=== PATIENT | male | born 1935 | race African-American/Black ===

== ENCOUNTER 2017-07-18 22:29 | Observation (INO) | payer MEDICARE, MEDICAID ==
[~2017-07-18 22:29] MED LIST: SODIUM CHLORIDE 0.9% FLUSH 10 ML FLUSH IV FLUSH PRN
[2017-07-18] MEDS: SODIUM CHLORIDE 0.9% FLUSH 10 ML FLUSH IV FLUSH SCH (23:16)
[2017-07-19] VITALS: BP 150/104; PULSE 54; RESP 18; TEMP 97.5; O2SAT 99
[2017-07-19 04:00] VITALS: BP 142/91; PULSE 54; RESP 18; TEMP 98.1; O2SAT 98
[2017-07-19 08:00] VITALS: BP 156/111; PULSE 59; RESP 19; TEMP 96.4; O2SAT 99
[2017-07-19] MEDS: SODIUM CHLORIDE 0.9% FLUSH 10 ML FLUSH IV FLUSH SCH ×2 (08:19→21:00)
--- NOTE | 2017-07-19 09:36 | HHI.HP ---
[facility] Service [facility] Primary Care Physician Unknown Admission Diagnosis Diagnoses: (1) Confusion Diagnosis: Principal Chief Complaint: Patient was taken to the emergency department by the senior pensions administrator because patient was found in the middle of the street of which he does not live Travel History International Travel<30 Days: No Contact w/Intl Traveler <30 Da: No Traveled to Known Affected Are: No History of Present Illness Written by Darin Contreras, acting as scribe for Dr. Mccarthy on 07/19/17 at 09 :32. 81-year-old male with possible underlying dementia per records to was taken to the emergency department in [place] by the [facility]'s department because he was found in the middle of the street where he does not live. Neighbors called the senior pensions administrator's office because he was trying to start a car in the middle of the street for over 2 hours. Patient is a poor historian, unable to obtain any pertinent information from him at this time. Mostly he is appropriate, he is orientated to person, date of , year, he is not orientated to him being in the hospital. He indicates that there is nothing wrong with him and he is ready to go. ER records indicate that there was a cell phone. The ER called some of the numbers and apparently contacted the patient's son but was estranged from the patient. He indicated that his sister notified him that the patient is mentally challenged. The son lives in [place] and indicated that he received a phone call from a psychiatric hospital a month ago and stated that the patient was in the hospital at that time. Workup was done in emergency department which did not indicate any etiology that would explain the patient's confusion, mental status. It was recommended by ER physician that the patient be evaluated by psychiatry. Review of Systems ROS Limitations: Poor Historian Except as stated in HPI: all other systems reviewed are Neg Past Family Social History Past Medical History Reviewed and patient denies any chronic medical illnesses, however patient not a good historian, possible dementia per records Past Surgical History Reviewed and patient denies any previous surgery, however patient is not a good historian Reported Medications Patient denies taking any home medications Allergies: Coded Allergies: No Known Allergies (Unverified , 07/18/17) Family History Reviewed and patient states that both his mother and father are in [place] , he does not indicate that they have any chronic medical illnesses Social History Patient denied any tobacco, alcohol or illicit drugs Physical Exam Vital Signs Vital Signs Date Time Temp Pulse Resp B/P (MAP) Pulse Ox O2 Delivery O2 Flow Rate FiO2 07/19/17 08:00 96.4 59 19 156/111 (126) 99 07/19/17 04:00 98.1 54 18 142/91 (108) 98 07/19/17 00:00 97.5 54 18 150/104 (119) 99 Physical Exam GENERAL: Well-developed, well-nourished, in no acute distress. alert and orientated to person, date of , year. He does not know that he is in the hospital. HEENT: Head is normocephalic without any lesions or masses noted. Facial features are symmetric. Eyes: Pupils equal round reactive to light. Extraocular muscles are intact. Conjunctivae were clear. Oropharyngeal: Pharynx without any erythema edema. Tongue is midline without deviation. Buccal mucosa is moist without any masses or lesions NECK: Supple without any masses. Trachea midline no deviation. No JVD, no bruits are appreciated CARDIAC: Regular rhythm, regular rate. S1/S2 are heard. No murmurs gallops or rubs. LUNGS: Clear to auscultation bilaterally. No wheeze, rhonchi or rales. No use of accessory muscles on inspiration or expiration. ABDOMEN: Soft, nontender. Nondistended. Bowel sounds heard in all 4 quadrants. No organomegaly or masses. Negative rebound, negative guarding EXTREMITIES: No edema, pulses are equal bilaterally. No cyanosis or clubbing NEUROLOGY: Mood and affect appear appropriate. Cranial nerves II through XII grossly intact. Muscle strength 5/5 in upper and lower extremities bilaterally. Deep tendon reflexes are 2+ in upper and lower extremities bilaterally. Caprini VTE Risk Assessment Caprini VTE Risk Assessment: Mod/High Risk (score >= 2) Caprini Risk Assessment Model Point Value = 1 Point Value = 2 Point Value = 3 Point Value = 5 Age 41-60 Minor surgery BMI > 25 kg/m2 Swollen legs Varicose veins or History of unexplained or recurrent spontaneous Oral contraceptives or hormone replacement Sepsis (< 1 month) Serious lung disease, including pneumonia (< 1 month) Abnormal pulmonary function Acute myocardial infarction Congestive heart failure (< 1 month) History of inflammatory bowel disease Medical patient at bed rest Age 61-74 Arthroscopic surgery Major open surgery (> 45 min) Laparoscopic surgery (> 45 min) Malignancy Confined to bed (> 72 hours) Immobilizing plaster cast Central venous access Age >= 75 History of VTE Family history of VTE Factor V Leiden Prothrombin [id number] Lupus anticoagulant Anticardiolipin antibodies Elevated serum homocysteine Heparin-induced thrombocytopenia Other congenital or acquired thrombophilia Stroke (< 1 month) Elective arthroplasty Hip, pelvis, or leg fracture Acute spinal cord injury (< 1 month) Prophylaxis Regimen Total Risk Factor Score Risk Level Prophylaxis Regimen 0-1 Low Early ambulation 2 Moderate Order ONE of the following: *Sequential Compression Device (SCD) *Heparin 5000 units SQ BID 3-4 Higher Order ONE of the following medications: *Heparin 5000 units SQ TID *Enoxaparin/Lovenox 40 mg SQ daily (WT < 150 kg, CrCl > 30 mL/min) *Enoxaparin/Lovenox 30 mg SQ daily (WT < 150 kg, CrCl > 10-29 mL/min) *Enoxaparin/Lovenox 30 mg SQ BID (WT < 150 kg, CrCl > 30 mL/min) AND/OR *Sequential Compression Device (SCD) 5 or more Highest Order ONE of the following medications: *Heparin 5000 units SQ TID (Preferred with Epidurals) *Enoxaparin/Lovenox 40 mg SQ daily (WT < 150 kg, CrCl > 30 mL/min) *Enoxaparin/Lovenox 30 mg SQ daily (WT < 150 kg, CrCl > 10-29 mL/min) *Enoxaparin/Lovenox 30 mg SQ BID (WT < 150 kg, CrCl > 30 mL/min) AND *Sequential Compression Device (SCD) Assessment and Plan Assessment and Plan Confusion, possible altered mental status/encephalopathy of unknown etiology, possible underlying dementia per records CT of the brain did not indicate any acute abnormality or possible etiology ER workup does not indicate any infectious source as an etiology Thus far no sign of any metabolic encephalopathy as etiology. Obtain ammonia level, sedimentation rate, B12, RPR Obtain EEG Psychiatry consulted, awaiting recommendations Consult case management to help with obtaining further information, discharge planning DVT prevention Sequential compression devices This note was transcribed by scribe [Darin Contreras]. I, Dr. Azael Mccarthy personally performed the history, physical exam, and medical decision making; and confirmed the accuracy of the information in the transcribed note. Authenticated by Dr. Azael Mccarthy on 07/19/17 at 11:25. Darin Contreras Jul 19, 2017 09:36 Azael Mccarthy MD Jul 19, 2017 11:25
[2017-07-19 10:01] LABS: AUTOMATED NEUTROPHIL # 3.1 TH/MM3 (1.8-7.7); BASOPHIL # 0.2 TH/MM3 (0-0.2); BASOPHIL % 3.5 % (0.0-2.0); EOSINOPHIL # 0.1 TH/MM3 (0-0.4); EOSINOPHIL % 1.3 % (0.0-4.0); HEMATOCRIT 47.5 % (39.0-51.0); HEMOGLOBIN 15.6 GM/DL (13.0-17.0); LYMPH % 26.4 % (9.0-44.0); LYMPHOCYTE # 1.3 TH/MM3 (1.0-4.8); MEAN CELL VOLUME 88.9 FL (80.0-100.0); MEAN CORPUSCULAR HEMOGLOBIN 29.2 PG (27.0-34.0); MEAN CORPUSCULAR HGB CONC 32.8 % (32.0-36.0); MEAN PLATELET VOLUME 8.6 FL (7.0-11.0); MONO % 7.4 % (0.0-8.0); MONOCYTE # 0.4 TH/MM3 (0-0.9); NEUT % 61.4 % (16.0-70.0); PLATELET COUNT 285 TH/MM3 (150-450); RED BLOOD COUNT 5.34 MIL/MM3 (4.50-5.90); WHITE BLOOD COUNT 5.1 TH/MM3 (4.0-11.0)
[2017-07-19 10:14] LABS: CHLORIDE 104 MEQ/L (98-107); SODIUM (NA) 140 MEQ/L (136-145)
[2017-07-19 10:17] LABS: CALCIUM 8.2 MG/DL (8.5-10.1)
[2017-07-19 10:18] LABS: ALBUMIN 3.2 GM/DL (3.4-5.0); BICARBONATE 28.5 MEQ/L (21.0-32.0); BLOOD UREA NITROGEN 8 MG/DL (7-18); GLUCOSE,RANDOM 89 MG/DL (74-106)
[2017-07-19 10:21] LABS: ALT (GPT) 11 U/L (12-78); AST (GOT) 12 U/L (15-37); CREATININE 0.86 MG/DL (0.60-1.30); GLOMERULAR FILTRATION RATE 104 ML/MIN (>89)
[2017-07-19 10:22] LABS: TOTAL BILIRUBIN ADULT 1.2 MG/DL (0.2-1.0); TOTAL PROTEIN 7.1 GM/DL (6.4-8.2)
[2017-07-19 10:23] LABS: ALKALINE PHOSPHATASE 74 U/L (45-117)
[2017-07-19 12:00] VITALS: BP 167/106; PULSE 53; RESP 20; TEMP 97.1; O2SAT 99
--- NOTE | 2017-07-19 12:21 | PD.PSY.CON ---
Provisional Diagnosis Admission Date Jul 18, 2017 at 22:30 Soledad I. Dementia without behavioral disturbance is History of Present Illness Service Psychiatry Consult Requested By Reason for Consult Dementia Primary Care Physician Unknown HPI The patient is a 81-year-old man, he reports to be domicile in [place], with possible underlying dementia per records to was taken to the emergency department in [place] by the [facility]'s department because he was found in the middle of the street where he does not live. Neighbors called the production support consultant's office because he was trying to start a car in the middle of the street for over 2 hours. On psychiatric evaluation today patient is calm, alert , but poorly cooperative, he is disoriented in time and place. Patient is a very poor historian, unable to provide any meaningful information to complete the psychiatric assessment. However, he says that he feels fine, he described his mood as happy, he says that he is from [place] and he is right now in a hospital in [place], but at the same time he says that he lives alone in [place]. Patient denies suicidal and homicidal ideation, he denies visual and auditory hallucinations. Denies the use of alcohol and illicit drugs. Review of Systems Except as stated in HPI: all other systems reviewed are Neg Past Family Social History Coded Allergies: No Known Allergies (Unverified , 07/18/17) Current Medications Medications (Trade) Dose Ordered Sig/Jovani Route Start Time Stop Time Status Last Admin (NS Flush) 2 ml UNSCH PRN IV FLUSH 07/18/17 19:30 (NS Flush) 2 ml BID IV FLUSH 07/18/17 21:00 07/19/17 08:19 (Haldol Inj) 2 mg Q6H PRN IM 07/19/17 00:15 Physical Exam Vital Signs Vital Signs Date Time Temp Pulse Resp B/P (MAP) Pulse Ox O2 Delivery O2 Flow Rate FiO2 07/19/17 08:00 96.4 59 19 156/111 (126) 99 I/O 07/19/17 07/19/17 07/20/17 08:00 16:00 00:00 Intake Total 120 ml Balance 120 ml Lab Results Test 07/19/17 09:55 White Blood Count 5.1 TH/MM3 Red Blood Count 5.34 MIL/MM3 Hemoglobin 15.6 GM/DL Hematocrit 47.5 % Mean Corpuscular Volume 88.9 FL Mean Corpuscular Hemoglobin 29.2 PG Mean Corpuscular Hemoglobin Concent 32.8 % Red Cell Distribution Width 15.0 % Platelet Count 285 TH/MM3 Mean Platelet Volume 8.6 FL Neutrophils (%) (Auto) 61.4 % Lymphocytes (%) (Auto) 26.4 % Monocytes (%) (Auto) 7.4 % Eosinophils (%) (Auto) 1.3 % Basophils (%) (Auto) 3.5 % Neutrophils # (Auto) 3.1 TH/MM3 Lymphocytes # (Auto) 1.3 TH/MM3 Monocytes # (Auto) 0.4 TH/MM3 Eosinophils # (Auto) 0.1 TH/MM3 Basophils # (Auto) 0.2 TH/MM3 CBC Comment DIFF FINAL Differential Comment Erythrocyte Sedimentation Rate 4 mm/hr Blood Urea Nitrogen 8 MG/DL Creatinine 0.86 MG/DL Random Glucose 89 MG/DL Total Protein 7.1 GM/DL Albumin 3.2 GM/DL Calcium Level 8.2 MG/DL Alkaline Phosphatase 74 U/L Aspartate Amino Transf (AST/SGOT) 12 U/L Alanine Aminotransferase (ALT/SGPT) 11 U/L Total Bilirubin 1.2 MG/DL Sodium Level 140 MEQ/L Potassium Level 3.4 MEQ/L Chloride Level 104 MEQ/L Carbon Dioxide Level 28.5 MEQ/L Anion Gap 8 MEQ/L Estimat Glomerular Filtration Rate 104 ML/MIN Ammonia 11 MCMOL/L Mental Status Examination Appearance: Appropriate Consciousness: Alert Orientation: Person Motor Activity: Normal gait Speech: Unremarkable Language: Adequate Fund of Knowledge: Adequate Attention and Concentration: Adequate Memory: Impaired Mood: Appropriate Affect: Appropriate Thought Process & Associations: Intact Thought Content: Appropriate Hallucination Type: None Delusion Type: None Suicidal Ideation: No Suicidal Plan: No Suicidal Intention: No Homicidal Ideation: No Homicidal Plan: No Homicidal Intention: No Insight: Poor Judgment: Poor Assessment & Plan Problem List: (1) Dementia associated with alcoholism without behavioral disturbance ICD Codes: F10.97 - Alcohol use, unspecified with alcohol-induced persisting dementia Assessment & Plan: On psychiatric evaluation today the patient presents with severe memory deficits, minimally engageable in a conversation, which seems to be part of an underlying dementia. However, the patient does not present any neuropsychiatric symptoms at this moment, such as depression, anxiety, joey, psychosis, agitation or aggressive behavior that require an immediate psychiatric intervention. Patient denies suicidal and homicidal ideation, patient denies visual and auditory hallucinations. Patient has an increased potential for delirium and as a consequence behavioral dysregulation, in this case agree with Haldol 2 mg IM every 8 hours when necessary. He also might benefit of Aricept 5 mg and Namenda 5 mg to slower progression of dementia. He does not meet criteria for psychiatric admission at this moment. Assessment & Plan Estimated LOS: days Wilson Ontiveros MD Jul 19, 2017 12:21
[2017-07-19 14:05] LABS: FOLATE 5.7 NG/ML (3.1-17.5)
[2017-07-19] MEDS ORDERED: cloNIDine HCL 0.1 MG TAB PO PRN (15:15)
[2017-07-19 16:00] VITALS: BP 151/99; PULSE 56; RESP 18; TEMP 97.2; O2SAT 97
[2017-07-19 20:00] VITALS: BP 123/93; PULSE 66; RESP 20; TEMP 97.6; O2SAT 98
--- NOTE | 2017-07-19 21:21 | MG ---
cc: JEN MAGAÑA M.D. Lab No: Date: 07/19/17 Age: 81 Sex: M Race: REQUESTING PHYSICIAN CHASITY Contreras HISTORY An EEG was obtained on this 81-year-old patient being evaluated for dementia. DESCRIPTION The patient is awake and asleep and the EEG shows 10-12 per second low and some mid amplitude alpha rhythms in the central and posterior head regions. There are low amplitude beta rhythms centrally and frontally. The patient drowses and intermixed theta activity is noted. Photic stimulation shows some bilateral driving response. INTERPRETATION Normal awake and drowsy EEG. Jen Magaña MD OFC/EO /6:47 PM /9:14 PM
[2017-07-20] VITALS (7 sets, daily range): BP systolic 121–136; BP diastolic 74–100; PULSE 56–81; RESP 16–20; TEMP 96.8–98.1; O2SAT 97–100
[2017-07-20 06:17] LABS: AUTOMATED NEUTROPHIL # 3.9 TH/MM3 (1.8-7.7); BASOPHIL % 0.5 % (0.0-2.0); EOSINOPHIL # 0.1 TH/MM3 (0-0.4); EOSINOPHIL % 1.6 % (0.0-4.0); HEMATOCRIT 46.5 % (39.0-51.0); HEMOGLOBIN 15.1 GM/DL (13.0-17.0); LYMPH % 26.4 % (9.0-44.0); LYMPHOCYTE # 1.6 TH/MM3 (1.0-4.8); MEAN CELL VOLUME 88.7 FL (80.0-100.0); MEAN CORPUSCULAR HEMOGLOBIN 28.8 PG (27.0-34.0); MEAN CORPUSCULAR HGB CONC 32.4 % (32.0-36.0); MONO % 7.7 % (0.0-8.0); MONOCYTE # 0.5 TH/MM3 (0-0.9); NEUT % 63.8 % (16.0-70.0); PLATELET COUNT 281 TH/MM3 (150-450); RED BLOOD COUNT 5.24 MIL/MM3 (4.50-5.90); RED CELL DISTRIBUTION WIDTH 14.5 % (11.6-17.2); WHITE BLOOD COUNT 6.1 TH/MM3 (4.0-11.0)
[2017-07-20 06:46] LABS: CHLORIDE 106 MEQ/L (98-107); SODIUM (NA) 142 MEQ/L (136-145)
[2017-07-20 06:50] LABS: CALCIUM 7.9 MG/DL (8.5-10.1)
[2017-07-20 06:51] LABS: ALBUMIN 2.9 GM/DL (3.4-5.0); BICARBONATE 27.4 MEQ/L (21.0-32.0); BLOOD UREA NITROGEN 13 MG/DL (7-18); GLUCOSE,RANDOM 101 MG/DL (74-106)
[2017-07-20 06:54] LABS: ALT (GPT) 12 U/L (12-78); AST (GOT) 7 U/L (15-37); CREATININE 0.94 MG/DL (0.60-1.30); GLOMERULAR FILTRATION RATE 94 ML/MIN (>89)
[2017-07-20 06:56] LABS: TOTAL BILIRUBIN ADULT 0.6 MG/DL (0.2-1.0); TOTAL PROTEIN 6.6 GM/DL (6.4-8.2)
[2017-07-20 06:57] LABS: ALKALINE PHOSPHATASE 71 U/L (45-117)
[2017-07-20] MEDS: SODIUM CHLORIDE 0.9% FLUSH 10 ML FLUSH IV FLUSH SCH ×2 (09:05→21:08)
--- NOTE | 2017-07-20 14:10 | HHI.PR ---
Subjective Remarks Confusion is stable. Psychiatry has evaluated the patient and determine patient has severe dementia. No underlying psychiatric conditions could be identified. EEG shows no evidence of seizure disorder. Objective Vital Signs Date Time Temp Pulse Resp B/P (MAP) Pulse Ox O2 Delivery O2 Flow Rate FiO2 07/20/17 12:00 97.9 59 20 123/95 (104) 100 07/20/17 08:00 96.8 64 20 129/87 (101) 99 07/20/17 07:52 96.8 64 20 129/87 (101) 99 07/20/17 00:00 97.3 70 20 121/86 (98) 97 07/19/17 20:00 97.6 66 20 123/93 (103) 98 07/19/17 16:00 97.2 56 18 151/99 (116) 97 I/O 07/19/17 07/19/17 07/19/17 07/20/17 07/20/17 07/20/17 06:59 14:59 22:59 06:59 14:59 22:59 Intake Total 120 ml 600 ml 240 ml Balance 120 ml 600 ml 240 ml Intake Oral 120 ml 600 ml 240 ml # Voids 1 5 3 # Bowel Movements 0 0 Result Diagram: 07/20/1744607/20/17446 Objective Remarks GENERAL: NAD, A&Ox2 HEAD: Normocephalic. NECK: Supple, trachea midline. No lymphadenopathy. EYES: No scleral icterus. No injection or drainage. CARDIOVASCULAR: Regular rate and rhythm without murmurs, gallops, or rubs. RESPIRATORY: Breath sounds equal bilaterally. No accessory muscle use. GASTROINTESTINAL: Abdomen soft, non-tender, nondistended. MUSCULOSKELETAL: No cyanosis, or edema. SKIN: Warm and dry. NEURO: No focal neurological deficitis. A/P Problem List: (1) Dementia associated with alcoholism without behavioral disturbance ICD Code: F10.97 - Alcohol use, unspecified with alcohol-induced persisting dementia (2) Confusion ICD Code: R41.0 - Disorientation, unspecified Assessment and Plan Assessment and plan 81-year-old male with dementia admitted for acute delirium Acute delirium Resolved Dementia Patient has a deficit of care as an outpatient He would benefit more from inpatient care He does not appear stable enough to care for himself Working on placement DVT prophylaxis Patient ambulatory Azael Mccarthy MD Jul 20, 2017 14:10
[2017-07-21 04:00] VITALS: BP 124/85; PULSE 57; RESP 20; TEMP 96.3; O2SAT 96
[2017-07-21 08:00] VITALS: BP 144/99; PULSE 51; TEMP 97.7
[2017-07-21] MEDS: SODIUM CHLORIDE 0.9% FLUSH 10 ML FLUSH IV FLUSH SCH ×2 (09:00→20:25)
[2017-07-21] MEDS: LACTULOSE SYRUP 20 GM/30 ML CUP PO SCH (11:30)
[2017-07-21 12:00] VITALS: BP 129/65; PULSE 49; RESP 18; TEMP 96.9; O2SAT 100
--- NOTE | 2017-07-21 12:27 | HHI.PR ---
Subjective Remarks Patient in bed looks comfortable he's in a bad mood, he is only oriented to his name, ammonia level is 47 today we'll start lactulose Otherwise no acute event Objective Vitals Vital Signs Date Time Temp Pulse Resp B/P (MAP) Pulse Ox O2 Delivery O2 Flow Rate FiO2 07/21/17 08:00 97.7 51 144/99 (114) 07/21/17 04:00 96.3 57 20 124/85 (98) 96 07/20/17 23:56 97.6 81 20 129/74 (92) 100 07/20/17 20:00 97.8 56 20 136/83 (100) 100 07/20/17 16:00 98.1 70 16 130/100 (110) 97 I/O 07/20/17 07/20/17 07/20/17 07/21/17 07/21/17 07/21/17 07:00 15:00 23:00 07:00 15:00 23:00 Intake Total 240 ml 350 ml Balance 240 ml 350 ml Intake Oral 240 ml 350 ml # Voids 3 2 # Bowel Movements 0 Result Diagram: 07/20/177 07/20/17 044 Objective Remarks GENERAL: NAD, A&Ox2 HEAD: Normocephalic. NECK: Supple, trachea midline. No lymphadenopathy. EYES: No scleral icterus. No injection or drainage. CARDIOVASCULAR: Regular rate and rhythm without murmurs, gallops, or rubs. RESPIRATORY: Breath sounds equal bilaterally. No accessory muscle use. GASTROINTESTINAL: Abdomen soft, non-tender, nondistended. MUSCULOSKELETAL: No cyanosis, or edema. SKIN: Warm and dry. NEURO: No focal neurological deficitis. A/P Problem List: (1) Confusion ICD Code: R41.0 - Disorientation, unspecified Assessment and Plan 81-year-old male with dementia admitted for acute delirium Acute delirium > resolved\ metabolic encephalopathy hyperammonemia> start lactulose Dementia Patient lives alone he become dysfunctional in this dementia\ Will need intermediate placement DVT prophylaxis Patient ambulatory Carlos Gregory MD Jul 21, 2017 12:27
[2017-07-21 20:00] VITALS: BP 165/84; PULSE 50; RESP 18; TEMP 96.7; O2SAT 98
[2017-07-22 08:21] VITALS: BP 157/86; PULSE 55; RESP 16; TEMP 96.7; O2SAT 98
[2017-07-22] MEDS: SODIUM CHLORIDE 0.9% FLUSH 10 ML FLUSH IV FLUSH SCH ×2 (08:37→21:00)
[2017-07-22] MEDS: LACTULOSE SYRUP 20 GM/30 ML CUP PO SCH (08:37)
[2017-07-22 13:14] VITALS: BP 142/90; PULSE 62; RESP 15; TEMP 98.2; O2SAT 98
--- NOTE | 2017-07-22 16:27 | HHI.PR ---
Subjective Remarks pt ignored me completely , in bad mood , he is about to start eating his dinner Objective Vitals Vital Signs Date Time Temp Pulse Resp B/P (MAP) Pulse Ox O2 Delivery O2 Flow Rate FiO2 07/22/17 13:14 98.2 62 15 142/90 (107) 98 07/22/17 08:21 96.7 55 16 157/86 (109) 98 07/21/17 20:00 96.7 50 18 165/84 (111) 98 I/O 07/21/17 07/21/17 07/21/17 07/22/17 07/22/17 07/22/17 07:00 15:00 23:00 07:00 15:00 23:00 Intake Total 240 ml 0 ml 220 ml Balance 240 ml 0 ml 220 ml Intake Oral 240 ml 0 ml 220 ml # Voids 3 1 Result Diagram: 07/20/17 0447 07/20/17 0447 Objective Remarks ignored me , did not allow me to examine A/P Problem List: (1) Confusion ICD Code: R41.0 - Disorientation, unspecified Assessment and Plan 81-year-old male with dementia admitted for acute delirium Acute delirium > resolved\ metabolic encephalopathy hyperammonemia> start lactulose Dementia Patient lives alone he become dysfunctional in this dementia\ Will need fdc placement DVT prophylaxis Patient ambulatory Discharge Planning need placement , [facility] working on finding resposibility green party for him d/e Carlos Barnett CM, MD Jul 22, 2017 16:27
[2017-07-22 16:45] VITALS: BP 130/83; PULSE 57; RESP 15; TEMP 97; O2SAT 98
[2017-07-22 20:00] VITALS: BP 127/84; PULSE 52; RESP 16; TEMP 97.8; O2SAT 93
[2017-07-23] MEDS: LACTULOSE SYRUP 20 GM/30 ML CUP PO SCH (08:06)
[2017-07-23] MEDS: SODIUM CHLORIDE 0.9% FLUSH 10 ML FLUSH IV FLUSH SCH ×2 (08:07→19:40)
[2017-07-23 09:01] VITALS: BP 121/72; PULSE 57; RESP 18; TEMP 97.5; O2SAT 96
[2017-07-23 12:37] VITALS: BP 139/82; PULSE 51; RESP 16; TEMP 96.4; O2SAT 99
[2017-07-23 16:40] VITALS: BP 134/74; PULSE 57; RESP 18; TEMP 97.6; O2SAT 96
--- NOTE | 2017-07-23 17:23 | HHI.PR ---
Subjective Remarks No acute issue awaiting placement Objective Vitals Vital Signs Date Time Temp Pulse Resp B/P (MAP) Pulse Ox O2 Delivery O2 Flow Rate FiO2 07/23/17 16:40 97.6 57 18 134/74 (94) 96 07/23/17 12:37 96.4 51 16 139/82 (101) 99 07/23/17 09:01 97.5 57 18 121/72 (88) 96 07/23/17 04:00 07/22/17 20:00 97.8 52 16 127/84 (98) 93 I/O 07/22/17 07/22/17 07/22/17 07/23/17 07/23/17 07/23/17 07:00 15:00 23:00 07:00 15:00 23:00 Intake Total 220 ml 1040 ml 100 ml 1000 ml Balance 220 ml 1040 ml 100 ml 1000 ml Intake Oral 220 ml 1040 ml 100 ml 1000 ml # Voids 1 3 3 # Bowel Movements 1 Result Diagram: 07/20/17 0447 07/20/17 0447 Objective Remarks ignored me , did not allow me to examine A/P Problem List: (1) Confusion ICD Code: R41.0 - Disorientation, unspecified Assessment and Plan 07/23: No acute issue awaiting placement 81-year-old male with dementia admitted for acute delirium Acute delirium > resolved\ metabolic encephalopathy hyperammonemia> start lactulose Dementia Patient lives alone he become dysfunctional in this dementia\ Will need director cardiovascular placement DVT prophylaxis Patient ambulatory Discharge Planning need placement , SULMA working on finding resposibility republican for him d/e Carlos Barnett CM, MD Jul 23, 2017 17:22
[2017-07-23 20:00] VITALS: BP 113/72; PULSE 60; RESP 16; TEMP 97.8; O2SAT 97
[2017-07-24] VITALS: BP 139/80; PULSE 51; RESP 16; TEMP 97.8; O2SAT 99
[2017-07-24 08:00] VITALS: BP 144/91; PULSE 52; RESP 18; TEMP 97.4; O2SAT 98
[2017-07-24] MEDS: SODIUM CHLORIDE 0.9% FLUSH 10 ML FLUSH IV FLUSH SCH ×2 (09:00→21:14)
[2017-07-24] MEDS: LACTULOSE SYRUP 20 GM/30 ML CUP PO SCH ×2 (09:00→09:25)
[2017-07-24 12:00] VITALS: BP 125/81; PULSE 54; RESP 16; TEMP 96.2; O2SAT 97
--- NOTE | 2017-07-24 13:49 | HHI.PR ---
Subjective Remarks AWAITING placement Objective Vitals Vital Signs Date Time Temp Pulse Resp B/P (MAP) Pulse Ox O2 Delivery O2 Flow Rate FiO2 07/24/17 12:00 96.2 54 16 125/81 (96) 97 07/24/17 08:00 97.4 52 18 144/91 (108) 98 07/24/17 00:00 97.8 51 16 139/80 (99) 99 07/23/17 20:00 97.8 60 16 113/72 (86) 97 07/23/17 16:40 97.6 57 18 134/74 (94) 96 I/O 07/23/17 07/23/17 07/23/17 07/24/17 07/24/17 07/24/17 07:00 15:00 23:00 07:00 15:00 23:00 Intake Total 100 ml 1000 ml 200 ml Balance 100 ml 1000 ml 200 ml Intake Oral 100 ml 1000 ml 200 ml # Voids 3 1 # Bowel Movements 1 Result Diagram: 07/20/17 0447 07/20/17 0447 Objective Remarks sitting on the edge of the bed A/P Problem List: (1) Confusion ICD Code: R41.0 - Disorientation, unspecified Assessment and Plan 81-year-old male with dementia admitted for acute delirium Acute delirium > resolved\ metabolic encephalopathy hyperammonemia> start lactulose Dementia Patient lives alone he become dysfunctional in this dementia\ Will need termite exterminator placement DVT prophylaxis Patient ambulatory Discharge Planning need placement , SULMA working on finding resposibility constitution party for him d/e Carlos Barnett CM, MD Jul 24, 2017 13:49
[2017-07-24 20:00] VITALS: BP 125/72; PULSE 59; RESP 18; TEMP 98.4; O2SAT 98
[2017-07-25 08:00] VITALS: BP 143/80; PULSE 54; RESP 18; TEMP 96.7; O2SAT 98
--- NOTE | 2017-07-25 11:55 | HHI.PR ---
Subjective Remarks Patient is a 81-year-old gentleman who was found wandering in the street and brought to the hospital by 911 services have been unable to find his family and been unable to place this patient without family. He is calm and without complaints Objective Vitals Vital Signs Date Time Temp Pulse Resp B/P (MAP) Pulse Ox O2 Delivery O2 Flow Rate FiO2 07/25/17 08:00 96.7 54 18 143/80 (101) 98 07/24/17 20:00 98.4 59 18 125/72 (89) 98 07/24/17 12:00 96.2 54 16 125/81 (96) 97 I/O 07/24/17 07/24/17 07/24/17 07/25/17 07/25/17 07/25/17 06:59 14:59 22:59 06:59 14:59 22:59 Intake Total 200 ml 600 ml 240 ml Balance 200 ml 600 ml 240 ml Intake Oral 200 ml 600 ml 240 ml # Voids 1 3 # Bowel Movements 1 Objective Remarks GENERAL: This is a well-nourished, well-developed patient, in no apparent distress. CARDIOVASCULAR: Regular rate and rhythm without murmurs, gallops, or rubs. RESPIRATORY: Clear to auscultation. Breath sounds equal bilaterally. No wheezes , rales, or rhonchi. GASTROINTESTINAL: Abdomen soft, non-tender, nondistended. Normal active bowel sounds MUSCULOSKELETAL: Extremities without clubbing, cyanosis, or edema. NEURO: Calm, poorly interactive A/P Problem List: (1) Dementia associated with alcoholism without behavioral disturbance ICD Code: F10.97 - Alcohol use, unspecified with alcohol-induced persisting dementia Plan: We'll continue to search for family for assistance in discharge planning. For now we'll continue to follow patient's blood pressure. We'll recheck his ammonia level as patient has been refusing his lactulose but last ammonia was very normal. Continue safety and fall precautions Skyla Conroy MD Jul 25, 2017 11:55
[2017-07-25 12:00] VITALS: BP 126/72; PULSE 62; RESP 18; TEMP 97.6; O2SAT 96
[2017-07-25 12:43] LABS: BICARBONATE 28.8 MEQ/L (21.0-32.0); CALCIUM 8.4 MG/DL (8.5-10.1)
[2017-07-25 12:46] LABS: CREATININE 0.91 MG/DL (0.60-1.30)
[2017-07-25 16:00] VITALS: BP 138/82; PULSE 60; RESP 18; TEMP 97.6; O2SAT 98
[2017-07-26 08:00] VITALS: BP 132/78; PULSE 52; RESP 18; TEMP 97; O2SAT 98
[2017-07-26 12:00] VITALS: BP 124/83; PULSE 54; RESP 18; TEMP 97.6; O2SAT 98
--- NOTE | 2017-07-26 13:25 | HHI.PR ---
Subjective Remarks Follow up for placement. Patient eating lunch when I enter the room. Objective Vitals Vital Signs Date Time Temp Pulse Resp B/P (MAP) Pulse Ox O2 Delivery O2 Flow Rate FiO2 07/26/17 12:00 97.6 54 18 124/83 (97) 98 07/26/17 08:00 97.0 52 18 132/78 (96) 98 07/25/17 16:00 97.6 60 18 138/82 (100) 98 I/O 07/25/17 07/25/17 07/25/17 07/26/17 07/26/17 07/26/17 07:00 15:00 23:00 07:00 15:00 23:00 Intake Total 240 ml 600 ml Balance 240 ml 600 ml Intake Oral 240 ml 600 ml # Voids 3 3 2 # Bowel Movements 1 Result Diagram: 07/25/17 1205 Objective Remarks GENERAL: Patient in no apparent distress eating lunch. CARDIOVASCULAR: Regular rate and rhythm. RESPIRATORY: No accessory muscle use. RR normal. NEUROLOGICAL: Awake and alert. When I ask the patient if I can listen to his heart and lungs he asks "what?" and when I ask again in a louder tone he again asks "what?". Possible confusion rather than AMBLER. PSYCHIATRIC: Calm behavior. Urinary Catheter: No Vascular Central Line Catheter: No A/P Problem List: (1) Dementia associated with alcoholism without behavioral disturbance ICD Code: F10.97 - Alcohol use, unspecified with alcohol-induced persisting dementia Assessment and Plan Dementia associated with alcoholism without behavioral disturbance -Head CT and EEG performed due to confusion and were normal -Continue safety and fall precautions -Haldol 2 mg IM q8h prn for agitation -CM following Hyperammonemia: 47-->30 (07/25) s/p lactulose which patient began to refuse. -Monitor clinically. If mental status worsens, will repeat level. Follow patient's blood pressure which is currently well controlled. Discharge Planning 07/26/17: Per SUL[facility], a possible son was found in [place]. CM attempted to call this individual but no answer, and no voicemail picked up. Any Alonso Jul 26, 2017 13:25
[2017-07-26 20:00] VITALS: BP 103/78; PULSE 67; RESP 22; TEMP 98.1; O2SAT 98
[2017-07-27 07:50] VITALS: BP 135/87; PULSE 54; RESP 20; TEMP 97.6
--- NOTE | 2017-07-27 11:40 | HHI.PR ---
Subjective Remarks Follow-up for placement issue. When I asked the patient if he is feeling okay he responds "I'm breathing". He mutters "They brought me here". Objective Vitals Vital Signs Date Time Temp Pulse Resp B/P (MAP) Pulse Ox O2 Delivery O2 Flow Rate FiO2 07/27/17 07:50 97.6 54 20 135/87 (103) 07/26/17 20:00 98.1 67 22 103/78 (86) 98 07/26/17 12:00 97.6 54 18 124/83 (97) 98 I/O 07/26/17 07/26/17 07/26/17 07/27/17 07/27/17 07/27/17 07:00 15:00 23:00 07:00 15:00 23:00 Intake Total 0 ml 60 ml Output Total 0 ml Balance 0 ml 60 ml Intake Oral 0 ml 60 ml Output Urine Total 0 ml # Voids 2 2 0 3 # Bowel Movements 0 1 Result Diagram: 07/25/17 1205 Objective Remarks GENERAL: Patient in no apparent distress lying supine in bed, dressed with sneakers on. CARDIOVASCULAR: Regular rate and rhythm. RESPIRATORY: No accessory muscle use. CTAB, although patient does not take deep breaths. GASTROINTESTINAL: Abdomen soft, non-tender, non-distended. NEUROLOGICAL: Awake and alert, but disoriented. He does not know where he is nor the month, year, or president. Normal speech. PSYCHIATRIC: Disgruntled mood and affect. Urinary Catheter: No Vascular Central Line Catheter: No A/P Problem List: (1) Dementia associated with alcoholism without behavioral disturbance ICD Code: F10.97 - Alcohol use, unspecified with alcohol-induced persisting dementia Assessment and Plan Dementia associated with alcoholism without behavioral disturbance -Head CT and EEG performed due to confusion and were normal -Continue safety and fall precautions -Haldol 2 mg IM q8h prn for agitation -CM following Hyperammonemia: 47-->30 (07/25) s/p lactulose which patient began to refuse. -Monitor clinically. If mental status worsens, will repeat level. Follow patient's blood pressure which is currently well controlled. Discharge Planning 07/26/17: Per CM, [place] CM attempted to call this individual but no answer, and no voicemail picked up. Any Alonso Jul 27, 2017 11:40
[2017-07-27 12:00] VITALS: BP 134/106; PULSE 63; RESP 16; TEMP 98.2; O2SAT 100
[2017-07-27 16:00] VITALS: BP 121/87; PULSE 55; RESP 14; TEMP 95.5; O2SAT 93
[2017-07-27 20:00] VITALS: BP 134/86; PULSE 58; RESP 20; TEMP 97.4; O2SAT 96
[2017-07-28 08:00] VITALS: BP 149/88; PULSE 57; RESP 18; TEMP 97; O2SAT 99
--- NOTE | 2017-07-28 08:40 | HHI.PR ---
Subjective Remarks Follow-up for placement. When I asked the patient where he is, he responded "I told them to get me a cab". Objective Vitals Vital Signs Date Time Temp Pulse Resp B/P (MAP) Pulse Ox O2 Delivery O2 Flow Rate FiO2 07/28/17 08:00 97.0 57 18 149/88 (108) 99 07/27/17 20:00 97.4 58 20 134/86 (102) 96 07/27/17 16:00 95.5 55 14 121/87 (98) 93 07/27/17 12:00 98.2 63 16 134/106 (115) 100 I/O 07/27/17 07/27/17 07/27/17 07/28/17 07/28/17 07/28/17 07:00 15:00 23:00 07:00 15:00 23:00 Intake Total 60 ml 340 ml 282 ml 60 ml Balance 60 ml 340 ml 282 ml 60 ml Intake Oral 60 ml 340 ml 282 ml 60 ml # Voids 3 1 2 # Bowel Movements 1 0 0 Result Diagram: 07/25/17 1205 Objective Remarks GENERAL: Patient in no apparent distress sitting on side of bed. CARDIOVASCULAR: Regular rate and rhythm. RESPIRATORY: No accessory muscle use. CTAB, but does not take deep breaths. NEUROLOGICAL: Awake and alert. Normal speech. Does not answer me when I ask him the month. PSYCHIATRIC: Mildly frustrated mood. Poorly interactive. Urinary Catheter: No Vascular Central Line Catheter: No A/P Problem List: (1) Dementia associated with alcoholism without behavioral disturbance ICD Code: F10.97 - Alcohol use, unspecified with alcohol-induced persisting dementia Assessment and Plan Dementia associated with alcoholism without behavioral disturbance -Head CT and EEG performed due to confusion and were normal -Continue safety and fall precautions -Haldol 2 mg IM q8h prn for agitation -CM following Hyperammonemia: 47-->30 (07/25) s/p lactulose which patient began to refuse. -Monitor clinically. If mental status worsens, will repeat level. Follow patient's blood pressure. 07/28: BP elevated at 149/88. Will continue to monitor. Clonidine prn SBP and/ or DBP >/= 160/90. Discharge Planning 07/26/17: Per CM, a possible son was found in [place], [place]. CM attempted to call this individual but no answer, and no voicemail picked up. 07/27/17: Due to inability to find anyone to assist with decision making, requested [facility] to evaluate for guardianship. Application completed and faxed to Rosemary Prater at [facility]. 07/28/17: CM again attempted to call son but it went to voicemail. Any Alonso Jul 28, 2017 08:40
[2017-07-28 12:00] VITALS: BP 140/86; PULSE 55; RESP 18; TEMP 97.5; O2SAT 98
[2017-07-28 16:00] VITALS: BP 142/80; PULSE 54; RESP 20; TEMP 97.2; O2SAT 97
[2017-07-28 20:31] VITALS: BP 133/88; PULSE 54; RESP 16; TEMP 98; O2SAT 97
[2017-07-29 00:34] VITALS: BP 145/84; PULSE 50; RESP 18; TEMP 97.6; O2SAT 96
[2017-07-29 08:00] VITALS: BP 143/90; PULSE 55; RESP 16; TEMP 96.2; O2SAT 95
[2017-07-29 12:00] VITALS: BP 119/77; PULSE 52; RESP 14; TEMP 96.5; O2SAT 99
--- NOTE | 2017-07-29 12:13 | HHI.PR ---
Subjective Remarks Follow-up for placement. Objective Vitals Vital Signs Date Time Temp Pulse Resp B/P (MAP) Pulse Ox O2 Delivery O2 Flow Rate FiO2 07/29/17 08:00 96.2 55 16 143/90 (107) 95 07/29/17 04:39 07/29/17 00:34 97.6 50 18 145/84 (104) 96 07/28/17 20:31 98.0 54 16 133/88 (103) 97 07/28/17 16:00 97.2 54 20 142/80 (100) 97 I/O 07/28/17 07/28/17 07/28/17 07/29/17 07/29/17 07/29/17 07:00 15:00 23:00 07:00 15:00 23:00 Intake Total 60 ml 850 ml 118 ml Balance 60 ml 850 ml 118 ml Intake Oral 60 ml 850 ml 118 ml # Voids 2 3 3 1 # Bowel Movements 0 0 Result Diagram: 07/25/17 1205 Objective Remarks GENERAL: Patient in no apparent distress sitting on side of bed. CARDIOVASCULAR: Regular rate and rhythm. RESPIRATORY: No accessory muscle use. CTAB, but auscultation limited as patient does not take deep breaths. NEUROLOGICAL: Awake and alert. Normal speech. PSYCHIATRIC: Frustrated mood. Poorly interactive. Urinary Catheter: No Vascular Central Line Catheter: No A/P Problem List: (1) Dementia associated with alcoholism without behavioral disturbance ICD Code: F10.97 - Alcohol use, unspecified with alcohol-induced persisting dementia Assessment and Plan Dementia associated with alcoholism without behavioral disturbance -Head CT and EEG performed due to confusion and were normal -Continue safety and fall precautions -Haldol 2 mg IM q8h prn for agitation -CM following Hyperammonemia: 47-->30 (07/25) s/p lactulose which patient began to refuse. -Monitor clinically. If mental status worsens, will repeat level. HTN: Intermittent 07/29: BP mildly elevated this morning. Will continue to monitor. Clonidine prn SBP and/or DBP >/= 160/90. Discharge Planning 07/26/17: Per CM, [place] attempted to call this individual but no answer, and no voicemail picked up. 07/27/17: Due to inability to find anyone to assist with decision making, requested [facility] to evaluate for guardianship. Application completed and faxed to Rosemary Prater at [facility]. 07/28/17: CM again attempted to call son but it went to voicemail. Any Alonso Jul 29, 2017 12:13
[2017-07-29 16:00] VITALS: BP 136/89; PULSE 52; RESP 14; TEMP 96.8; O2SAT 97
[2017-07-29 20:49] VITALS: BP 143/85; PULSE 60; RESP 20; TEMP 98.8; O2SAT 97
[2017-07-30 01:20] VITALS: BP 129/77; PULSE 65; RESP 18; TEMP 97.9; O2SAT 99
[2017-07-30 04:03] VITALS: BP 140/72; PULSE 71; RESP 16; TEMP 97.4; O2SAT 97
[2017-07-30 08:00] VITALS: BP 144/91; PULSE 58; RESP 18; TEMP 97.1; O2SAT 97
--- NOTE | 2017-07-30 08:45 | HHI.PR ---
Subjective Remarks Follow up for placement issue. When I ask the patient if he is ok, he states "I' m breathing". He grumbles stating that he was supposed to get a cab to get a haircut and shave. Objective Vitals Vital Signs Date Time Temp Pulse Resp B/P (MAP) Pulse Ox O2 Delivery O2 Flow Rate FiO2 07/30/17 04:03 97.4 71 16 140/72 (94) 97 07/30/17 01:20 97.9 65 18 129/77 (94) 99 07/29/17 20:49 98.8 60 20 143/85 (104) 97 07/29/17 16:00 96.8 52 14 136/89 (105) 97 07/29/17 12:00 96.5 52 14 119/77 (91) 99 I/O 07/29/17 07/29/17 07/29/17 07/30/17 07/30/17 07/30/17 07:00 15:00 23:00 07:00 15:00 23:00 Intake Total 340 ml 240 ml Balance 340 ml 240 ml Intake Oral 340 ml 240 ml # Voids 3 3 1 2 # Bowel Movements 0 0 Objective Remarks GENERAL: Patient in no apparent distress sitting on side of bed eating a hamburger for breakfast. CARDIOVASCULAR: Regular rate and rhythm. RESPIRATORY: No accessory muscle use. CTAB, but auscultation limited as patient does not take deep breaths. NEUROLOGICAL: Awake and alert. Normal speech. PSYCHIATRIC: Frustrated mood and affect. Urinary Catheter: No Vascular Central Line Catheter: No A/P Problem List: (1) Dementia associated with alcoholism without behavioral disturbance ICD Code: F10.97 - Alcohol use, unspecified with alcohol-induced persisting dementia Assessment and Plan Dementia associated with alcoholism without behavioral disturbance -Head CT and EEG performed due to confusion and were normal -Continue safety and fall precautions -Haldol 2 mg IM q8h prn for agitation -CM following Hyperammonemia: 47-->30 (07/25) s/p lactulose which patient began to refuse. -Monitor clinically. If mental status worsens, will repeat level. HTN: Intermittent -Clonidine prn SBP and/or DBP >/= 160/90. Discharge Planning 07/26/17: Per CM, a possible son was found in [place], [place] III. CM attempted to call this individual but no answer, and no voicemail picked up. 07/27/17: Due to inability to find anyone to assist with decision making, requested [facility] to evaluate for guardianship. Application completed and faxed to Rosemary Prater at [facility]. 07/28/17: CM again attempted to call son but it went to voicemail. Any Alonso Jul 30, 2017 08:45
[2017-07-30 12:00] VITALS: BP 138/88; PULSE 60; RESP 18; TEMP 97.4; O2SAT 97
[2017-07-30 16:00] VITALS: BP 133/88; PULSE 62; RESP 18; TEMP 97.7; O2SAT 96
[2017-07-30 21:00] VITALS: BP 140/78; PULSE 80; RESP 18; TEMP 98; O2SAT 99
[2017-07-31 00:41] VITALS: BP 135/78; PULSE 60; RESP 16; TEMP 98.2; O2SAT 98
[2017-07-31 04:15] VITALS: BP 131/71; PULSE 61; RESP 18; TEMP 97.6; O2SAT 97
[2017-07-31 08:19] VITALS: BP 114/72; PULSE 51; RESP 16; TEMP 96.5; O2SAT 97
--- NOTE | 2017-07-31 09:37 | HHI.PR ---
Subjective Remarks Follow up for placement. Patient sleeping. Objective Vitals Vital Signs Date Time Temp Pulse Resp B/P (MAP) Pulse Ox O2 Delivery O2 Flow Rate FiO2 07/31/17 08:19 96.5 51 16 114/72 (86) 97 07/31/17 04:15 97.6 61 18 131/71 (91) 97 07/31/17 00:41 98.2 60 16 135/78 (97) 98 07/30/17 21:00 98.0 80 18 140/78 (98) 99 07/30/17 16:00 97.7 62 18 133/88 (103) 96 07/30/17 12:00 97.4 60 18 138/88 (105) 97 I/O 07/30/17 07/30/17 07/30/17 07/31/17 07/31/17 07/31/17 07:00 15:00 23:00 07:00 15:00 23:00 Intake Total 960 ml Balance 960 ml Intake Oral 960 ml # Voids 2 3 # Bowel Movements 0 1 Objective Remarks GENERAL: Patient in no apparent distress sleeping when I enter the room, fully dressed with sneakers on. CARDIOVASCULAR: Regular rate and rhythm. RESPIRATORY: No accessory muscle use. CTAB. NEUROLOGICAL: Sleeping but arouses. Normal speech. Urinary Catheter: No Vascular Central Line Catheter: No A/P Problem List: (1) Dementia associated with alcoholism without behavioral disturbance ICD Code: F10.97 - Alcohol use, unspecified with alcohol-induced persisting dementia Assessment and Plan Dementia associated with alcoholism without behavioral disturbance -Head CT and EEG performed due to confusion and were normal -Continue safety and fall precautions -Haldol 2 mg IM q8h prn for agitation -CM following Hyperammonemia: 47-->30 (07/25) s/p lactulose which patient began to refuse. -Monitor clinically. If mental status worsens, will repeat level. HTN: Intermittent, stable -Clonidine prn SBP and/or DBP >/= 160/90. Discharge Planning 07/26/17: Per CM, [place] CM attempted to call this individual but no answer, and no voicemail picked up. 07/27/17: Due to inability to find anyone to assist with decision making, CM requested [facility] to evaluate for guardianship. Application completed and faxed to Rosemary Prater at [facility]. 07/28/17: CM again attempted to call son but it went to voicemail. Ayn Alonso Jul 31, 2017 09:37
[2017-07-31 12:30] VITALS: BP 133/80; PULSE 55; RESP 15; TEMP 96.5; O2SAT 97
[2017-07-31 16:59] VITALS: BP 124/83; PULSE 60; RESP 15; TEMP 97.4; O2SAT 97
[2017-07-31 20:00] VITALS: BP 127/86; PULSE 69; RESP 22; TEMP 97.3; O2SAT 96
[2017-08-01] VITALS: BP 126/74; PULSE 56; RESP 18; TEMP 96.6; O2SAT 99
[2017-08-01 04:00] VITALS: BP 118/64; PULSE 62; RESP 18; TEMP 96.8; O2SAT 98
[2017-08-01 08:00] VITALS: BP 147/92; PULSE 52; RESP 18; TEMP 96.5; O2SAT 97
--- NOTE | 2017-08-01 11:19 | HHI.PR ---
Subjective Remarks Patient seen and examined today for follow-up on dementia, confusion. Patient denies any new complaints. States that on breathing. Awaiting case management discharge planning Objective Vitals Vital Signs Date Time Temp Pulse Resp B/P (MAP) Pulse Ox O2 Delivery O2 Flow Rate FiO2 08/01/17 08:00 96.5 52 18 147/92 (110) 97 08/01/17 04:00 96.8 62 18 118/64 (82) 98 08/01/17 00:00 96.6 56 18 126/74 (91) 99 07/31/17 20:00 97.3 69 22 127/86 (100) 96 07/31/17 16:59 97.4 60 15 124/83 (97) 97 07/31/17 12:30 96.5 55 15 133/80 (97) 97 I/O 07/31/17 07/31/17 07/31/17 08/01/17 08/01/17 08/01/17 07:00 15:00 23:00 07:00 15:00 23:00 Intake Total 1200 ml Balance 1200 ml Intake Oral 1200 ml # Voids 3 7 1 # Bowel Movements 1 Objective Remarks GENERAL: Well-developed, well-nourished, in no acute distress. alert and orientated to person, date of , year. He does not know that he is in the hospital. HEENT: Head is normocephalic without any lesions or masses noted. Facial features are symmetric. Eyes: Pupils equal round reactive to light. Extraocular muscles are intact. NECK: Supple without any masses. Trachea midline no deviation. No JVD, CARDIAC: Regular rhythm, regular rate. S1/S2 are heard. No murmurs gallops or rubs. LUNGS: Clear to auscultation bilaterally. No wheeze, rhonchi or rales. No use of accessory muscles on inspiration or expiration. ABDOMEN: Soft, nontender. Nondistended. Bowel sounds heard in all 4 quadrants. No organomegaly or masses. Negative rebound, negative guarding EXTREMITIES: No edema, pulses are equal bilaterally. No cyanosis or clubbing NEUROLOGY: Mood and affect appear appropriate for dementia patient. Cranial nerves II through XII grossly intact. Moving all extremities, speech is clear Urinary Catheter: No Vascular Central Line Catheter: No A/P Assessment and Plan Confusion, possible altered mental status/encephalopathy of unknown etiology, possible underlying dementia per records Full neurological workup did not indicate any acute abnormality CT of the brain did not indicate any acute abnormality or possible etiology Continue safety and fall precautions Physical therapy evaluated patient indicate patient can go home without any PT recommendations Case management working on discharge planning. Apparently unable to locate any family for decision making Elevated ammonia level which appears to be normalizing this time Psychiatry evaluated patient and indicated that patient is not presenting with any neuropsychiatric symptoms. Recommended Haldol 2 mg IM every 8 hours as needed Psychiatry recommended possible benefit of Aricept or Namenda to slow the progression of his dementia Elevated blood pressure Clonidine as needed Monitor blood pressure and start medication if needed DVT prevention Sequential compression devices Discharge Planning Awaiting case management discharge planning Darin Contreras Aug 01, 2017 11:19
[2017-08-01] MEDS ORDERED: ONDANSETRON ODT 4 MG TAB PO PRN (11:30)
[2017-08-01] MEDS ORDERED: MAGNESIUM HYDROXIDE SUSP 30 ML CUP PO PRN (11:30)
[2017-08-01] MEDS ORDERED: DOCUSATE SODIUM 100 MG CAP PO PRN (11:30)
[2017-08-01] MEDS ORDERED: CALCIUM CARBONATE 500 MG CHEWABLE TAB CHEW PRN (11:30)
[2017-08-01] MEDS ORDERED: ACETAMINOPHEN 325 MG TAB PO PRN (11:30)
[2017-08-01 12:00] VITALS: BP 138/88; PULSE 60; RESP 18; TEMP 97.1; O2SAT 97
[2017-08-01 16:00] VITALS: BP 132/81; PULSE 64; RESP 18; TEMP 97; O2SAT 97
[2017-08-01 20:00] VITALS: BP 114/71; PULSE 59; RESP 20; TEMP 96.2; O2SAT 96
[2017-08-02 08:00] VITALS: BP 140/78; PULSE 52; RESP 18; TEMP 97.8; O2SAT 99
--- NOTE | 2017-08-02 09:53 | HHI.PR ---
Subjective Remarks Patient seen and examined today for follow-up on dementia, social issue. Patient was mildly cantankerous this morning because he does not like to be woke up. He denies any new complaints. Objective Vitals Vital Signs Date Time Temp Pulse Resp B/P (MAP) Pulse Ox O2 Delivery O2 Flow Rate FiO2 08/02/17 08:00 97.8 52 18 140/78 (98) 99 08/01/17 20:00 96.2 59 20 114/71 (85) 96 08/01/17 16:00 97.0 64 18 132/81 (98) 97 08/01/17 12:00 97.1 60 18 138/88 (105) 97 I/O 08/01/17 08/01/17 08/01/17 08/02/17 08/02/17 08/02/17 07:00 15:00 23:00 07:00 15:00 23:00 Intake Total 120 ml 60 ml Balance 120 ml 60 ml Intake Oral 120 ml 60 ml # Voids 1 1 1 # Bowel Movements 0 0 Objective Remarks GENERAL: Well-developed, well-nourished, in no acute distress. alert and orientated to person, date of , year. He does not know that he is in the hospital. HEENT: Head is normocephalic without any lesions or masses noted. Facial features are symmetric. Eyes: Pupils equal round reactive to light. Extraocular muscles are intact. NECK: Supple without any masses. Trachea midline no deviation. No JVD, CARDIAC: Regular rhythm, regular rate. S1/S2 are heard. No murmurs gallops or rubs. LUNGS: Clear to auscultation bilaterally. No wheeze, rhonchi or rales. No use of accessory muscles on inspiration or expiration. ABDOMEN: Soft, nontender. Nondistended. Bowel sounds heard in all 4 quadrants. No organomegaly or masses. Negative rebound, negative guarding EXTREMITIES: No edema, pulses are equal bilaterally. No cyanosis or clubbing NEUROLOGY: Mood and affect appear appropriate for dementia patient. Cranial nerves II through XII grossly intact. Moving all extremities, speech is clear Urinary Catheter: No Vascular Central Line Catheter: No A/P Assessment and Plan Confusion, possible altered mental status/encephalopathy of unknown etiology, possible underlying dementia per records Full neurological workup did not indicate any acute abnormality CT of the brain did not indicate any acute abnormality or possible etiology Continue safety and fall precautions Physical therapy evaluated patient indicate patient can go home without any PT recommendations Case management working on discharge planning. Apparently unable to locate any family for decision making Elevated ammonia level which appears to be normalizing this time Psychiatry evaluated patient and indicated that patient is not presenting with any neuropsychiatric symptoms. Recommended Haldol 2 mg IM every 8 hours as needed Psychiatry recommended possible benefit of Aricept or Namenda to slow the progression of his dementia Elevated blood pressure Clonidine as needed Monitor blood pressure and start medication if needed DVT prevention Sequential compression devices Discharge Planning Awaiting case management discharge planning Darin Contreras Aug 02, 2017 09:53
[2017-08-02 12:00] VITALS: BP 142/88; PULSE 54; RESP 18; TEMP 97.4; O2SAT 99
[2017-08-02 16:00] VITALS: BP 138/77; PULSE 51; RESP 20; TEMP 97.8; O2SAT 99
[2017-08-02 20:00] VITALS: BP 131/83; PULSE 53; RESP 20; TEMP 97; O2SAT 97
[2017-08-03 08:00] VITALS: BP 135/80; PULSE 57; RESP 19; TEMP 96.7; O2SAT 97
--- NOTE | 2017-08-03 08:22 | HHI.PR ---
Subjective Remarks Patient seen and examined today for follow-up on dementia, confusion. Patient denies any complaints today. He does not like to be woke up. No change in clinical status Objective Vitals Vital Signs Date Time Temp Pulse Resp B/P (MAP) Pulse Ox O2 Delivery O2 Flow Rate FiO2 08/02/17 20:00 97.0 53 20 131/83 (99) 97 08/02/17 16:00 97.8 51 20 138/77 (97) 99 08/02/17 12:00 97.4 54 18 142/88 (106) 99 I/O 08/02/17 08/02/17 08/02/17 08/03/17 08/03/17 08/03/17 07:00 15:00 23:00 07:00 15:00 23:00 Intake Total 60 ml 650 ml 120 ml 60 ml Balance 60 ml 650 ml 120 ml 60 ml Intake Oral 60 ml 650 ml 120 ml 60 ml # Voids 1 2 1 2 # Bowel Movements 0 0 0 Objective Remarks GENERAL: Well-developed, well-nourished, in no acute distress. alert and orientated to person, date of , year. He does not know that he is in the hospital. HEENT: Head is normocephalic without any lesions or masses noted. Facial features are symmetric. Eyes: Pupils equal round reactive to light. Extraocular muscles are intact. NECK: Supple without any masses. Trachea midline no deviation. No JVD, CARDIAC: Regular rhythm, regular rate. S1/S2 are heard. No murmurs gallops or rubs. LUNGS: Clear to auscultation bilaterally. No wheeze, rhonchi or rales. No use of accessory muscles on inspiration or expiration. ABDOMEN: Soft, nontender. Nondistended. Bowel sounds heard in all 4 quadrants. No organomegaly or masses. Negative rebound, negative guarding EXTREMITIES: No edema, pulses are equal bilaterally. No cyanosis or clubbing NEUROLOGY: Mood and affect appear appropriate for dementia patient. Cranial nerves II through XII grossly intact. Moving all extremities, speech is clear Urinary Catheter: No Vascular Central Line Catheter: No A/P Assessment and Plan Confusion, possible altered mental status/encephalopathy of unknown etiology, possible underlying dementia per records Full neurological workup did not indicate any acute abnormality CT of the brain did not indicate any acute abnormality or possible etiology Continue safety and fall precautions Physical therapy evaluated patient indicate patient can go home without any PT recommendations Case management working on discharge planning. Apparently unable to locate any family for decision making Elevated ammonia level which appears to be normalizing this time, continue monitor periodically Psychiatry evaluated patient and indicated that patient is not presenting with any neuropsychiatric symptoms. Recommended Haldol 2 mg IM every 8 hours as needed Psychiatry recommended possible benefit of Aricept or Namenda to slow the progression of his dementia Elevated blood pressure Clonidine as needed Monitor blood pressure and start medication if needed DVT prevention Sequential compression devices Records were reviewed and. No change in current treatment plan. Awaiting case management for discharge planning Discharge Planning Awaiting case management discharge planning Darin Contreras Aug 03, 2017 08:22
[2017-08-03 20:00] VITALS: BP 107/71; PULSE 58; RESP 18; TEMP 96.3; O2SAT 98
[2017-08-04 07:50] VITALS: BP 143/86; PULSE 58; RESP 20; TEMP 97.7; O2SAT 95
--- NOTE | 2017-08-04 10:55 | HHI.PR ---
Subjective Remarks Patient seen and examined today for follow-up on dementia. Patient denies any new complaints. No change in clinical status. Awaiting case management for discharge planning Objective Vitals Vital Signs Date Time Temp Pulse Resp B/P (MAP) Pulse Ox O2 Delivery O2 Flow Rate FiO2 08/04/17 07:50 97.7 58 20 143/86 (105) 95 08/03/17 20:00 96.3 58 18 107/71 (83) 98 I/O 08/03/17 08/03/17 08/03/17 08/04/17 08/04/17 08/04/17 07:00 15:00 23:00 07:00 15:00 23:00 Intake Total 60 ml 900 ml 60 ml Balance 60 ml 900 ml 60 ml Intake Oral 60 ml 900 ml 60 ml # Voids 2 3 2 # Bowel Movements 0 0 Objective Remarks GENERAL: Well-developed, well-nourished, in no acute distress. alert and orientated to person, date of , year. He does not know that he is in the hospital. HEENT: Head is normocephalic without any lesions or masses noted. Facial features are symmetric. Eyes: Pupils equal round reactive to light. Extraocular muscles are intact. NECK: Supple without any masses. Trachea midline no deviation. No JVD, CARDIAC: Regular rhythm, regular rate. S1/S2 are heard. No murmurs gallops or rubs. LUNGS: Clear to auscultation bilaterally. No wheeze, rhonchi or rales. No use of accessory muscles on inspiration or expiration. ABDOMEN: Soft, nontender. Nondistended. Bowel sounds heard in all 4 quadrants. No organomegaly or masses. Negative rebound, negative guarding EXTREMITIES: No edema, pulses are equal bilaterally. No cyanosis or clubbing NEUROLOGY: Mood and affect appear appropriate for dementia patient. Cranial nerves II through XII grossly intact. Moving all extremities, speech is clear Urinary Catheter: No Vascular Central Line Catheter: No A/P Assessment and Plan Confusion, possible altered mental status/encephalopathy of unknown etiology, possible underlying dementia per records Full neurological workup did not indicate any acute abnormality CT of the brain did not indicate any acute abnormality or possible etiology Continue safety and fall precautions Physical therapy evaluated patient indicate patient can go home without any PT recommendations Case management working on discharge planning. Apparently unable to locate any family for decision making Elevated ammonia level which appears to be normalizing this time, continue monitor periodically Psychiatry evaluated patient and indicated that patient is not presenting with any neuropsychiatric symptoms. Recommended Haldol 2 mg IM every 8 hours as needed Psychiatry recommended possible benefit of Aricept or Namenda to slow the progression of his dementia Elevated blood pressure Clonidine as needed Monitor blood pressure and start medication if needed DVT prevention Sequential compression devices Records were reviewed. Awaiting case management for discharge planning, No change in current treatment plan. Discharge Planning Awaiting case management discharge planning Darin Contreras Aug 04, 2017 10:55
[2017-08-04 20:00] VITALS: BP 131/80; PULSE 56; RESP 20; TEMP 96.8; O2SAT 96
[2017-08-05 08:00] VITALS: BP 139/80; PULSE 54; RESP 18; TEMP 97.2; O2SAT 97
--- NOTE | 2017-08-05 08:35 | HHI.PR ---
Subjective Remarks Patient seen and examined today for follow-up on dementia. Patient states that he is still breathing. He denies any new complaints. Objective Vitals Vital Signs Date Time Temp Pulse Resp B/P (MAP) Pulse Ox O2 Delivery O2 Flow Rate FiO2 08/04/17 20:00 96.8 56 20 131/80 (97) 96 I/O 08/04/17 08/04/17 08/04/17 08/05/17 08/05/17 08/05/17 07:00 15:00 23:00 07:00 15:00 23:00 Intake Total 60 ml 684 ml 0 ml Balance 60 ml 684 ml 0 ml Intake Oral 60 ml 684 ml 0 ml # Voids 2 2 1 # Bowel Movements 0 0 Objective Remarks GENERAL: Well-developed, well-nourished, in no acute distress. alert and orientated to person, date of , year. He does not know that he is in the hospital. HEENT: Head is normocephalic without any lesions or masses noted. Facial features are symmetric. Eyes: Pupils equal round reactive to light. Extraocular muscles are intact. NECK: Supple without any masses. Trachea midline no deviation. No JVD, CARDIAC: Regular rhythm, regular rate. S1/S2 are heard. No murmurs gallops or rubs. LUNGS: Clear to auscultation bilaterally. No wheeze, rhonchi or rales. No use of accessory muscles on inspiration or expiration. ABDOMEN: Soft, nontender. Nondistended. Bowel sounds heard in all 4 quadrants. No organomegaly or masses. Negative rebound, negative guarding EXTREMITIES: No edema, pulses are equal bilaterally. No cyanosis or clubbing NEUROLOGY: Mood and affect appear appropriate for dementia patient. Cranial nerves II through XII grossly intact. Moving all extremities, speech is clear Urinary Catheter: No Vascular Central Line Catheter: No A/P Assessment and Plan Confusion, possible altered mental status/encephalopathy of unknown etiology, possible underlying dementia per records Full neurological workup did not indicate any acute abnormality CT of the brain did not indicate any acute abnormality or possible etiology Continue safety and fall precautions Physical therapy evaluated patient indicate patient can go home without any PT recommendations Case management working on discharge planning. Apparently unable to locate any family for decision making Elevated ammonia level which appears to be normalizing this time, continue monitor periodically Psychiatry evaluated patient and indicated that patient is not presenting with any neuropsychiatric symptoms. Recommended Haldol 2 mg IM every 8 hours as needed Psychiatry recommended possible benefit of Aricept or Namenda to slow the progression of his dementia Elevated blood pressure Clonidine as needed Monitor blood pressure and start medication if needed DVT prevention Sequential compression devices Records were reviewed. No change in current treatment plan. Awaiting case management for discharge planning, Discharge Planning Case management for discharge planning. Darin Contreras Aug 05, 2017 08:35
[2017-08-05 19:58] VITALS: BP 143/80; PULSE 54; RESP 18; TEMP 97; O2SAT 98
[2017-08-06 08:00] VITALS: BP 144/75; PULSE 55; RESP 18; TEMP 97.1; O2SAT 95
--- NOTE | 2017-08-06 09:09 | HHI.PR ---
Subjective Remarks Patient seen and examined today for follow-up on confusion, dementia. Patient denies any new complaints today. No change in clinical status. Awaiting case management for discharge planning Objective Vitals Vital Signs Date Time Temp Pulse Resp B/P (MAP) Pulse Ox O2 Delivery O2 Flow Rate FiO2 08/06/17 08:00 97.1 55 18 144/75 (98) 95 08/06/17 02:59 08/05/17 19:58 97.0 54 18 143/80 (101) 98 I/O 08/05/17 08/05/17 08/05/17 08/06/17 08/06/17 08/06/17 07:00 15:00 23:00 07:00 15:00 23:00 Intake Total 0 ml 950 ml Balance 0 ml 950 ml Intake Oral 0 ml 950 ml # Voids 1 3 2 # Bowel Movements 0 Objective Remarks GENERAL: Well-developed, well-nourished, in no acute distress. alert and orientated to person, date of , year. He does not know that he is in the hospital. HEENT: Head is normocephalic without any lesions or masses noted. Facial features are symmetric. Eyes: Pupils equal round reactive to light. Extraocular muscles are intact. NECK: Supple without any masses. Trachea midline no deviation. No JVD, CARDIAC: Regular rhythm, regular rate. S1/S2 are heard. No murmurs gallops or rubs. LUNGS: Clear to auscultation bilaterally. No wheeze, rhonchi or rales. No use of accessory muscles on inspiration or expiration. ABDOMEN: Soft, nontender. Nondistended. Bowel sounds heard in all 4 quadrants. No organomegaly or masses. Negative rebound, negative guarding EXTREMITIES: No edema, pulses are equal bilaterally. No cyanosis or clubbing NEUROLOGY: Mood and affect appear appropriate for dementia patient. Cranial nerves II through XII grossly intact. Moving all extremities, speech is clear Urinary Catheter: No Vascular Central Line Catheter: No A/P Assessment and Plan Confusion, possible altered mental status/encephalopathy of unknown etiology, possible underlying dementia per records Full neurological workup did not indicate any acute abnormality CT of the brain did not indicate any acute abnormality or possible etiology Continue safety and fall precautions Physical therapy evaluated patient indicate patient can go home without any PT recommendations Case management working on discharge planning. Apparently unable to locate any family for decision making Elevated ammonia level which appears to be normalizing this time, continue monitor periodically Psychiatry evaluated patient and indicated that patient is not presenting with any neuropsychiatric symptoms. Recommended Haldol 2 mg IM every 8 hours as needed Psychiatry recommended possible benefit of Aricept or Namenda to slow the progression of his dementia Elevated blood pressure Clonidine as needed Start Norvasc 5 mg daily DVT prevention Sequential compression devices Discharge Planning Case management for discharge planning. Darin Contreras Aug 06, 2017 09:09
[2017-08-06] MEDS: amLODIPine BESYLATE 5 MG TAB PO SCH (09:32)
[2017-08-06 21:41] VITALS: BP 155/82; PULSE 50; RESP 16; TEMP 97.4; O2SAT 97
[2017-08-07 08:00] VITALS: BP 142/81; PULSE 59; RESP 12; O2SAT 97
[2017-08-07] MEDS: amLODIPine BESYLATE 5 MG TAB PO SCH (08:55)
--- NOTE | 2017-08-07 09:34 | HHI.PR ---
Subjective Remarks Patient seen and examined today for follow-up on dementia, confusion, elevated blood pressure. Patient lying in bed. Denies any new complaints. No change in clinical status. Awaiting case management discharge planning. Objective Vitals Vital Signs Date Time Temp Pulse Resp B/P (MAP) Pulse Ox O2 Delivery O2 Flow Rate FiO2 08/06/17 21:41 97.4 50 16 155/82 (106) 97 I/O 08/06/17 08/06/17 08/06/17 08/07/17 08/07/17 08/07/17 07:00 15:00 23:00 07:00 15:00 23:00 Intake Total 850 ml 350 ml Balance 850 ml 350 ml Intake Oral 850 ml 350 ml # Voids 2 3 2 2 # Bowel Movements 0 1 1 Objective Remarks GENERAL: Well-developed, well-nourished, in no acute distress. alert and orientated to person, date of , year. He does not know that he is in the hospital. HEENT: Head is normocephalic without any lesions or masses noted. Facial features are symmetric. Eyes: Pupils equal round reactive to light. Extraocular muscles are intact. NECK: Supple without any masses. Trachea midline no deviation. No JVD, CARDIAC: Regular rhythm, regular rate. S1/S2 are heard. No murmurs gallops or rubs. LUNGS: Clear to auscultation bilaterally. No wheeze, rhonchi or rales. No use of accessory muscles on inspiration or expiration. ABDOMEN: Soft, nontender. Nondistended. Bowel sounds heard in all 4 quadrants. No organomegaly or masses. Negative rebound, negative guarding EXTREMITIES: No edema, pulses are equal bilaterally. No cyanosis or clubbing NEUROLOGY: Mood and affect appear appropriate for dementia patient. Cranial nerves II through XII grossly intact. Moving all extremities, speech is clear Urinary Catheter: No Vascular Central Line Catheter: No A/P Assessment and Plan Confusion, possible altered mental status/encephalopathy of unknown etiology, possible underlying dementia per records Full neurological workup did not indicate any acute abnormality CT of the brain did not indicate any acute abnormality or possible etiology Continue safety and fall precautions Physical therapy evaluated patient indicate patient can go home without any PT recommendations Case management working on discharge planning. Apparently unable to locate any family for decision making Elevated ammonia level which appears to be normalizing this time, continue monitor periodically Psychiatry evaluated patient and indicated that patient is not presenting with any neuropsychiatric symptoms. Recommended Haldol 2 mg IM every 8 hours as needed Psychiatry recommended possible benefit of Aricept or Namenda to slow the progression of his dementia Elevated blood pressure Clonidine as needed Patient refusing Norvasc 5 mg daily DVT prevention Sequential compression devices Discharge Planning Case management for discharge planning. Darin Contreras Aug 07, 2017 09:34
[2017-08-07 20:00] VITALS: BP 151/87; PULSE 52; RESP 20; TEMP 96; O2SAT 96
[2017-08-08 08:00] VITALS: BP 130/78; PULSE 59; RESP 18; TEMP 97.1; O2SAT 100
[2017-08-08] MEDS: amLODIPine BESYLATE 5 MG TAB PO SCH (09:23)
--- NOTE | 2017-08-08 09:51 | HHI.PR ---
Subjective Remarks Follow up dementia, confusion, hypertension. Patient seen and examined today, sitting up on side of bed. Awake and alert, confused regarding place. Denies any new acute complaints overnight. Expresses irritation in being in the hospital, does not understand why he is here. Attempted to educate, patient withdrawn and nonengaged in conversation. Denies any recent fever, chills, headache, cough, shortness of breath, ab pain, n/v/d or dysuria. Eating well. Objective Vitals Vital Signs Date Time Temp Pulse Resp B/P (MAP) Pulse Ox O2 Delivery O2 Flow Rate FiO2 08/08/17 08:00 97.1 59 18 130/78 (95) 100 08/07/17 20:00 96.0 52 20 151/87 (108) 96 I/O 08/07/17 08/07/17 08/07/17 08/08/17 08/08/17 08/08/17 07:00 15:00 23:00 07:00 15:00 23:00 Intake Total 444 ml 222 ml Balance 444 ml 222 ml Intake Oral 444 ml 222 ml # Voids 2 2 # Bowel Movements 1 0 Objective Remarks GENERAL: Well-nourished, well-developed male patient sitting up on side of bed in [facility]. Alert and awake, confused regarding place. SKIN: Warm and dry. No rash. HEENT: Normocephalic. Atraumatic. Pupils equal and round. No scleral icterus. No injection or drainage. No nasal bleeding or discharge. Mucous membranes pink and moist. PERRL. EOMs intact. NECK: Supple. Trachea midline. CARDIOVASCULAR: Regular rate and rhythm. S1, S2 noted. No murmur appreciated. RESPIRATORY: No accessory muscle use. Clear to auscultation. Breath sounds equal bilaterally. GASTROINTESTINAL: Abdomen soft, non-tender, nondistended. Normoactive bowel sounds x4. No guarding. MUSCULOSKELETAL: No obvious deformities. Extremities without clubbing, cyanosis , or edema. NEUROLOGICAL: Awake and alert. No obvious cranial nerve deficits. Motor grossly within normal limits. 5/5 muscle strength in bilateral upper and lower extremities. Normal speech. A/P Problem List: (1) Dementia associated with alcoholism without behavioral disturbance ICD Code: F10.97 - Alcohol use, unspecified with alcohol-induced persisting dementia Assessment and Plan Confusion, possible altered mental status/encephalopathy of unknown etiology, possible underlying dementia per records Full neurological workup did not indicate any acute abnormality CT of the brain did not indicate any acute abnormality or possible etiology Continue safety and fall precautions. Physical therapy evaluated patient indicate patient can go home without any PT recommendations Case management working on discharge planning. Apparently unable to locate any family for decision making Elevated ammonia level which appears to be normalizing this time, continue monitor periodically. Psychiatry evaluated patient and indicated that patient is not presenting with any neuropsychiatric symptoms. Recommended Haldol 2 mg IM every 8 hours as needed Psychiatry recommended possible benefit of Aricept or Namenda to slow the progression of his dementia. Hypertension Clonidine as needed. Patient refusing Norvasc 5 mg daily. Systolic BP's 130's-150's. Continue to monitor BP trends. DVT prophylaxis: SCDs. Discharge Planning Case management assisting. Emilee Ward Aug 08, 2017 09:51
[2017-08-08 20:00] VITALS: BP 127/76; PULSE 59; RESP 20; TEMP 96; O2SAT 95
[2017-08-09 08:00] VITALS: BP 136/87; PULSE 56; RESP 18; TEMP 96.5; O2SAT 97
[2017-08-09] MEDS: amLODIPine BESYLATE 5 MG TAB PO SCH (08:17)
--- NOTE | 2017-08-09 13:45 | HHI.PR ---
Subjective Remarks Follow up dementia, confusion, hypertension. Patient seen and examined today, sitting up on side of bed eating lunch. In NAD. Seems irritable, not engaging in conversation. Follows commands. Denies any new acute events overnight. Objective Vitals Vital Signs Date Time Temp Pulse Resp B/P (MAP) Pulse Ox O2 Delivery O2 Flow Rate FiO2 08/09/17 08:00 96.5 56 18 136/87 (103) 97 08/08/17 20:00 96.0 59 20 127/76 (93) 95 I/O 08/08/17 08/08/17 08/08/17 08/09/17 08/09/17 08/09/17 07:00 15:00 23:00 07:00 15:00 23:00 Intake Total 60 ml 120 ml 60 ml Balance 60 ml 120 ml 60 ml Intake Oral 60 ml 120 ml 60 ml # Voids 2 1 1 # Bowel Movements 0 0 0 Objective Remarks GENERAL: Well-nourished, well-developed male patient sitting up on side of bed in NAD. Alert and awake, confused regarding place. SKIN: Warm and dry. No rash. HEENT: Normocephalic. Atraumatic. Pupils equal and round. No scleral icterus. No injection or drainage. No nasal bleeding or discharge. Mucous membranes pink and moist. PERRL. EOMs intact. NECK: Supple. Trachea midline. CARDIOVASCULAR: Regular rate and rhythm. S1, S2 noted. No murmur appreciated. RESPIRATORY: No accessory muscle use. Clear to auscultation. Breath sounds equal bilaterally. GASTROINTESTINAL: Abdomen soft, non-tender, nondistended. Normoactive bowel sounds x4. No guarding. MUSCULOSKELETAL: No obvious deformities. Extremities without clubbing, cyanosis , or edema. NEUROLOGICAL: Awake and alert. No obvious cranial nerve deficits. Motor grossly within normal limits. 5/5 muscle strength in bilateral upper and lower extremities. Normal speech. A/P Problem List: (1) Dementia associated with alcoholism without behavioral disturbance ICD Code: F10.97 - Alcohol use, unspecified with alcohol-induced persisting dementia Assessment and Plan Confusion, possible altered mental status/encephalopathy of unknown etiology, possible underlying dementia per records Full neurological workup did not indicate any acute abnormality CT of the brain did not indicate any acute abnormality or possible etiology Continue safety and fall precautions. Physical therapy evaluated patient indicate patient can go home without any PT recommendations. Status post elevated ammonia level, continue monitor periodically. Psychiatry previously evaluated patient and indicated that patient is not presenting with any neuropsychiatric symptoms. Recommended Haldol 2 mg IM every 8 hours as needed Psychiatry recommended possible benefit of Aricept or Namenda to slow the progression of his dementia. Reconsulted for input regarding competency/ capacity. Hypertension Clonidine as needed. Patient refusing Norvasc 5 mg daily. Systolic BP's 130's-150's. Continue to monitor BP trends. DVT prophylaxis: SCDs. Discharge Planning Case management assisting. Able to locate family today. Emilee Ward Aug 09, 2017 13:45
[2017-08-09 20:00] VITALS: BP 119/68; PULSE 58; RESP 20; TEMP 96; O2SAT 95
[2017-08-10 08:00] VITALS: BP 142/85; PULSE 55; RESP 16; TEMP 95.1; O2SAT 98
--- NOTE | 2017-08-10 08:00 | HHI.PYPN ---
Subjective Remarks Patient was seen today for psychiatric reevaluation, case was widely discussed with nurse in charge also with primary medical team. On psychiatric evaluation patient is calm, superficially cooperative, he is disoriented in time and place. Patient does not seem to be aware of the reason of his hospitalization. His that he was brought here "to this place in a Jeep". She says that he has been living "inside a jeep in [place] with his best friend", but he is unable to provide details about the identity of this friend. Since the patient doesn' t know what is she at this moment he is unable to verbalize a rational choice regarding his discharge plan, and definitely unable to verbalize eating a fair understanding and appreciation of his medical and mental condition consequences of his actions. The patient has been compliant with his medications, it is not significant side effects reported. No episodes of agitation, paranoia, behavioral dysregulation or violence reported. Review of Systems Except as stated in HPI: all other systems reviewed are Neg Mental Status Examination Appearance: Appropriate Consciousness: Alert Orientation: Person Motor Activity: Normal gait Speech: Unremarkable Language: Adequate Fund of Knowledge: Adequate Attention and Concentration: Adequate Memory: Impaired Mood: Appropriate Affect: Appropriate Thought Process & Associations: Intact Thought Content: Appropriate Hallucination Type: None Delusion Type: None Suicidal Ideation: No Suicidal Plan: No Suicidal Intention: No Homicidal Ideation: No Homicidal Plan: No Homicidal Intention: No Insight: Poor Judgment: Poor Results Vitals/IOs Vital Signs Date Time Temp Pulse Resp B/P (MAP) Pulse Ox O2 Delivery O2 Flow Rate FiO2 08/09/17 20:00 96.0 58 20 119/68 (85) 95 Intake and Output 08/10/17 08/10/17 08/11/17 08:00 16:00 00:00 Intake Total 60 ml Balance 60 ml Assessment & Plan Problem List: (1) Dementia associated with alcoholism without behavioral disturbance ICD Codes: F10.97 - Alcohol use, unspecified with alcohol-induced persisting dementia Assessment & Plan: Due to his advanced level of cognitive impairment the patient lacks the four major cores of decision making capacity: expression of a rational choice, ability to manege rationally basic information, and inability to verbalize understanding and appreciation of current medical conditions. At the moment of this evaluation the patient lacks decision-making capacity to participate in discharge planning. Assessment & Plan Estimated LOS: days Justification for Cont. Inpt. No psychiatric admission recommended. Wilson Ontiveros MD Aug 10, 2017 08:00
--- NOTE | 2017-08-10 08:42 | HHI.PR ---
Subjective Remarks Follow up dementia, confusion, hypertension. Patient seen and examined today, lying in bed sleeping. Awakens to voice, minimal verbalization. Denies any new acute events overnight. States he feels fine. Not engaged in conversation. Afebrile. Positive BM. Ambulating well. Spoke to RN at beside, no new changes in clinical condition. Has been intermittently refusing medications and care. Objective Vitals Vital Signs Date Time Temp Pulse Resp B/P (MAP) Pulse Ox O2 Delivery O2 Flow Rate FiO2 08/09/17 20:00 96.0 58 20 119/68 (85) 95 I/O 08/09/17 08/09/17 08/09/17 08/10/17 08/10/17 08/10/17 07:00 15:00 23:00 07:00 15:00 23:00 Intake Total 60 ml 60 ml Balance 60 ml 60 ml Intake Oral 60 ml 60 ml # Voids 1 3 # Bowel Movements 0 1 Objective Remarks GENERAL: Well-nourished, well-developed male patient lying in bed. Alert and awake, confused regarding place. Withdrawn. Flat affect. SKIN: Warm and dry. No rash. HEENT: Normocephalic. Atraumatic. Pupils equal and round. No scleral icterus. No injection or drainage. No nasal bleeding or discharge. Mucous membranes pink and moist. PERRL. EOMs intact. NECK: Supple. Trachea midline. CARDIOVASCULAR: Regular rate and rhythm. S1, S2 noted. No murmur appreciated. RESPIRATORY: No accessory muscle use. Clear to auscultation. Breath sounds equal bilaterally. GASTROINTESTINAL: Abdomen soft, non-tender, nondistended. Normoactive bowel sounds x4. No guarding. MUSCULOSKELETAL: No obvious deformities. Extremities without clubbing, cyanosis , or edema. NEUROLOGICAL: Awake and alert. No obvious cranial nerve deficits. Motor grossly within normal limits. 5/5 muscle strength in bilateral upper and lower extremities. Normal speech. A/P Problem List: (1) Dementia associated with alcoholism without behavioral disturbance ICD Code: F10.97 - Alcohol use, unspecified with alcohol-induced persisting dementia Assessment and Plan Confusion, possible altered mental status/encephalopathy of unknown etiology, possible underlying dementia per records Full neurological workup did not indicate any acute abnormality CT of the brain did not indicate any acute abnormality or possible etiology Continue safety and fall precautions. Physical therapy evaluated patient indicate patient can go home without any PT recommendations. Status post elevated ammonia level, continue to monitor periodically. Psychiatry previously evaluated patient and indicated that patient is not presenting with any neuropsychiatric symptoms. Recommended Haldol 2 mg IM every 8 hours as needed Psychiatry recommended possible benefit of Aricept or Namenda to slow the progression of his dementia. - Psych saw patient yesterday with the conclusion of patient lacking decision making capacity and inability to participate in discharge planning. Hypertension Clonidine as needed. Patient refusing Norvasc 5 mg daily. Systolic BP's 130's-150's. Continue to monitor BP trends. Controlled at this time. DVT prophylaxis: SCDs. Discharge Planning Case management assisting. Able to locate family today. Emilee Ward Aug 10, 2017 08:42
[2017-08-10] MEDS: amLODIPine BESYLATE 5 MG TAB PO SCH (08:49)
[2017-08-10 20:00] VITALS: BP 139/83; PULSE 57; RESP 20; TEMP 96; O2SAT 98
[2017-08-11 08:00] VITALS: BP 142/88; PULSE 53; RESP 18; TEMP 95.3; O2SAT 98
[2017-08-11] MEDS: amLODIPine BESYLATE 5 MG TAB PO SCH (08:27)
--- NOTE | 2017-08-11 12:04 | HHI.PR ---
Subjective Remarks Follow up dementia, confusion, hypertension. Patient seen and examined today, sitting on side of bed. Denies any new acute events overnight. Requesting a cheeseburger for lunch. Denies any current complaints. Objective Vitals Vital Signs Date Time Temp Pulse Resp B/P (MAP) Pulse Ox O2 Delivery O2 Flow Rate FiO2 08/11/17 08:00 95.3 53 18 142/88 (106) 98 08/10/17 20:00 96.0 57 20 139/83 (101) 98 I/O 08/10/17 08/10/17 08/10/17 08/11/17 08/11/17 08/11/17 07:00 15:00 23:00 07:00 15:00 23:00 Intake Total 60 ml 540 ml 60 ml Balance 60 ml 540 ml 60 ml Intake Oral 60 ml 540 ml 60 ml # Voids 3 3 2 # Bowel Movements 1 0 0 Objective Remarks GENERAL: Well-nourished, well-developed male patient lying in bed. Alert and awake, confused regarding place. Withdrawn. Flat affect. SKIN: Warm and dry. No rash. HEENT: Normocephalic. Atraumatic. Pupils equal and round. No scleral icterus. No injection or drainage. No nasal bleeding or discharge. Mucous membranes pink and moist. PERRL. EOMs intact. NECK: Supple. Trachea midline. CARDIOVASCULAR: Regular rate and rhythm. S1, S2 noted. No murmur appreciated. RESPIRATORY: No accessory muscle use. Clear to auscultation. Breath sounds equal bilaterally. GASTROINTESTINAL: Abdomen soft, non-tender, nondistended. Normoactive bowel sounds x4. No guarding. MUSCULOSKELETAL: No obvious deformities. Extremities without clubbing, cyanosis , or edema. NEUROLOGICAL: Awake and alert. No obvious cranial nerve deficits. Motor grossly within normal limits. 5/5 muscle strength in bilateral upper and lower extremities. Normal speech. A/P Problem List: (1) Dementia associated with alcoholism without behavioral disturbance ICD Code: F10.97 - Alcohol use, unspecified with alcohol-induced persisting dementia Assessment and Plan Confusion, possible altered mental status/encephalopathy of unknown etiology, possible underlying dementia per records Full neurological workup did not indicate any acute abnormality CT of the brain did not indicate any acute abnormality or possible etiology Continue safety and fall precautions. Physical therapy evaluated patient indicate patient can go home without any PT recommendations. Status post elevated ammonia level, continue to monitor periodically. Psychiatry previously evaluated patient and indicated that patient is not presenting with any neuropsychiatric symptoms. Recommended Haldol 2 mg IM every 8 hours as needed Psychiatry recommended possible benefit of Aricept or Namenda to slow the progression of his dementia. Psych reassessed patient with the conclusion of patient lacking decision making capacity and inability to participate in discharge planning. Hypertension Clonidine as needed. Patient refusing Norvasc 5 mg daily. Systolic BP's 130's-150's. Continue to monitor BP trends. Controlled at this time. DVT prophylaxis: SCDs. Discharge Planning Case management assisting. Emilee Ward Aug 11, 2017 12:04
[2017-08-11 20:00] VITALS: BP 130/76; PULSE 61; RESP 20; TEMP 96.8; O2SAT 97
[2017-08-12 07:50] VITALS: BP 135/88; PULSE 51; RESP 20; TEMP 97.5; O2SAT 96
[2017-08-12] MEDS: amLODIPine BESYLATE 5 MG TAB PO SCH (07:55)
--- NOTE | 2017-08-12 11:17 | HHI.PR ---
Subjective Remarks Follow up dementia, confusion, hypertension. Patient seen and examined today lying in bed sleeping, denies any new acute complaints. Still not very engaged in conversation. Follows commands appropriately. No change in clinical condition. Afebrile. Objective Vitals Vital Signs Date Time Temp Pulse Resp B/P (MAP) Pulse Ox O2 Delivery O2 Flow Rate FiO2 08/12/17 07:50 97.5 51 20 135/88 (104) 96 08/11/17 20:00 96.8 61 20 130/76 (94) 97 I/O 08/11/17 08/11/17 08/11/17 08/12/17 08/12/17 08/12/17 07:00 15:00 23:00 07:00 15:00 23:00 Intake Total 60 ml 360 ml 120 ml Balance 60 ml 360 ml 120 ml Intake Oral 60 ml 360 ml 120 ml # Voids 2 1 2 # Bowel Movements 0 Objective Remarks GENERAL: Well-nourished, well-developed male patient lying in bed. Alert and awake, confused regarding place. Withdrawn. Flat affect. SKIN: Warm and dry. No rash. HEENT: Normocephalic. Atraumatic. Pupils equal and round. No scleral icterus. No injection or drainage. No nasal bleeding or discharge. Mucous membranes pink and moist. PERRL. EOMs intact. NECK: Supple. Trachea midline. CARDIOVASCULAR: Regular rate and rhythm. S1, S2 noted. No murmur appreciated. RESPIRATORY: No accessory muscle use. Clear to auscultation. Breath sounds equal bilaterally. GASTROINTESTINAL: Abdomen soft, non-tender, nondistended. Normoactive bowel sounds x4. No guarding. MUSCULOSKELETAL: No obvious deformities. Extremities without clubbing, cyanosis , or edema. NEUROLOGICAL: Awake and alert. No obvious cranial nerve deficits. Motor grossly within normal limits. 5/5 muscle strength in bilateral upper and lower extremities. Normal speech. A/P Problem List: (1) Dementia associated with alcoholism without behavioral disturbance ICD Code: F10.97 - Alcohol use, unspecified with alcohol-induced persisting dementia Assessment and Plan Confusion, possible altered mental status/encephalopathy of unknown etiology, possible underlying dementia per records Full neurological workup did not indicate any acute abnormality CT of the brain did not indicate any acute abnormality or possible etiology Continue safety and fall precautions. Physical therapy evaluated patient indicate patient can go home without any PT recommendations. Status post elevated ammonia level, continue to monitor periodically. Psychiatry previously evaluated patient and indicated that patient is not presenting with any neuropsychiatric symptoms. Recommended Haldol 2 mg IM every 8 hours as needed Psychiatry recommended possible benefit of Aricept or Namenda to slow the progression of his dementia. Psych reassessed patient with the conclusion of patient lacking decision making capacity and inability to participate in discharge planning. Hypertension Clonidine as needed. Patient refusing Norvasc 5 mg daily. Systolic BP's 130's-150's. Continue to monitor BP trends. Controlled at this time. DVT prophylaxis: SCDs. Discharge Planning Case management assisting. Emilee Ward Aug 12, 2017 11:17
[2017-08-12 20:00] VITALS: BP 145/86; PULSE 56; RESP 20; TEMP 96.8; O2SAT 96
[2017-08-13 07:50] VITALS: BP 132/85; PULSE 55; RESP 20; TEMP 97.8; O2SAT 97
[2017-08-13] MEDS: amLODIPine BESYLATE 5 MG TAB PO SCH (08:27)
--- NOTE | 2017-08-13 11:10 | HHI.PR ---
Subjective Remarks Follow up dementia, confusion, hypertension. Patient seen and examined. States he doesn't want to be here anymore, he is tired of this place. Denies any new acute complaints. Eating well. Ambulating. Awaiting dc plans. No change in patient condition. Objective Vitals Vital Signs Date Time Temp Pulse Resp B/P (MAP) Pulse Ox O2 Delivery O2 Flow Rate FiO2 08/13/17 07:50 97.8 55 20 132/85 (101) 97 08/12/17 20:00 96.8 56 20 145/86 (105) 96 I/O 08/12/17 08/12/17 08/12/17 08/13/17 08/13/17 08/13/17 07:00 15:00 23:00 07:00 15:00 23:00 Intake Total 120 ml 221 ml 120 ml Balance 120 ml 221 ml 120 ml Intake Oral 120 ml 221 ml 120 ml # Voids 2 3 2 # Bowel Movements 0 Objective Remarks GENERAL: Well-nourished, well-developed male patient lying in bed. Alert and awake, confused regarding place. Withdrawn. Flat affect. SKIN: Warm and dry. No rash. HEENT: Normocephalic. Atraumatic. Pupils equal and round. No scleral icterus. No injection or drainage. No nasal bleeding or discharge. Mucous membranes pink and moist. PERRL. EOMs intact. NECK: Supple. Trachea midline. CARDIOVASCULAR: Regular rate and rhythm. S1, S2 noted. No murmur appreciated. RESPIRATORY: No accessory muscle use. Clear to auscultation. Breath sounds equal bilaterally. GASTROINTESTINAL: Abdomen soft, non-tender, nondistended. Normoactive bowel sounds x4. No guarding. MUSCULOSKELETAL: No obvious deformities. Extremities without clubbing, cyanosis , or edema. NEUROLOGICAL: Awake and alert. No obvious cranial nerve deficits. Motor grossly within normal limits. 5/5 muscle strength in bilateral upper and lower extremities. Normal speech. A/P Problem List: (1) Dementia associated with alcoholism without behavioral disturbance ICD Code: F10.97 - Alcohol use, unspecified with alcohol-induced persisting dementia Assessment and Plan Confusion, possible altered mental status/encephalopathy of unknown etiology, possible underlying dementia per records Full neurological workup did not indicate any acute abnormality CT of the brain did not indicate any acute abnormality or possible etiology Continue safety and fall precautions. Physical therapy evaluated patient indicate patient can go home without any PT recommendations. Status post elevated ammonia level, continue to monitor periodically. Psychiatry previously evaluated patient and indicated that patient is not presenting with any neuropsychiatric symptoms. Recommended Haldol 2 mg IM every 8 hours as needed Psychiatry recommended possible benefit of Aricept or Namenda to slow the progression of his dementia. Psych reassessed patient with the conclusion of patient lacking decision making capacity and inability to participate in discharge planning. Hypertension Clonidine as needed. Patient refusing Norvasc 5 mg daily. Systolic BP's 130's-150's. Continue to monitor BP trends. Controlled at this time. DVT prophylaxis: SCDs. Discharge Planning Case management assisting. Emilee Ward Aug 13, 2017 11:09
[2017-08-13 20:00] VITALS: BP 148/89; PULSE 58; RESP 18; TEMP 97.8; O2SAT 98
[2017-08-14 08:00] VITALS: BP 127/89; PULSE 55; RESP 14; TEMP 96.3; O2SAT 99
[2017-08-14] MEDS: amLODIPine BESYLATE 5 MG TAB PO SCH (08:43)
--- NOTE | 2017-08-14 11:44 | HHI.PR ---
Subjective Remarks Follow up dementia, confusion, hypertension. Patient seen and examined today. Spoke to battery charger who states a knife and packaging machine supplies distributor was found in patient belongings. Security brought to bedside and patient willingly gave up weapons. Patient compliant and cooperative. Overall no change in patient condition. States he wants to leave and go back to [place]. Denies any new acute complaints , denies any chest pain or shortness of breath. Afebrile. Ambulating well. Objective Vitals Vital Signs Date Time Temp Pulse Resp B/P (MAP) Pulse Ox O2 Delivery O2 Flow Rate FiO2 08/14/17 08:00 96.3 55 14 127/89 (102) 99 08/13/17 20:00 97.8 58 18 148/89 (108) 98 I/O 08/13/17 08/13/17 08/13/17 08/14/17 08/14/17 08/14/17 07:00 15:00 23:00 07:00 15:00 23:00 Intake Total 120 ml 442 ml 240 ml Balance 120 ml 442 ml 240 ml Intake Oral 120 ml 442 ml 240 ml # Voids 2 2 3 # Bowel Movements 0 0 Objective Remarks GENERAL: Well-nourished, well-developed male patient sitting on side of bed. Alert and awake, confused regarding place. Withdrawn. Flat affect. SKIN: Warm and dry. No rash. HEENT: Normocephalic. Atraumatic. Pupils equal and round. No scleral icterus. No injection or drainage. No nasal bleeding or discharge. Mucous membranes pink and moist. PERRL. EOMs intact. NECK: Supple. Trachea midline. CARDIOVASCULAR: Regular rate and rhythm. S1, S2 noted. No murmur appreciated. RESPIRATORY: No accessory muscle use. Clear to auscultation. Breath sounds equal bilaterally. GASTROINTESTINAL: Abdomen soft, non-tender, nondistended. Normoactive bowel sounds x4. No guarding. MUSCULOSKELETAL: No obvious deformities. Extremities without clubbing, cyanosis , or edema. NEUROLOGICAL: Awake and alert. No obvious cranial nerve deficits. Motor grossly within normal limits. 5/5 muscle strength in bilateral upper and lower extremities. Normal speech. A/P Problem List: (1) Dementia associated with alcoholism without behavioral disturbance ICD Code: F10.97 - Alcohol use, unspecified with alcohol-induced persisting dementia Assessment and Plan Confusion, possible altered mental status/encephalopathy of unknown etiology, possible underlying dementia per records Full neurological workup did not indicate any acute abnormality CT of the brain did not indicate any acute abnormality or possible etiology Continue safety and fall precautions. Physical therapy evaluated patient indicate patient can go home without any PT recommendations. Status post elevated ammonia level, continue to monitor periodically. Psychiatry previously evaluated patient and indicated that patient is not presenting with any neuropsychiatric symptoms. Recommended Haldol 2 mg IM every 8 hours as needed Psychiatry recommended possible benefit of Aricept or Namenda to slow the progression of his dementia. Psych reassessed patient with the conclusion of patient lacking decision making capacity and inability to participate in discharge planning. - Patient has refused lab draws. Refusing medications. No BM x 4 days, encouraged PRN Colace. Will continue to monitor. Hypertension Clonidine as needed. Patient refusing Norvasc 5 mg daily. Systolic BP's 130's-150's. Continue to monitor BP trends. Controlled at this time. DVT prophylaxis: SCDs. Discharge Planning Case management assisting. Emilee Ward Aug 14, 2017 11:44
[2017-08-14] MEDS: HALOPERIDOL LACTATE 5 MG/ML AMP IM PRN (12:40)
[2017-08-15 07:50] VITALS: BP 137/86; PULSE 58; RESP 20; TEMP 97.5; O2SAT 96
[2017-08-15] MEDS: amLODIPine BESYLATE 5 MG TAB PO SCH (09:00)
--- NOTE | 2017-08-15 11:34 | HHI.PR ---
Subjective Remarks Patient seen and examined today for follow-up on confusion, dementia. Patient denies any new complaints. Patient states that he is tired of being here at the hospital. During multiple doesn't vary rounds as indicated that psychiatry is reevaluated patient for possible transfer to psychiatric care. Objective Vitals Vital Signs Date Time Temp Pulse Resp B/P (MAP) Pulse Ox O2 Delivery O2 Flow Rate FiO2 08/15/17 07:50 97.5 58 20 137/86 (103) 96 I/O 08/14/17 08/14/17 08/14/17 08/15/17 08/15/17 08/15/17 07:00 15:00 23:00 07:00 15:00 23:00 Intake Total 240 ml 236 ml 60 ml 240 ml Balance 240 ml 236 ml 60 ml 240 ml Intake Oral 240 ml 236 ml 60 ml 240 ml # Voids 3 3 1 # Bowel Movements 0 0 Objective Remarks GENERAL: Well-developed, well-nourished, in no acute distress. alert and orientated to person, date of , year. He does not know that he is in the hospital. HEENT: Head is normocephalic without any lesions or masses noted. Facial features are symmetric. Eyes: Pupils equal round reactive to light. Extraocular muscles are intact. NECK: Supple without any masses. Trachea midline no deviation. No JVD, CARDIAC: Regular rhythm, regular rate. S1/S2 are heard. No murmurs gallops or rubs. LUNGS: Clear to auscultation bilaterally. No wheeze, rhonchi or rales. No use of accessory muscles on inspiration or expiration. ABDOMEN: Soft, nontender. Nondistended. Bowel sounds heard in all 4 quadrants. No organomegaly or masses. Negative rebound, negative guarding EXTREMITIES: No edema, pulses are equal bilaterally. No cyanosis or clubbing NEUROLOGY: Mood and affect appear appropriate for dementia patient. Cranial nerves II through XII grossly intact. Moving all extremities, speech is clear Urinary Catheter: No Vascular Central Line Catheter: No A/P Assessment and Plan Confusion, possible altered mental status/encephalopathy of unknown etiology, possible underlying dementia per records Full neurological workup did not indicate any acute abnormality CT of the brain did not indicate any acute abnormality or possible etiology Continue safety and fall precautions Physical therapy evaluated patient indicate patient can go home without any PT recommendations Case management working on discharge planning. Apparently unable to locate any family for decision making Elevated ammonia level which appears to be normalizing this time, continue monitor periodically Psychiatry evaluated patient and indicated that patient is not presenting with any neuropsychiatric symptoms. Recommended Haldol 2 mg IM every 8 hours as needed Psychiatry recommended possible benefit of Aricept or Namenda to slow the progression of his dementia Elevated blood pressure Clonidine as needed Patient refusing Norvasc 5 mg daily DVT prevention Sequential compression devices Discharge Planning It was indicated in multiple disciplinary rounds that psychiatry is to reevaluate the patient for transfer to psychiatry. Darin Contreras Aug 15, 2017 11:34
--- NOTE | 2017-08-15 11:38 | HHI.PYPN ---
Subjective Remarks Patient was seen today for psychiatric reevaluation, case was discussed with nurse in charge, chart reviewed. As per nursing charge the patient has been presenting episodic agitation, aggressive behavior in the context of wanting to leave the hospital. Yesterday the patient was goal-directed in the idea of leaving the hospital and when he tried to be redirected he became violent and had to be medicated with Haldol 2 mg IM. However, today in psychiatric reevaluation she is calm, superficially cooperative, irritable ckind of oppositional. Patient says that he wants to go back to [place] where he was living with a friend. Patient is unable to point where exactly he is going to live and details about "this friend". Patient is unable to repeat the recent of his hospitalization, he is oriented in person, but disoriented in time and place. He denies suicidal or homicidal ideation, he denies visual and auditory hallucinations. Patient seems to be a little bit regretful about just her episode stated that he doesn't want to hurt anybody. Review of Systems Except as stated in HPI: all other systems reviewed are Neg Mental Status Examination Appearance: Appropriate Consciousness: Alert Orientation: Person Motor Activity: Normal gait Speech: Unremarkable Language: Adequate Fund of Knowledge: Adequate Attention and Concentration: Adequate Memory: Impaired Mood: Appropriate Affect: Appropriate Thought Process & Associations: Intact Thought Content: Appropriate Hallucination Type: None Delusion Type: None Suicidal Ideation: No Suicidal Plan: No Suicidal Intention: No Homicidal Ideation: No Homicidal Plan: No Homicidal Intention: No Insight: Poor Judgment: Poor Results Vitals/IOs Vital Signs Date Time Temp Pulse Resp B/P (MAP) Pulse Ox O2 Delivery O2 Flow Rate FiO2 08/15/17 07:50 97.5 58 20 137/86 (103 96 Intake and Output 08/15/17 08/15/17 08/16/17 08:00 16:00 00:00 Intake Total 240 ml Balance 240 ml Assessment & Plan Problem List: (1) Dementia associated with alcoholism without behavioral disturbance ICD Codes: F10.97 - Alcohol use, unspecified with alcohol-induced persisting dementia Assessment & Plan: We will start Seroquel 12.5 mg twice a day for behavioral dysregulation and poor impulse control. Agree with Haldol 2 mg every 6 hours when necessary aggressive behavior and agitation. With severe agitation can go as high as 5 mg of Haldol stat. I have discussed the case with the psychiatric team including Dr. Calvo, and we do not think that is beneficial for the patient in psychiatric admission at this moment. However, if the patient continues to represent a behavior problem in the medical floor in [place] with agree with a Rodríguez act placement and exploring psychiatric admission. Assessment & Plan Estimated LOS: days Justification for Cont. Inpt. Patient does not meet criteria for involuntary psychiatric admission at this moment. Wilson Ontiveros MD Aug 15, 2017 11:38
[2017-08-15] MEDS: QUEtiapine FUMARATE 25 MG TAB PO SCH (12:00)
[2017-08-15] MEDS: HALOPERIDOL LACTATE 5 MG/ML AMP IM PRN (12:10)
[2017-08-15 20:00] VITALS: BP 139/81; PULSE 71; RESP 18; TEMP 97.3; O2SAT 96
[2017-08-16 07:50] VITALS: BP 132/82; PULSE 60; RESP 20; TEMP 97.5; O2SAT 96
[2017-08-16] MEDS: amLODIPine BESYLATE 5 MG TAB PO SCH ×2 (09:00→09:59)
--- NOTE | 2017-08-16 09:38 | HHI.PR ---
Subjective Remarks Patient seen and examined today for follow-up on dementia, unsafe discharge. Patient sitting in bed, very angry that he is still in the hospital. Nursing staff does not indicate any acute events overnight. Objective Vitals Vital Signs Date Time Temp Pulse Resp B/P (MAP) Pulse Ox O2 Delivery O2 Flow Rate FiO2 08/16/17 07:50 97.5 60 20 132/82 (99) 96 08/15/17 20:00 97.3 71 18 139/81 (100) 96 I/O 08/15/17 08/15/17 08/15/17 08/16/17 08/16/17 08/16/17 07:00 15:00 23:00 07:00 15:00 23:00 Intake Total 240 ml 400 ml Balance 240 ml 400 ml Intake Oral 240 ml 400 ml # Voids 1 2 1 # Bowel Movements 1 0 Objective Remarks GENERAL: Well-developed, well-nourished, in no acute distress. alert and orientated to person, date of , year. He does not know that he is in the hospital. HEENT: Head is normocephalic without any lesions or masses noted. Facial features are symmetric. Eyes: Pupils equal round reactive to light. Extraocular muscles are intact. NECK: Supple without any masses. Trachea midline no deviation. No JVD, CARDIAC: Regular rhythm, regular rate. S1/S2 are heard. No murmurs gallops or rubs. LUNGS: Clear to auscultation bilaterally. No wheeze, rhonchi or rales. No use of accessory muscles on inspiration or expiration. ABDOMEN: Soft, nontender. Nondistended. Bowel sounds heard in all 4 quadrants. No organomegaly or masses. Negative rebound, negative guarding EXTREMITIES: No edema, pulses are equal bilaterally. No cyanosis or clubbing NEUROLOGY: Mood and affect appear appropriate for dementia patient. Cranial nerves II through XII grossly intact. Moving all extremities, speech is clear Urinary Catheter: No Vascular Central Line Catheter: No A/P Assessment and Plan Confusion, possible altered mental status/encephalopathy of unknown etiology, possible underlying dementia per records Full neurological workup did not indicate any acute abnormality CT of the brain did not indicate any acute abnormality or possible etiology Continue safety and fall precautions Physical therapy evaluated patient indicate patient can go home without any PT recommendations Case management working on discharge planning. Apparently unable to locate any family for decision making Elevated ammonia level which appears to be normalizing this time, continue monitor periodically Psychiatry evaluated patient and indicated that patient is not presenting with any neuropsychiatric symptoms. Recommended Haldol 2 mg IM every 8 hours as needed Psychiatry recommended possible benefit of Aricept or Namenda to slow the progression of his dementia Discussed with psychiatry who indicated the patient is not a psychiatric patient unless he becomes aggressive. Also recommending ethics committee for safe discharge Psychiatry started Seroquel 12.5 mg twice daily, however patient refusing medication Elevated blood pressure Clonidine as needed Patient refusing Norvasc 5 mg daily DVT prevention Sequential compression devices Discharge Planning Case management for discharge planning, psychiatry recommended ethics committee for evaluation and discharge planning Darin Conrteras Aug 16, 2017 09:38
[2017-08-16] MEDS: QUEtiapine FUMARATE 25 MG TAB PO SCH ×2 (09:59→12:00)
[2017-08-16 20:00] VITALS: BP 142/91; PULSE 70; RESP 20; TEMP 97.8; O2SAT 97
[2017-08-17 08:00] VITALS: BP 139/85; PULSE 97; RESP 20; TEMP 97; O2SAT 98
--- NOTE | 2017-08-17 09:25 | HHI.PR ---
Subjective Remarks Patient seen and examined today for follow-up on dementia, unsafe discharge. Patient lying in bed comfortable. No indication of any new complaints. Nursing staff denies any acute events overnight Objective Vitals Vital Signs Date Time Temp Pulse Resp B/P (MAP) Pulse Ox O2 Delivery O2 Flow Rate FiO2 08/17/17 08:00 97.0 97 20 139/85 (103) 98 08/16/17 20:00 97.8 70 20 142/91 (108) 97 I/O 08/16/17 08/16/17 08/16/17 08/17/17 08/17/17 08/17/17 07:00 15:00 23:00 07:00 15:00 23:00 Intake Total 400 ml 240 ml Balance 400 ml 240 ml Intake Oral 400 ml 240 ml # Voids 1 3 # Bowel Movements 0 1 Objective Remarks GENERAL: Well-developed, well-nourished, in no acute distress. alert and orientated to person, date of , year. He does not know that he is in the hospital. HEENT: Head is normocephalic without any lesions or masses noted. Facial features are symmetric. Eyes: Pupils equal round reactive to light. Extraocular muscles are intact. NECK: Supple without any masses. Trachea midline no deviation. No JVD, CARDIAC: Regular rhythm, regular rate. S1/S2 are heard. No murmurs gallops or rubs. LUNGS: Clear to auscultation bilaterally. No wheeze, rhonchi or rales. No use of accessory muscles on inspiration or expiration. ABDOMEN: Soft, nontender. Nondistended. Bowel sounds heard in all 4 quadrants. No organomegaly or masses. Negative rebound, negative guarding EXTREMITIES: No edema, pulses are equal bilaterally. No cyanosis or clubbing NEUROLOGY: Mood and affect appear appropriate for dementia patient. Cranial nerves II through XII grossly intact. Moving all extremities, speech is clear Urinary Catheter: No Vascular Central Line Catheter: No A/P Assessment and Plan Confusion, possible altered mental status/encephalopathy of unknown etiology, possible underlying dementia per records Full neurological workup did not indicate any acute abnormality CT of the brain did not indicate any acute abnormality or possible etiology Continue safety and fall precautions Physical therapy evaluated patient indicate patient can go home without any PT recommendations Case management working on discharge planning. Apparently unable to locate any family for decision making Elevated ammonia level which appears to be normalizing this time, continue monitor periodically Psychiatry evaluated patient and indicated that patient is not presenting with any neuropsychiatric symptoms. Recommended Haldol 2 mg IM every 8 hours as needed Psychiatry recommended possible benefit of Aricept or Namenda to slow the progression of his dementia Discussed with psychiatry who indicated the patient is not a psychiatric patient unless he becomes aggressive. Also recommending ethics committee for safe discharge Psychiatry started Seroquel 12.5 mg twice daily, however patient refusing medication Elevated blood pressure Clonidine as needed Patient refusing Norvasc 5 mg daily DVT prevention Sequential compression devices Discharge Planning Case management for discharge planning, psychiatry recommended ethics committee for evaluation and discharge planning Darin Contreras Aug 17, 2017 09:25
[2017-08-17] MEDS ORDERED: SERO25TA PO (13:30)
[2017-08-17] MEDS ORDERED: AMLO5 PO (13:30)
--- NOTE | 2017-08-17 13:35 | HHI.DCPOC ---
Discharge Care Plan Diagnosis: (1) Dementia associated with alcoholism without behavioral disturbance (2) Confusion Goals to Promote Your Health * To prevent worsening of your condition and complications * To maintain your health at the optimal level Directions to Meet Your Goals Take your medications as prescribed Follow your dietary instruction Follow activity as directed Keep your appointments as scheduled Take your immunizations and boosters as scheduled If your symptoms worsen call your PCP, if no PCP go to Urgent Care Center or Emergency Room Smoking is Dangerous to Your Health. Avoid second hand smoke Call the 24-hour hour crisis hotline for domestic abuse at Darin Contreras Aug 17, 2017 13:35
--- NOTE | 2017-08-17 13:43 | HHI.DS ---
Discharge Summary Admission Date Jul 18, 2017 at 22:30 Discharge Date: Aug 17, 2017 Admitting Diagnosis Confusion, dementia (1) Dementia associated with alcoholism without behavioral disturbance ICD Code: F10.97 - Alcohol use, unspecified with alcohol-induced persisting dementia Diagnosis: Principal (2) Confusion ICD Code: R41.0 - Disorientation, unspecified Diagnosis: Principal Procedures None Brief History - From Admission Written by Darin Contreras, acting as scribe for Dr. Mccarthy on 07/19/17 at 09 :32. 81-year-old male with possible underlying dementia per records to was taken to the emergency department in [place] by the [facility]'s department because he was found in the middle of the street where he does not live. Neighbors called the body piercer's office because he was trying to start a car in the middle of the street for over 2 hours. Patient is a poor historian, unable to obtain any pertinent information from him at this time. Mostly he is appropriate, he is orientated to person, date of , year, he is not orientated to him being in the hospital. He indicates that there is nothing wrong with him and he is ready to go. ER records indicate that there was a cell phone. The ER called some of the numbers and apparently contacted the patient's son but was estranged from the patient. He indicated that his sister notified him that the patient is mentally challenged. The son lives in [place] and indicated that he received a phone call from a psychiatric hospital a month ago and stated that the patient was in the hospital at that time. Workup was done in emergency department which did not indicate any etiology that would explain the patient's confusion, mental status. It was recommended by ER physician that the patient be evaluated by psychiatry. PE at Discharge GENERAL: Well-nourished, well-developed male patient sitting on side of bed. Alert and awake, confused regarding place. Withdrawn. Flat affect. SKIN: Warm and dry. No rash. HEENT: Normocephalic. Atraumatic. Pupils equal and round. No scleral icterus. No injection or drainage. No nasal bleeding or discharge. Mucous membranes pink and moist. PERRL. EOMs intact. NECK: Supple. Trachea midline. CARDIOVASCULAR: Regular rate and rhythm. S1, S2 noted. No murmur appreciated. RESPIRATORY: No accessory muscle use. Clear to auscultation. Breath sounds equal bilaterally. GASTROINTESTINAL: Abdomen soft, non-tender, nondistended. Normoactive bowel sounds x4. No guarding. MUSCULOSKELETAL: No obvious deformities. Extremities without clubbing, cyanosis , or edema. NEUROLOGICAL: Awake and alert. No obvious cranial nerve deficits. Motor grossly within normal limits. 5/5 muscle strength in bilateral upper and lower extremities. Normal speech. Hospital Course Is a 81-year-old Afro-[place]ian male with underlying dementia, confusion, who was sent here from [place] because the [employer] department found him in the middle of the street in which she does not live trying get into a car that he does not hold for over 2 hours. The patient was unable to give any information. Patient has significant dementia and unable to make his own decisions regarding discharge and care per psychiatry. Patient had workup done in emergency department and in the hospital and found to have no acute etiology of his confusion other than underlying dementia. Apparently, there was a phone in his possession in which ER physician called the phone numbers and obtain information about the patient. Patient was admitted to [facility] for evaluation confusion. Patient had no metabolic reason for any other confusion. He has remained stable during his stay in the hospital. However he is unsafe for discharge due to his cognition. Apparently no one has been able to reach any family members in reference to the patient's care and discharge planning. The patient became significantly agitated with escalation of defiant disorder, patient refusing to take medications, patient refusing medical treatment, patient becoming physically aggressive toward staffing. As indicated by psychiatry that patient may need to have ethics evaluation for discharge planning. Is also indicated by psychiatry that if patient becomes more aggressive in which may cause harm to staffing a Rodríguez act will need to be placed and patient will need to be transferred to psychiatry for treatment. At the present time the patient's mentation/agitation has escalated. He is refusing to take antipsychotic medication as well as blood pressure medication. Patient was found to have a wet washer machine and knife in his possession which she willingly gave up to security staff. Because the patient's escalation and behavior it was felt that is appropriate for a Rodríguez acted this time. Psychiatry was notified and hence we'll transfer the patient to psychiatric facility. Pt Condition on Discharge: Fair Discharge Disposition: Disc to Psych Care Fac Discharge Time: > 30 minutes Discharge Instructions DIET: Follow Instructions for: As Tolerated, No Restrictions Activities you can perform: Regular-No Restrictions Follow up Referrals: PCP Follow-up - 1 Week New Medications: Amlodipine (Norvasc) 5 Mg Tab 5 MG PO DAILY for Blood Pressure Management, #30 TAB Quetiapine (Seroquel) 25 Mg Tab 12.5 MG PO BID@ for aggitation, #60 TAB aDrin Contreras Aug 17, 2017 13:43
== END 2017-08-17 14:53 ==
LOC: PHEDDLT 22:29 → PH3A 22:30
PROVIDERS: ADMIT Hospitalist; ATTEND Hospitalist
DX: R41.0 Disorientation, unspecified (principal); R46.2 Strange and inexplicable behavior; E83.51 Hypocalcemia; E87.6 Hypokalemia; Z59.0 Homelessness; Z62.890 Parent-child estrangement NEC
CPT/HCPCS: 70450; 71010; 80048; 80053; 80307; 81001; 82140; 82607; 82746; 84443; 84484; 85025; 85652; 86592; 93005; 95819; 97162; 97165; 99285; G0378; G8987; G8988; G8989; J1630

== ENCOUNTER 2017-08-17 14:29 | Inpatient (IN) | payer MEDICARE ==
[~2017-08-17] VITALS: Ht 167.6 cm; Wt 61.5 kg
[~2017-08-17 14:29] MED LIST changes: +AMLO5 PO; +SERO25TA PO; -SODIUM CHLORIDE 0.9% FLUSH 10 ML FLUSH IV FLUSH PRN
[2017-08-17] MEDS ORDERED: cloNIDine HCL 0.1 MG TAB PO ONE (16:00)
[2017-08-17] MEDS ORDERED: MAGNESIUM HYDROXIDE SUSP 30 ML CUP PO PRN (16:30)
[2017-08-17] MEDS ORDERED: ACETAMINOPHEN 325 MG TAB PO PRN (16:30)
[2017-08-17] MEDS ORDERED: ALUMINUM/MAGNESIUM/SIMETH 30 ML CUP PO PRN (16:30)
[2017-08-17] MEDS ORDERED: LORazepam 0.5 MG TAB age > 65 yrs PO PRN (16:30)
[2017-08-17 17:12] VITALS: BP 216/101; PULSE 60; RESP 16; TEMP 98
[2017-08-17 17:24] VITALS: BP 140/94; PULSE 61
[2017-08-17 18:15] VITALS: BP 216/101; PULSE 60; RESP 18; TEMP 98; O2SAT 97
[2017-08-18 05:41] VITALS: BP 127/70; PULSE 86; RESP 16; TEMP 97.7; O2SAT 99
[2017-08-18] MEDS ORDERED: PILL SPLITTER OTHER PRN (08:15)
[2017-08-18] MEDS: QUEtiapine FUMARATE 25 MG TAB PO SCH ×2 (09:00→12:00)
[2017-08-18] MEDS: amLODIPine BESYLATE 5 MG TAB PO SCH (09:00)
[2017-08-18 10:05] LABS: ANION GAP 11 MEQ/L (5-15); BICARBONATE 26.5 MEQ/L (21.0-32.0); BLOOD UREA NITROGEN 16 MG/DL (7-18); CHLORIDE 104 MEQ/L (98-107); GLOMERULAR FILTRATION RATE 79 ML/MIN (>89); POTASSIUM 3.9 MEQ/L (3.5-5.1); SODIUM (NA) 141 MEQ/L (136-145)
[2017-08-18 10:08] LABS: LDL CHOLESTEROL 189 MG/DL (0-99)
--- NOTE | 2017-08-18 10:16 | HHI.HP ---
Provisional Diagnosis Admission Date Aug 17, 2017 at 15:30 [place] I. 1. Dementia with behavioral disturbance [place] II. Deferred Certification of Person's Competence To Provide Express and Informed Consent I have personally examined Luis Antonio Whitaker , a person being served at [facility] on, Aug 18, 2017 10:16. Express and informed consent means consent voluntarily given in writing, by a competent person, after sufficient explanation and disclosure of the subject matter involved to enable the person to make a knowing and willful decision without any element of force, fraud, deceit, duress, or other form of constraint or coercion. This person is 18 years of age or older, is not now known to be incompetent to consent to treatment with a guardian advocate, and does not have a health care surrogate or proxy currently making medical treatment decisions. I have found this person to be one of the following: [] Competent to provide express and informed consent, as defined above, for voluntary admission to this facility and is competent to provide express and informed consent for treatment. He/she has the consistent capacity to make well reasoned, willful, and knowing decisions concerning his or her medical or mental health treatment. The person fully and consistently understands the purpose of the admission for examination/placement and is fully capable of personally exercising all rights assured [place] [x] Incompetent to provide express and informed consent to voluntary admission, and this is incompetent to provide express and informed consent to treatment. The person must be transferred to involuntary status and a petition for a guardian advocate filed with the Circuit Court. [] Refusing to provide express and informed consent to voluntary admission but is competent to provide express and informed consent for treatment. The person must be discharged or transferred to involuntary status. Form shall be completed within 24 hours of a person's arrival at the receiving facility and filed in the clinical record of each person: 1. Admitted on a voluntary basis 2. Permitted to provide express and informed consent to his/her own treatment 3. Allowed to transfer from involuntary to voluntary status 4. Prior to permitting a person to consent to his or her own treatment after having been previously found incompetent to consent to treatment. History of Present Illness Capacity: Lacks Capacity Psych Chief Complaint: dementia with behavioral disturbance HPI Mr. Whitaker is a 81-year-old male with suspected dementia who presents in transfer from [facility] under a Rodríguez act. Reviewing the records from that facility, it appears that the patient was hospitalized there for an extended stay, largely uneventful until the patient began to refuse medications and was found with a produce runner and knife, which he willingly gave to security. Dr. Ontiveros followed the patient in consultation there. Reviewing the electronic medical record, I see no prior psychiatric contact within our system. Patient seen and examined with nurse in counselor. Chart reviewed. Case discussed with nursing staff. Patient was somewhat agitated on arrival because he did not want to be hospitalized per nursing staff but has since calmed. On my examination today, the patient is calm. He exhibits extreme paucity of thought and slowing of thought processes. I initially suspected some sort of receptive problem (such as hard of hearing) or expressive difficulty, but it soon became clear that he is able to understand (and repeat back) what I have said perfectly well, and his speech is coherent and well-formed but quite sparse. He answers many questions with "I snow." Affect is flat. He is somewhat psychomotor slowed and seems fairly apathetic. He denies SI/HI. Beyond this, I am not able to obtain much more from him except as detailed below. Psychiatric interview is limited because of mental status. He verbalizes no physical complaints. Past psychiatric history: Unable to obtain from patient because of mental status. Review of Systems ROS Limitations: Poor Historian Except as stated in HPI: all other systems reviewed are Neg Past Psych History Psychological trauma history Unable to obtain from patient because of mental status. Violence risk - others (6 mos) Indeterminate. Suspect lower risk overall. Patient's hospital stay at [facility] was largely uneventful and without behavioral disturbance. He did voluntarily give up his potential weapons to security when asked. Violence risk - self (6 mos) Concern for self-neglect Substance Abuse History Drugs/Alcohol past 12 months Patient does allude to a history of heavy drinking. He denies any other substance use. Past Family Social History Coded Allergies: No Known Allergies (Unverified , 07/18/17) Past Medical History Includes a history of hypertension. See electronic medical record. Active Scripts Quetiapine (Seroquel) 25 Mg Tab, 12.5 MG PO BID@09,12 for aggitation, #60 TAB Prov:Darin Contreras 08/17/17 Amlodipine (Norvasc) 5 Mg Tab, 5 MG PO DAILY for Blood Pressure Management, #30 TAB Prov:Darin Contreras 08/17/17 Current Medications Medications (Trade) Dose Ordered Sig/Jovani Route Start Time Stop Time Status Last Admin (Ativan) 0.5 mg Q12H PRN PO 08/17/17 16:30 (Ativan Inj) 0.5 mg Q12H PRN IM 08/17/17 16:30 (Tylenol) 650 mg Q4H PRN PO 08/17/17 16:30 (Milk Of Magnesia Liq) 30 ml DAILY PRN PO 08/17/17 16:30 (Mag-Al Plus Susp Liq) 30 ml Q6H PRN PO 08/17/17 16:30 (Norvasc) 5 mg DAILY PO 08/18/17 09:00 (SEROquel) 12.5 mg BID@09,12 PO 08/18/17 09:00 (Pill Splitter) 1 ea UNSCH PRN OTHER 08/18/17 08:15 Family Psych History Unable to obtain from patient because of mental status. Social History Patient reports that he is 2. He has one who resides in [facility] and another resides in [place]. He has a son and daughter who live in [place]. He is high school educated. 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 Possibly some history of service, patient is not clear on this point. Patient's Strengths (min. 2) In a monitored setting. Verbally fluent. Physical Exam Physical exam was completed by primary team on the medical floor. On my examination today, the patient appears to be in no acute physical distress. Besides psychomotor slowing, no motor abnormalities noted. Labs and vitals reviewed: Vital Signs Vital Signs Date Time Temp Pulse Resp B/P (MAP) Pulse Ox O2 Delivery O2 Flow Rate FiO2 08/18/17 05:41 97.7 86 16 127/70 (89) 99 Lab Results Item Value Date Time White Blood Count 6.1 TH/MM3 07/20/17 0447 Hemoglobin 15.1 GM/DL 07/20/17 0447 Platelet Count 281 TH/MM3 07/20/17 0447 Sodium Level 138 MEQ/L 07/25/17 1205 Potassium Level 4.5 MEQ/L 07/25/17 1205 Chloride Level 102 MEQ/L 07/25/17 1205 Carbon Dioxide Level 28.8 MEQ/L 07/25/17 1205 Blood Urea Nitrogen 12 MG/DL 07/25/17 1205 Creatinine 0.91 MG/DL 07/25/17 1205 Estimat Glomerular Filtration Rate 97 ML/MIN 07/25/17 1205 Random Glucose 85 MG/DL 07/25/17 1205 Aspartate Amino Transf (AST/SGOT) 7 U/L L 07/20/17 0447 Alanine Aminotransferase (ALT/SGPT) 12 U/L 07/20/17 0447 Alkaline Phosphatase 71 U/L 07/20/17 0447 Ammonia 30 MCMOL/L 07/25/17 1205 Thyroid Stimulating Hormone 3rd Gen 1.860 uIU/ML 07/25/17 1205 Vitamin B12 Level 717 PG/ML 07/19/17 0955 Folate 5.7 NG/ML 07/19/17 0955 Rapid Plasma Reagin NON-REACTIVE 07/19/17 0955 No more recent laboratories available for my review. Head CT obtained in the ED prior to initial hospitalization was negative for acute process. Mental Status Examination Appearance: Disheveled Consciousness: Alert Orientation: Person Motor Activity: Other (no abnormal motor movements noted) Speech: Slow Language: Adequate Fund of Knowledge: Inadequate Attention and Concentration: Inadequate Memory: Impaired Mood: Other (Calm) Affect: Flat Thought Process & Associations: Other (Slowed) Thought Content: Other (Paucity of thought) Hallucination Type: None Delusion Type: None Suicidal Ideation: No (unreliable to contract for safety) Homicidal Ideation: No Insight: Poor Judgment: Poor Assessment & Plan Problem List: (1) Dementia with behavioral disturbance ICD Codes: F03.91 - Unspecified dementia with behavioral disturbance Assessment & Plan 81-year-old male with psychiatric history as noted above who presents in transfer from [facility] under a Rodríguez act. On my examination today, patient is presently calm but quite confused with prominent paucity of thought. I suspect a dementia, possibly subcortical in nature given prominent bradyphrenia and apathy. He was also apparently somewhat agitated at admission. I will retain the patient on the unit for observation and to allow for safe placement. Admit inpatient. Involuntary status. I have completed first opinion. Consult for second opinion. Request healthcare surrogate and guardian advocate. Continue Seroquel 12.5 mg twice daily. Low-dose Ativan as needed for anxiety. Continue amlodipine. Consult to the hospitalist. Follow-up laboratories ordered by Dr. Ontiveros, and I have additionally ordered LFTs, CBC and ammonia level as this was apparently previously elevated. PT/OT/falls precautions. Vitals every shift. Counselor to see and obtain collateral. Disposition planning. Estimated length of stay: 1-2 weeks. Discharge Planning Suspect patient will require placement. Request HC Surrog/Guard Advoc?: Yes Problem Qualifiers (1) Dementia with behavioral disturbance: Qualified Codes: F03.91 - Unspecified dementia with behavioral disturbance Jhony Terrell MD Aug 18, 2017 10:16
--- NOTE | 2017-08-18 13:19 | PD.TTN ---
Patient Problems 1. Discharge planning 2. Medication compliance 3. Knowledge deficit 4. Lack of coping skills Progress Toward Goals Provider Present: Dr. Kris Terrell Provider Input: Pt is new to the unit and medication regiment will be evaluated/adjusted as necessary. Nurse(s) Present: Gloria Murdock RN Nurse(s) Input: Pt is new to the unit and has appeared calm, cooperative, withdrawn and confused. Psychiatric Counselors Present: POLLO Ferrari Psych Therapist Input: Pt is new on the unit and will be evaluated using biopsychosical assessment today. Group Spec/RT/OT/CROWLEY Present: KEO Meneses Group Spec/RT/OT/CROWLEY Input: Pt is a new admission and will be evaluated today. Discharge Plan Discharge planning will be formulated as pt begins to stabilize with treatment on unit. Documentation Scribe: POLLO Ferrari Jonathan LMHC Aug 18, 2017 13:19
[2017-08-18 13:32] LABS: HEMOGLOBIN A1a 1.1 %; HEMOGLOBIN Ao 85.3 %; HEMOGLOBIN F 0.9 %; HEMOGLOBIN LA1C 2.1 %; HEMOGLOBIN P3 3.6 %
--- NOTE | 2017-08-18 14:14 | PD.CONS ---
HPI Service [facility] Consult Requested By Reason for Consult Medical management Primary Care Physician Unknown Diagnoses: History of Present Illness This is a 81-year-old male history of dementia and hypertension who was admitted to inpatient psychiatry due to advance dementia and agitation. [facility] consulted for medical management. Patient interviewed while paint technician was present and he was nonverbal and did not answer any questions. Per paint technician he will not answer any questions and just lays in bed. Patient did allow me to examine him. Patient did have some elevated blood pressure reading initially and he was given his amlodipine and clonidine as needed in which now his blood pressure is normal. Unable to obtain review of systems since patient will not talk. Past Family Social History Allergies: Coded Allergies: No Known Allergies (Unverified , 07/18/17) Past Medical History Dementia Past Surgical History Unable to obtain since patient is nonverbal and does not want to answer any questions. Reported Medications Seroquel (Quetiapine Fumarate) 25 Mg Tab 12.5 Mg PO BID@,12 Norvasc (Amlodipine Besylate) 5 Mg Tab 5 Mg PO DAILY Active Ordered Medications Current Medications Clonidine (Catapres) 0.1 mg ONCE ONCE PO ; Start 08/17/17 at 16:00; Stop at 16:01; Status DC Lorazepam (Ativan) 0.5 mg Q12H PRN PO MODERATE TO SEVERE ANXIETY; Start at 16:30 Lorazepam (Ativan Inj) 0.5 mg Q12H PRN IM MODERATE TO SEVERE ANXIETY; Start at 16:30 Acetaminophen (Tylenol) 650 mg Q4H PRN PO Pain 1-5 or Temp >101F; Start at 16:30 Magnesium Hydroxide (Milk Of Magnesia Liq) 30 ml DAILY PRN PO CONSTIPATION; Start 08/17/17 at 16:30 Al Hydrox/Mg Hydrox/Simethicone (Mag-Al Plus Susp Liq) 30 ml Q6H PRN PO DYSPEPSIA; Start 08/17/17 at 16:30 Amlodipine Besylate (Norvasc) 5 mg DAILY PO ; Start 08/18/17 at 09:00 Quetiapine Fumarate (SEROquel) 12.5 mg BID@,12 PO ; Start 08/18/17 at 09:00 Miscellaneous (Pill Splitter) 1 ea UNSCH PRN OTHER SEE LABEL COMMENTS; Start 08/18/17 at 08:15 Family History Unable to obtain due to dementia. Social History Unable to obtain but per medical record patient denied any tobacco, alcohol illicit drug use. Physical Exam Vital Signs Vital Signs Date Time Temp Pulse Resp B/P (MAP) Pulse Ox O2 Delivery O2 Flow Rate FiO2 08/18/17 05:41 97.7 86 16 127/70 (89) 99 08/17/17 18:15 98.0 60 18 216/101 (139) 97 08/17/17 17:24 61 140/94 (109) 08/17/17 17:12 98.0 60 16 216/101 (139) Physical Exam GENERAL: This is a well-nourished, well-developed patient, in no apparent distress. SKIN: No rashes, ecchymoses or lesions. Cool and dry. HEAD: Atraumatic. Normocephalic. No temporal or scalp tenderness. EYES: Pupils equal round and reactive. Extraocular motions intact. No scleral icterus. No injection or drainage. ENT: Nose without bleeding, purulent drainage or septal hematoma. Throat without erythema, tonsillar hypertrophy or exudate. Uvula midline. Airway patent. NECK: Trachea midline. No JVD or lymphadenopathy. Supple, nontender, no meningeal signs. CARDIOVASCULAR: Regular rate and rhythm without murmurs, gallops, or rubs. RESPIRATORY: Clear to auscultation. Breath sounds equal bilaterally. No wheezes , rales, or rhonchi. GASTROINTESTINAL: Abdomen soft, non-tender, nondistended. No hepato-splenomegaly , or palpable masses. No guarding. MUSCULOSKELETAL: Extremities without clubbing, cyanosis, or edema. No joint tenderness, effusion, or edema noted. No calf tenderness. Negative Homans sign bilaterally. NEUROLOGICAL: Awake. Motor is grossly intact. Laboratory Laboratory Tests Test 08/18/17 08:48 Blood Urea Nitrogen 16 Creatinine 1.09 Random Glucose 118 Calcium Level 8.8 Sodium Level 141 Potassium Level 3.9 Chloride Level 104 Carbon Dioxide Level 26.5 Anion Gap 11 Estimat Glomerular Filtration Rate 79 Triglycerides Level 78 Cholesterol Level 245 LDL Cholesterol 189 HDL Cholesterol 40.0 Cholesterol/HDL Ratio 6.12 Result Diagram: 08/18/17 0848 Assessment and Plan Assessment and Plan This is a 81-year-old male who presented with dementia with behavioral disturbances Dementia with behavioral disturbances -Being managed by inpatient psychiatry unit. Hypertension -Controlled with amlodipine. Continue with clonidine as needed. DVT prophylaxis -Encourage ambulation. Betsy Spencer MD Aug 18, 2017 14:14
[2017-08-18 18:46] VITALS: BP 120/80; PULSE 63; RESP 17; TEMP 98.2; O2SAT 95
[2017-08-18 20:48] LABS: AUTOMATED NEUTROPHIL # 3.7 TH/MM3 (1.8-7.7); BASOPHIL % 0.5 % (0.0-2.0); EOSINOPHIL # 0.1 TH/MM3 (0-0.4); EOSINOPHIL % 1.3 % (0.0-4.0); HEMATOCRIT 46.2 % (39.0-51.0); HEMO FLAGS DIFF FINAL; LYMPH % 31.6 % (9.0-44.0); MEAN CELL VOLUME 87.4 FL (80.0-100.0); MEAN CORPUSCULAR HEMOGLOBIN 29.9 PG (27.0-34.0); MEAN CORPUSCULAR HGB CONC 34.2 % (32.0-36.0); MONO % 7.9 % (0.0-8.0); NEUT % 58.7 % (16.0-70.0); PLATELET COUNT 246 TH/MM3 (150-450); RED BLOOD COUNT 5.29 MIL/MM3 (4.50-5.90); RED CELL DISTRIBUTION WIDTH 14.8 % (11.6-17.2); WHITE BLOOD COUNT 6.3 TH/MM3 (4.0-11.0)
[2017-08-18 21:03] LABS: INDIRECT BILIRUBIN 0.8 MG/DL (0.0-0.8)
[2017-08-19 06:04] VITALS: BP 125/90; PULSE 80; RESP 19; TEMP 97.4; O2SAT 95
[2017-08-19] MEDS: amLODIPine BESYLATE 5 MG TAB PO SCH (09:00)
[2017-08-19] MEDS: QUEtiapine FUMARATE 25 MG TAB PO SCH ×2 (09:00→12:00)
--- NOTE | 2017-08-19 13:36 | HHI.PYPN ---
Subjective Chief Complaint: dementia with behavioral disturbance Remarks Patient was seen and case discussed with nursing. Admission note was reviewed and I agree with this contents. Patient is hard of hearing limiting the interview. Either way, he is alert and oriented 1. He is internally preoccupied, poor eye contact, hyperverbal, perseverative and oppositional. He refuses to take his medications. Has not had any outbursts on the unit Mental Status Examination Appearance: Disheveled Consciousness: Alert Orientation: Person Motor Activity: Other (no abnormal motor movements noted) Speech: Slow Language: Adequate Fund of Knowledge: Inadequate Attention and Concentration: Inadequate Memory: Impaired Mood: Oppositional Affect: Irritable Thought Process & Associations: Other (Slowed) Thought Content: Other (Paucity of thought) Hallucination Type: None Delusion Type: None Suicidal Ideation: No (unreliable to contract for safety) Suicidal Plan: No Suicidal Intention: No Homicidal Ideation: No Homicidal Plan: No Homicidal Intention: No Insight: Poor Judgment: Poor Results Labs Test 08/18/17 20:26 White Blood Count 6.3 TH/MM3 Red Blood Count 5.29 MIL/MM3 Hemoglobin 15.8 GM/DL Hematocrit 46.2 % Mean Corpuscular Volume 87.4 FL Mean Corpuscular Hemoglobin 29.9 PG Mean Corpuscular Hemoglobin Concent 34.2 % Red Cell Distribution Width 14.8 % Platelet Count 246 TH/MM3 Mean Platelet Volume 8.6 FL Neutrophils (%) (Auto) 58.7 % Lymphocytes (%) (Auto) 31.6 % Monocytes (%) (Auto) 7.9 % Eosinophils (%) (Auto) 1.3 % Basophils (%) (Auto) 0.5 % Neutrophils # (Auto) 3.7 TH/MM3 Lymphocytes # (Auto) 2.0 TH/MM3 Monocytes # (Auto) 0.5 TH/MM3 Eosinophils # (Auto) 0.1 TH/MM3 Basophils # (Auto) 0.0 TH/MM3 CBC Comment DIFF FINAL Differential Comment Total Bilirubin 1.0 MG/DL Direct Bilirubin 0.2 MG/DL Indirect Bilirubin 0.8 MG/DL Aspartate Amino Transf (AST/SGOT) 24 U/L Alanine Aminotransferase (ALT/SGPT) 18 U/L Alkaline Phosphatase 69 U/L Ammonia 14 MCMOL/L Total Protein 7.1 GM/DL Albumin 3.3 GM/DL Vitals/IOs Vital Signs Date Time Temp Pulse Resp B/P (MAP) Pulse Ox O2 Delivery O2 Flow Rate FiO2 08/19/17 06:04 97.4 80 19 125/90 (102 95 Assessment & Plan Problem List: (1) Dementia with behavioral disturbance ICD Codes: F03.91 - Unspecified dementia with behavioral disturbance Assessment & Plan I agree with the first opinion to continue petition. Criteria include dementia and poor insight Justification for Cont. Inpt. Patient would decompensate in a less restrictive setting Request HC Surrog/Guard Advoc?: Yes Problem Qualifiers (1) Dementia with behavioral disturbance: Qualified Codes: F03.91 - Unspecified dementia with behavioral disturbance Gustabo Najera DO Aug 19, 2017 13:36
[2017-08-19 18:17] VITALS: BP 132/78; PULSE 68; RESP 18; TEMP 97.9; O2SAT 95
[2017-08-20 05:47] VITALS: BP 121/64; PULSE 57; RESP 18; TEMP 97.6; O2SAT 98
[2017-08-20] MEDS: amLODIPine BESYLATE 5 MG TAB PO SCH (09:00)
[2017-08-20] MEDS: QUEtiapine FUMARATE 25 MG TAB PO SCH ×2 (09:00→11:14)
--- NOTE | 2017-08-20 14:50 | HHI.PYPN ---
Subjective Chief Complaint: dementia with behavioral disturbance Remarks Patient was seen and case discussed with nursing. Patient remains difficult to interview. He is pressured with poor eye contact and short attention span. Is alert and oriented times two. Remains perseverative on discharge. Continues to refuse medications. Mental Status Examination Appearance: Disheveled Consciousness: Alert Orientation: Person, Place Motor Activity: Other (no abnormal motor movements noted) Speech: Pressured Language: Adequate Fund of Knowledge: Inadequate Attention and Concentration: Inadequate Memory: Impaired Mood: Oppositional Affect: Irritable Thought Process & Associations: Other (Slowed) Thought Content: Other (Paucity of thought) Hallucination Type: None Delusion Type: None Suicidal Ideation: No (unreliable to contract for safety) Suicidal Plan: No Suicidal Intention: No Homicidal Ideation: No Homicidal Plan: No Homicidal Intention: No Insight: Poor Judgment: Poor Results Vitals/IOs Vital Signs Date Time Temp Pulse Resp B/P (MAP) Pulse Ox O2 Delivery O2 Flow Rate FiO2 08/20/17 05:47 97.6 57 18 121/64 (83) 98 Assessment & Plan Problem List: (1) Dementia with behavioral disturbance ICD Codes: F03.91 - Unspecified dementia with behavioral disturbance Assessment & Plan Continue current treatment plan Justification for Cont. Inpt. Patient would decompensate in a less restrictive setting Request HC Surrog/Guard Advoc?: Yes Problem Qualifiers (1) Dementia with behavioral disturbance: Qualified Codes: F03.91 - Unspecified dementia with behavioral disturbance Gustabo Najera DO Aug 20, 2017 14:50
[2017-08-20 16:48] VITALS: BP 168/97; PULSE 59; RESP 18; O2SAT 98
[2017-08-21 06:02] VITALS: BP 146/73; PULSE 80; RESP 17; O2SAT 100
[2017-08-21] MEDS: amLODIPine BESYLATE 5 MG TAB PO SCH ×2 (08:22→12:22)
[2017-08-21] MEDS: QUEtiapine FUMARATE 25 MG TAB PO SCH ×2 (08:23→12:00)
--- NOTE | 2017-08-21 09:49 | HHI.PYPN ---
Subjective Chief Complaint: dementia with behavioral disturbance Remarks Patient seen and examined. Chart reviewed. Case discussed with RN. He is refusing medications and accusing staff of stealing his money per RN. He did apparently present with a large quantity of money, and this has been secured in the safe I am told. On my exam, patient is irritable and intrusive. He is discharge focused and pulls at the handle on the exit door. He is quite confused. No physical complaints. Called by RN following my departure from the unit. She relates that patient is growing more irritable and agitated and is calling 911 accusing someone of stealing from him. I have ordered him medicated with Haldol and Benadryl ETO. Review of Systems ROS Limitations: Poor Historian Except as stated in HPI: all other systems reviewed are Neg Mental Status Examination Appearance: Disheveled Consciousness: Alert, Vigilant Orientation: Person Motor Activity: Other (no motoric abnormalities noted) Speech: Unremarkable Language: Adequate Fund of Knowledge: Inadequate Attention and Concentration: Inadequate Memory: Impaired Mood: Oppositional, Irritable Affect: Irritable Thought Process & Associations: Other (Slowed) Thought Content: Preoccupations, Delusional Hallucination Type: None Delusion Type: Paranoid Suicidal Ideation: No Homicidal Ideation: No Insight: Poor Judgment: Poor Results Labs Labs reviewed. No new labs. EKG from admission in July reviewed; this was sinus sal[place] with QTc 407ms. Vitals/IOs Vital Signs Date Time Temp Pulse Resp B/P (MAP) Pulse Ox O2 Delivery O2 Flow Rate FiO2 08/21/17 06:02 80 17 146/73 (97) 100 08/20/17 05:47 97.6 Assessment & Plan Problem List: (1) Dementia with behavioral disturbance ICD Codes: F03.91 - Unspecified dementia with behavioral disturbance Assessment & Plan Patient with ongoing behavioral disturbance in setting of dementia and medication refusal. Discontinue Seroquel and replace with Zyprexa 2.5mg PO/IM qHS once approved by [facility]. Continue to monitor on the inpatient unit. Continue other medications and care as ordered. Justification for Cont. Inpt. Med changes. Impairment in self-care and social function. High risk for decompensation in less restrictive environment. Discharge Planning Pending psychiatric stabilization Request HC Surrog/Guard Advoc?: Yes Problem Qualifiers (1) Dementia with behavioral disturbance: Qualified Codes: F03.91 - Unspecified dementia with behavioral disturbance Jhony Terrell MD Aug 21, 2017 09:49
[2017-08-21] MEDS ORDERED: diphenhydrAMINE HCL 25 MG CAP PO STA (14:44)
[2017-08-21] MEDS ORDERED: HALOPERIDOL LACTATE 5 MG/ML AMP IM STA (14:44)
[2017-08-21] MEDS ORDERED: OLANZapine IM 10 MG VIAL IM PRN (16:30)
--- NOTE | 2017-08-21 19:14 | HHI.PR ---
Subjective Remarks Patient reportedly agitated today. Subsequently improved. Patient denies any chest pain or shortness of breath. Denies any nausea or vomiting. Denies any constipation. Objective Vital Signs Date Time Temp Pulse Resp B/P (MAP) Pulse Ox O2 Delivery O2 Flow Rate FiO2 08/21/17 06:02 80 17 146/73 (97) 100 Result Diagram: 08/18/17202508/18/1748 Objective Remarks GENERAL: patient lying in bed. Appears comfortable. SKIN: Warm and dry. HEAD: Normocephalic. EYES: No scleral icterus. No injection or drainage. NECK: Supple, trachea midline. No JVD or lymphadenopathy. CARDIOVASCULAR: Regular rate and rhythm without murmurs, gallops, or rubs. RESPIRATORY: Breath sounds equal bilaterally. No accessory muscle use. GASTROINTESTINAL: Abdomen soft, non-tender, nondistended. MUSCULOSKELETAL: No cyanosis, or edema. BACK: Nontender without obvious deformity. No CVA tenderness. A/P Assessment and Plan This is a 81-year-old male who presented with dementia with behavioral disturbances Dementia with behavioral disturbances -Being managed by inpatient psychiatry unit. Hypertension -Controlled with amlodipine. Blood pressure acceptable in the 140s today. Continue with clonidine as needed. //Hyperlipidemia. LDL 189. Patient would benefit from a statin. Can start on simvastatin 10 mg daily. Recheck LFTs in one month. Follow-up with primary care provider. If patient has risk of relapsing into alcohol abuse, would recommend against addition of simvastatin however. DVT prophylaxis -Encourage ambulation. Kurt Parker MD Aug 21, 2017 19:14
[2017-08-21] MEDS: OLANZapine 2.5 MG TAB PO SCH (21:00)
[2017-08-22 05:56] VITALS: BP 150/88; PULSE 66; RESP 17; TEMP 97.1; O2SAT 98
[2017-08-22] MEDS: amLODIPine BESYLATE 5 MG TAB PO SCH (09:04)
--- NOTE | 2017-08-22 10:04 | HHI.PYPN ---
Subjective Chief Complaint: dementia with behavioral disturbance Remarks Patient seen and examined. Chart reviewed. Case discussed in treatment team. Case discussed with nursing staff. Patient did receive Zyprexa last night, although it does not appear we have anyone to give consent for this med. He was no behavioral problem overnight. For me this morning, the patient is calm but not sedated. He remains confused and is oriented to person only. He denies any suicidal or homicidal ideation. Denies any audiovisual hallucinations. No complaints of pain or other physical complaints. Denies side effects from medications. Review of Systems ROS Limitations: Poor Historian Except as stated in HPI: all other systems reviewed are Neg Mental Status Examination Appearance: Appropriate Consciousness: Alert Orientation: Person Motor Activity: Other (no hand tremor, no cogwheeling, no other motor abnormalities noted) Speech: Unremarkable Language: Adequate Fund of Knowledge: Inadequate Attention and Concentration: Inadequate Memory: Impaired (remains impaired on clinical exam) Mood: Other (calm) Affect: Blunt Thought Process & Associations: Other (remains a little slowed) Thought Content: Other (paucity of thought) Hallucination Type: None Delusion Type: None (no delusional material elicited today) Suicidal Ideation: No Homicidal Ideation: No Insight: Poor Judgment: Poor Results Labs Labs reviewed. No new labs. Vitals/IOs Vital Signs Date Time Temp Pulse Resp B/P (MAP) Pulse Ox O2 Delivery O2 Flow Rate FiO2 08/22/17 05:56 97.1 66 17 150/88 (108) 98 Intake and Output 08/22/17 08/22/17 08/23/17 08:00 16:00 00:00 Intake Total 0 ml Balance 0 ml Assessment & Plan Problem List: (1) Dementia with behavioral disturbance ICD Codes: F03.91 - Unspecified dementia with behavioral disturbance Assessment & Plan I have placed Zyprexa on hold for lack of consent. Continue to monitor on the inpatient unit. I note the hospitalist has ordered an updated set of basic laboratories. Continue other medications and care as ordered. Justification for Cont. Inpt. Risk for decompensation in less restrictive environment. Discharge Planning Likely requires placement. Case discussed with counselor. Request HC Surrog/Guard Advoc?: Yes Problem Qualifiers (1) Dementia with behavioral disturbance: Qualified Codes: F03.91 - Unspecified dementia with behavioral disturbance Jhony Terrlel MD Aug 22, 2017 10:04
[2017-08-22 18:00] VITALS: BP 155/89; PULSE 56; RESP 18; TEMP 97.2; O2SAT 98
[2017-08-23 06:00] VITALS: BP 125/74; PULSE 57; RESP 16; O2SAT 96
--- NOTE | 2017-08-23 08:41 | HHI.PR ---
Subjective Remarks THIS NOTE ORIGINALLY FOR 08-22 BUT NOT SAVE NO NEW COMPLAINTS SEEN WITH RN IN ATTENDANCE Objective Vitals Vital Signs Date Time Temp Pulse Resp B/P (MAP) Pulse Ox O2 Delivery O2 Flow Rate FiO2 08/23/17 06:00 57 16 125/74 (91) 96 08/22/17 18:00 97.2 56 18 155/89 (111) 98 I/O 08/22/17 08/22/17 08/22/17 08/23/17 08/23/17 08/23/17 07:00 15:00 23:00 07:00 15:00 23:00 Intake Total 0 ml 240 ml 1440 ml 240 ml Balance 0 ml 240 ml 1440 ml 240 ml Intake Oral 0 ml 240 ml 1440 ml 240 ml # Voids 1 6 1 Objective Remarks GENERAL: AWAKE ALERT VERY CONFUSED SKIN: Warm and dry. HEAD: Atraumatic. Normocephalic. EYES: Pupils equal and round. No scleral icterus. No injection or drainage. EOMI ENT: No nasal bleeding or discharge. Mucous membranes pink and moist. TONGUE MIDLINE NECK: Trachea midline. No JVD. SUPPLE CARDIOVASCULAR: Regular rate and rhythm. S1, S2 NO S3 OR S4 RESPIRATORY: No accessory muscle use. Clear to auscultation. Breath sounds equal bilaterally. GASTROINTESTINAL: Abdomen soft, non-tender, nondistended. Hepatic and splenic margins not palpable. MUSCULOSKELETAL: Extremities without clubbing, cyanosis, or edema. No obvious deformities. NEUROLOGICAL: Awake and alert. No obvious cranial nerve deficits. Motor grossly within normal limits. Five out of 5 muscle strength in the arms and legs. Normal speech. PSYCHIATRIC: INAppropriate mood and affect; insight and judgment ABnormal. Medications and IVs Current Medications Clonidine (Catapres) 0.1 mg ONCE ONCE PO ; Start 08/17/17 at 16:00; Stop at 16:01; Status DC Lorazepam (Ativan) 0.5 mg Q12H PRN PO MODERATE TO SEVERE ANXIETY; Start at 16:30 Lorazepam (Ativan Inj) 0.5 mg Q12H PRN IM MODERATE TO SEVERE ANXIETY; Start at 16:30 Acetaminophen (Tylenol) 650 mg Q4H PRN PO Pain 1-5 or Temp >101F; Start at 16:30 Magnesium Hydroxide (Milk Of Magnesia Liq) 30 ml DAILY PRN PO CONSTIPATION; Start 08/17/17 at 16:30 Al Hydrox/Mg Hydrox/Simethicone (Mag-Al Plus Susp Liq) 30 ml Q6H PRN PO DYSPEPSIA; Start 08/17/17 at 16:30 Amlodipine Besylate (Norvasc) 5 mg DAILY PO ; Start 08/18/17 at 09:00 Quetiapine Fumarate (SEROquel) 12.5 mg BID@09,12 PO ; Start 08/18/17 at 09:00; Stop 08/21/17 at 16:30; Status DC Miscellaneous (Pill Splitter) 1 ea UNSCH PRN OTHER SEE LABEL COMMENTS; Start 08/18/17 at 08:15 Haloperidol Lactate (Haldol Inj) 2 mg STAT STAT IM Last administered on 14:44; Start 08/21/17 at 14:44; Stop 08/21/17 at 14:47; Status DC Diphenhydramine HCl (Benadryl) 25 mg STAT STAT PO ; Start 08/21/17 at 14:44; Stop 08/21/17 at 14:47; Status DC Olanzapine (ZyPREXA) 2.5 mg HS PO Last administered on 08/21/17 21:00; Start 08/21/17 at 21:00; Status Future Hold Olanzapine (ZyPREXA INJ) 2.5 mg HS PRN IM refuses PO Zyprexa; Start 08/21/17 at 16:30; Status Future Hold A/P Assessment and Plan This is a 81-year-old male who presented with dementia with behavioral disturbances Dementia with behavioral disturbances -Being managed by inpatient psychiatry unit. Hypertension -Controlled with amlodipine. Blood pressure acceptable in the 140s today. Continue with clonidine as needed. //Hyperlipidemia. LDL 189. Patient would benefit from a statin. Can start on simvastatin 10 mg daily. Recheck LFTs in one month. Follow-up with primary care provider. If patient has risk of relapsing into alcohol abuse, would recommend against addition of simvastatin however. DVT prophylaxis -Encourage ambulation. THIS NOTE IS FOR 08-22 THAT NOTE DID NOT SAVE FROM THAT DATE Discharge Planning THIS NOTE IS FROM 08-22 NOTE DID NOT SAVE Theron Vogel DO Aug 23, 2017 08:41
--- NOTE | 2017-08-23 08:59 | HHI.PYPN ---
Subjective Chief Complaint: dementia with behavioral disturbance Remarks Patient seen and examined. Chart reviewed. Case discussed with nursing staff. On my examination this morning, the patient is laying in bed. He is hypoverbal with paucity of thought. He remains that his confused baseline. No SI or HI. No physical complaints. Received a call from the nursing staff later in the morning. Patient reportedly exit seeking, difficult to redirect. Scheduled psychotropics are on hold due to lack of consent. I have ordered the patient medicated with Haldol and Benadryl ETO. Review of Systems ROS Limitations: Poor Historian Except as stated in HPI: all other systems reviewed are Neg Mental Status Examination Appearance: Appropriate Consciousness: Alert Orientation: Person (only) Motor Activity: Other (no motor abnormalities noted) Speech: Other (hypoverbal) Language: Adequate Fund of Knowledge: Inadequate Attention and Concentration: Inadequate Memory: Impaired Mood: Other (calm at time of my evaluation) Affect: Blunt (tending towards flat) Thought Process & Associations: Other (paucity of thought) Thought Content: Other Hallucination Type: None Delusion Type: None Suicidal Ideation: No (no SI voiced) Homicidal Ideation: No (no HI voiced) Insight: Poor Judgment: Poor Results Labs Labs reviewed. No new labs. Labs ordered by hospitalist are noted to be "in process." Vitals/IOs Vital Signs Date Time Temp Pulse Resp B/P (MAP) Pulse Ox O2 Delivery O2 Flow Rate FiO2 08/23/17 06:00 57 16 125/74 (91) 96 08/22/17 18:00 97.2 Intake and Output 08/23/17 08/23/17 08/24/17 08:00 16:00 00:00 Intake Total 240 ml Balance 240 ml Assessment & Plan Problem List: (1) Dementia with behavioral disturbance ICD Codes: F03.91 - Unspecified dementia with behavioral disturbance Assessment & Plan Patient scheduled to appear in [place] tomorrow where hopefully he will be appointed a guardian advocate who can provide consent for scheduled psychotropics for management of behavioral disturbance in the setting of his dementia. In the meantime, we will continue to monitor on the inpatient psychiatric unit. Continue other medications and care as ordered. Justification for Cont. Inpt. Risk for decompensation in less restrictive environment Discharge Planning Likely requires placement. Case discussed with counselor. Request HC Surrog/Guard Advoc?: Yes Problem Qualifiers (1) Dementia with behavioral disturbance: Qualified Codes: F03.91 - Unspecified dementia with behavioral disturbance Jhony Terrell MD Aug 23, 2017 08:59
[2017-08-23] MEDS: amLODIPine BESYLATE 5 MG TAB PO SCH (09:00)
[2017-08-23] MEDS ORDERED: diphenhydrAMINE HCL 50 MG/ML VIAL IM STA (09:06)
[2017-08-23] MEDS ORDERED: HALOPERIDOL LACTATE 5 MG/ML AMP IM STA (09:07)
--- NOTE | 2017-08-23 11:16 | PD.TTN ---
Patient Problems 1. Discharge planning 2. Medication compliance 3. Knowledge deficit 4. Lack of coping skills Progress Toward Goals Provider Present: Dr. Kris Terrell Provider Input: 08/22/2017@9am; patient medication is being monitor and neccessary adjustments as needed. Patient continues to require stablization Pt is new to the unit and medication regiment will be evaluated/adjusted as necessary. Nurse(s) Present: RASHI Lombardo Nurse(s) Input: 08/22/2017; Patient requires coaching and redirection with medication, and behavior he is eating meals Pt is new to the unit and has appeared calm, cooperative, withdrawn and confused. Psychiatric Counselors Present: POLLO Ferrari, POLLO Hawk Psych Therapist Input: 08/22/2017 @ 09:00am; counselor will reachout to patient's family, discuss placement and discharge concerns/issues Pt is new on the unit and will be evaluated using biopsychosical assessment today. Group Spec/RT/OT/CROWLEY Present: KEO Mancuso, KEO Meneses Group Spec/RT/OT/CROWLEY Input: 08/22/2017@9:00am; patient is not participating with activities Pt is a new admission and will be evaluated today. Discharge Plan Discharge planning will be formulated as pt begins to stabilize with treatment on unit. Documentation Scribe: POLLO Hawk Sandra LMHC Aug 23, 2017 11:16
--- NOTE | 2017-08-23 14:09 | HHI.PR ---
Subjective Remarks NO CURRENT COMPLAINTS DW RN PATIENT REMAINS CONFUSED DW PATIENT AND RN Objective Vitals Vital Signs Date Time Temp Pulse Resp B/P (MAP) Pulse Ox O2 Delivery O2 Flow Rate FiO2 08/23/17 06:00 57 16 125/74 (91) 96 08/22/17 18:00 97.2 56 18 155/89 (111) 98 I/O 08/22/17 08/22/17 08/22/17 08/23/17 08/23/17 08/23/17 07:00 15:00 23:00 07:00 15:00 23:00 Intake Total 0 ml 240 ml 1440 ml 240 ml Balance 0 ml 240 ml 1440 ml 240 ml Intake Oral 0 ml 240 ml 1440 ml 240 ml # Voids 1 6 1 Objective Remarks GENERAL: AWAKE ALERT VERY CONFUSED SKIN: Warm and dry. HEAD: Atraumatic. Normocephalic. EYES: Pupils equal and round. No scleral icterus. No injection or drainage. EOMI ENT: No nasal bleeding or discharge. Mucous membranes pink and moist. TONGUE MIDLINE NECK: Trachea midline. No JVD. SUPPLE CARDIOVASCULAR: Regular rate and rhythm. S1, S2 NO S3 OR S4 RESPIRATORY: No accessory muscle use. Clear to auscultation. Breath sounds equal bilaterally. GASTROINTESTINAL: Abdomen soft, non-tender, nondistended. Hepatic and splenic margins not palpable. MUSCULOSKELETAL: Extremities without clubbing, cyanosis, or edema. No obvious deformities. NEUROLOGICAL: Awake and alert. No obvious cranial nerve deficits. Motor grossly within normal limits. Five out of 5 muscle strength in the arms and legs. Normal speech. PSYCHIATRIC: INAppropriate mood and affect; insight and judgment ABnormal. Procedures NONE Medications and IVs Current Medications Clonidine (Catapres) 0.1 mg ONCE ONCE PO ; Start 08/17/17 at 16:00; Stop at 16:01; Status DC Lorazepam (Ativan) 0.5 mg Q12H PRN PO MODERATE TO SEVERE ANXIETY; Start at 16:30 Lorazepam (Ativan Inj) 0.5 mg Q12H PRN IM MODERATE TO SEVERE ANXIETY; Start at 16:30 Acetaminophen (Tylenol) 650 mg Q4H PRN PO Pain 1-5 or Temp >101F; Start at 16:30 Magnesium Hydroxide (Milk Of Magnesia Liq) 30 ml DAILY PRN PO CONSTIPATION; Start 08/17/17 at 16:30 Al Hydrox/Mg Hydrox/Simethicone (Mag-Al Plus Susp Liq) 30 ml Q6H PRN PO DYSPEPSIA; Start 08/17/17 at 16:30 Amlodipine Besylate (Norvasc) 5 mg DAILY PO ; Start 08/18/17 at 09:00 Quetiapine Fumarate (SEROquel) 12.5 mg BID@09,12 PO ; Start 08/18/17 at 09:00; Stop 08/21/17 at 16:30; Status DC Miscellaneous (Pill Splitter) 1 ea UNSCH PRN OTHER SEE LABEL COMMENTS; Start 08/18/17 at 08:15 Haloperidol Lactate (Haldol Inj) 2 mg STAT STAT IM Last administered on t 14:44; Start 08/21/17 at 14:44; Stop 08/21/17 at 14:47; Status DC Diphenhydramine HCl (Benadryl) 25 mg STAT STAT PO ; Start 08/21/17 at 14:44; Stop 08/21/17 at 14:47; Status DC Olanzapine (ZyPREXA) 2.5 mg HS PO Last administered on 08/21/17t 21:00; Start 08/21/17 at 21:00; Status Future Hold Olanzapine (ZyPREXA INJ) 2.5 mg HS PRN IM refuses PO Zyprexa; Start 08/21/17 at 16:30; Status Future Hold Haloperidol Lactate (Haldol Inj) 3 mg STAT STAT IM ; Start 08/23/17 at 09:07; Stop 08/23/17 at 09:08; Status DC Diphenhydramine HCl (Benadryl Inj) 25 mg STAT STAT IM ; Start 08/23/17 at 09: 06; Stop 08/23/17 at 09:07; Status DC A/P Assessment and Plan This is a 81-year-old male who presented with dementia with behavioral disturbances Dementia with behavioral disturbances -Being managed by inpatient psychiatry unit. Hypertension -Controlled with amlodipine. Blood pressure acceptable in the 140s today. Continue with clonidine as needed. //Hyperlipidemia. LDL 189. Patient would benefit from a statin. Can start on simvastatin 10 mg daily. Recheck LFTs in one month. Follow-up with primary care provider. If patient has risk of relapsing into alcohol abuse, would recommend against addition of simvastatin however. DVT prophylaxis -Encourage ambulation. Discharge Planning AWAIT PSYCH CLEARANCE Theron Vogel DO Aug 23, 2017 14:09
[2017-08-23 18:05] VITALS: BP 159/87; PULSE 63; RESP 16; TEMP 97.8; O2SAT 97
[2017-08-24 05:41] VITALS: BP 157/98; PULSE 67; RESP 18; TEMP 97.2; O2SAT 95
[2017-08-24] MEDS: amLODIPine BESYLATE 5 MG TAB PO SCH (09:00)
[2017-08-24] MEDS ORDERED: HALOPERIDOL LACTATE 5 MG/ML AMP ONE (09:49)
[2017-08-24] MEDS ORDERED: diphenhydrAMINE HCL 50 MG/ML VIAL ONE (09:49)
--- NOTE | 2017-08-24 10:06 | HHI.PYPN ---
Subjective Chief Complaint: dementia with behavioral disturbance Remarks Patient seen and case discussed with nursing staff. For me today, patient remains confused, somewhat paranoid. Affect is a little dysphoric and irritable. Patient's case was presented to the [place], and the patient was retained on the unit by the information systems operator and assigned a guardian advocate from [facility]. Review of Systems ROS Limitations: Poor Historian Other No physical complaints. Mental Status Examination Appearance: Appropriate Consciousness: Alert Orientation: Person Motor Activity: Other (no motoric abnormalities appreciated) Speech: Other (remains somewhat hypoverbal) Language: Adequate Attention and Concentration: Inadequate Memory: Impaired (suspect remains impaired) Mood: Irritable Affect: Other (mildly dysphoric and irritable) Thought Process & Associations: Other (paucity of thought) Thought Content: Other Hallucination Type: None Delusion Type: None Suicidal Ideation: No (no SI voiced) Homicidal Ideation: No (no HI voiced) Insight: Poor Judgment: Poor Results Labs Labs reviewed. No new labs. Vitals/IOs Vital Signs Date Time Temp Pulse Resp B/P (MAP) Pulse Ox O2 Delivery O2 Flow Rate FiO2 08/24/17 05:41 97.2 67 18 157/98 (117) 95 Intake and Output 08/24/17 08/24/17 08/25/17 08:00 16:00 00:00 Intake Total 480 ml Balance 480 ml Assessment & Plan Problem List: (1) Dementia with behavioral disturbance ICD Codes: F03.91 - Unspecified dementia with behavioral disturbance Assessment & Plan Now that we have a guardian advocate obtain consent for patient's Zyprexa and initiate this medication this evening. Continue to monitor on the inpatient unit. Continue other medications and care as ordered. Justification for Cont. Inpt. Risk for decompensation in less restrictive setting. Med changes. Discharge Planning Placement Request HC Surrog/Guard Advoc?: Yes Problem Qualifiers (1) Dementia with behavioral disturbance: Qualified Codes: F03.91 - Unspecified dementia with behavioral disturbance Jhony Terrell MD Aug 24, 2017 10:05
--- NOTE | 2017-08-24 10:22 | HHI.PR ---
Subjective Remarks NO CURRENT COMPLAINTS DW RN PATIENT REMAINS CONFUSED DW PATIENT AND RN 11-16 NO NEW COMPLAINTS REMAINS QUITE CONFUSED DW RN AND PT Objective Vitals Vital Signs Date Time Temp Pulse Resp B/P (MAP) Pulse Ox O2 Delivery O2 Flow Rate FiO2 08/24/17 05:41 97.2 67 18 157/98 (117) 95 08/23/17 18:05 97.8 63 16 159/87 (111) 97 I/O 08/23/17 08/23/17 08/23/17 08/24/17 08/24/17 08/24/17 07:00 15:00 23:00 07:00 15:00 23:00 Intake Total 240 ml 2040 ml 960 ml Balance 240 ml 2040 ml 960 ml Intake Oral 240 ml 2040 ml 960 ml # Voids 1 7 Objective Remarks GENERAL: AWAKE ALERT VERY CONFUSED SKIN: Warm and dry. HEAD: Atraumatic. Normocephalic. EYES: Pupils equal and round. No scleral icterus. No injection or drainage. EOMI ENT: No nasal bleeding or discharge. Mucous membranes pink and moist. TONGUE MIDLINE NECK: Trachea midline. No JVD. SUPPLE CARDIOVASCULAR: Regular rate and rhythm. S1, S2 NO S3 OR S4 RESPIRATORY: No accessory muscle use. Clear to auscultation. Breath sounds equal bilaterally. GASTROINTESTINAL: Abdomen soft, non-tender, nondistended. Hepatic and splenic margins not palpable. MUSCULOSKELETAL: Extremities without clubbing, cyanosis, or edema. No obvious deformities. NEUROLOGICAL: Awake and alert. No obvious cranial nerve deficits. Motor grossly within normal limits. Five out of 5 muscle strength in the arms and legs. Normal speech. PSYCHIATRIC: INAppropriate mood and affect; insight and judgment ABnormal. Procedures NONE Medications and IVs Current Medications Clonidine (Catapres) 0.1 mg ONCE ONCE PO ; Start 08/17/17 at 16:00; Stop at 16:01; Status DC Lorazepam (Ativan) 0.5 mg Q12H PRN PO MODERATE TO SEVERE ANXIETY; Start at 16:30 Lorazepam (Ativan Inj) 0.5 mg Q12H PRN IM MODERATE TO SEVERE ANXIETY; Start at 16:30 Acetaminophen (Tylenol) 650 mg Q4H PRN PO Pain 1-5 or Temp >101F; Start at 16:30 Magnesium Hydroxide (Milk Of Magnesia Liq) 30 ml DAILY PRN PO CONSTIPATION; Start 08/17/17 at 16:30 Al Hydrox/Mg Hydrox/Simethicone (Mag-Al Plus Susp Liq) 30 ml Q6H PRN PO DYSPEPSIA; Start 08/17/17 at 16:30 Amlodipine Besylate (Norvasc) 5 mg DAILY PO Last administered on 08/24/17 09: 00; Start 08/18/17 at 09:00 Quetiapine Fumarate (SEROquel) 12.5 mg BID@09,12 PO ; Start 08/18/17 at 09:00; Stop 08/21/17 at 16:30; Status DC Miscellaneous (Pill Splitter) 1 ea UNSCH PRN OTHER SEE LABEL COMMENTS; Start 08/18/17 at 08:15 Haloperidol Lactate (Haldol Inj) 2 mg STAT STAT IM Last administered on 14:44; Start 08/21/17 at 14:44; Stop 08/21/17 at 14:47; Status DC Diphenhydramine HCl (Benadryl) 25 mg STAT STAT PO ; Start 08/21/17 at 14:44; Stop 08/21/17 at 14:47; Status DC Olanzapine (ZyPREXA) 2.5 mg HS PO Last administered on 08/21/17 21:00; Start 08/21/17 at 21:00; Status Future Hold Olanzapine (ZyPREXA INJ) 2.5 mg HS PRN IM refuses PO Zyprexa; Start 08/21/17 at 16:30; Status Future Hold Haloperidol Lactate (Haldol Inj) 3 mg STAT STAT IM ; Start 08/23/17 at 09:07; Stop 08/23/17 at 09:08; Status DC Diphenhydramine HCl (Benadryl Inj) 25 mg STAT STAT IM ; Start 08/23/17 at 09: 06; Stop 08/23/17 at 09:07; Status DC Haloperidol Lactate (Haldol Inj) 5 mg STK-MED ONCE .ROUTE ; Start 08/24/17 at 09:49; Stop 08/24/17 at 09:50; Status DC Diphenhydramine HCl (Benadryl Inj) 50 mg STK-MED ONCE .ROUTE ; Start 08/24/17 at 09:49; Stop 08/24/17 at 09:50; Status DC A/P Assessment and Plan This is a 81-year-old male who presented with dementia with behavioral disturbances Dementia with behavioral disturbances -Being managed by inpatient psychiatry unit. Hypertension -Controlled with amlodipine. Blood pressure acceptable in the 140s today. Continue with clonidine as needed. //Hyperlipidemia. LDL 189. Patient would benefit from a statin. Can start on simvastatin 10 mg daily. Recheck LFTs in one month. Follow-up with primary care provider. If patient has risk of relapsing into alcohol abuse, would recommend against addition of simvastatin however. DVT prophylaxis -Encourage ambulation. Discharge Planning AWAIT PSYCH CLEARANCE Theron Vogel DO Aug 24, 2017 10:22
[2017-08-24] MEDS ORDERED: diphenhydrAMINE HCL 50 MG/ML VIAL IM STA (15:40)
[2017-08-24] MEDS ORDERED: HALOPERIDOL LACTATE 5 MG/ML AMP IM STA (15:40)
[2017-08-24 17:36] VITALS: BP 146/75; PULSE 74; RESP 18; TEMP 97.2; O2SAT 99
[2017-08-24] MEDS: OLANZapine 2.5 MG TAB PO SCH (20:47)
[2017-08-25 05:32] VITALS: BP 171/88; PULSE 99; RESP 18; TEMP 96.6; O2SAT 99
--- NOTE | 2017-08-25 10:39 | HHI.PYPN ---
Subjective Chief Complaint: dementia with behavioral disturbance Remarks Patient seen and examined with nurse. Chart reviewed. Case discussed with nursing staff and in treatment team. Patient remains somewhat exit seeking even on the 2700 unit. On my exam, patient is dozing in his room. He is easily awakened. He remains confused and is oriented to person only. Denies side effects from medications. Denies physical complaints. Review of Systems ROS Limitations: Poor Historian Except as stated in HPI: all other systems reviewed are Neg Mental Status Examination Appearance: Appropriate Consciousness: Alert Orientation: Person (person only) Motor Activity: Other (no motoric abnormalities appreciated) Speech: Other (hypoverbal) Language: Adequate Attention and Concentration: Inadequate Memory: Impaired (impaired on clinical exam) Mood: Irritable Affect: Blunt Thought Process & Associations: Other (paucity of thought) Thought Content: Other (ongoing paucity of thought) Hallucination Type: None Delusion Type: None Suicidal Ideation: No (no SI voiced) Homicidal Ideation: No (no HI voiced) Insight: Poor Judgment: Poor Results Labs Labs reviewed. No new labs. Vitals/IOs Vital Signs Date Time Temp Pulse Resp B/P (MAP) Pulse Ox O2 Delivery O2 Flow Rate FiO2 08/25/17 05:32 96.6 99 18 171/88 (115) 99 Assessment & Plan Problem List: (1) Dementia with behavioral disturbance ICD Codes: F03.91 - Unspecified dementia with behavioral disturbance Assessment & Plan Continue Zyprexa 2.5mg PO/IM since he only got his first dose after hiatus due to lack of consent last night but could consider titrating this to target behaviors over the weekend if needed. Clonidine PRN HTN. Continue to monitor on high acuity unit. Escape precautions. Continue other medications and care as ordered. Justification for Cont. Inpt. Risk for decompensation in less restrictive environment Discharge Planning Placement following psychiatric stabilization. Case discussed with counselor. Request HC Surrog/Guard Advoc?: Yes Problem Qualifiers (1) Dementia with behavioral disturbance: Qualified Codes: F03.91 - Unspecified dementia with behavioral disturbance Jhony Terrell MD Aug 25, 2017 10:39
--- NOTE | 2017-08-25 10:39 | PD.TTN ---
Patient Problems 1. Discharge planning 2. Medication compliance 3. Knowledge deficit 4. Lack of coping skills Progress Toward Goals Provider Present: Dr. Kris Terrell Provider Input: 08/22/2017@9am; patient medication is being monitor and neccessary adjustments as needed. Patient continues to require stablization Pt is new to the unit and medication regiment will be evaluated/adjusted as necessary. 08/25- Pt medication regiment has been adjusted with addition of Zyprexa and Guardian Advocate has been requested. Nurse(s) Present: RASHI Lombardo Nurse(s) Input: 08/22/2017; Patient requires coaching and redirection with medication, and behavior he is eating meals Pt is new to the unit and has appeared calm, cooperative, withdrawn and confused. Psychiatric Counselors Present: POLLO Ferrari, POLLO Hawk Psych Therapist Input: 08/22/2017 @ 09:00am; counselor will reachout to patient's family, discuss placement and discharge concerns/issues Pt is new on the unit and will be evaluated using biopsychosical assessment today. 08/25- Pt has been transferred back from [facility]Surge floor due to aggressive and exit seeking behaviors. He continues to appear confused, disorganized, easily agitated, demanding, exit seeking and guarded. Pt presents with poor insight into condition and need for care. Pt feels as if he does not need medication and will not recognize his illness. No noted agitation or aggression since returning to 2700. He interacts minimally on unit and remains withdrawn to self. Pt appears unable to utilize coping and emotional regulation skills as evidenced by his behavior. Group Spec/RT/OT/CR[place]LEY Present: RUPAL Ramirez, KEO Mancuso, KEO Meneses Group Spec/RT/OT/CROWLEY Input: 08/22/2017@9:00am; patient is not participating with activities Pt is a new admission and will be evaluated today. 08/25- Pt is not visible in the [place]. He remains in his room and declines to participate in the group activities. Discharge Plan Other Pt will be referred to an [facility]/Nursing facility as he has no where to live at this time and appears unable to care for himself or live on his own. He will be linked to necessary medical and psychiatric follow up services through [facility]/ Nursing facility providers. Documentation Scribe: Brendon Mas, [facility] Ripley,Brendon [facility] Aug 25, 2017 10:39
[2017-08-25] MEDS: amLODIPine BESYLATE 5 MG TAB PO SCH (11:07)
[2017-08-25] MEDS ORDERED: cloNIDine HCL 0.1 MG TAB PO PRN (12:30)
--- NOTE | 2017-08-25 15:23 | HHI.PR ---
Subjective Remarks NO CURRENT COMPLAINTS DW RN PATIENT REMAINS CONFUSED DW PATIENT AND RN 11-16 NO NEW COMPLAINTS REMAINS QUITE CONFUSED DW RN AND PT 11-17 CALMER TODAY TOOK SOME MEDICATIONS TODAY BLOOD PRESSURE ONLY CONTROLLED WHEN TAKES MEDS Objective Vitals Vital Signs Date Time Temp Pulse Resp B/P (MAP) Pulse Ox O2 Delivery O2 Flow Rate FiO2 08/25/17 05:32 96.6 99 18 171/88 (115) 99 08/24/17 17:36 97.2 74 18 146/75 (98) 99 I/O 08/24/17 08/24/17 08/24/17 08/25/17 08/25/17 08/25/17 07:00 15:00 23:00 07:00 15:00 23:00 Intake Total 960 ml 960 ml Balance 960 ml 960 ml Intake Oral 960 ml 960 ml # Voids 7 1 Objective Remarks GENERAL: AWAKE ALERT VERY CONFUSED SKIN: Warm and dry. HEAD: Atraumatic. Normocephalic. EYES: Pupils equal and round. No scleral icterus. No injection or drainage. EOMI ENT: No nasal bleeding or discharge. Mucous membranes pink and moist. TONGUE MIDLINE NECK: Trachea midline. No JVD. SUPPLE CARDIOVASCULAR: Regular rate and rhythm. S1, S2 NO S3 OR S4 RESPIRATORY: No accessory muscle use. Clear to auscultation. Breath sounds equal bilaterally. GASTROINTESTINAL: Abdomen soft, non-tender, nondistended. Hepatic and splenic margins not palpable. MUSCULOSKELETAL: Extremities without clubbing, cyanosis, or edema. No obvious deformities. NEUROLOGICAL: Awake and alert. No obvious cranial nerve deficits. Motor grossly within normal limits. Five out of 5 muscle strength in the arms and legs. Normal speech. PSYCHIATRIC: INAppropriate mood and affect; insight and judgment ABnormal. Procedures NONE Medications and IVs Current Medications Clonidine (Catapres) 0.1 mg ONCE ONCE PO ; Start 08/17/17 at 16:00; Stop at 16:01; Status DC Lorazepam (Ativan) 0.5 mg Q12H PRN PO MODERATE TO SEVERE ANXIETY; Start at 16:30 Lorazepam (Ativan Inj) 0.5 mg Q12H PRN IM MODERATE TO SEVERE ANXIETY; Start at 16:30 Acetaminophen (Tylenol) 650 mg Q4H PRN PO Pain 1-5 or Temp >101F; Start at 16:30 Magnesium Hydroxide (Milk Of Magnesia Liq) 30 ml DAILY PRN PO CONSTIPATION; Start 08/17/17 at 16:30 Al Hydrox/Mg Hydrox/Simethicone (Mag-Al Plus Susp Liq) 30 ml Q6H PRN PO DYSPEPSIA; Start 08/17/17 at 16:30 Amlodipine Besylate (Norvasc) 5 mg DAILY PO Last administered on 08/25/17 11: 07; Start 08/18/17 at 09:00 Quetiapine Fumarate (SEROquel) 12.5 mg BID@09,12 PO ; Start 08/18/17 at 09:00; Stop 08/21/17 at 16:30; Status DC Miscellaneous (Pill Splitter) 1 ea UNSCH PRN OTHER SEE LABEL COMMENTS; Start 08/18/17 at 08:15 Haloperidol Lactate (Haldol Inj) 2 mg STAT STAT IM Last administered on 14:44; Start 08/21/17 at 14:44; Stop 08/21/17 at 14:47; Status DC Diphenhydramine HCl (Benadryl) 25 mg STAT STAT PO ; Start 08/21/17 at 14:44; Stop 08/21/17 at 14:47; Status DC Olanzapine (ZyPREXA) 2.5 mg HS PO Last administered on 08/24/17 20:47; Start 08/21/17 at 21:00; Status Future hold Olanzapine (ZyPREXA INJ) 2.5 mg HS PRN IM refuses PO Zyprexa; Start 08/21/17 at 16:30; Status Future hold Haloperidol Lactate (Haldol Inj) 3 mg STAT STAT IM Last administered on 15:54; Start 08/23/17 at 09:07; Stop 08/23/17 at 09:08; Status DC Diphenhydramine HCl (Benadryl Inj) 25 mg STAT STAT IM Last administered on 15:55; Start 08/23/17 at 09:06; Stop 08/23/17 at 09:07; Status DC Haloperidol Lactate (Haldol Inj) 5 mg STK-MED ONCE .ROUTE ; Start 08/24/17 at 09:49; Stop 08/24/17 at 09:50; Status DC Diphenhydramine HCl (Benadryl Inj) 50 mg STK-MED ONCE .ROUTE ; Start 08/24/17 at 09:49; Stop 08/24/17 at 09:50; Status DC Haloperidol Lactate (Haldol Inj) 2 mg STAT STAT IM ; Start 08/24/17 at 15:40; Stop 08/24/17 at 15:59; Status DC Diphenhydramine HCl (Benadryl Inj) 25 mg STAT STAT IM ; Start 08/24/17 at 15: 40; Stop 08/24/17 at 15:59; Status DC Clonidine (Catapres) 0.1 mg Q8HR PRN PO SBP>180 or DBP>100; Start 08/25/17 at 12:30 Influenza Virus Vaccine (Flu (Quadrivalent) Vaccine Inj) 0.5 ml ONCE ONCE IM ; Start 08/26/17 at 10:00; Stop 08/26/17 at 10:01 A/P Assessment and Plan This is a 81-year-old male who presented with dementia with behavioral disturbances Dementia with behavioral disturbances -Being managed by inpatient psychiatry unit. Hypertension -Controlled with amlodipine. Blood pressure acceptable in the 140s today. Continue with clonidine as needed. PRN CATAPRES SINCE HE DOES NOT ALWAYS TAKE HIS MEDICATIONS //Hyperlipidemia. LDL 189. Patient would benefit from a statin. Can start on simvastatin 10 mg daily. Recheck LFTs in one month. Follow-up with primary care provider. If patient has risk of relapsing into alcohol abuse, would recommend against addition of simvastatin however. DVT prophylaxis -Encourage ambulation. Discharge Planning AWAIT PSYCH CLEARANCE Theron Vogel DO Aug 25, 2017 15:23
[2017-08-25 18:05] VITALS: BP 131/73; PULSE 56; RESP 18; TEMP 97.3; O2SAT 93
[2017-08-25] MEDS: OLANZapine 2.5 MG TAB PO SCH (21:01)
[2017-08-26 05:54] VITALS: BP 127/69; PULSE 76; RESP 18; TEMP 97.7; O2SAT 95
[2017-08-26] MEDS: amLODIPine BESYLATE 5 MG TAB PO SCH (09:05)
[2017-08-26] MEDS ORDERED: INFLUENZA VIRUS VACCINE (QUADRIVALENT) 0.5 ML SYR IM ONE (10:00)
--- NOTE | 2017-08-26 12:49 | HHI.PYPN ---
Subjective Chief Complaint: dementia with behavioral disturbance Remarks Pt seen and discussed with staff. He has been confused and grandiose. He gave RN a note demanding $3000. He has been reluctantly taking medications. He is irritable and hostile during interview and curses at MD. He mutters repeatedly, "They better have my damn money." Mental Status Examination Appearance: Appropriate Consciousness: Alert Orientation: Person (person only) Motor Activity: Other (no motoric abnormalities appreciated) Speech: Other (hypoverbal) Language: Adequate Attention and Concentration: Inadequate Memory: Impaired (impaired on clinical exam) Mood: Irritable Affect: Blunt Thought Process & Associations: Other (paucity of thought) Thought Content: Other (ongoing paucity of thought) Hallucination Type: None Delusion Type: None Suicidal Ideation: No (no SI voiced) Suicidal Plan: No Suicidal Intention: No Homicidal Ideation: No (no HI voiced) Homicidal Plan: No Homicidal Intention: No Insight: Poor Judgment: Poor Results Vitals/IOs Vital Signs Date Time Temp Pulse Resp B/P (MAP) Pulse Ox O2 Delivery O2 Flow Rate FiO2 08/26/17 05:54 97.7 76 18 127/69 (88) 95 Assessment & Plan Problem List: (1) Dementia with behavioral disturbance ICD Codes: F03.91 - Unspecified dementia with behavioral disturbance Assessment & Plan Continue current tx plan. Estimated LOS: days Justification for Cont. Inpt. monitoring for safety Request HC Surrog/Guard Advoc?: Yes Problem Qualifiers (1) Dementia with behavioral disturbance: Qualified Codes: F03.91 - Unspecified dementia with behavioral disturbance Marbella Osorio MD Aug 26, 2017 12:49
--- NOTE | 2017-08-26 15:14 | HHI.PR ---
Subjective Remarks NO CURRENT COMPLAINTS DW RN PATIENT REMAINS CONFUSED DW PATIENT AND RN 11-16 NO NEW COMPLAINTS REMAINS QUITE CONFUSED DW RN AND PT -17 CALMER TODAY TOOK SOME MEDICATIONS TODAY BLOOD PRESSURE ONLY CONTROLLED WHEN TAKES MEDS 08-26 NO NEW COMPLAINTS A LITTLE CALMER TODAY OUT IN THE DAY ROOM Objective Vitals Vital Signs Date Time Temp Pulse Resp B/P (MAP) Pulse Ox O2 Delivery O2 Flow Rate FiO2 08/26/17 05:54 97.7 76 18 127/69 (88) 95 08/25/17 18:05 97.3 56 18 131/73 (92) 93 Objective Remarks GENERAL: AWAKE ALERT VERY CONFUSED SKIN: Warm and dry. HEAD: Atraumatic. Normocephalic. EYES: Pupils equal and round. No scleral icterus. No injection or drainage. EOMI ENT: No nasal bleeding or discharge. Mucous membranes pink and moist. TONGUE MIDLINE NECK: Trachea midline. No JVD. SUPPLE CARDIOVASCULAR: Regular rate and rhythm. S1, S2 NO S3 OR S4 RESPIRATORY: No accessory muscle use. Clear to auscultation. Breath sounds equal bilaterally. GASTROINTESTINAL: Abdomen soft, non-tender, nondistended. Hepatic and splenic margins not palpable. MUSCULOSKELETAL: Extremities without clubbing, cyanosis, or edema. No obvious deformities. NEUROLOGICAL: Awake and alert. No obvious cranial nerve deficits. Motor grossly within normal limits. Five out of 5 muscle strength in the arms and legs. Normal speech. PSYCHIATRIC: INAppropriate mood and affect; insight and judgment ABnormal. Procedures NONE Medications and IVs Current Medications Clonidine (Catapres) 0.1 mg ONCE ONCE PO ; Start 08/17/17 at 16:00; Stop at 16:01; Status DC Lorazepam (Ativan) 0.5 mg Q12H PRN PO MODERATE TO SEVERE ANXIETY Last administered on 08/25/17t 19:41; Start 08/17/17 at 16:30 Lorazepam (Ativan Inj) 0.5 mg Q12H PRN IM MODERATE TO SEVERE ANXIETY; Start at 16:30 Acetaminophen (Tylenol) 650 mg Q4H PRN PO Pain 1-5 or Temp >101F; Start at 16:30 Magnesium Hydroxide (Milk Of Magnesia Liq) 30 ml DAILY PRN PO CONSTIPATION; Start 08/17/17 at 16:30 Al Hydrox/Mg Hydrox/Simethicone (Mag-Al Plus Susp Liq) 30 ml Q6H PRN PO DYSPEPSIA; Start 08/17/17 at 16:30 Amlodipine Besylate (Norvasc) 5 mg DAILY PO Last administered on 08/26/17 09: 05; Start 08/18/17 at 09:00 Quetiapine Fumarate (SEROquel) 12.5 mg BID@09,12 PO ; Start 08/18/17 at 09:00; Stop 08/21/17 at 16:30; Status DC Miscellaneous (Pill Splitter) 1 ea UNSCH PRN OTHER SEE LABEL COMMENTS; Start 08/18/17 at 08:15 Haloperidol Lactate (Haldol Inj) 2 mg STAT STAT IM Last administered on 14:44; Start 08/21/17 at 14:44; Stop 08/21/17 at 14:47; Status DC Diphenhydramine HCl (Benadryl) 25 mg STAT STAT PO ; Start 08/21/17 at 14:44; Stop 08/21/17 at 14:47; Status DC Olanzapine (ZyPREXA) 2.5 mg HS PO Last administered on 08/25/17 21:01; Start 08/21/17 at 21:00; Status Future hold Olanzapine (ZyPREXA INJ) 2.5 mg HS PRN IM refuses PO Zyprexa; Start 08/21/17 at 16:30; Status Future hold Haloperidol Lactate (Haldol Inj) 3 mg STAT STAT IM Last administered on 15:54; Start 08/23/17 at 09:07; Stop 08/23/17 at 09:08; Status DC Diphenhydramine HCl (Benadryl Inj) 25 mg STAT STAT IM Last administered on 15:55; Start 08/23/17 at 09:06; Stop 08/23/17 at 09:07; Status DC Haloperidol Lactate (Haldol Inj) 5 mg STK-MED ONCE .ROUTE ; Start 08/24/17 at 09:49; Stop 08/24/17 at 09:50; Status DC Diphenhydramine HCl (Benadryl Inj) 50 mg STK-MED ONCE .ROUTE ; Start 08/24/17 at 09:49; Stop 08/24/17 at 09:50; Status DC Haloperidol Lactate (Haldol Inj) 2 mg STAT STAT IM ; Start 08/24/17 at 15:40; Stop 08/24/17 at 15:59; Status DC Diphenhydramine HCl (Benadryl Inj) 25 mg STAT STAT IM ; Start 08/24/17 at 15: 40; Stop 08/24/17 at 15:59; Status DC Clonidine (Catapres) 0.1 mg Q8HR PRN PO SBP>180 or DBP>100; Start 08/25/17 at 12:30 Influenza Virus Vaccine (Flu (Quadrivalent) Vaccine Inj) 0.5 ml ONCE ONCE IM ; Start 08/26/17 at 10:00; Stop 08/26/17 at 10:01; Status DC A/P Assessment and Plan This is a 81-year-old male who presented with dementia with behavioral disturbances Dementia with behavioral disturbances -Being managed by inpatient psychiatry unit. Hypertension -Controlled with amlodipine. Blood pressure acceptable in the 140s today. Continue with clonidine as needed. PRN CATAPRES SINCE HE DOES NOT ALWAYS TAKE HIS MEDICATIONS //Hyperlipidemia. LDL 189. Patient would benefit from a statin. Can start on simvastatin 10 mg daily. Recheck LFTs in one month. Follow-up with primary care provider. If patient has risk of relapsing into alcohol abuse, would recommend against addition of simvastatin however. DVT prophylaxis -Encourage ambulation. Discharge Planning AWAIT PSYCH CLEARANCE Theron Vogel DO Aug 26, 2017 15:14
[2017-08-26 18:05] VITALS: BP 137/79; PULSE 79; RESP 18; TEMP 99.1; O2SAT 95
[2017-08-26] MEDS: OLANZapine 2.5 MG TAB PO SCH (20:44)
[2017-08-26 20:53] LABS: BASOPHIL % 0.5 % (0.0-2.0); EOSINOPHIL # 0.1 TH/MM3 (0-0.4); EOSINOPHIL % 1.5 % (0.0-4.0); HEMATOCRIT 42.2 % (39.0-51.0); HEMO FLAGS DIFF FINAL; LYMPHOCYTE # 1.9 TH/MM3 (1.0-4.8); MEAN CELL VOLUME 87.5 FL (80.0-100.0); MEAN CORPUSCULAR HEMOGLOBIN 29.7 PG (27.0-34.0); MEAN CORPUSCULAR HGB CONC 33.9 % (32.0-36.0); MONO % 7.9 % (0.0-8.0); NEUT % 61.1 % (16.0-70.0); PLATELET COUNT 238 TH/MM3 (150-450); RED BLOOD COUNT 4.83 MIL/MM3 (4.50-5.90); RED CELL DISTRIBUTION WIDTH 14.9 % (11.6-17.2); WHITE BLOOD COUNT 6.6 TH/MM3 (4.0-11.0)
[2017-08-26 21:27] LABS: ANION GAP 5 MEQ/L (5-15); AST (GOT) 18 U/L (15-37); BICARBONATE 27.9 MEQ/L (21.0-32.0); BLOOD UREA NITROGEN 15 MG/DL (7-18); CHLORIDE 108 MEQ/L (98-107); GLOMERULAR FILTRATION RATE 88 ML/MIN (>89); MAGNESIUM 2.1 MG/DL (1.5-2.5); POTASSIUM 3.9 MEQ/L (3.5-5.1); SODIUM (NA) 141 MEQ/L (136-145)
[2017-08-26 21:36] LABS: ALKALINE PHOSPHATASE 63 U/L (45-117); ALT (GPT) 22 U/L (12-78); FREE T4 0.77 NG/DL (0.76-1.46); TOTAL BILIRUBIN ADULT 0.3 MG/DL (0.2-1.0)
[2017-08-27 05:48] VITALS: BP 137/62; PULSE 76; RESP 17; TEMP 97.4; O2SAT 98
[2017-08-27] MEDS: amLODIPine BESYLATE 5 MG TAB PO SCH (08:46)
--- NOTE | 2017-08-27 10:45 | HHI.PR ---
Subjective Remarks Follow-up with hypertension and Blood pressure controlled, patient is grumpy, discussed with RN, no overnight events. Objective Vitals Vital Signs Date Time Temp Pulse Resp B/P (MAP) Pulse Ox O2 Delivery O2 Flow Rate FiO2 08/27/17 05:48 97.4 76 17 137/62 (87) 98 08/26/17 18:05 99.1 79 18 137/79 (98) 95 Result Diagram: 08/26/17202908/26/172029 Objective Remarks Grumpy Not in distress Vital signs reviewed. Procedures NONE A/P Assessment and Plan This is a 81-year-old male who presented with dementia with behavioral disturbances Dementia with behavioral disturbances -Being managed by inpatient psychiatry unit. Hypertension -Controlled with amlodipine. Blood pressure stable, clonidine as needed. Hyperlipidemia. LDL 189 - Patient would benefit from a statin. Can start on simvastatin 10 mg daily. Recheck LFTs in one month. Follow-up with primary care provider. If patient has risk of relapsing into alcohol abuse, would recommend against addition of simvastatin however. DVT prophylaxis -Encourage ambulation. We will signoff, please call with questions. Virgie Branham MD Aug 27, 2017 10:45
[2017-08-27] MEDS ORDERED: PRAV10TA PO (10:46)
--- NOTE | 2017-08-27 10:49 | HHI.PYPN ---
Subjective Chief Complaint: dementia with behavioral disturbance Remarks Pt seen and discussed with staff. He slept better last night and today has been less hostile and verbally aggressive. He was compliant with medications. He is irritable and paranoid towards peers and staff. No SI/HI Mental Status Examination Appearance: Appropriate Consciousness: Alert Orientation: Person (person only) Motor Activity: Normal gait Speech: Other (hypoverbal) Language: Adequate Attention and Concentration: Inadequate Memory: Impaired (impaired on clinical exam) Mood: Irritable Affect: Blunt Thought Process & Associations: Other (paucity of thought) Thought Content: Other (ongoing paucity of thought) Hallucination Type: None Delusion Type: None Suicidal Ideation: No (no SI voiced) Suicidal Plan: No Suicidal Intention: No Homicidal Ideation: No (no HI voiced) Homicidal Plan: No Homicidal Intention: No Insight: Poor Judgment: Poor Results Labs Test 08/26/17 20:30 White Blood Count 6.6 TH/MM3 Red Blood Count 4.83 MIL/MM3 Hemoglobin 14.3 GM/DL Hematocrit 42.2 % Mean Corpuscular Volume 87.5 FL Mean Corpuscular Hemoglobin 29.7 PG Mean Corpuscular Hemoglobin Concent 33.9 % Red Cell Distribution Width 14.9 % Platelet Count 238 TH/MM3 Mean Platelet Volume 8.9 FL Neutrophils (%) (Auto) 61.1 % Lymphocytes (%) (Auto) 29.0 % Monocytes (%) (Auto) 7.9 % Eosinophils (%) (Auto) 1.5 % Basophils (%) (Auto) 0.5 % Neutrophils # (Auto) 4.0 TH/MM3 Lymphocytes # (Auto) 1.9 TH/MM3 Monocytes # (Auto) 0.5 TH/MM3 Eosinophils # (Auto) 0.1 TH/MM3 Basophils # (Auto) 0.0 TH/MM3 CBC Comment DIFF FINAL Differential Comment Blood Urea Nitrogen 15 MG/DL Creatinine 0.99 MG/DL Random Glucose 114 MG/DL Total Protein 7.0 GM/DL Albumin 3.4 GM/DL Calcium Level 8.2 MG/DL Phosphorus Level 2.6 MG/DL Magnesium Level 2.1 MG/DL Alkaline Phosphatase 63 U/L Aspartate Amino Transf (AST/SGOT) 18 U/L Alanine Aminotransferase (ALT/SGPT) 22 U/L Total Bilirubin 0.3 MG/DL Sodium Level 141 MEQ/L Potassium Level 3.9 MEQ/L Chloride Level 108 MEQ/L Carbon Dioxide Level 27.9 MEQ/L Anion Gap 5 MEQ/L Estimat Glomerular Filtration Rate 88 ML/MIN Free Thyroxine 0.77 NG/DL Thyroid Stimulating Hormone 3rd Gen 1.380 uIU/ML Vitals/IOs Vital Signs Date Time Temp Pulse Resp B/P (MAP) Pulse Ox O2 Delivery O2 Flow Rate FiO2 08/27/17 05:48 97.4 76 17 137/62 (87) 98 Assessment & Plan Problem List: (1) Dementia with behavioral disturbance ICD Codes: F03.91 - Unspecified dementia with behavioral disturbance Assessment & Plan Continue current tx plan Estimated LOS: days Justification for Cont. Inpt. risk of decompensation Request HC Surrog/Guard Advoc?: Yes Problem Qualifiers (1) Dementia with behavioral disturbance: Qualified Codes: F03.91 - Unspecified dementia with behavioral disturbance Marbella Osorio MD Aug 27, 2017 10:49
[2017-08-27 15:49] VITALS: BP 160/65; PULSE 58; RESP 18; TEMP 98.1; O2SAT 98
[2017-08-27] MEDS: PRAVASTATIN SOD 10 MG TAB PO SCH (20:51)
[2017-08-27] MEDS: OLANZapine 2.5 MG TAB PO SCH (20:51)
[2017-08-28 06:04] VITALS: BP 127/82; PULSE 73; RESP 17; TEMP 98.6; O2SAT 96
[2017-08-28] MEDS: amLODIPine BESYLATE 5 MG TAB PO SCH (09:00)
--- NOTE | 2017-08-28 09:03 | HHI.PYPN ---
Subjective Chief Complaint: dementia with behavioral disturbance Remarks Patient seen and examined with nurse. Chart reviewed. Case discussed with nursing staff who reports the patient has been somewhat hostile and demanding. On my examination today the patient is focused on discharge. He says "I'm going out today." He says that someone named Mariza is coming with the car to pick him up. He remains quite confused. He is irritable and negativistic and becomes quite testy, for example, when I try to examined him for EPS. No evidence side effects from medications. No physical complaints. Review of Systems ROS Limitations: Poor Historian Except as stated in HPI: all other systems reviewed are Neg Mental Status Examination Appearance: Appropriate Consciousness: Alert Orientation: Person Motor Activity: Other (no motor abnormalities noted. No hand tremor, no cogwheeling.) Speech: Other (some paucity of speech) Language: Adequate Attention and Concentration: Inadequate Memory: Impaired (remains impaired on clinical exam) Mood: Irritable Affect: Blunt Thought Process & Associations: Other (slowed) Thought Content: Other (ongoing paucity of thought) Hallucination Type: None Delusion Type: Paranoid (mild) Suicidal Ideation: No (no SI voiced) Homicidal Ideation: No (no HI voiced) Insight: Poor Judgment: Poor Results Labs Labs reviewed. I note improving GFR on most recent CMP. Vitals/IOs Vital Signs Date Time Temp Pulse Resp B/P (MAP) Pulse Ox O2 Delivery O2 Flow Rate FiO2 08/28/17 06:04 98.6 73 17 127/82 (97) 96 Assessment & Plan Problem List: (1) Dementia with behavioral disturbance ICD Codes: F03.91 - Unspecified dementia with behavioral disturbance Assessment & Plan Titrate Zyprexa to 3.75 mg PO/IM qHS to target agitation in the setting of patient's dementia. Continue to monitor on the high acuity unit. Escape precautions remain in place. Continue other medications and care as ordered. Justification for Cont. Inpt. Med changes. Risk for decompensation in less restrictive environment. Discharge Planning Placement once stabilized Request HC Surrog/Guard Advoc?: Yes Problem Qualifiers (1) Dementia with behavioral disturbance: Qualified Codes: F03.91 - Unspecified dementia with behavioral disturbance Jhony Terrell MD Aug 28, 2017 09:03
[2017-08-28] MEDS ORDERED: OLANZapine IM 10 MG VIAL IM PRN (09:15)
[2017-08-28] MEDS: LORazepam 2 MG/ML VIAL - age > 65 yrs IM PRN (12:30)
[2017-08-28] MEDS ORDERED: diphenhydrAMINE HCL 50 MG/ML VIAL IM STA (14:22)
[2017-08-28] MEDS ORDERED: HALOPERIDOL LACTATE 5 MG/ML AMP IM STA (14:22)
[2017-08-28 18:00] VITALS: BP 128/88; PULSE 89; RESP 16; TEMP 98; O2SAT 98
[2017-08-28] MEDS: PRAVASTATIN SOD 10 MG TAB PO SCH (20:33)
[2017-08-28] MEDS: OLANZapine 2.5 MG TAB PO SCH (20:34)
[2017-08-29 05:45] VITALS: BP 124/79; PULSE 75; RESP 16; TEMP 97.9; O2SAT 95
[2017-08-29] MEDS: amLODIPine BESYLATE 5 MG TAB PO SCH (09:00)
--- NOTE | 2017-08-29 11:02 | HHI.PYPN ---
Subjective Chief Complaint: dementia with behavioral disturbance Remarks Patient seen and examined with nurse. Chart reviewed. Case discussed with nursing staff. Patient did not ultimately require Haldol and Benadryl ETO yesterday afternoon. On my examination today, patient is calm but remains confused. He does have a slight irritable edge. He is discharged focused and says that he is "getting out of here" although nursing staff does not report that he has made escape efforts today. Remains somewhat hypoverbal and blunted. No side effects from medications. No physical complaints. Review of Systems ROS Limitations: Poor Historian Except as stated in HPI: all other systems reviewed are Neg Mental Status Examination Appearance: Appropriate Consciousness: Alert Orientation: Person Motor Activity: Other (no abnormal motor movements noted) Speech: Other (ongoing paucity of speech) Language: Adequate Fund of Knowledge: Inadequate Attention and Concentration: Inadequate Memory: Impaired Mood: Irritable Affect: Blunt Thought Process & Associations: Other (remains slow) Thought Content: Other (ongoing paucity of thought) Hallucination Type: None Delusion Type: Paranoid Suicidal Ideation: No (no SI voiced) Homicidal Ideation: No (no HI voiced) Insight: Poor Judgment: Poor Results Labs Labs reviewed Vitals/IOs Vital Signs Date Time Temp Pulse Resp B/P (MAP) Pulse Ox O2 Delivery O2 Flow Rate FiO2 08/29/17 05:45 97.9 75 16 124/79 (94) 95 Assessment & Plan Problem List: (1) Dementia with behavioral disturbance ICD Codes: F03.91 - Unspecified dementia with behavioral disturbance Assessment & Plan Continue patient's Zyprexa as ordered for management of behavioral disturbance in the setting of his dementia. Continue to monitor on the inpatient unit. Continue other medications and care as ordered. Justification for Cont. Inpt. High risk for decompensation in less restrictive environment Discharge Planning Placement. Case discussed with counselor. Request HC Surrog/Guard Advoc?: Yes Problem Qualifiers (1) Dementia with behavioral disturbance: Qualified Codes: F03.91 - Unspecified dementia with behavioral disturbance Jhony Terrell MD Aug 29, 2017 11:02
[2017-08-29] MEDS: LORazepam 2 MG/ML VIAL - age > 65 yrs IM PRN (13:05)
--- NOTE | 2017-08-29 14:13 | PD.TTN ---
Patient Problems 1. Discharge planning 2. Medication compliance 3. Knowledge deficit 4. Lack of coping skills Progress Toward Goals Provider Present: Dr. Kris Terrell Provider Input: 08/22/2017@9am; patient medication is being monitor and neccessary adjustments as needed. Patient continues to require stablization Pt is new to the unit and medication regiment will be evaluated/adjusted as necessary. 08/25- Pt medication regiment has been adjusted with addition of Zyprexa and Guardian Advocate has been requested. 08/29- Pt medication regiment is being adjusted including Zyprexa. He remains agitated and exit seeking. Nurse(s) Present: RASHI Lombardo Nurse(s) Input: 08/22/2017; Patient requires coaching and redirection with medication, and behavior he is eating meals Pt is new to the unit and has appeared calm, cooperative, withdrawn and confused. 08/29- Jurgen Gant RN Pt appears grumpy, refusing medication, agitated, exit seeking and required a PRN yesterday due to behavior. Psychiatric Counselors Present: Brendon Mas [facility], Kim Stephenson [facility] Psych Therapist Input: 08/22/2017 @ 09:00am; counselor will reachout to patient's family, discuss placement and discharge concerns/issues Pt is new on the unit and will be evaluated using biopsychosical assessment today. 08/25- Pt has been transferred back from [facility] floor due to aggressive and exit seeking behaviors. He continues to appear confused, disorganized, easily agitated, demanding, exit seeking and guarded. Pt presents with poor insight into condition and need for care. Pt feels as if he does not need medication and will not recognize his illness. No noted agitation or aggression since returning to 2700. He interacts minimally on unit and remains withdrawn to self. Pt appears unable to utilize coping and emotional regulation skills as evidenced by his behavior. 08/29- Pt continues to appear easily agitated, confused, exit seeking, demanding, uncooperative and withdrawn to self. Pt is easily angered in interaction and constantly exit seeking. Pt presents with limited insight into condition and need for care. He does not feel he needs treatment and will not recognize his illness. Pt appears unable to utilize coping and emotional regulation skills as evidenced by ongoing behavioral outbursts. He is not compliant with medication regiment and is often disoriented. Group Spec/RT/OT/[facility] Present: Luz Marina Mak, [facility], KEO Mancuso, KEO Meneses Group Spec/RT/OT/[facility] Input: 08/22/2017@9:00am; patient is not participating with activities Pt is a new admission and will be evaluated today. 08/25- Pt is not visible in the [place]. He remains in his room and declines to participate in the group activities. 08/29- Pt is exit seeking,k aggressive, confused and unable to tolerate groups. Discharge Plan Other Pt will be referred to an [facility]/Nursing facility as he has no where to live at this time and appears unable to care for himself or live on his own. He will be linked to necessary medical and psychiatric follow up services through [facility]/ Nursing facility providers. Documentation Scribe: POLLO Ferrari Jonathan [facility] Aug 29, 2017 14:13
[2017-08-29] MEDS ORDERED: OLANZapine IM 10 MG VIAL IM PRN (14:30)
[2017-08-29 17:59] VITALS: BP 144/81; PULSE 92; RESP 18; TEMP 97.4; O2SAT 98
[2017-08-29] MEDS: OLANZapine 2.5 MG TAB PO SCH (21:21)
[2017-08-29] MEDS: PRAVASTATIN SOD 10 MG TAB PO SCH (21:22)
[2017-08-30 05:55] VITALS: BP_SYST 135; BP_SYST 98; BP_DIAS 56; BP_DIAS 85; PULSE 64; RESP 16; TEMP 98.4; O2SAT 98
--- NOTE | 2017-08-30 08:20 | HHI.PYPN ---
Subjective Chief Complaint: dementia with behavioral disturbance Remarks Patient seen and examined with nurse. Chart reviewed. Case discussed with nursing staff. It does not appear that Zyprexa p.r.n. was required. Staff does note patient is malodorous, unclear when he last bathed. On my exam, patient is calm but confused. He remains convinced that he is leaving the hospital today. He is oriented to person only. He denies SI/HI but is unreliable to contract for safety. Denies AVH. Denies side effects from medications. No physical complaints. Review of Systems ROS Limitations: Poor Historian Except as stated in HPI: all other systems reviewed are Neg Mental Status Examination Appearance: Disheveled, Malodorous Consciousness: Alert Orientation: Person (only) Motor Activity: Other (no motoric abnormalities noted) Speech: Other (ongoing paucity of speech) Language: Adequate Fund of Knowledge: Inadequate Attention and Concentration: Inadequate Memory: Impaired Mood: Irritable Affect: Blunt Thought Process & Associations: Other (remains slow) Thought Content: Other (paucity of thought) Hallucination Type: None Delusion Type: Paranoid Suicidal Ideation: No (no SI voiced) Homicidal Ideation: No (no HI voiced) Insight: Poor Judgment: Poor Results Labs Labs reviewed. No new labs. Vitals/IOs Vital Signs Date Time Temp Pulse Resp B/P (MAP) Pulse Ox O2 Delivery O2 Flow Rate FiO2 08/30/17 05:55 98.4 64 16 135/85 (102) 98 Assessment & Plan Problem List: (1) Dementia with behavioral disturbance ICD Codes: F03.91 - Unspecified dementia with behavioral disturbance Assessment & Plan pattern of late afternoon/evening agitation becoming evident. I will add a midday dose of scheduled Zyprexa to counteract this. Zyprexa 1.25mg qNoon and continue with Zyprexa 3.75mg qHS. Patient also has Zyprexa p.r.n. available for severe agitation. Staff to ensure patient gets a shower to maintain hygiene. Continue to monitor on the inpatient unit. Continue other medications and care as ordered. Justification for Cont. Inpt. Medication changes. Impairment in self-care. High risk for decompensation in less restrictive environment Discharge Planning Placement. Case discussed with counselor. Request HC Surrog/Guard Advoc?: Yes Problem Qualifiers (1) Dementia with behavioral disturbance: Qualified Codes: F03.91 - Unspecified dementia with behavioral disturbance Jhony Terrell MD Aug 30, 2017 08:20
[2017-08-30] MEDS ORDERED: PILL SPLITTER OTHER PRN (08:45)
[2017-08-30] MEDS: amLODIPine BESYLATE 5 MG TAB PO SCH (10:00)
[2017-08-30] MEDS: OLANZapine 2.5 MG TAB PO SCH ×2 (12:00→21:00)
[2017-08-30 18:17] VITALS: BP 140/81; PULSE 71; RESP 18; TEMP 97.8; O2SAT 100
[2017-08-30] MEDS: PRAVASTATIN SOD 10 MG TAB PO SCH (20:58)
[2017-08-31 05:40] VITALS: BP 135/87; PULSE 72; RESP 16; TEMP 98; O2SAT 100
[2017-08-31] MEDS: amLODIPine BESYLATE 5 MG TAB PO SCH (08:31)
--- NOTE | 2017-08-31 10:54 | HHI.PYPN ---
Subjective Chief Complaint: dementia with behavioral disturbance Remarks I have seen and examined this patient today for psychiatric reevaluation. Reviewed charge, documentation, vital signs, medication regimen. I have discussed the patient with nurse in charge. Patient is found sleeping in his bed. He is easily arousable. Extremely malodorous and disheveled. At the beginning irritable and oppositional, but with redirection more cooperative. He reports feeling much better, he says that his mood is okay, he seems to be disoriented in time and place. He says that medications are helping him. He is compliant with medications, no significant side effects noted or reported. No episodes of agitation, behavioral dysregulation or aggressive behavior in the last 24 hours. Review of Systems Except as stated in HPI: all other systems reviewed are Neg Mental Status Examination Appearance: Disheveled, Malodorous Consciousness: Alert Orientation: Person (only) Motor Activity: Other (no motoric abnormalities noted) Speech: Other (ongoing paucity of speech) Language: Adequate Fund of Knowledge: Inadequate Attention and Concentration: Inadequate Memory: Impaired Mood: Irritable Affect: Blunt Thought Process & Associations: Other (remains slow) Thought Content: Other (paucity of thought) Hallucination Type: None Delusion Type: Paranoid Suicidal Ideation: No (no SI voiced) Homicidal Ideation: No (no HI voiced) Insight: Poor Judgment: Poor Results Vitals/IOs Vital Signs Date Time Temp Pulse Resp B/P (MAP) Pulse Ox O2 Delivery O2 Flow Rate FiO2 08/31/17 05:40 98.0 72 16 135/87 (103) 100 Assessment & Plan Problem List: (1) Dementia with behavioral disturbance ICD Codes: F03.91 - Unspecified dementia with behavioral disturbance Assessment & Plan: Continue current psychotropic regimen. Motivation and brief supportive psychotherapy provided. I encouraged the patient to take a shower today. Assessment & Plan Estimated LOS: days Justification for Cont. Inpt. Patient needs to continue psychiatric hospitalization for stabilization. Request HC Surrog/Guard Advoc?: Yes Problem Qualifiers (1) Dementia with behavioral disturbance: Qualified Codes: F03.91 - Unspecified dementia with behavioral disturbance Wilson Ontiveros MD Aug 31, 2017 10:54
[2017-08-31] MEDS: OLANZapine 2.5 MG TAB PO SCH ×2 (12:00→20:50)
[2017-08-31 17:14] VITALS: BP 129/74; PULSE 80; RESP 16; TEMP 97.9; O2SAT 99
[2017-08-31] MEDS: PRAVASTATIN SOD 10 MG TAB PO SCH (20:49)
[2017-09-01 06:12] VITALS: BP 143/86; PULSE 65; RESP 18; TEMP 98.2; O2SAT 100
[2017-09-01] MEDS: amLODIPine BESYLATE 5 MG TAB PO SCH (08:32)
--- NOTE | 2017-09-01 12:56 | HHI.PYPN ---
Subjective Chief Complaint: dementia with behavioral disturbance Remarks Patient seen and examined with nurse. Chart reviewed. Case discussed with nursing staff. Case discussed in treatment team. No behavioral issues noted overnight by nursing staff. On my examination today, the patient is lying calmly in his room. He remains confused. When I ask how he is doing he says somewhat wryly, "I'm breathing." He remains a little discharge focused, but he seems less insistent on this point. Denies side effects from medications. No physical complaints. Review of Systems ROS Limitations: Poor Historian Except as stated in HPI: all other systems reviewed are Neg Mental Status Examination Appearance: Disheveled Consciousness: Alert Orientation: Person Motor Activity: Other (no motoric abnormalities noted) Speech: Other (paucity of speech) Language: Adequate Fund of Knowledge: Inadequate Attention and Concentration: Inadequate Memory: Impaired Mood: Irritable (mild) Affect: Blunt Thought Process & Associations: Other (slowed) Thought Content: Other (paucity of thought) Hallucination Type: None Delusion Type: None Suicidal Ideation: No Homicidal Ideation: No Insight: Poor Judgment: Poor Results Labs Labs reviewed Vitals/IOs Vital Signs Date Time Temp Pulse Resp B/P (MAP) Pulse Ox O2 Delivery O2 Flow Rate FiO2 09/01/17 06:12 98.2 65 18 143/86 (105) 100 Assessment & Plan Problem List: (1) Dementia with behavioral disturbance ICD Codes: F03.91 - Unspecified dementia with behavioral disturbance Assessment & Plan Continue Zyprexa 1.25/3.75mg as ordered for management of behavioral disturbance in the setting of the patient's dementia. Continue to monitor on the inpatient unit. Continue other medications and care as ordered. Justification for Cont. Inpt. Risk for decompensation and less restricted environment. Impairment in self- care. Discharge Planning Placement. Case discussed with counselor. Request HC Surrog/Guard Advoc?: Yes Problem Qualifiers (1) Dementia with behavioral disturbance: Qualified Codes: F03.91 - Unspecified dementia with behavioral disturbance Jhony Terrell MD Sep 01, 2017 12:56
[2017-09-01] MEDS: OLANZapine 2.5 MG TAB PO SCH ×2 (13:01→21:33)
--- NOTE | 2017-09-01 13:07 | PD.TTN ---
Patient Problems 1. Discharge planning 2. Medication compliance 3. Knowledge deficit 4. Lack of coping skills Progress Toward Goals Provider Present: Dr. Kris Terrell Provider Input: 08/22/2017@9am; patient medication is being monitor and neccessary adjustments as needed. Patient continues to require stablization Pt is new to the unit and medication regiment will be evaluated/adjusted as necessary. 08/25- Pt medication regiment has been adjusted with addition of Zyprexa and Guardian Advocate has been requested. 08/29- Pt medication regiment is being adjusted including Zyprexa. He remains agitated and exit seeking. 09/01 patient is in need of placement Nurse(s) Present: RASHI Lombardo Nurse(s) Input: 08/22/2017; Patient requires coaching and redirection with medication, and behavior he is eating meals Pt is new to the unit and has appeared calm, cooperative, withdrawn and confused. 08/29- Jurgen Gant RN Pt appears grumpy, refusing medication, agitated, exit seeking and required a PRN yesterday due to behavior. 09/01 Pricilla he was well over night , calmer and is med compliant, still focused on his money Psychiatric Counselors Present: Brendon Mas [facility], Nelly Ray [facility], Kim Stephenson [facility] Psych Therapist Input: 08/22/2017 @ 09:00am; counselor will reachout to patient's family, discuss placement and discharge concerns/issues Pt is new on the unit and will be evaluated using biopsychosical assessment today. 08/25- Pt has been transferred back from Med/Surge floor due to aggressive and exit seeking behaviors. He continues to appear confused, disorganized, easily agitated, demanding, exit seeking and guarded. Pt presents with poor insight into condition and need for care. Pt feels as if he does not need medication and will not recognize his illness. No noted agitation or aggression since returning to [facility]. He interacts minimally on unit and remains withdrawn to self. Pt appears unable to utilize coping and emotional regulation skills as evidenced by his behavior. 08/29- Pt continues to appear easily agitated, confused, exit seeking, demanding, uncooperative and withdrawn to self. Pt is easily angered in interaction and constantly exit seeking. Pt presents with limited insight into condition and need for care. He does not feel he needs treatment and will not recognize his illness. Pt appears unable to utilize coping and emotional regulation skills as evidenced by ongoing behavioral outbursts. He is not compliant with medication regiment and is often disoriented. 09/01 patient remains focused on his money and is disoriented , will need a locked chcf placement such as [facility] Group Spec/RT/OT/[facility] Present: Luz Marina Mak, [facility], KEO Mancuso, Matthew Sanchez, [facility] Group Spec/RT/OT/[facility] Input: 08/22/2017@9:00am; patient is not participating with activities Pt is a new admission and will be evaluated today. 08/25- Pt is not visible in the [place]. He remains in his room and declines to participate in the group activities. 08/29- Pt is exit seeking,k aggressive, confused and unable to tolerate groups. 09/01 patient presents confused and aggitated, elopement risk and unable to tolerate the groups Discharge Plan Other Pt will be referred to an [facility]Nursing facility as he has no where to live at this time and appears unable to care for himself or live on his own. He will be linked to necessary medical and psychiatric follow up services through [facility]/ Nursing facility providers. Documentation Scribe: Brendon Mas, Nelly Oglesby LCSW Sep 01, 2017 13:07
[2017-09-01 16:41] VITALS: BP 152/89; PULSE 76; RESP 18; TEMP 98; O2SAT 97
[2017-09-01] MEDS: PRAVASTATIN SOD 10 MG TAB PO SCH (21:33)
[2017-09-02 06:26] VITALS: BP 130/76; PULSE 66; RESP 17; TEMP 97.5; O2SAT 94
[2017-09-02] MEDS: amLODIPine BESYLATE 5 MG TAB PO SCH (08:54)
--- NOTE | 2017-09-02 12:21 | HHI.PYPN ---
Subjective Chief Complaint: dementia with behavioral disturbance Remarks Patient was seen and case discussed with nursing. Patient is guarded and apathetic. Hyporverbal. Appears grossly confused oriented 2. Largely keeping to himself. Compliant with his medications and behaving well on the unit. Appears less perseverant Mental Status Examination Appearance: Disheveled Consciousness: Alert Orientation: Person Motor Activity: Other (no motoric abnormalities noted) Speech: Other (paucity of speech) Language: Adequate Fund of Knowledge: Inadequate Attention and Concentration: Inadequate Memory: Impaired Mood: Irritable (mild) Affect: Blunt Thought Process & Associations: Intact Thought Content: Other (paucity of thought) Hallucination Type: None Delusion Type: None Suicidal Ideation: No Homicidal Ideation: No Insight: Poor Judgment: Poor Results Vitals/IOs Vital Signs Date Time Temp Pulse Resp B/P (MAP) Pulse Ox O2 Delivery O2 Flow Rate FiO2 09/02/17 06:26 97.5 66 17 130/76 (94) 94 Intake and Output 09/02/17 09/02/17 09/03/17 08:00 16:00 00:00 Intake Total 360 ml Balance 360 ml Assessment & Plan Problem List: (1) Dementia with behavioral disturbance ICD Codes: F03.91 - Unspecified dementia with behavioral disturbance Assessment & Plan Continue current treatment plan Justification for Cont. Inpt. Patient would decompensate in a less restrictive setting Request HC Surrog/Guard Advoc?: Yes Problem Qualifiers (1) Dementia with behavioral disturbance: Qualified Codes: F03.91 - Unspecified dementia with behavioral disturbance Gustabo Najera DO Sep 02, 2017 12:21
[2017-09-02] MEDS: OLANZapine 2.5 MG TAB PO SCH ×2 (12:30→20:23)
[2017-09-02 18:00] VITALS: BP 124/74; PULSE 71; RESP 18; TEMP 98.6; O2SAT 96
[2017-09-02] MEDS: PRAVASTATIN SOD 10 MG TAB PO SCH (20:23)
[2017-09-03 06:00] VITALS: BP 102/63; PULSE 57; RESP 18; TEMP 97.7
[2017-09-03] MEDS: amLODIPine BESYLATE 5 MG TAB PO SCH (09:00)
[2017-09-03] MEDS: OLANZapine 2.5 MG TAB PO SCH ×2 (11:31→20:05)
--- NOTE | 2017-09-03 13:40 | HHI.PYPN ---
Subjective Chief Complaint: dementia with behavioral disturbance Remarks Patient was seen and case discussed with nursing. Patient remains mildly oppositional and irritable. Affect today appears blunted. Patient says he doesn't care if he lives or dies. Feeling depressed. He was asked to go outside and said that he would. Denies suicidal plan or intent. Tolerating medications well Mental Status Examination Appearance: Disheveled Consciousness: Alert Orientation: Person Motor Activity: Other (no motoric abnormalities noted) Speech: Other (paucity of speech) Language: Adequate Fund of Knowledge: Inadequate Attention and Concentration: Inadequate Memory: Impaired Mood: Sad, Irritable (mild) Affect: Blunt Thought Process & Associations: Intact Thought Content: Other (paucity of thought) Hallucination Type: None Delusion Type: None Suicidal Ideation: Yes (fleeting) Suicidal Plan: No Suicidal Intention: No Homicidal Ideation: No Homicidal Plan: No Homicidal Intention: No Insight: Poor Judgment: Poor Results Vitals/IOs Vital Signs Date Time Temp Pulse Resp B/P (MAP) Pulse Ox O2 Delivery O2 Flow Rate FiO2 09/03/17 06:00 97.7 57 18 102/63 (76) 09/02/17 18:00 96 Assessment & Plan Problem List: (1) Dementia with behavioral disturbance ICD Codes: F03.91 - Unspecified dementia with behavioral disturbance Assessment & Plan Continue current treatment plan Justification for Cont. Inpt. Patient will decompensate in a less restrictive setting Request HC Surrog/Guard Advoc?: Yes Problem Qualifiers (1) Dementia with behavioral disturbance: Qualified Codes: F03.91 - Unspecified dementia with behavioral disturbance Gustabo Najera DO Sep 03, 2017 13:40
[2017-09-03 18:23] VITALS: BP 116/73; PULSE 66; RESP 18; TEMP 98.4; O2SAT 100
[2017-09-03] MEDS: PRAVASTATIN SOD 10 MG TAB PO SCH (20:05)
[2017-09-04 05:40] VITALS: BP 113/79; PULSE 75; RESP 17; TEMP 98.7; O2SAT 94
[2017-09-04] MEDS: amLODIPine BESYLATE 5 MG TAB PO SCH (09:39)
--- NOTE | 2017-09-04 09:54 | HHI.PYPN ---
Subjective Chief Complaint: dementia with behavioral disturbance Remarks Patient seen and examined with nurse. Chart reviewed. Patient has not required additional medication for anxiety or agitation since 08/31. Case discussed with nursing staff who reports that the patient has been slightly irritable but no real behavioral problem. He is reportedly sleeping well. I see in Dr. Najera's notes that the patient was endorsing low mood yesterday, but today the patient tells me "I'm not unhappy." Denies suicidal or homicidal ideation on direct questioning. Sleep is fair. Remains confused as at recent baseline. Denies side effects from medications. No physical complaints. Review of Systems ROS Limitations: Poor Historian Except as stated in HPI: all other systems reviewed are Neg Mental Status Examination Appearance: Disheveled Consciousness: Alert Orientation: Person (person only) Motor Activity: Other (no abnormal motor movements appreciated) Speech: Other (paucity of speech, ongoing) Language: Adequate Fund of Knowledge: Inadequate Attention and Concentration: Inadequate Memory: Impaired Mood: Other (calm) Affect: Blunt Thought Process & Associations: Intact Thought Content: Other (paucity of thought) Hallucination Type: None Delusion Type: None Suicidal Ideation: No Suicidal Plan: No Suicidal Intention: No Homicidal Ideation: No Homicidal Plan: No Homicidal Intention: No Insight: Poor Judgment: Poor Results Vitals/IOs Vital Signs Date Time Temp Pulse Resp B/P (MAP) Pulse Ox O2 Delivery O2 Flow Rate FiO2 09/04/17 05:40 98.7 75 17 113/79 (90) 94 Assessment & Plan Problem List: (1) Dementia with behavioral disturbance ICD Codes: F03.91 - Unspecified dementia with behavioral disturbance Assessment & Plan Continue Zyprexa as ordered. Continue to monitor mood, although the patient denies any issues with depression today. Continue to monitor on the inpatient unit. Continue other medications and care as ordered. Justification for Cont. Inpt. Risk for decompensation in less restrictive environment Discharge Planning Case discussed with counselor. Plan is for placement. Request HC Surrog/Guard Advoc?: Yes Problem Qualifiers (1) Dementia with behavioral disturbance: Qualified Codes: F03.91 - Unspecified dementia with behavioral disturbance Jhony Terrell MD Sep 04, 2017 09:54
[2017-09-04] MEDS: OLANZapine 2.5 MG TAB PO SCH ×2 (13:43→21:20)
[2017-09-04 15:58] VITALS: BP 119/81; PULSE 70; RESP 18; TEMP 98; O2SAT 92
[2017-09-04] MEDS: PRAVASTATIN SOD 10 MG TAB PO SCH (21:21)
[2017-09-05 05:53] VITALS: BP 135/79; PULSE 65; RESP 16; TEMP 97.5; O2SAT 96
--- NOTE | 2017-09-05 08:58 | HHI.PYPN ---
Subjective Chief Complaint: dementia with behavioral disturbance Remarks Patient seen and examined with nurse. Chart reviewed. Case discussed in treatment team. Per nursing staff, patient remains mildly irritable but not aggressive or assaultive. On my examination today, the patient remains confused. He is hyperverbal and flat. Paucity of thought continues. No side effects from medications. No physical complaints. Review of Systems ROS Limitations: Poor Historian Except as stated in HPI: all other systems reviewed are Neg Mental Status Examination Appearance: Disheveled Consciousness: Alert Orientation: Person (person only) Motor Activity: Other (no abnormal motor movements) Speech: Other (paucity of speech, ongoing) Language: Adequate Fund of Knowledge: Inadequate Attention and Concentration: Inadequate Memory: Impaired Mood: Other (calm) Affect: Blunt (tending towards flat) Thought Process & Associations: Intact Thought Content: Other (paucity of thought) Hallucination Type: None Delusion Type: None Suicidal Ideation: No Suicidal Plan: No Suicidal Intention: No Homicidal Ideation: No Homicidal Plan: No Homicidal Intention: No Insight: Poor Judgment: Poor Results Labs Labs reviewed. No new labs. Vitals/IOs Vital Signs Date Time Temp Pulse Resp B/P (MAP) Pulse Ox O2 Delivery O2 Flow Rate FiO2 09/05/17 05:53 97.5 65 16 135/79 (97) 96 Assessment & Plan Problem List: (1) Dementia with behavioral disturbance ICD Codes: F03.91 - Unspecified dementia with behavioral disturbance Assessment & Plan Continue Zyprexa as ordered. Continue to monitor on the inpatient unit. Continue other medications and care as ordered. Justification for Cont. Inpt. Risk for decompensation in less restrictive environment Discharge Planning Placement. Case discussed with counselor. Request HC Surrog/Guard Advoc?: Yes Problem Qualifiers (1) Dementia with behavioral disturbance: Qualified Codes: F03.91 - Unspecified dementia with behavioral disturbance Jhony Terrell MD Sep 05, 2017 08:58
[2017-09-05] MEDS: amLODIPine BESYLATE 5 MG TAB PO SCH (09:00)
--- NOTE | 2017-09-05 11:12 | PD.TTN ---
Patient Problems 1. Discharge planning 2. Medication compliance 3. Knowledge deficit 4. Lack of coping skills Progress Toward Goals Provider Present: Dr. Kris Terrell Provider Input: 08/22/2017@9am; patient medication is being monitor and neccessary adjustments as needed. Patient continues to require stablization Pt is new to the unit and medication regiment will be evaluated/adjusted as necessary. 08/25- Pt medication regiment has been adjusted with addition of Zyprexa and Guardian Advocate has been requested. 08/29- Pt medication regiment is being adjusted including Zyprexa. He remains agitated and exit seeking. 09/01 patient is in need of placement 09/05/17 Patient is stable ready for placement Nurse(s) Present: RASHI Lombardo Nurse(s) Input: 08/22/2017; Patient requires coaching and redirection with medication, and behavior he is eating meals Pt is new to the unit and has appeared calm, cooperative, withdrawn and confused. 08/29- Jurgen Gant RN Pt appears grumpy, refusing medication, agitated, exit seeking and required a PRN yesterday due to behavior. 09/01 Pricilla he was well over night , calmer and is med compliant, still focused on his money 09/05/17 Patient's nurse Susan reports patient is seclusive, medication compliant. Irritable states "there ain't nothing wrong with me" Psychiatric Counselors Present: Brendon Mas, [facility], Nelly Ray [facility], Zenia Somers, [facility], Kim Stephenson, [facility] Psych Therapist Input: 08/22/2017 @ 09:00am; counselor will reachout to patient's family, discuss placement and discharge concerns/issues Pt is new on the unit and will be evaluated using biopsychosical assessment today. 08/25- Pt has been transferred back from Med/Surge floor due to aggressive and exit seeking behaviors. He continues to appear confused, disorganized, easily agitated, demanding, exit seeking and guarded. Pt presents with poor insight into condition and need for care. Pt feels as if he does not need medication and will not recognize his illness. No noted agitation or aggression since returning to 2700. He interacts minimally on unit and remains withdrawn to self. Pt appears unable to utilize coping and emotional regulation skills as evidenced by his behavior. 08/29- Pt continues to appear easily agitated, confused, exit seeking, demanding, uncooperative and withdrawn to self. Pt is easily angered in interaction and constantly exit seeking. Pt presents with limited insight into condition and need for care. He does not feel he needs treatment and will not recognize his illness. Pt appears unable to utilize coping and emotional regulation skills as evidenced by ongoing behavioral outbursts. He is not compliant with medication regiment and is often disoriented. 09/01 patient remains focused on his money and is disoriented , will need a locked group home placement such as [facility] 09/05/17 Patient transferred from 2700 to 2600. Patient presents childlike, needing questions repeated several times prior to answering. Patient's cognitive ability is limited. Patient is alert to person only has no insight into place, time/day or situation. Patient denies suicidal and homicidal ideation. Patient's speech is mumbled, unclear, disorganized. Placement has been found for patient. [facility] 2 and [id number] will be faxed once completed. Patient will remain until discharged to [facility]. Group Spec/RT/OT/CROWLEY Present: Luz Marina Mak, [facility], KEO Mancuso, KEO Meneses Group Spec/RT/OT/[facility]LEY Input: 08/22/2017@9:00am; patient is not participating with activities Pt is a new admission and will be evaluated today. 08/25- Pt is not visible in the [place]. He remains in his room and declines to participate in the group activities. 08/29- Pt is exit seeking,k aggressive, confused and unable to tolerate groups. 09/01 patient presents confused and aggitated, elopement risk and unable to tolerate the groups 09/05/17 Patient attends 50% of groups, behaviors appropriately Discharge Plan Other Pt will be referred to an LONG-TERM/Nursing facility as he has no where to live at this time and appears unable to care for himself or live on his own. He will be linked to necessary medical and psychiatric follow up services through [facility]/ Nursing facility providers. Documentation Scribe: Brendon Mas, Zenia AlejandroShamika Sep 05, 2017 11:12
[2017-09-05] MEDS: OLANZapine 2.5 MG TAB PO SCH ×2 (12:00→21:25)
[2017-09-05 18:00] VITALS: BP 120/80; PULSE 65; RESP 18; TEMP 98; O2SAT 97
[2017-09-05] MEDS: PRAVASTATIN SOD 10 MG TAB PO SCH (21:25)
[2017-09-06 05:31] VITALS: BP 149/91; PULSE 62; RESP 18; TEMP 97.6; O2SAT 98
[2017-09-06] MEDS: amLODIPine BESYLATE 5 MG TAB PO SCH (08:25)
--- NOTE | 2017-09-06 09:51 | HHI.PYPN ---
Subjective Chief Complaint: dementia with behavioral disturbance Remarks Patient seen and examined. Chart reviewed. Case discussed with nursing staff. Patient reportedly somewhat irritable. Case discussed with counselor. On my examination today, patient seems a little more irascible than I have seen him recently. He remains quite confused. He is discharge focused but does not know where is he at or where he might go if released. After I explain that our hope is to find him a safe, structured living environment, he arises sharply and says that he wants to show me something. He rifles through a stack of papers in his pocket before finally producing a paper reminding him that his wallet has been secured in the safe and will be returned to him on discharge. He tells me he wants me to take him to the safe to get his wallet so he can go, and when I decline he says "me and you are through" and stalks off. No side effects from medications. No physical complaints. Review of Systems ROS Limitations: Poor Historian Except as stated in HPI: all other systems reviewed are Neg Mental Status Examination Appearance: Disheveled Consciousness: Alert Orientation: Person (person only) Motor Activity: Normal gait, Other (no motor abnormalities) Speech: Other (paucity of speech, ongoing) Language: Adequate Fund of Knowledge: Inadequate Attention and Concentration: Inadequate Memory: Impaired Mood: Irritable Affect: Other (dysphoric) Thought Process & Associations: Intact Thought Content: Other (paucity of thought) Hallucination Type: None Delusion Type: None Suicidal Ideation: No Suicidal Plan: No Suicidal Intention: No Homicidal Ideation: No Homicidal Plan: No Homicidal Intention: No Insight: Poor Judgment: Poor Results Labs Labs reviewed. No new labs. Vitals/IOs Vital Signs Date Time Temp Pulse Resp B/P (MAP) Pulse Ox O2 Delivery O2 Flow Rate FiO2 09/06/17 05:31 97.6 62 18 149/91 (110) 98 Intake and Output 09/06/17 09/06/17 09/07/17 08:00 16:00 00:00 Intake Total 0 ml Balance 0 ml Assessment & Plan Problem List: (1) Dementia with behavioral disturbance ICD Codes: F03.91 - Unspecified dementia with behavioral disturbance Assessment & Plan Patient with some breakthrough irritability in setting of dementia. I will titrate Zyprexa to 1.25/1.25/3.75mg to target this irritability. Continue to monitor on inpatient unit. Continue other meds and care as ordered. Justification for Cont. Inpt. Risk for decompensation in less restrictive setting. Discharge Planning Placement. Case discussed with counselor. Request HC Surrog/Guard Advoc?: Yes Problem Qualifiers (1) Dementia with behavioral disturbance: Qualified Codes: F03.91 - Unspecified dementia with behavioral disturbance Jhony Terrell MD Sep 06, 2017 09:51
[2017-09-06] MEDS: OLANZapine 2.5 MG TAB PO SCH ×3 (12:19→20:33)
[2017-09-06 18:00] VITALS: BP 122/72; PULSE 60; RESP 16; TEMP 98.3; O2SAT 95
[2017-09-06] MEDS: PRAVASTATIN SOD 10 MG TAB PO SCH (20:27)
[2017-09-07 06:07] VITALS: BP 135/89; PULSE 66; RESP 18; TEMP 97.6; O2SAT 97
[2017-09-07] MEDS: amLODIPine BESYLATE 5 MG TAB PO SCH (09:14)
[2017-09-07] MEDS: OLANZapine 2.5 MG TAB PO SCH ×2 (09:16→16:11)
[2017-09-07] MEDS ORDERED: OLAN2.5T7 PO ×2 (12:10)
--- NOTE | 2017-09-07 12:11 | HHI.DS ---
Psychiatry Discharge Summary Inpatient Psychiatric care?: Yes Advance Directive: No Reason Not Provided: Due to Patient Condition Mental Health AdvanceDirective: No Health Care Proxy: No Admission Admission Date Aug 17, 2017 at 15:30 Admission Diagnosis: (1) Dementia with behavioral disturbance ICD Code: F03.91 - Unspecified dementia with behavioral disturbance Brief History Mr. Whitaker is a 81-year-old male with suspected dementia who presents in transfer from [facility] under a Rodríguez act. Reviewing the records from that facility, it appears that the patient was hospitalized there for an extended stay, largely uneventful until the patient began to refuse medications and was found with a spot facer and knife, which he willingly gave to security. Dr. Ontiveros followed the patient in consultation there. Reviewing the electronic medical record, I see no prior psychiatric contact within our system. Patient seen and examined with nurse in counselor. Chart reviewed. Case discussed with nursing staff. Patient was somewhat agitated on arrival because he did not want to be hospitalized per nursing staff but has since calmed. On my examination today, the patient is calm. He exhibits extreme paucity of thought and slowing of thought processes. I initially suspected some sort of receptive problem (such as hard of hearing) or expressive difficulty, but it soon became clear that he is able to understand (and repeat back) what I have said perfectly well, and his speech is coherent and well-formed but quite sparse. He answers many questions with "I dunno." Affect is flat. He is somewhat psychomotor slowed and seems fairly apathetic. He denies SI/HI. Beyond this, I am not able to obtain much more from him except as detailed below. Psychiatric interview is limited because of mental status. He verbalizes no physical complaints. Past psychiatric history: Unable to obtain from patient because of mental status. Tobacco Use In Past 30 Days: Cognitive Impairment Alcohol Use: Never Hospital Course Patient was admitted to a locked, inpatient psychiatric unit. A general medical consultation was obtained. Appropriate precautions were in place throughout patient's hospital stay. Patient was seen and examined on the unit by psychiatry and also visited by counselor. Psychotropic medications were adjusted, and patient tolerated medications well without side effects. Patient had improvement in presenting behavioral disturbance during the course of his hospital stay. There is no evidence of any suicidality or homicidality on the inpatient unit. The patient was noted to be fairly exit seeking, and so counselor has sought out a locked SNF for long-term placement. On the day of discharge: Patient seen and examined. Chart reviewed. Case discussed with nursing staff. No behavioral issues overnight. Case discussed with counselor. Patient may go to SNF today. On my examination today, the patient is calm and cooperative. He seems less dysphoric and irritable with medication adjustments. He is not sedated. He remains fixated on discharge. He does not verbalize any suicidal or homicidal ideation, intent or plan. He remains quite confused as at baseline. No mood or psychotic symptoms. No side effects from medications. No physical complaints. Suicide and violence risk assessment both suggest lower imminent risk on day of discharge, although the patient remains chronically unpredictable as a consequence of his dementing illness, and this unpredictability would not be improved by a longer inpatient psychiatric hospital stay. Level of function is adequate for planned level of outpatient care. Patient has maximized benefit from this inpatient psychiatric hospital stay and will be discharged today to facility with psychiatric follow- up as arranged by counselor. Patient is also to follow-up with primary care. Patient to return to psychiatric emergency room for any concerning psychiatric symptoms. Results Blood Pressure 135 / 89 Vital Signs Date Time Temp Pulse Resp B/P (MAP) Pulse Ox O2 Delivery O2 Flow Rate FiO2 09/07/17 06:07 97.6 66 18 135/89 (104) 97 Laboratory Results Test 08/18/17 08:48 Cholesterol Level 245 MG/DL (120-200) HDL Cholesterol 40.0 MG/DL (40.0-60.0) Hemoglobin A1c 5.7 % (4.3-6.0) LDL Cholesterol 189 MG/DL (0-99) Triglycerides Level 78 MG/DL (42-150) Summary of Procedures None done Imaging None done Pending results at discharge: No Medications # of Antipsychotic meds at D/C: 1 Approp Antipsych med options 1 - Minimum of three failed multiple trials of monotherapy. 2 - Documented plan to taper to monotherapy due to previous use of multiple meds OR cross-taper in progress at D/C. 3 - Documentation of augmentation of Clozapine. 4 - Justification other than those listed in allowable values 1-3, document here : Discharge Discharge Date: Sep 07, 2017 Discharge Diagnosis: (1) Dementia with behavioral disturbance Diagnosis: Principal (behavioral disturbance resolved) ICD Code: F03.91 - Unspecified dementia with behavioral disturbance Pt Condition on Discharge: Stable Discharge Disposition: Discharge to SNF Discharge Instructions Diet Instructions: Heart Healthy Diet Activities you can perform: Weight Bearing as Khris Scheduled Appointment: as per counselor's notes New Orders: HEPATIC FUNCTION VELAZCO - 1 Month New Medications: Pravastatin (Pravastatin) 10 Mg Tab 10 MG PO DAILY for Cholesterol Management, #30 TAB 0 Refills Olanzapine (Olanzapine) 2.5 Mg Tab 1.25 MG PO DAILY@0900,1500 for Mental Health for 15 Days, TAB 1 Refill Olanzapine (Olanzapine) 2.5 Mg Tab 3.75 MG PO HS for Mental Health for 15 Days, TAB 1 Refill Continued Medications: Amlodipine (Norvasc) 5 Mg Tab 5 MG PO DAILY for Blood Pressure Management, #30 TAB Discontinued Medications: Quetiapine (Seroquel) 25 Mg Tab 12.5 MG PO BID@09,12 for aggitation, #60 TAB Discharge Time <= 30 minutes Mental Status Examination Appearance: Disheveled Consciousness: Alert Orientation: Person Motor Activity: Other (no hand tremor, no cogwheeling, no dystonias, no dyskinesias, no other motor abnormalities noted.) Speech: Other (paucity of speech, ongoing) Language: Adequate Fund of Knowledge: Inadequate Attention and Concentration: Inadequate Memory: Impaired (remains impaired) Mood: Other (calm) Affect: Blunt Thought Process & Associations: Other (slowed) Thought Content: Other (paucity of thought) Hallucination Type: None Delusion Type: None Suicidal Ideation: No Suicidal Plan: No Suicidal Intention: No Homicidal Ideation: No Homicidal Plan: No Homicidal Intention: No Insight: Poor (chronic condition) Judgment: Poor (chronic condition) Discharge/Advance Care Plan Health Problems: (1) Dementia with behavioral disturbance Goals to promote your health * To prevent worsening of your condition and complications * To maintain your health at the optimal level Directions to meet your goals Take your medications as prescribed Follow your dietary instruction Follow activity as directed Keep your appointments as scheduled Take your immunizations and boosters as scheduled If your symptoms worsen call your PCP, if no PCP go to Urgent Care Center or Emergency Room For 24/7 questions related to your inpatient stay or results of tests pending at discharge, please contact Dr. Jhony Terrell at Smoking is Dangerous to Your Health. Avoid second hand smoking Problem Qualifiers (1) Dementia with behavioral disturbance: Qualified Codes: F03.91 - Unspecified dementia with behavioral disturbance Jhony Terrell MD Sep 07, 2017 12:11
== END 2017-09-07 17:15 | DRG 884 ==
LOC: H270 15:30 → H4EA 08-21 22:15 → H270 08-24 17:20 → H250 09-01 17:35 → H260 09-03 19:17
PROVIDERS: ADMIT Psychiatry & Neurology Psychiatry; ATTEND Psychiatry & Neurology Psychiatry
DX: F03.91 Unspecified dementia, unspecified severity, with behavioral disturbance (principal); F05 Delirium due to known physiological condition; R45.851 Suicidal ideations; I10 Essential (primary) hypertension; E78.5 Hyperlipidemia, unspecified
CPT/HCPCS: 80048; 80053; 80061; 80076; 82140; 83036; 83735; 84100; 84439; 84443; 85025; J1200; J1630; J2060

== ENCOUNTER 2017-09-07 19:13 | Inpatient (IN) | payer MEDICARE, OTHER ==
[~2017-09-07] VITALS: Ht 165.1 cm; Wt 62.2 kg
[~2017-09-07 19:13] MED LIST changes: +OLAN2.5T7 PO; +PRAV10TA PO
[2017-09-07 19:40] VITALS: BP 150/92; PULSE 72; RESP 18; O2SAT 97
[2017-09-07 20:32] LABS: AUTOMATED NEUTROPHIL # 5.1 TH/MM3 (1.8-7.7); BASOPHIL % 0.7 % (0.0-2.0); EOSINOPHIL # 0.1 TH/MM3 (0-0.4); EOSINOPHIL % 0.9 % (0.0-4.0); HEMATOCRIT 48.7 % (39.0-51.0); HEMO FLAGS DIFF FINAL; LYMPH % 20.3 % (9.0-44.0); LYMPHOCYTE # 1.5 TH/MM3 (1.0-4.8); MEAN CELL VOLUME 87.8 FL (80.0-100.0); MEAN CORPUSCULAR HGB CONC 34.2 % (32.0-36.0); NEUT % 71.1 % (16.0-70.0); PLATELET COUNT 325 TH/MM3 (150-450); RED BLOOD COUNT 5.55 MIL/MM3 (4.50-5.90); RED CELL DISTRIBUTION WIDTH 15.3 % (11.6-17.2); WHITE BLOOD COUNT 7.2 TH/MM3 (4.0-11.0)
[2017-09-07 20:59] LABS: ALKALINE PHOSPHATASE 70 U/L (45-117); TOTAL BILIRUBIN ADULT 0.7 MG/DL (0.2-1.0)
--- NOTE | 2017-09-07 21:04 | PD ---
HPI Chief Complaint: Psychiatric Symptoms Time Seen by Provider: 19:39 Travel History International Travel<30 days: No Contact w/Intl Traveler<30days: No Traveled to known affect area: No History of Present Illness HPI Patient is a 81-year-old male who presents to emergency room psychiatric evaluation. Patient was placed under a Rodríguez act by police officers today. Reports that as he was being transported to [facility], he fled the transport vehicle and tried to run away. Reports that he was combative to staff and ran into traffic. Patient reports that he is not suicidal or homicidal. Denies use of drugs/alcohol. PFSH Past Medical History Cardiovascular Problems: Yes (htn) Headaches: No Hypertension: Yes Neurologic: Yes (DEMENTIA) Psychiatric: Yes (Hx of dementia diagnosis) Reproductive: No Tetanus Vaccination: Unknown Past Surgical History Body Medical Devices: denies Social History Alcohol Use: No Tobacco Use: No Substance Use: No Allergies-Medications (Allergen,Severity, Reaction): Coded Allergies: No Known Allergies (Unverified , 07/18/17) Reported Meds & Prescriptions Reported Meds & Active Scripts Active Olanzapine 2.5 Mg Tab 3.75 Mg PO HS 15 Days Olanzapine 2.5 Mg Tab 1.25 Mg PO DAILY@0900,1500 15 Days Pravastatin 10 Mg Tab 10 Mg PO DAILY Norvasc (Amlodipine Besylate) 5 Mg Tab 5 Mg PO DAILY Review of Systems General / Constitutional: No: Fever Eyes: No: Visual changes HENT: No: Headaches Cardiovascular: No: Chest Pain or Discomfort Respiratory: No: Shortness of Breath Gastrointestinal: No: Abdominal Pain Genitourinary: No: Dysuria Musculoskeletal: No: Pain Skin: No Rash Neurologic: No: Weakness Psychiatric: Positive: Depression, Suicidal Ideations, No: Homicidal Ideation Endocrine: No: Polydipsia Hematologic/Lymphatic: No: Easy Bruising Physical Exam Narrative GENERAL: NAD SKIN: Focused skin assessment warm/dry. HEAD: Atraumatic. Normocephalic. EYES: Pupils equal and round. No scleral icterus. No injection or drainage. ENT: No nasal bleeding or discharge. Mucous membranes pink and moist. NECK: Trachea midline. No JVD. CARDIOVASCULAR: Regular rate and rhythm. No murmur appreciated. RESPIRATORY: No accessory muscle use. Clear to auscultation. Breath sounds equal bilaterally. GASTROINTESTINAL: Abdomen soft, non-tender, nondistended. Hepatic and splenic margins not palpable. MUSCULOSKELETAL: No obvious deformities. No clubbing. No cyanosis. No edema. NEUROLOGICAL: Awake and alert. No obvious cranial nerve deficits. Motor grossly within normal limits. Normal speech. PSYCHIATRIC: Flat mood and affect Data Data Last Documented VS Vital Signs Date Time Temp Pulse Resp B/P (MAP) Pulse Ox O2 Delivery O2 Flow Rate FiO2 09/07/17 19:40 72 18 150/92 (111) 97 Orders Orders Complete Blood Count With Diff (09/07/17 19:53) Comprehensive Metabolic Panel (09/07/17 19:53) Psych Screen (09/07/17 19:53) Drug Screen, Random Urine (09/07/17 19:53) Labs Laboratory Tests Test 09/07/17 20:05 White Blood Count 7.2 TH/MM3 Red Blood Count 5.55 MIL/MM3 Hemoglobin 16.6 GM/DL Hematocrit 48.7 % Mean Corpuscular Volume 87.8 FL Mean Corpuscular Hemoglobin 30.0 PG Mean Corpuscular Hemoglobin Concent 34.2 % Red Cell Distribution Width 15.3 % Platelet Count 325 TH/MM3 Mean Platelet Volume 8.6 FL Neutrophils (%) (Auto) 71.1 % Lymphocytes (%) (Auto) 20.3 % Monocytes (%) (Auto) 7.0 % Eosinophils (%) (Auto) 0.9 % Basophils (%) (Auto) 0.7 % Neutrophils # (Auto) 5.1 TH/MM3 Lymphocytes # (Auto) 1.5 TH/MM3 Monocytes # (Auto) 0.5 TH/MM3 Eosinophils # (Auto) 0.1 TH/MM3 Basophils # (Auto) 0.0 TH/MM3 CBC Comment DIFF FINAL Differential Comment Blood Urea Nitrogen 18 MG/DL Creatinine 1.25 MG/DL Random Glucose 107 MG/DL Total Protein 8.6 GM/DL Albumin 3.9 GM/DL Calcium Level 8.8 MG/DL Alkaline Phosphatase 70 U/L Aspartate Amino Transf (AST/SGOT) 19 U/L Alanine Aminotransferase (ALT/SGPT) 21 U/L Total Bilirubin 0.7 MG/DL Sodium Level 139 MEQ/L Potassium Level 4.0 MEQ/L Chloride Level 105 MEQ/L Carbon Dioxide Level 26.1 MEQ/L Anion Gap 8 MEQ/L Estimat Glomerular Filtration Rate 68 ML/MIN MDM Medical Decision Making Medical Screen Exam Complete: Yes Emergency Medical Condition: Yes Medical Record Reviewed: Yes Interpretation(s) Vital Signs Date Time Temp Pulse Resp B/P (MAP) Pulse Ox O2 Delivery O2 Flow Rate FiO2 09/07/17 19:40 72 18 150/92 (111) 97 Differential Diagnosis Suicidal ideations, dementia Narrative Course Psychiatric screening labs ordered. CBC & BMP Diagram 09/07/17 20:05 Total Protein 8.6 H, Albumin 3.9, Calcium Level 8.8, Alkaline Phosphatase 70, Aspartate Amino Transf (AST/SGOT) 19, Alanine Aminotransferase (ALT/SGPT) 21, Total Bilirubin 0.7 Zohra Valenzuela DO Sep 07, 2017 21:04
[2017-09-07 21:10] LABS: ALT (GPT) 21 U/L (12-78); ANION GAP 8 MEQ/L (5-15); AST (GOT) 19 U/L (15-37); BICARBONATE 26.1 MEQ/L (21.0-32.0); BLOOD UREA NITROGEN 18 MG/DL (7-18); CHLORIDE 105 MEQ/L (98-107); GLOMERULAR FILTRATION RATE 68 ML/MIN (>89); SODIUM (NA) 139 MEQ/L (136-145)
[2017-09-08 06:39] VITALS: BP 165/95; PULSE 89; RESP 18; O2SAT 96
[2017-09-08] MEDS ORDERED: MAGNESIUM HYDROXIDE SUSP 30 ML CUP PO PRN (10:30)
[2017-09-08] MEDS ORDERED: NICOTINE 21 MG/24 HR PATCH T-DERMAL SCH (10:30)
[2017-09-08] MEDS ORDERED: ACETAMINOPHEN 325 MG TAB PO PRN (10:30)
[2017-09-08] MEDS ORDERED: ALUMINUM/MAGNESIUM/SIMETH 30 ML CUP PO PRN (10:30)
--- NOTE | 2017-09-08 10:37 | HHI.HP ---
Provisional Diagnosis Admission Date [place] I. Dementia with behavioral disturbances Certification of Person's Competence To Provide Express and Informed Consent I have personally examined Luis Antonio Whitaker , a person being served at [facility] on, Sep 08, 2017 10:27. Express and informed consent means consent voluntarily given in writing, by a competent person, after sufficient explanation and disclosure of the subject matter involved to enable the person to make a knowing and willful decision without any element of force, fraud, deceit, duress, or other form of constraint or coercion. This person is 18 years of age or older, is not now known to be incompetent to consent to treatment with a guardian advocate, and does not have a health care surrogate or proxy currently making medical treatment decisions. I have found this person to be one of the following: [] Competent to provide express and informed consent, as defined above, for voluntary admission to this facility and is competent to provide express and informed consent for treatment. He/she has the consistent capacity to make well reasoned, willful, and knowing decisions concerning his or her medical or mental health treatment. The person fully and consistently understands the purpose of the admission for examination/placement and is fully capable of personally exercising all rights assured [place] [x] Incompetent to provide express and informed consent to voluntary admission, and this is incompetent to provide express and informed consent to treatment. The person must be transferred to involuntary status and a petition for a guardian advocate filed with the Circuit Court. [] Refusing to provide express and informed consent to voluntary admission but is competent to provide express and informed consent for treatment. The person must be discharged or transferred to involuntary status. Form shall be completed within 24 hours of a person's arrival at the receiving facility and filed in the clinical record of each person: 1. Admitted on a voluntary basis 2. Permitted to provide express and informed consent to his/her own treatment 3. Allowed to transfer from involuntary to voluntary status 4. Prior to permitting a person to consent to his or her own treatment after having been previously found incompetent to consent to treatment. History of Present Illness Capacity: Lacks Capacity HPI The patient is a 81 years old man, he has psychiatric history of dementia, alcohol use disorder, he was recently hospitalized [facility] after being found wandering in the streets of [place], he was stabilized, discharged yesterday to a residential facility, but the patient allegedly became aggressive right after entering in the facility and was Rodríguez acted and sent back to the hospital. Allegedly the patient became combative, ran away into traffic. Patient has history of aggressive behavior in the hospital, but in the last days of his past hospitalization no major events were reported and patient was usually compliant with his medications. He was discharged and olanzapine 2.5 mg 3 times a day. He was under the care of Dr. Terrell. Patient has medical history hypertension and hyperlipidemia. Today on psychiatric evaluation patient is oppositional, resistant, at the beginning refusing to talk. Patient seems to be disoriented in time and place, the only words that he articulates is to says that he was to go back to [place] to live with his family and friends. Patient is unable to provide any significant information about family or friends. He denies suicidal and homicidal ideation , he denies visual and auditory hallucinations. Review of Systems Constitutional: DENIES: Diaphoretic episodes, Fatigue, Fever, Weight gain, Weight loss, Chills, Dizziness, Change in appetite, Night Sweats Endocrine: DENIES: Heat/cold intolerance, Polydipsia, Polyuria, Polyphagia Eyes: DENIES: Blurred vision, Diplopia, Eye inflammation, Eye pain, Vision loss , Photosensitivity, Double Vision Ears, nose, mouth, throat: DENIES: Tinnitus, Hearing loss, Vertigo, Nasal discharge, Oral lesions, Throat pain, Hoarseness, Ear Pain, Running Nose, Epistaxis, Sinus Pain, Toothache, Odynophagia Respiratory: DENIES: Apneas, Cough, Snoring, Wheezing, Hemoptysis, Sputum production, Shortness of breath Cardiovascular: DENIES: Chest pain, Palpitations, Syncope, Dyspnea on Exertion , PND, Lower Extremity Edema, Orthopnea, Claudication Gastrointestinal: DENIES: Abdominal pain, Black stools, Bloody stools, Constipation, Diarrhea, Nausea, Vomiting, Difficulty Swallowing, Anorexia Genitourinary: DENIES: Sexual dysfunction, Urinary frequency, Urinary incontinence, Urgency, Hematuria, Dysuria, Nocturia, Penile Discharge, Testicular Pain, Testicular Swelling Musculoskeletal: DENIES: Joint pain, Muscle aches, Stiffness, Joint Swelling, Back pain, Neck pain Integumentary: DENIES: Abnormal pigmentation, Nail changes, Pruritus, Rash Immunologic/allergic: DENIES: Eczema, Urticaria Neurologic: DENIES: Abnormal gait, Headache, Localized weakness, Paresthesias, Seizures, Speech Problems, Tremor, Poor Balance Psychiatric: DENIES: Anxiety, Confusion, Mood changes, Depression, Hallucinations, Agitation, Suicidal Ideation, Homicidal Ideation, Delusions Past Family Social History Coded Allergies: No Known Allergies (Unverified , 07/18/17) Active Scripts Olanzapine (Olanzapine) 2.5 Mg Tab, 3.75 MG PO HS for Mental Health for 15 Days , TAB 1 Refill Prov:Jhony Terrell MD 09/07/17 Olanzapine (Olanzapine) 2.5 Mg Tab, 1.25 MG PO DAILY@0900,1500 for Mental Health for 15 Days, TAB 1 Refill Prov:Jhony Terrell MD 09/07/17 Pravastatin (Pravastatin) 10 Mg Tab, 10 MG PO DAILY for Cholesterol Management, #30 TAB 0 Refills Prov:Virgie Branham MD 08/27/17 Amlodipine (Norvasc) 5 Mg Tab, 5 MG PO DAILY for Blood Pressure Management, #30 TAB Prov:Darin Contreras 08/17/17 Discontinued Scripts Quetiapine (Seroquel) 25 Mg Tab, 12.5 MG PO BID@09,12 for aggitation, #60 TAB Prov:Darin Contreras 08/17/17 Current Medications Medications (Trade) Dose Ordered Sig/Jovani Route Start Time Stop Time Status Last Admin (Norvasc) 5 mg DAILY PO 09/08/17 10:30 UNV (ZyPREXA) 1.25 mg DAILY@0900,1500 PO 09/08/17 15:00 UNV (ZyPREXA) 3.75 mg HS PO 09/08/17 21:00 UNV (Pravachol) 10 mg DAILY PO 09/08/17 10:30 UNV (Tylenol) 650 mg Q4H PRN PO 09/08/17 10:30 UNV (Milk Of Magnesia Liq) 30 ml DAILY PRN PO 09/08/17 10:30 UNV (Mag-Al Plus Susp Liq) 30 ml Q6H PRN PO 09/08/17 10:30 UNV (Habitrol 21 Mg Patch.24 Hr) 1 patch DAILY T-DERMAL 09/08/17 10:30 UNV Physical Exam No EPS, no agitation, no tremors Vital Signs Vital Signs Date Time Temp Pulse Resp B/P (MAP) Pulse Ox O2 Delivery O2 Flow Rate FiO2 09/08/17 06:39 89 18 165/95 (118) 96 Room Air Lab Results Test 09/07/17 20:05 White Blood Count 7.2 TH/MM3 Red Blood Count 5.55 MIL/MM3 Hemoglobin 16.6 GM/DL Hematocrit 48.7 % Mean Corpuscular Volume 87.8 FL Mean Corpuscular Hemoglobin 30.0 PG Mean Corpuscular Hemoglobin Concent 34.2 % Red Cell Distribution Width 15.3 % Platelet Count 325 TH/MM3 Mean Platelet Volume 8.6 FL Neutrophils (%) (Auto) 71.1 % Lymphocytes (%) (Auto) 20.3 % Monocytes (%) (Auto) 7.0 % Eosinophils (%) (Auto) 0.9 % Basophils (%) (Auto) 0.7 % Neutrophils # (Auto) 5.1 TH/MM3 Lymphocytes # (Auto) 1.5 TH/MM3 Monocytes # (Auto) 0.5 TH/MM3 Eosinophils # (Auto) 0.1 TH/MM3 Basophils # (Auto) 0.0 TH/MM3 CBC Comment DIFF FINAL Differential Comment Blood Urea Nitrogen 18 MG/DL Creatinine 1.25 MG/DL Random Glucose 107 MG/DL Total Protein 8.6 GM/DL Albumin 3.9 GM/DL Calcium Level 8.8 MG/DL Alkaline Phosphatase 70 U/L Aspartate Amino Transf (AST/SGOT) 19 U/L Alanine Aminotransferase (ALT/SGPT) 21 U/L Total Bilirubin 0.7 MG/DL Sodium Level 139 MEQ/L Potassium Level 4.0 MEQ/L Chloride Level 105 MEQ/L Carbon Dioxide Level 26.1 MEQ/L Anion Gap 8 MEQ/L Estimat Glomerular Filtration Rate 68 ML/MIN Mental Status Examination Appearance: Appropriate Consciousness: Alert Orientation: Person, Place Motor Activity: Normal gait Speech: Unremarkable Language: Adequate Fund of Knowledge: Inadequate Attention and Concentration: Adequate Memory: Impaired Mood: Oppositional Affect: Irritable Thought Process & Associations: Intact Thought Content: Appropriate Hallucination Type: None Delusion Type: None Suicidal Ideation: No Suicidal Plan: No Suicidal Intention: No Homicidal Ideation: No Homicidal Plan: No Homicidal Intention: No Insight: Fair Judgment: Impulsive Assessment & Plan Problem List: (1) Dementia with behavioral disturbance ICD Codes: F03.91 - Unspecified dementia with behavioral disturbance Assessment & Plan: Patient is to be readmitted back in psychiatric. Restart psychotropics in which he was discharged. Case discussed with nursing charge and also with Dr. Terrell. silk worker intervention to restart at safe discharge planning. We'll consult psychiatry for second opinion. Assessment & Plan Estimated LOS: days Wilson Ontiveros MD Sep 08, 2017 10:37
[2017-09-08] MEDS ORDERED: PILL SPLITTER OTHER PRN (10:45)
[2017-09-08] MEDS: amLODIPine BESYLATE 5 MG TAB PO SCH (10:51)
[2017-09-08] MEDS: PRAVASTATIN SOD 10 MG TAB PO SCH (10:51)
[2017-09-08 13:25] VITALS: BP 144/88; PULSE 76; RESP 18; TEMP 98.6; O2SAT 100
--- NOTE | 2017-09-08 14:45 | PD.PSY.CON ---
Provisional Diagnosis Admission Date Sep 08, 2017 at 10:29 [place]. Dementia with behavioral disturbances History of Present Illness Service Psychiatry Consult Requested By Dr. Ontiveros Reason for Consult Second opinion Primary Care Physician Unknown HPI The patient is a 81 years old man, he has psychiatric history of dementia, alcohol use disorder, he was recently hospitalized [place] [facility] after being found wandering in the streets of [place], he was stabilized, discharged yesterday to a residential facility, but the patient allegedly became aggressive right after entering in the facility and was Rodríguez acted and sent back to the hospital. Allegedly the patient became combative, ran away into traffic. Patient has history of aggressive behavior in the hospital, but in the last days of his past hospitalization no major events were reported and patient was usually compliant with his medications. He was discharged and olanzapine 2.5 mg 3 times a day. He was under the care of Dr. Terrell. Patient has medical history hypertension and hyperlipidemia. Today on psychiatric evaluation patient is oppositional, resistant, at the beginning refusing to talk. Patient seems to be disoriented in time and place, the only words that he articulates is to says that he was to go back to [place] to live with his family and friends. Patient is unable to provide any significant information about family or friends. He denies suicidal and homicidal ideation , he denies visual and auditory hallucinations. 09/08/17 - second opinion Patient is 81-year-old man, with past psychiatric history of dementia, alcohol use disorder, history of psychiatric hospitalization recently discharged from [facility] and return back to the ER after patient had attempted to run away from assisted facility, was combative and ran to the streets which she was then brought back to the emergency room at [facility]. Patient has a history of aggressive behavior and upon his recent hospitalization had been compliant with medications. Patient is found in hospital room attempting to open closet stating that he was trying to get his clothes that he can leave here. Patient is alert and oriented only to person without aware that he is back in the hospital. Patient states that he was recently down the street near school and does not recall his recent hospitalizations. Patient denies taking any medications recently. Patient denying any physical symptoms at this time, reports he drinking well with no problem with urination or bowel movement. Patient reports previous and living alone prior to his hospitalizations. Patient this time denies SI, HI or perceptual disturbances. Past Family Social History Coded Allergies: No Known Allergies (Unverified , 07/18/17) Active Scripts Olanzapine (Olanzapine) 2.5 Mg Tab, 3.75 MG PO HS for Mental Health for 15 Days , TAB 1 Refill Prov:Jhony Terrell MD 09/07/17 Olanzapine (Olanzapine) 2.5 Mg Tab, 1.25 MG PO DAILY@0900,1500 for Mental Health for 15 Days, TAB 1 Refill Prov:Jhony Terrell MD 09/07/17 Pravastatin (Pravastatin) 10 Mg Tab, 10 MG PO DAILY for Cholesterol Management, #30 TAB 0 Refills Prov:Virgie Branham MD 08/27/17 Amlodipine (Norvasc) 5 Mg Tab, 5 MG PO DAILY for Blood Pressure Management, #30 TAB Prov:Darin Contreras 08/17/17 Discontinued Scripts Quetiapine (Seroquel) 25 Mg Tab, 12.5 MG PO BID@,12 for aggitation, #60 TAB Prov:Darin Contreras 08/17/17 Current Medications Medications (Trade) Dose Ordered Sig/Jovani Route Start Time Stop Time Status Last Admin (Norvasc) 5 mg DAILY PO 09/08/17 10:30 09/08/17 10:51 (ZyPREXA) 1.25 mg DAILY@0900,1500 PO 09/08/17 15:00 (ZyPREXA) 3.75 mg HS PO 09/08/17 21:00 (Pravachol) 10 mg DAILY PO 09/08/17 10:30 09/08/17 10:51 (Tylenol) 650 mg Q4H PRN PO 09/08/17 10:30 (Milk Of Magnesia Liq) 30 ml DAILY PRN PO 09/08/17 10:30 (Mag-Al Plus Susp Liq) 30 ml Q6H PRN PO 09/08/17 10:30 (Pill Splitter) 1 ea UNSCH PRN OTHER 09/08/17 10:45 Physical Exam Vital Signs Vital Signs Date Time Temp Pulse Resp B/P (MAP) Pulse Ox O2 Delivery O2 Flow Rate FiO2 09/08/17 13:45 09/08/17 13:25 98.6 76 18 100 Room Air Lab Results Test 09/07/17 20:05 White Blood Count 7.2 TH/MM3 Red Blood Count 5.55 MIL/MM3 Hemoglobin 16.6 GM/DL Hematocrit 48.7 % Mean Corpuscular Volume 87.8 FL Mean Corpuscular Hemoglobin 30.0 PG Mean Corpuscular Hemoglobin Concent 34.2 % Red Cell Distribution Width 15.3 % Platelet Count 325 TH/MM3 Mean Platelet Volume 8.6 FL Neutrophils (%) (Auto) 71.1 % Lymphocytes (%) (Auto) 20.3 % Monocytes (%) (Auto) 7.0 % Eosinophils (%) (Auto) 0.9 % Basophils (%) (Auto) 0.7 % Neutrophils # (Auto) 5.1 TH/MM3 Lymphocytes # (Auto) 1.5 TH/MM3 Monocytes # (Auto) 0.5 TH/MM3 Eosinophils # (Auto) 0.1 TH/MM3 Basophils # (Auto) 0.0 TH/MM3 CBC Comment DIFF FINAL Differential Comment Blood Urea Nitrogen 18 MG/DL Creatinine 1.25 MG/DL Random Glucose 107 MG/DL Total Protein 8.6 GM/DL Albumin 3.9 GM/DL Calcium Level 8.8 MG/DL Alkaline Phosphatase 70 U/L Aspartate Amino Transf (AST/SGOT) 19 U/L Alanine Aminotransferase (ALT/SGPT) 21 U/L Total Bilirubin 0.7 MG/DL Sodium Level 139 MEQ/L Potassium Level 4.0 MEQ/L Chloride Level 105 MEQ/L Carbon Dioxide Level 26.1 MEQ/L Anion Gap 8 MEQ/L Estimat Glomerular Filtration Rate 68 ML/MIN Mental Status Examination Appearance: Appropriate Consciousness: Alert Orientation: Person Motor Activity: Normal gait Speech: Unremarkable Language: Adequate Fund of Knowledge: Inadequate Attention and Concentration: Adequate Memory: Impaired Mood: Oppositional, Irritable Affect: Irritable Thought Process & Associations: Intact Thought Content: Appropriate Hallucination Type: None Delusion Type: None Suicidal Ideation: No Suicidal Plan: No Suicidal Intention: No Homicidal Ideation: No Homicidal Plan: No Homicidal Intention: No Insight: Poor Judgment: Poor Assessment & Plan Problem List: (1) Dementia with behavioral disturbance ICD Codes: F03.91 - Unspecified dementia with behavioral disturbance Assessment & Plan I have seen and examined this patient, reviewed the documentation, discussed personally with Dr. Ontiveros, and I agree and concur with his assessment and plan. Consult appreciated Colin Gotti MD Sep 08, 2017 14:45
[2017-09-08 14:53] VITALS: BP 161/97; PULSE 71; RESP 17; TEMP 98; O2SAT 99
[2017-09-08] MEDS ORDERED: OLANZapine 2.5 MG TAB PO SCH ×2 (15:00→21:00)
[2017-09-09 06:11] VITALS: BP 117/67; PULSE 54; RESP 18; TEMP 97.5; O2SAT 96
[2017-09-09] MEDS: PRAVASTATIN SOD 10 MG TAB PO SCH (08:59)
[2017-09-09] MEDS: amLODIPine BESYLATE 5 MG TAB PO SCH (08:59)
[2017-09-09] MEDS ORDERED: INFLUENZA VIRUS VACCINE (QUADRIVALENT) 0.5 ML SYR IM ONE (10:00)
--- NOTE | 2017-09-09 14:42 | PD.CONS ---
HPI Service [facility] Hospitalists Consult Requested By Dr Ontiveros Reason for Consult Medical management Primary Care Physician Unknown Diagnoses: History of Present Illness This is 81 years old [place] male who has a psychiatric history of dementia, alcohol use disorder who was recently hospitalized [facility] after being found wandering in the streets of [place], the patient was stabilized and then discharged to a residential facility but as per report the patient became aggressive right after entering the facility and was Rodríguez acted and sent back to the hospital. The patient denies any past medical history at this time. Denies chest pain, shortness of breath, nausea, vomiting, diarrhea. As per medical records the patient has history of hypertension and hyperlipidemia for which he takes amlodipine 5 mg by mouth daily and pravastatin 20 mg by mouth daily. Review of Systems As per history of present illness, other systems reviewed by me and negative. Past Family Social History Allergies: Coded Allergies: No Known Allergies (Unverified , 07/18/17) Past Medical History 1. Dementia. 2. Hypertension. 3. Hyperlipidemia. Patient however denies any this. Past Surgical History Patient denies any surgery. Reported Medications Reported Meds & Active Scripts Active Olanzapine 2.5 Mg Tab 3.75 Mg PO HS 15 Days Olanzapine 2.5 Mg Tab 1.25 Mg PO DAILY@0900,1500 15 Days Pravastatin 10 Mg Tab 10 Mg PO DAILY Norvasc (Amlodipine Besylate) 5 Mg Tab 5 Mg PO DAILY Active Ordered Medications Current Medications Medications (Trade) Dose Ordered Sig/Jovani Route Start Time Stop Time Status Last Admin (Norvasc) 5 mg DAILY PO 09/08/17 10:30 09/09/17 08:59 (ZyPREXA) 1.25 mg DAILY@0900,1500 PO 09/08/17 15:00 Future Hold (ZyPREXA) 3.75 mg HS PO 09/08/17 21:00 Future Hold (Pravachol) 10 mg DAILY PO 09/08/17 10:30 09/10/17 09:08 (Tylenol) 650 mg Q4H PRN PO 09/08/17 10:30 (Milk Of Magnesia Liq) 30 ml DAILY PRN PO 09/08/17 10:30 (Mag-Al Plus Susp Liq) 30 ml Q6H PRN PO 09/08/17 10:30 (Pill Splitter) 1 ea UNSCH PRN OTHER 09/08/17 10:45 Family History Patient denies family history of diabetes, cancer or heart disease. Social History Patient denied any tobacco, alcohol or illicit drug use. However as per medical records the patient has history of alcohol use disorder. Physical Exam Vital Signs Vital Signs Date Time Temp Pulse Resp B/P (MAP) Pulse Ox O2 Delivery O2 Flow Rate FiO2 09/09/17 06:11 97.5 54 18 117/67 (84) 96 09/08/17 14:53 98.0 71 17 161/97 (118) 99 Physical Exam GENERAL: This is a well-nourished, well-developed patient, in no apparent distress. SKIN: No rashes, ecchymoses or lesions. Cool and dry. HEAD: Atraumatic. Normocephalic. No temporal or scalp tenderness. EYES: Pupils equal round and reactive. Extraocular motions intact. No scleral icterus. No injection or drainage. ENT: Nose without bleeding, purulent drainage or septal hematoma. Throat without erythema, tonsillar hypertrophy or exudate. Uvula midline. Airway patent. NECK: Trachea midline. No JVD or lymphadenopathy. Supple, nontender, no meningeal signs. CARDIOVASCULAR: Regular rate and rhythm without murmurs, gallops, or rubs. RESPIRATORY: Clear to auscultation. Breath sounds equal bilaterally. No wheezes , rales, or rhonchi. GASTROINTESTINAL: Abdomen soft, non-tender, nondistended. No hepato-splenomegaly , or palpable masses. No guarding. MUSCULOSKELETAL: Extremities without clubbing, cyanosis, or edema. No joint tenderness, effusion, or edema noted. No calf tenderness. Negative Homans sign bilaterally. NEUROLOGICAL: Awake and alert. Cranial nerves II through XII intact. Motor and sensory grossly within normal limits. Five out of 5 muscle strength in all muscle groups. Normal speech. Result Diagram: 09/07/17200409/07/172004 Assessment and Plan Problem List: (1) Dementia with behavioral disturbance ICD Code: F03.91 - Unspecified dementia with behavioral disturbance Plan: Management as per psychiatry (2) HTN (hypertension) ICD Code: I10 - Essential (primary) hypertension Plan: BP seems stable, continue amlodipine (3) Hyperlipidemia ICD Code: E78.5 - Hyperlipidemia, unspecified Plan: Continue Statin. Upon review of records recent lipid profile obtained on November 10 thousand 17 showed a total cholesterol of 245, and LDL cholesterol of 189 and HDL cholesterol 40.0. Assessment and Plan DVT prophylaxis: Encourage ambulation. Code Status Full code Discussed Condition With Patient, RN. Kimani Ramires MD Sep 09, 2017 14:42
--- NOTE | 2017-09-09 15:52 | HHI.PYPN ---
Subjective Remarks Pt seen and discussed with staff. He has been irritable and demanding discharge immediately from staffing rn. He has been isolating self to room. He is confused with cognitive deficits. Mental Status Examination Appearance: Appropriate Consciousness: Alert Orientation: Person Motor Activity: Normal gait Speech: Unremarkable Language: Adequate Fund of Knowledge: Inadequate Attention and Concentration: Adequate Memory: Impaired Mood: Oppositional, Irritable Affect: Irritable Thought Process & Associations: Intact Thought Content: Appropriate Hallucination Type: None Delusion Type: None Suicidal Ideation: No Suicidal Plan: No Suicidal Intention: No Homicidal Ideation: No Homicidal Plan: No Homicidal Intention: No Insight: Poor Judgment: Poor Results Vitals/IOs Vital Signs Date Time Temp Pulse Resp B/P (MAP) Pulse Ox O2 Delivery O2 Flow Rate FiO2 09/09/17 06:11 97.5 54 18 117/67 (84) 96 09/08/17 13:25 Room Air Assessment & Plan Problem List: (1) Dementia with behavioral disturbance ICD Codes: F03.91 - Unspecified dementia with behavioral disturbance Assessment & Plan Continue current tx plan. Estimated LOS: days Justification for Cont. Inpt. risk of decompensation Marbella Osorio MD Sep 09, 2017 15:52
[2017-09-09 18:00] VITALS: BP 116/66; PULSE 63; RESP 16; TEMP 98.3; O2SAT 94
[2017-09-10 06:02] VITALS: BP 105/56; PULSE 56; RESP 16; TEMP 98.1; O2SAT 95
[2017-09-10 08:10] VITALS: BP 108/63; PULSE 58; RESP 18; TEMP 98.4; O2SAT 92
[2017-09-10] MEDS: amLODIPine BESYLATE 5 MG TAB PO SCH (09:00)
[2017-09-10] MEDS: PRAVASTATIN SOD 10 MG TAB PO SCH (09:08)
--- NOTE | 2017-09-10 14:37 | HHI.PYPN ---
Subjective Remarks Pt seen and discussed with staff. He remains irritable and paranoid. He was agitated earlier but was able to be verbally de-escalated. He is compliant with medications Mental Status Examination Appearance: Appropriate Consciousness: Alert Orientation: Person Motor Activity: Normal gait Speech: Unremarkable Language: Adequate Fund of Knowledge: Inadequate Attention and Concentration: Adequate Memory: Impaired Mood: Oppositional, Irritable Affect: Irritable Thought Process & Associations: Intact Thought Content: Appropriate Hallucination Type: None Delusion Type: None Suicidal Ideation: No Suicidal Plan: No Suicidal Intention: No Homicidal Ideation: No Homicidal Plan: No Homicidal Intention: No Insight: Poor Judgment: Poor Results Vitals/IOs Vital Signs Date Time Temp Pulse Resp B/P (MAP) Pulse Ox O2 Delivery O2 Flow Rate FiO2 09/10/17 08:10 98.4 58 18 108/63 (78) 92 09/08/17 13:25 Room Air Assessment & Plan Problem List: (1) Dementia with behavioral disturbance ICD Codes: F03.91 - Unspecified dementia with behavioral disturbance Assessment & Plan Continue current tx plan. Estimated LOS: days Justification for Cont. Inpt. agitation Marbella Osorio MD Sep 10, 2017 14:37
[2017-09-10 18:00] VITALS: BP 127/71; PULSE 65; RESP 16; TEMP 98.6; O2SAT 97
--- NOTE | 2017-09-10 18:42 | HHI.PR ---
Subjective Remarks Patient has no complaints. Denies cp, sob. Objective Vitals Vital Signs Date Time Temp Pulse Resp B/P (MAP) Pulse Ox O2 Delivery O2 Flow Rate FiO2 09/10/17 08:10 98.4 58 18 108/63 (78) 92 09/10/17 06:02 98.1 56 16 105/56 (72) 95 Result Diagram: 09/07/17200409/07/172004 Objective Remarks Awake and alert, nad PERRLA EOMI Clear lungs BL S1S2 RRR, no MRG abdomen softm nt, nd A/P Problem List: (1) Dementia with behavioral disturbance ICD Code: F03.91 - Unspecified dementia with behavioral disturbance Plan: Management as per psychiatry (2) HTN (hypertension) ICD Code: I10 - Essential (primary) hypertension Plan: BP seems stable, continue amlodipine (3) Hyperlipidemia ICD Code: E78.5 - Hyperlipidemia, unspecified Plan: Continue Statin. Upon review of records recent lipid profile obtained on August 18 showed a total cholesterol of 245, and LDL cholesterol of 189 and HDL cholesterol 40.0. Assessment and Plan DVT proph: Encourage ambulation. Will sign off, please reconsult if needed. Kimani Ramires MD Sep 10, 2017 18:42
[2017-09-11 06:21] VITALS: BP 117/68; PULSE 72; RESP 17; TEMP 98.4; O2SAT 97
[2017-09-11] MEDS: PRAVASTATIN SOD 10 MG TAB PO SCH (08:35)
[2017-09-11] MEDS: amLODIPine BESYLATE 5 MG TAB PO SCH (08:35)
--- NOTE | 2017-09-11 12:15 | PD.TTN ---
Patient Problems 1. Discharge planning 2. Medication compliance 3. Knowledge deficit 4. Lack of coping skills Progress Toward Goals Provider Present: Dr. Santiago Gotti Provider Input: Dr. Gotti's met to discuss treatment plan, medication, and discharge plan. Continue with treatment. Nurse(s) Input: Patient's Nurse Steven reports vale is medication compliant but states "aint' nothing wrong with me" He is alert to person only. Patient is fixated on wallet. Patient denies suicidal and homicidal at this time. Psychiatric Counselors Present: Zenia Somers [facility] Psych Therapist Input: Patient is alert to person only. Patient made good eye contact. Patient presents childlike delusional confused, affect blunted. Patient's speech is clear, but disorganized. Patient is medication compliant. Patient is fixated on leaving and his wallet. Group Spec/RT/OT/CROWLEY Present: KEO Mancuso Group Spec/RT/OT/CROWLEY Input: Patient does not attend groups but will continue to encourage. Zenia Somers [facility] Sep 11, 2017 12:15
--- NOTE | 2017-09-11 17:27 | HHI.PYPN ---
Subjective Remarks Patient seen for follow up; chart reviewed. Discussion with nursing staff reported that patient had not been receiving his medications since admission as it was put on hold due to consent for medications not completed as patient does not have any family friends or relatives consigned for his psychiatric medications at this time and will have to wait for the court appointed healthcare surrogate a guardian advocate consent for treatment. Patient found lying in hospital bed, cooperative continue to be alert and oriented only to person and states feeling "alright", he states that he has $1000 in the safe will his wallet is as just waiting to get accidental as well as he can leave the hospital. She states she has no family or friends that he is in contact with and plans on going to [facility] to look for his jeep and then mentions later that he is planning to go to [place]. Patient noted to be somewhat irritable during interview but has not been aggressive. Review of Systems Except as stated in HPI: all other systems reviewed are Neg Mental Status Examination Appearance: Disheveled Consciousness: Alert Orientation: Person Motor Activity: Normal gait Speech: Unremarkable Language: Adequate Fund of Knowledge: Inadequate Attention and Concentration: Adequate Memory: Impaired Mood: Irritable Affect: Irritable Thought Process & Associations: Intact Thought Content: Appropriate Hallucination Type: None Delusion Type: None Suicidal Ideation: No Suicidal Plan: No Suicidal Intention: No Homicidal Ideation: No Homicidal Plan: No Homicidal Intention: No Insight: Poor Judgment: Poor Results Vitals/IOs Vital Signs Date Time Temp Pulse Resp B/P (MAP) Pulse Ox O2 Delivery O2 Flow Rate FiO2 09/11/17 06:21 98.4 72 17 117/68 (84) 97 09/08/17 13:25 Room Air Intake and Output 09/11/17 09/11/17 09/12/17 08:00 16:00 00:00 Intake Total 360 ml Balance 360 ml Assessment & Plan Problem List: (1) Dementia with behavioral disturbance ICD Codes: F03.91 - Unspecified dementia with behavioral disturbance Assessment & Plan Age at this time continues to be confused and alert and oriented only to person. Patient percent of on leaving the unit and wanting to require his wallet. Patient has not been back on a controlled with medications due to lack of health care surrogate regarding having taken to consent for medications at this time and we'll have to wait to court to have an appointment to him to consent for treatment. The recommendations as per primary medical team. Discharge planning in progress Justification for Cont. Inpt. At risk for further decompensation event lower level of care Discharge Planning Patient to be discharged to a nursing facility once 1 is acquired Colin Gotti MD Sep 11, 2017 17:27
[2017-09-11 18:00] VITALS: BP 122/75; PULSE 72; RESP 17; TEMP 98.1; O2SAT 98
[2017-09-12 05:58] VITALS: BP 101/63; PULSE 51; RESP 17; TEMP 97.5; O2SAT 97
[2017-09-12] MEDS: PRAVASTATIN SOD 10 MG TAB PO SCH (08:27)
[2017-09-12] MEDS: amLODIPine BESYLATE 5 MG TAB PO SCH (08:27)
--- NOTE | 2017-09-12 12:34 | HHI.PYPN ---
Subjective Remarks Patient seen for follow-up, chart review. Discussion with nursing staff reported that patient continues to be irritable, alert and oriented only to person. Patient found in hospital room noted to be very guarded, irritable, and alert and oriented to person. Patient states that he is wanting to get Xenia II his swallowing has all his money. When asked the patient's tolerating medications well patient states he is unaware that he is taking any medications for blood pressure. Patient has not restarted olanzapine as there was no consent authorized for this medications. Patient's son was located and will be asked to provide consent as his healthcare surrogate while patient is in the hospital. Review of Systems Except as stated in HPI: all other systems reviewed are Neg Mental Status Examination Appearance: Disheveled Consciousness: Alert Orientation: Person Motor Activity: Normal gait Speech: Unremarkable Language: Adequate Fund of Knowledge: Inadequate Attention and Concentration: Adequate Memory: Impaired Mood: Irritable Affect: Irritable Thought Process & Associations: Intact Thought Content: Appropriate Hallucination Type: None Delusion Type: None Suicidal Ideation: No Suicidal Plan: No Suicidal Intention: No Homicidal Ideation: No Homicidal Plan: No Homicidal Intention: No Insight: Poor Judgment: Poor Results Vitals/IOs Vital Signs Date Time Temp Pulse Resp B/P (MAP) Pulse Ox O2 Delivery O2 Flow Rate FiO2 09/12/17 05:58 97.5 51 17 101/63 (76) 97 09/08/17 13:25 Room Air Assessment & Plan Problem List: (1) Dementia with behavioral disturbance ICD Codes: F03.91 - Unspecified dementia with behavioral disturbance Assessment & Plan Patient continues to be alert and oriented only to person, has not had any behavioral or aggressive behavior since admission but continues to be noted to be very irritable. Patient has not restarted olanzapine as consent has not been authorized. Will await consent by son whom was located. Continue monitor mood and behavior. Patient will be visited by nursing facility today. Discharge planning in progress Justification for Cont. Inpt. At risk for further decompensation if at lower level of care Discharge Planning Patient possibly discharged to a nursing facility once one has accepted Colin Gotti MD Sep 12, 2017 12:34
[2017-09-12 18:37] VITALS: BP 130/68; PULSE 61; RESP 18; TEMP 99.1; O2SAT 98
[2017-09-13 05:56] VITALS: BP 142/75; PULSE 50; RESP 17; TEMP 97.2; O2SAT 96
[2017-09-13] MEDS: amLODIPine BESYLATE 5 MG TAB PO SCH (09:49)
[2017-09-13] MEDS: PRAVASTATIN SOD 10 MG TAB PO SCH (09:49)
--- NOTE | 2017-09-13 11:33 | PD.TTN ---
Patient Problems 1. Discharge planning 2. Medication compliance 3. Knowledge deficit 4. Lack of coping skills Progress Toward Goals Provider Present: Dr. Santiago Gotti Provider Input: Dr. Gotti's met to discuss treatment plan, medication, and discharge plan. Continue with treatment. 09/13/17 Due to not having consent for treatment patient has not had any medication. Will continue to monitor Nurse(s) Input: Patient's Nurse Steven reports paient is medication compliant but states "aint' nothing wrong with me" He is alert to person only. Patient is fixated on wallet. Patient denies suicidal and homicidal at this time. 09/13/17 Patient's Nurse Machelle reports patient is irritable angry, exit seeking. Psychiatric Counselors Present: [facility] Input: Patient is alert to person only. Patient made good eye contact. Patient presents childlike delusional confused, affect blunted. Patient's speech is clear, but disorganized. Patient is medication compliant. Patient is fixated on leaving and his wallet. 09/13/17 Patient continues to present with agitation, exit seeking, no insight, alert to person only. Patient's son was contacted for medication treatment and did not consent. Patient' has not been given any medication due to lack of consent. Patient is eating ok. Patient does not present with internal stimulation but is delusional fixated on wallet. Patient goes to [address] tomorrow. Group Spec/RT/OT/CROWLEY Present: KEO Mancuso Group Spec/RT/OT/CROWLEY Input: Patient does not attend groups but will continue to encourage. 09/13/17 Patient does not attend groups. Zenia [facility] Sep 13, 2017 11:33
--- NOTE | 2017-09-13 14:34 | HHI.PYPN ---
Subjective Remarks Patient seen for follow up; chart reviewed. Discussion with nursing staff reported patient irritable and family has not consented to olanzapine. Patient found lying on hospital bed, noted to be guarded, irritable and superficially cooperative. Patient noted with some hypervigilance as well. Patient denies any physical complaints at this time, continues to be perseverative on acquiring his wallet as he states has alot of money and needs to "to get outta here". He is alert and oriented only to person. He recalls having had spoken to his son over the phone recently and states that his son is very busy and that he is doing "alright". Review of Systems Except as stated in HPI: all other systems reviewed are Neg Mental Status Examination Appearance: Disheveled Consciousness: Alert Orientation: Person Motor Activity: Normal gait Speech: Unremarkable Language: Adequate Fund of Knowledge: Inadequate Attention and Concentration: Adequate Memory: Impaired Mood: Irritable Affect: Irritable, Other (hypervigilant) Thought Process & Associations: Intact Thought Content: Appropriate Hallucination Type: None Delusion Type: None Suicidal Ideation: No Suicidal Plan: No Suicidal Intention: No Homicidal Ideation: No Homicidal Plan: No Homicidal Intention: No Insight: Poor Judgment: Poor Results Vitals/IOs Vital Signs Date Time Temp Pulse Resp B/P (MAP) Pulse Ox O2 Delivery O2 Flow Rate FiO2 09/13/17 05:56 97.2 50 17 142/75 (97) 96 Intake and Output 09/13/17 09/13/17 09/14/17 08:00 16:00 00:00 Intake Total 0 ml Balance 0 ml Assessment & Plan Problem List: (1) Dementia with behavioral disturbance ICD Codes: F03.91 - Unspecified dementia with behavioral disturbance Assessment & Plan Patient at this time continues to be alert and oriented only to person, focused on leaving the hospital and percent of on his wallet. Patient encouraged to continue to be noted to be slightly irritable but has not had any behavioral aggressive behavior since admission. Start Namenda 5 g by mouth daily for neurocognitive deficits. Family has not consented to antipsychotic treatment at this time. Patient will present to mental health court tomorrow which health care surrogate will be requested with [employer]. Continue rest of medications. Discharge planning in progress Justification for Cont. Inpt. At risk for further decompensation if at lower level of care. Discharge Planning Patient possibly to return back to family in [place]. Colin Gotti MD Sep 13, 2017 14:34
[2017-09-13] MEDS: MEMANTINE HCL 5 MG TAB PO SCH (14:45)
[2017-09-13 18:35] VITALS: BP 119/76; PULSE 66; RESP 18; TEMP 97.3; O2SAT 97
[2017-09-14 06:37] VITALS: BP 107/55; PULSE 51; RESP 16; TEMP 97.9; O2SAT 97
[2017-09-14] MEDS: amLODIPine BESYLATE 5 MG TAB PO SCH (09:00)
[2017-09-14] MEDS: PRAVASTATIN SOD 10 MG TAB PO SCH (09:00)
[2017-09-14] MEDS: MEMANTINE HCL 5 MG TAB PO SCH (09:00)
--- NOTE | 2017-09-14 15:05 | HHI.PYPN ---
Subjective Remarks Patient seen for follow-up, chart review. Discussion with nursing staff reported the patient had refused his medications this morning. Namenda was ordered by consent had not been approved by family over the phone. Patient was presented to mental health court today for retention which bottom worker had a grandson petition for involuntary hospitalization due to current turn of patient's ability care for self secondary to his diagnosis of dementia. Patient continues to be very irritable but not aggressive, continues to be exit seeking as well as requesting his wallet so that he may leave the hospital. Patient continues to be noted to be confused and alert and oriented only to person. Review of Systems Except as stated in HPI: all other systems reviewed are Neg Mental Status Examination Appearance: Disheveled Consciousness: Alert Orientation: Person Motor Activity: Normal gait Speech: Unremarkable Language: Adequate Fund of Knowledge: Inadequate Attention and Concentration: Adequate Memory: Impaired Mood: Irritable Affect: Irritable, Other (hypervigilant) Thought Process & Associations: Intact Thought Content: Appropriate Hallucination Type: None Delusion Type: None Suicidal Ideation: No Suicidal Plan: No Suicidal Intention: No Homicidal Ideation: No Homicidal Plan: No Homicidal Intention: No Insight: Poor Judgment: Poor Results Vitals/IOs Vital Signs Date Time Temp Pulse Resp B/P (MAP) Pulse Ox O2 Delivery O2 Flow Rate FiO2 09/14/17 06:37 97.9 51 16 107/55 (72) 97 Intake and Output 09/14/17 09/14/17 09/15/17 08:00 16:00 00:00 Intake Total 360 ml Balance 360 ml Assessment & Plan Problem List: (1) Dementia with behavioral disturbance ICD Codes: F03.91 - Unspecified dementia with behavioral disturbance Assessment & Plan Patient at this time has not had any aggressive or agitation since admission, noted to be mostly isolative but eating drinking well no physical complaint at this time. Patient refuses any case this morning, Namenda ordered yesterday was not consented for by family as they are the healthcare surrogate at this time. This possibility the patient may return back to [facility]. Continue current treatment. Discharge planning in progress Justification for Cont. Inpt. Risk for further decompensation event lower level of care Discharge Planning Possibility the patient may discharged to [facility]. Colin Gotti MD Sep 14, 2017 15:04
[2017-09-14] MEDS: OLANZapine 2.5 MG TAB PO SCH ×2 (21:00→21:13)
[2017-09-15 06:23] VITALS: BP 142/77; PULSE 92; RESP 17; TEMP 97.5; O2SAT 96
[2017-09-15] MEDS: amLODIPine BESYLATE 5 MG TAB PO SCH (08:55)
[2017-09-15] MEDS: PRAVASTATIN SOD 10 MG TAB PO SCH (08:55)
[2017-09-15] MEDS: OLANZapine 2.5 MG TAB PO SCH ×3 (08:55→21:00)
[2017-09-15] MEDS: MEMANTINE HCL 5 MG TAB PO SCH (08:55)
--- NOTE | 2017-09-15 16:13 | HHI.PYPN ---
Subjective Remarks Patient seen for follow-up, chart reviewed. Discussion with nursing staff reported the patient refuses medications this morning. Patient found lying in hospital bed, cooperative but noted to be irritable throughout interview with poor eye contact. Patient states that she is feeling "alright" denies any physical symptoms, denies any physical pain at this time. Patient states that "all I want is my motha fuc*ing wallet and I'll be outta here". Patient provided importance with adherence to medications he was provided education on the importance of maintaining well blood pressure control which patient did not refute but as well as did not respond to. Patient encouraged to adhere to treatment while on the unit. Patient also encouraged to shower as patient was noted be very malodorous. Patient's family aren't the healthcare surrogate which have not consented to treatment with antipsychotic treatments at this time. Review of Systems Except as stated in HPI: all other systems reviewed are Neg Mental Status Examination Appearance: Disheveled, Malodorous Consciousness: Alert Orientation: Person Motor Activity: Normal gait Speech: Unremarkable Language: Adequate Fund of Knowledge: Inadequate Attention and Concentration: Adequate Memory: Impaired Mood: Irritable Affect: Irritable, Other (hypervigilant) Thought Process & Associations: Intact Thought Content: Appropriate Hallucination Type: None Delusion Type: None Suicidal Ideation: No Suicidal Plan: No Suicidal Intention: No Homicidal Ideation: No Homicidal Plan: No Homicidal Intention: No Insight: Poor Judgment: Poor Results Vitals/IOs Vital Signs Date Time Temp Pulse Resp B/P (MAP) Pulse Ox O2 Delivery O2 Flow Rate FiO2 09/15/17 06:23 97.5 92 17 142/77 (98) 96 Intake and Output 09/15/17 09/15/17 09/16/17 08:00 16:00 00:00 Intake Total 240 ml 0 ml Balance 240 ml 0 ml Assessment & Plan Problem List: (1) Dementia with behavioral disturbance ICD Codes: F03.91 - Unspecified dementia with behavioral disturbance Assessment & Plan Patient this time continues to be noted very irritable, alert and oriented only to person. Perseverative and focused on obtaining his wallet which has money and is exit seeking on the unit. Patient refused medications this morning is a very poor insight and believes that he does not take medications. Continue to encourage patient to adhere to treatment, maintain personal hygiene. Continue current treatment for now. Continue to obtain consent for olanzapine as family at this time has refused to consent for. Discharge planning in progress Justification for Cont. Inpt. At risk for further decompensation if at lower level of care Discharge Planning Patient possibly discharged back to family or will require prison placement. Colin Gotti MD Sep 15, 2017 16:13
[2017-09-15 19:03] VITALS: BP 128/86; PULSE 58; RESP 18; TEMP 97.6; O2SAT 97
[2017-09-16 05:57] VITALS: BP 136/77; PULSE 51; RESP 18; TEMP 98.2; O2SAT 95
[2017-09-16] MEDS: OLANZapine 2.5 MG TAB PO SCH ×3 (09:00→21:00)
[2017-09-16] MEDS: PRAVASTATIN SOD 10 MG TAB PO SCH (09:00)
[2017-09-16] MEDS: MEMANTINE HCL 5 MG TAB PO SCH (09:00)
[2017-09-16] MEDS: amLODIPine BESYLATE 5 MG TAB PO SCH (09:00)
--- NOTE | 2017-09-16 14:54 | HHI.PYPN ---
Subjective Remarks Patient was seen and case discussed with nursing. Patient remains oppositional , refusing to take his medications. Alert and oriented 1. Is perseverative on cleaning the mirror Mental Status Examination Appearance: Disheveled, Malodorous Consciousness: Alert Orientation: Person Motor Activity: Normal gait Speech: Unremarkable Language: Adequate Fund of Knowledge: Inadequate Attention and Concentration: Adequate Memory: Impaired Mood: Irritable Affect: Irritable, Other (hypervigilant) Thought Process & Associations: Intact Thought Content: Bizarre thinking Hallucination Type: None Delusion Type: None Suicidal Ideation: No Suicidal Plan: No Suicidal Intention: No Homicidal Ideation: No Homicidal Plan: No Homicidal Intention: No Insight: Poor Judgment: Poor Results Vitals/IOs Vital Signs Date Time Temp Pulse Resp B/P (MAP) Pulse Ox O2 Delivery O2 Flow Rate FiO2 09/16/17 05:57 98.2 51 18 136/77 (96) 95 Intake and Output 09/16/17 09/16/17 09/17/17 08:00 16:00 00:00 Intake Total 120 ml 0 ml Balance 120 ml 0 ml Assessment & Plan Problem List: (1) Dementia with behavioral disturbance ICD Codes: F03.91 - Unspecified dementia with behavioral disturbance Assessment & Plan Continue current treatment plan Justification for Cont. Inpt. Patient would decompensate in a less restrictive setting Gustabo Najera DO Sep 16, 2017 14:54
[2017-09-17 06:05] VITALS: BP 139/82; PULSE 52; RESP 16; TEMP 98.2; O2SAT 96
[2017-09-17] MEDS: amLODIPine BESYLATE 5 MG TAB PO SCH (09:00)
[2017-09-17] MEDS: PRAVASTATIN SOD 10 MG TAB PO SCH (09:00)
[2017-09-17] MEDS: MEMANTINE HCL 5 MG TAB PO SCH (09:00)
[2017-09-17] MEDS: OLANZapine 2.5 MG TAB PO SCH ×3 (09:00→21:00)
--- NOTE | 2017-09-17 13:06 | HHI.PYPN ---
Subjective Remarks Patient was seen and case discussed with nursing. Patient remains noncompliant and oppositional. He is spending all of his time in his room in his bed. Alert and oriented 1. No behavioral outbursts Mental Status Examination Appearance: Disheveled, Malodorous Consciousness: Alert Orientation: Person Motor Activity: Normal gait Speech: Unremarkable Language: Adequate Fund of Knowledge: Inadequate Attention and Concentration: Adequate Memory: Impaired Mood: Irritable Affect: Irritable, Other (hypervigilant) Thought Process & Associations: Intact Thought Content: Bizarre thinking Hallucination Type: None Delusion Type: None Suicidal Ideation: No Suicidal Plan: No Suicidal Intention: No Homicidal Ideation: No Homicidal Plan: No Homicidal Intention: No Insight: Poor Judgment: Poor Results Vitals/IOs Vital Signs Date Time Temp Pulse Resp B/P (MAP) Pulse Ox O2 Delivery O2 Flow Rate FiO2 09/17/17 06:05 98.2 52 16 139/82 (101) 96 Intake and Output 09/17/17 09/17/17 09/18/17 08:00 16:00 00:00 Intake Total 100 ml Balance 100 ml Assessment & Plan Problem List: (1) Dementia with behavioral disturbance ICD Codes: F03.91 - Unspecified dementia with behavioral disturbance Assessment & Plan Continue current treatment plan Justification for Cont. Inpt. Patient will decompensate in a less restrictive setting Gustabo Najera DO Sep 17, 2017 13:06
[2017-09-18 06:04] VITALS: BP 91/69; PULSE 72; RESP 18; TEMP 97.8; O2SAT 95
[2017-09-18] MEDS: MEMANTINE HCL 5 MG TAB PO SCH (09:00)
[2017-09-18] MEDS: amLODIPine BESYLATE 5 MG TAB PO SCH (09:00)
[2017-09-18] MEDS: OLANZapine 2.5 MG TAB PO SCH ×3 (09:00→22:21)
[2017-09-18] MEDS: PRAVASTATIN SOD 10 MG TAB PO SCH (09:00)
--- NOTE | 2017-09-18 13:51 | PD.TTN ---
Patient Problems 1. Discharge planning 2. Medication compliance 3. Knowledge deficit 4. Lack of coping skills Progress Toward Goals Provider Present: Dr. Santiago Gotti Provider Input: Dr. Gotti's met to discuss treatment plan, medication, and discharge plan. Continue with treatment. 09/13/17 Due to not having consent for treatment patient has not had any medication. Will continue to monitor 09/18/17 Patient is not receiving any medication. Patient's family refused medication. Nurse(s) Input: Patient's Nurse Steven reports paient is medication compliant but states "aint' nothing wrong with me" He is alert to person only. Patient is fixated on wallet. Patient denies suicidal and homicidal at this time. 09/13/17 Patient's Nurse Machelle reports patient is irritable angry, exit seeking. 09/18/17 Patient's nurse Guy reports patient is seclusive to his room, depressed, not eating, is excessively sleeping Psychiatric Counselors Present: [facility] Input: Patient is alert to person only. Patient made good eye contact. Patient presents childlike delusional confused, affect blunted. Patient's speech is clear, but disorganized. Patient is medication compliant. Patient is fixated on leaving and his wallet. 09/13/17 Patient continues to present with agitation, exit seeking, no insight, alert to person only. Patient's son was contacted for medication treatment and did not consent. Patient' has not been given any medication due to lack of consent. Patient is eating ok. Patient does not present with internal stimulation but is delusional fixated on wallet. Patient goes to [address] tomorrow. 09/18/17 Patient presents sad and depressed, affect flat. Patient made poor eye contact. Patient is wanting to leave. Patient;s son was called but was not able to reach him due to phone not accepting any messages. Patient denies suicidal and homicidal ideation. Patient continues to be fixated on wallet but does not present internally stimulated. Group Spec/RT/OT/CROWLEY Present: KEO Mancuso Andrew Harrison, OT Group Spec/RT/OT/CROWLEY Input: Patient does not attend groups but will continue to encourage. 09/13/17 Patient does not attend groups. 09/18/17 Patient does not attend groups Zenia Somers [facility] Sep 18, 2017 13:51
--- NOTE | 2017-09-18 18:41 | HHI.PYPN ---
Subjective Remarks Patient seen for follow up, chart reviewed. Discussion with nursing staff reported that the patient continues to refuse medications and noted to be irritable. Patient was found lying on hospital bed, calm but noted to be irritable. Patient superficially cooperative, stating that all he needs is his "m*laureen fuc*in money and wallet and I'm gonna get out of this sh*t hole". Patient encouraged to shower and come out of the room. Review of Systems Except as stated in HPI: all other systems reviewed are Neg Mental Status Examination Appearance: Disheveled, Malodorous Consciousness: Alert Orientation: Person Motor Activity: Normal gait Speech: Unremarkable Language: Adequate Fund of Knowledge: Inadequate Attention and Concentration: Adequate Memory: Impaired Mood: Irritable Affect: Irritable, Other (hypervigilant) Thought Process & Associations: Intact Thought Content: Bizarre thinking Hallucination Type: None Delusion Type: None Suicidal Ideation: No Suicidal Plan: No Suicidal Intention: No Homicidal Ideation: No Homicidal Plan: No Homicidal Intention: No Insight: Poor Judgment: Poor Results Vitals/IOs Vital Signs Date Time Temp Pulse Resp B/P (MAP) Pulse Ox O2 Delivery O2 Flow Rate FiO2 09/18/17 06:04 97.8 72 18 91/69 (76) 95 Assessment & Plan Problem List: (1) Dementia with behavioral disturbance ICD Codes: F03.91 - Unspecified dementia with behavioral disturbance Assessment & Plan Patient continues to be irritable, refusing to engage with peers or staff. He continues to be confused and oriented only to person and perseverative on his wallet and his money. Continue to encourage maintenance of hygiene and adherence to treatment. Encourage fluid and nutritional intake. Discharge planning in progress. Justification for Cont. Inpt. At risk for further decompensation if at lower level of care. Discharge Planning Patient may return back to family once confirmation by patient's daughter in law. Colin Gotti MD Sep 18, 2017 18:41
[2017-09-19] MEDS: amLODIPine BESYLATE 5 MG TAB PO SCH (09:00)
[2017-09-19] MEDS: MEMANTINE HCL 5 MG TAB PO SCH (09:37)
[2017-09-19] MEDS: PRAVASTATIN SOD 10 MG TAB PO SCH (09:38)
[2017-09-19] MEDS: OLANZapine 2.5 MG TAB PO SCH ×3 (09:38→22:07)
--- NOTE | 2017-09-19 14:55 | HHI.PYPN ---
Subjective Remarks Patient seen for follow-up, chart reviewed. Discussion her sister reported the patient took medications this morning and as well as last evening. Patient was found lying in hospital bed irritable superficially cooperative interview today. Patient continues to be more seclusive but comes out for meals only and has been refusing to take showers despite encouragement. Patient states "I don' t take no damn medicine" when praise about his compliance. Patient continues to be perseverative on obtaining his wallet and leaving the facility. Review of Systems Except as stated in HPI: all other systems reviewed are Neg Mental Status Examination Appearance: Disheveled, Malodorous Consciousness: Alert Orientation: Person Motor Activity: Normal gait Speech: Unremarkable Language: Adequate Fund of Knowledge: Inadequate Attention and Concentration: Adequate Memory: Impaired Mood: Irritable Affect: Irritable, Other (hypervigilant) Thought Process & Associations: Intact Thought Content: Bizarre thinking Hallucination Type: None Delusion Type: None Suicidal Ideation: No Suicidal Plan: No Suicidal Intention: No Homicidal Ideation: No Homicidal Plan: No Homicidal Intention: No Insight: Poor Judgment: Poor Results Vitals/IOs Vital Signs Date Time Temp Pulse Resp B/P (MAP) Pulse Ox O2 Delivery O2 Flow Rate FiO2 09/18/17 06:04 97.8 72 18 91/69 (76) 95 Assessment & Plan Problem List: (1) Dementia with behavioral disturbance ICD Codes: F03.91 - Unspecified dementia with behavioral disturbance Assessment & Plan Patient continues to be noted to be very irritable, seclusive, refusing medications but with encouragement was able to take his medications last evening as well as this morning. As per collateral from therapists with patient 's family it is possible that patients' sons may be able to come to pick him up and overseeing his care. Continue current treatment. She is encourage patient to maintain personal hygiene and participate in groups and activities while on the unit. Continue to encourage patient to maintain good hydration as well as good by mouth intake. Discharge planning in progress Justification for Cont. Inpt. At risk for further decompensation if at lower level of care Discharge Planning Patient is discharged to family or facility if one is acquired. Colin Gotti MD Sep 19, 2017 14:55
[2017-09-19 18:00] VITALS: BP 118/64; PULSE 59; RESP 17; TEMP 96.1; O2SAT 98
[2017-09-20 06:22] VITALS: BP 111/78; PULSE 49; RESP 17; TEMP 98.1
[2017-09-20] MEDS: OLANZapine 2.5 MG TAB PO SCH ×3 (09:00→21:04)
[2017-09-20] MEDS: PRAVASTATIN SOD 10 MG TAB PO SCH (09:00)
[2017-09-20] MEDS: amLODIPine BESYLATE 5 MG TAB PO SCH (09:00)
[2017-09-20] MEDS: MEMANTINE HCL 5 MG TAB PO SCH (09:00)
--- NOTE | 2017-09-20 16:30 | HHI.PYPN ---
Subjective Remarks Patient seen for follow-up, chart reviewed. Discussion she staff reported the patient continues to refuse medicines medications initially but then later was able to take them. Patient was found lying in hospital bed, superficially cooperative and continues to be noted to be irritable and minimally interactive with interview. Patient attempted to engage in interview simply states "I just want my wallet". Patient continues to be encouraged to take showers but did not answer. Patient continues to be seclusive to his room but has been out for meals and taking medications with encouragement. Review of Systems Except as stated in HPI: all other systems reviewed are Neg Mental Status Examination Appearance: Disheveled, Malodorous Consciousness: Alert Orientation: Person Motor Activity: Normal gait Speech: Unremarkable Language: Adequate Fund of Knowledge: Inadequate Attention and Concentration: Adequate Memory: Impaired Mood: Irritable Affect: Irritable, Other (hypervigilant) Thought Process & Associations: Intact Thought Content: Bizarre thinking Hallucination Type: None Delusion Type: None Suicidal Ideation: No Suicidal Plan: No Suicidal Intention: No Homicidal Ideation: No Homicidal Plan: No Homicidal Intention: No Insight: Poor Judgment: Poor Results Vitals/IOs Vital Signs Date Time Temp Pulse Resp B/P (MAP) Pulse Ox O2 Delivery O2 Flow Rate FiO2 09/20/17 06:22 98.1 49 17 111/78 (89) 09/19/17 18:00 98 Assessment & Plan Problem List: (1) Dementia with behavioral disturbance ICD Codes: F03.91 - Unspecified dementia with behavioral disturbance Assessment & Plan Patient continues to have irritability but has not had any behavioral dyscontrol since admission. Patient reluctantly takes medications but continues to refuse to maintain personal hygiene despite encouragement for patient to the shower. Treatment team has been in touch with patient's sons who state that they plan on coming early next week to come pick of the patient endorsing his care and take him back to their home. Continue current treatment. Continue to encourage patient to comply with medications, continue personal hygiene and participate in groups and activities. Discharge planning in progress Justification for Cont. Inpt. At risk for further decompensation if at lower level of care Discharge Planning Patient to be discharged to family once they arrive early next week. Colin Gotti MD Sep 20, 2017 16:30
[2017-09-21 05:58] VITALS: BP 138/81; PULSE 51; RESP 17; TEMP 97.7; O2SAT 93
--- NOTE | 2017-09-21 08:39 | PD.TTN ---
Patient Problems 1. Discharge planning 2. Medication compliance 3. Knowledge deficit 4. Lack of coping skills Progress Toward Goals Provider Present: Dr. Santiago Gotti Provider Input: Dr. Gotti's met to discuss treatment plan, medication, and discharge plan. Continue with treatment. 09/13/17 Due to not having consent for treatment patient has not had any medication. Will continue to monitor 09/18/17 Patient is not receiving any medication. Patient's family refused medication. 09/20/17 Patient is taking his medication reluctantly. Patient will remain until a safe discharge can be obtained. Nurse(s) Input: Patient's Nurse Steven reports paient is medication compliant but states "aint' nothing wrong with me" He is alert to person only. Patient is fixated on wallet. Patient denies suicidal and homicidal at this time. 09/13/17 Patient's Nurse Machelle reports patient is irritable angry, exit seeking. 09/18/17 Patient's nurse Guy reports patient is seclusive to his room, depressed, not eating, is excessively sleeping 09/20/17 Patient's nurse Susan reports patient is seclusive, agitated, refusing to take a shower. Psychiatric Counselors Present: [facility] Somers [facility] Input: Patient is alert to person only. Patient made good eye contact. Patient presents childlike delusional confused, affect blunted. Patient's speech is clear, but disorganized. Patient is medication compliant. Patient is fixated on leaving and his wallet. 09/20/17 Patient continues to present agitated, childlike, anxious, sad, depressed, seclusive, affect blunted. Patient's speech is pressured and restricted. Patient's family has been contacted and stated they will pick patient up Tuesday 09/25 or Wednesday 09/26. 09/13/17 Patient continues to present with agitation, exit seeking, no insight, alert to person only. Patient's son was contacted for medication treatment and did not consent. Patient' has not been given any medication due to lack of consent. Patient is eating ok. Patient does not present with internal stimulation but is delusional fixated on wallet. Patient goes to [address] tomorrow. 09/18/17 Patient presents sad and depressed, affect flat. Patient made poor eye contact. Patient is wanting to leave. Patient;s son was called but was not able to reach him due to phone not accepting any messages. Patient denies suicidal and homicidal ideation. Patient continues to be fixated on wallet but does not present internally stimulated. Group Spec/RT/OT/CROWLEY Present: KEO Mancuso, Gurmeet Conrad, OT Group Spec/RT/OT/CROWLEY Input: Patient does not attend groups but will continue to encourage. 09/13/17 Patient does not attend groups. 09/18/17 Patient does not attend groups 09/20/17 Patient does not attend groups, seclusive to room Zenia Somers [facility] Sep 21, 2017 08:38
[2017-09-21] MEDS: PRAVASTATIN SOD 10 MG TAB PO SCH (09:00)
[2017-09-21] MEDS: OLANZapine 2.5 MG TAB PO SCH ×3 (09:00→21:02)
[2017-09-21] MEDS: MEMANTINE HCL 5 MG TAB PO SCH (09:00)
[2017-09-21] MEDS: amLODIPine BESYLATE 5 MG TAB PO SCH (09:00)
--- NOTE | 2017-09-21 14:25 | HHI.PYPN ---
Subjective Remarks Patient seen for follow-up, chart review. Patient continues to be seclusive to his room, continue to be irritable but taking medication with much encouragement. Patient at this time continues to refuse to shower although has been reluctantly taking his medications. He continues to have some irritability and perseverative focused on discharge and having his wallet. Patient was encouraged to participate in groups and activities and be less seclusive to his room. Patient continues answer "I'll get out once I have my wallet". Continues to be alert and oriented only to person. Review of Systems Except as stated in HPI: all other systems reviewed are Neg Mental Status Examination Appearance: Disheveled, Malodorous Consciousness: Alert Orientation: Person Motor Activity: Normal gait Speech: Unremarkable Language: Adequate Fund of Knowledge: Inadequate Attention and Concentration: Adequate Memory: Impaired Mood: Irritable Affect: Irritable, Other (hypervigilant) Thought Process & Associations: Intact Thought Content: Bizarre thinking, Preoccupations (perseverative on his wallet) Hallucination Type: None Delusion Type: None Suicidal Ideation: No Suicidal Plan: No Suicidal Intention: No Homicidal Ideation: No Homicidal Plan: No Homicidal Intention: No Insight: Poor Judgment: Poor Results Vitals/IOs Vital Signs Date Time Temp Pulse Resp B/P (MAP) Pulse Ox O2 Delivery O2 Flow Rate FiO2 09/21/17 05:58 97.7 51 17 138/81 (100) 93 Intake and Output 09/21/17 09/21/17 09/22/17 08:00 16:00 00:00 Intake Total 360 ml Balance 360 ml Assessment & Plan Problem List: (1) Dementia with behavioral disturbance ICD Codes: F03.91 - Unspecified dementia with behavioral disturbance Assessment & Plan At this time has not had any behavioral disturbances since admission, has not been seeking, but has been noted to be irritable and superficially cooperative with staff. Continue current treatment. Continue to encourage patient to be taking personal hygiene and participate in groups and activities while on the unit. Discharge planning in progress Justification for Cont. Inpt. At risk for further decompensation if at lower level of care Discharge Planning Patient's sons have medicated with treatment team and plan to come down to [place] their father Monday or Monday of next week. Colin Gotti MD Sep 21, 2017 14:25
[2017-09-21 16:56] VITALS: BP 146/84; PULSE 55; RESP 17; TEMP 97.3; O2SAT 99
[2017-09-22 04:00] VITALS: BP 115/71; PULSE 50; RESP 16; TEMP 97.9; O2SAT 93
[2017-09-22] MEDS: MEMANTINE HCL 5 MG TAB PO SCH (09:00)
[2017-09-22] MEDS: PRAVASTATIN SOD 10 MG TAB PO SCH (10:18)
[2017-09-22] MEDS: amLODIPine BESYLATE 5 MG TAB PO SCH (10:18)
[2017-09-22] MEDS: OLANZapine 2.5 MG TAB PO SCH ×4 (10:18→21:00)
--- NOTE | 2017-09-22 10:25 | HHI.PYPN ---
Subjective Remarks The patient was seen today for psychiatric reevaluation, case discussed with nurse in charge, Dr. Gotti notes were reviewed. Patient is in his bed, oppositional, refusing to talk, he says that he feels okay, he has been mostly isolated, he is eating okay, taking his medications on and off. Vital signs stable. Review of Systems Except as stated in HPI: all other systems reviewed are Neg Mental Status Examination Appearance: Disheveled, Malodorous Consciousness: Alert Orientation: Person Motor Activity: Normal gait Speech: Unremarkable Language: Adequate Fund of Knowledge: Inadequate Attention and Concentration: Adequate Memory: Impaired Mood: Irritable Affect: Irritable, Other (hypervigilant) Thought Process & Associations: Intact Thought Content: Bizarre thinking, Preoccupations (perseverative on his wallet) Hallucination Type: None Delusion Type: None Suicidal Ideation: No Suicidal Plan: No Suicidal Intention: No Homicidal Ideation: No Homicidal Plan: No Homicidal Intention: No Insight: Poor Judgment: Poor Results Vitals/IOs Vital Signs Date Time Temp Pulse Resp B/P (MAP) Pulse Ox O2 Delivery O2 Flow Rate FiO2 09/22/17 04:00 97.9 50 16 115/71 (86) 93 Assessment & Plan Problem List: (1) Dementia with behavioral disturbance ICD Codes: F03.91 - Unspecified dementia with behavioral disturbance Assessment & Plan Estimated LOS: days Justification for Cont. Inpt. Patient needs to continue psychiatric hospitalization because at a lower level of care the patient has an elevated risk to decompensate. Wilson Ontiveros MD Sep 22, 2017 10:25
[2017-09-22 17:40] VITALS: BP 116/71; PULSE 55; RESP 16; TEMP 98.2; O2SAT 96
[2017-09-23 05:38] VITALS: BP 122/80; PULSE 52; RESP 16; TEMP 97.6; O2SAT 95
[2017-09-23] MEDS: MEMANTINE HCL 5 MG TAB PO SCH (09:00)
[2017-09-23] MEDS: PRAVASTATIN SOD 10 MG TAB PO SCH (09:58)
[2017-09-23] MEDS: amLODIPine BESYLATE 5 MG TAB PO SCH (09:59)
[2017-09-23] MEDS: OLANZapine 2.5 MG TAB PO SCH ×3 (10:10→21:17)
--- NOTE | 2017-09-23 15:32 | HHI.PYPN ---
Subjective Remarks Patient was seen and case discussed with nursing. Patient is pleasant and cooperative with exam. Compliant with medications. He remains quite seclusive with a flat affect. Alert and oriented 1. We offered for him to go outside and go in the dayroom but he refuses. Intermittent compliance with medication Mental Status Examination Appearance: Disheveled, Malodorous Consciousness: Alert Orientation: Person Motor Activity: Normal gait Speech: Unremarkable Language: Adequate Fund of Knowledge: Inadequate Attention and Concentration: Adequate Memory: Impaired Mood: Sad Affect: Irritable, Sad Thought Process & Associations: Intact Thought Content: Bizarre thinking, Preoccupations (perseverative on his wallet) Hallucination Type: None Delusion Type: None Suicidal Ideation: No Suicidal Plan: No Suicidal Intention: No Homicidal Ideation: No Homicidal Plan: No Homicidal Intention: No Insight: Poor Judgment: Poor Results Vitals/IOs Vital Signs Date Time Temp Pulse Resp B/P (MAP) Pulse Ox O2 Delivery O2 Flow Rate FiO2 09/23/17 05:38 97.6 52 16 122/80 (94) 95 Intake and Output 09/23/17 09/23/17 09/24/17 08:00 16:00 00:00 Intake Total 0 ml 0 ml Balance 0 ml 0 ml Assessment & Plan Problem List: (1) Dementia with behavioral disturbance ICD Codes: F03.91 - Unspecified dementia with behavioral disturbance Assessment & Plan Continue current treatment plan Justification for Cont. Inpt. Patient would decompensate in a less restrictive setting Gustabo Najera DO Sep 23, 2017 15:32
[2017-09-23 18:33] VITALS: BP 141/67; PULSE 88; RESP 18; TEMP 97.9; O2SAT 98
[2017-09-24 06:00] VITALS: BP 109/75; PULSE 48; RESP 17; TEMP 97.8; O2SAT 95
[2017-09-24] MEDS: MEMANTINE HCL 5 MG TAB PO SCH (09:00)
[2017-09-24] MEDS: amLODIPine BESYLATE 5 MG TAB PO SCH (09:32)
[2017-09-24] MEDS: PRAVASTATIN SOD 10 MG TAB PO SCH (09:33)
[2017-09-24] MEDS: OLANZapine 2.5 MG TAB PO SCH ×3 (09:35→21:14)
--- NOTE | 2017-09-24 11:07 | HHI.PYPN ---
Subjective Remarks Patient was seen and case discussed with nursing. Patient is seclusive to bed. He is oppositional, refusing to take a shower. Affect is irritable and attitude is oppositional Mental Status Examination Appearance: Disheveled, Malodorous Consciousness: Alert Orientation: Person Motor Activity: Normal gait Speech: Unremarkable Language: Adequate Fund of Knowledge: Inadequate Attention and Concentration: Adequate Memory: Impaired Mood: Sad Affect: Irritable, Sad Thought Process & Associations: Intact Thought Content: Bizarre thinking, Depersonalization Hallucination Type: None Delusion Type: None Suicidal Ideation: No Suicidal Plan: No Suicidal Intention: No Homicidal Ideation: No Homicidal Plan: No Homicidal Intention: No Insight: Poor Judgment: Poor Results Vitals/IOs Vital Signs Date Time Temp Pulse Resp B/P (MAP) Pulse Ox O2 Delivery O2 Flow Rate FiO2 09/24/17 06:00 97.8 48 17 109/75 (86) 95 Intake and Output 09/24/17 09/24/17 09/25/17 08:00 16:00 00:00 Intake Total 0 ml Balance 0 ml Assessment & Plan Problem List: (1) Dementia with behavioral disturbance ICD Codes: F03.91 - Unspecified dementia with behavioral disturbance Assessment & Plan Continue current treatment plan Justification for Cont. Inpt. Patient will decompensate in a less restrictive setting Gustabo Najera DO Sep 24, 2017 11:07
[2017-09-24 18:43] VITALS: BP 130/72; PULSE 84; RESP 18; TEMP 98.2; O2SAT 97
[2017-09-25 06:01] VITALS: BP 96/65; PULSE 61; RESP 17; TEMP 98.1; O2SAT 97
[2017-09-25] MEDS ORDERED: OLAN2.5T7 PO ×2 (08:54)
[2017-09-25] MEDS ORDERED: NAME5TAB2 PO (08:54)
[2017-09-25] MEDS ORDERED: AMLO5 PO (08:54)
[2017-09-25] MEDS ORDERED: PRAV10TA PO (08:54)
--- NOTE | 2017-09-25 08:59 | HHI.DS ---
Psychiatry Discharge Summary Inpatient Psychiatric care?: Yes Advance Directive: No Reason Not Provided: Due to Patient Condition Mental Health AdvanceDirective: No Health Care Proxy: No Admission Admission Date Sep 08, 2017 at 10:29 Admission Diagnosis: (1) Dementia with behavioral disturbance ICD Code: F03.91 - Unspecified dementia with behavioral disturbance Brief History The patient is a 81 years old man, he has psychiatric history of dementia, alcohol use disorder, he was recently hospitalized [facility] after being found wandering in the streets of [place], he was stabilized, discharged yesterday to a residential facility, but the patient allegedly became aggressive right after entering in the facility and was [facility] and sent back to the hospital. Allegedly the patient became combative, ran away into traffic. Patient has history of aggressive behavior in the hospital, but in the last days of his past hospitalization no major events were reported and patient was usually compliant with his medications. He was discharged and olanzapine 2.5 mg 3 times a day. He was under the care of Dr. Terrell. Patient has medical history hypertension and hyperlipidemia. Today on psychiatric evaluation patient is oppositional, resistant, at the beginning refusing to talk. Patient seems to be disoriented in time and place, the only words that he articulates is to says that he was to go back to [place] to live with his family and friends. Patient is unable to provide any significant information about family or friends. He denies suicidal and homicidal ideation , he denies visual and auditory hallucinations. 09/08/17 - second opinion Patient is 81-year-old man, with past psychiatric history of dementia, alcohol use disorder, history of psychiatric hospitalization recently discharged from [facility] and return back to the ER after patient had attempted to run away from correction facility, was combative and ran to the streets which she was then brought back to the emergency room at [facility]. Patient has a history of aggressive behavior and upon his recent hospitalization had been compliant with medications. Patient is found in hospital room attempting to open closet stating that he was trying to get his clothes that he can leave here. Patient is alert and oriented only to person without aware that he is back in the hospital. Patient states that he was recently down the street near school and does not recall his recent hospitalizations. Patient denies taking any medications recently. Patient denying any physical symptoms at this time, reports he drinking well with no problem with urination or bowel movement. Patient reports previous and living alone prior to his hospitalizations. Patient this time denies SI, HI or perceptual disturbances. Tobacco Use In Past 30 Days: No Tobacco Past 30 Days Alcohol Use: Never Hospital Course Patient is 81-year-old man, with past psychiatric history of dementia, alcohol use disorder, history of psychiatric hospitalization recently discharged from [facility] and return back to the ER after patient had attempted to run away from correction facility, was combative and ran to the streets which she was then brought back to the emergency room at [facility]. Patient has a history of aggressive behavior and upon his recent hospitalization had been compliant with medications. which he was transferred to the inpatient psychiatry unit for further evaluation and management. Patient restarted on olanzapine 1.25 mg by mouth twice a day, 3.75mg PO at bedtime and started on memantine 5mg PO daily along with management of hypertension as per medical team. Patient had been inconsistent with adherence with medications but was not noted to be aggressive nor having any behavioral dyscontrol since re -admission. Patient remained perseverative on his wallet with his money as well as discharge. Patient continue with treatment and was noted to have stable mood , was noted to be superficially cooperative with staff. Patient was noted to have continued poor insight and judgment due to neurocognitive deficits and was alert and oriented only to person. Upon discharge patient stated feeling alright, stated feeling okay with returning back with his son, was calm and cooperative up on discharge. He agreed to continuing medical recommendations, treatment and attend outpatient follow up appointments for continuity of care. Patient will be discharged back to [facility] and residence with plans on patient to have follow up out of state where the son lives. Patient; denies SI, HI, AVH or delusions. Supportive psychotherapy provided. Patient advised to call 911 or return back to the ED in case of any emergency. Patient agrees with plan. Results Blood Pressure 96 / 65 Vital Signs Date Time Temp Pulse Resp B/P (MAP) Pulse Ox O2 Delivery O2 Flow Rate FiO2 09/25/17 06:01 98.1 61 17 96/65 (75) 97 CBC and BMP within normal limits Summary of Procedures None Pending results at discharge: No Medications # of Antipsychotic meds at D/C: 1 Approp Antipsych med options 1 - Minimum of three failed multiple trials of monotherapy. 2 - Documented plan to taper to monotherapy due to previous use of multiple meds OR cross-taper in progress at D/C. 3 - Documentation of augmentation of Clozapine. 4 - Justification other than those listed in allowable values 1-3, document here : Discharge Discharge Date: Sep 25, 2017 Discharge Diagnosis: (1) Dementia with behavioral disturbance ICD Code: F03.91 - Unspecified dementia with behavioral disturbance Pt Condition on Discharge: Stable Discharge Disposition: Discharge Home Discharge Instructions Diet Instructions: Heart Healthy Diet Activities you can perform: Regular-No Restrictions Discharge Time > 30 minutes Mental Status Examination Appearance: Disheveled, Malodorous Consciousness: Alert Orientation: Person Motor Activity: Normal gait Speech: Unremarkable Language: Adequate Fund of Knowledge: Inadequate Attention and Concentration: Adequate Memory: Impaired Mood: Other ("I'm alright") Affect: Irritable Thought Process & Associations: Goal directed, Linear Thought Content: Bizarre thinking, Preoccupations (worried about his wallet and his money) Hallucination Type: None Delusion Type: None Suicidal Ideation: No Suicidal Plan: No Suicidal Intention: No Homicidal Ideation: No Homicidal Plan: No Homicidal Intention: No Insight: Poor Judgment: Poor Discharge/Advance Care Plan Health Problems: (1) Dementia with behavioral disturbance Goals to promote your health * To prevent worsening of your condition and complications * To maintain your health at the optimal level Directions to meet your goals Take your medications as prescribed Follow your dietary instruction Follow activity as directed Keep your appointments as scheduled Take your immunizations and boosters as scheduled If your symptoms worsen call your PCP, if no PCP go to Urgent Care Center or Emergency Room For 01/05 questions related to your inpatient stay or results of tests pending at discharge, please contact Dr. Colin Gotti at Smoking is Dangerous to Your Health. Avoid second hand smoking Colin Gotti MD Sep 25, 2017 08:59
[2017-09-25] MEDS: amLODIPine BESYLATE 5 MG TAB PO SCH (09:00)
[2017-09-25] MEDS: MEMANTINE HCL 5 MG TAB PO SCH (09:00)
[2017-09-25] MEDS: PRAVASTATIN SOD 10 MG TAB PO SCH (09:00)
[2017-09-25] MEDS: OLANZapine 2.5 MG TAB PO SCH (09:00)
--- NOTE | 2017-09-25 11:44 | PD.TTN ---
Patient Problems 1. Discharge planning 2. Medication compliance 3. Knowledge deficit 4. Lack of coping skills Progress Toward Goals Provider Present: Dr. Santiago Gotti Provider Input: Dr. Gotti's met to discuss treatment plan, medication, and discharge plan. Continue with treatment. 09/13/17 Due to not having consent for treatment patient has not had any medication. Will continue to monitor 09/18/17 Patient is not receiving any medication. Patient's family refused medication. 09/20/17 Patient is taking his medication reluctantly. Patient will remain until a safe discharge can be obtained. 09/25/17 Patient is ready to be discharged. Nurse(s) Input: Patient's Nurse Steven reports paient is medication compliant but states "aint' nothing wrong with me" He is alert to person only. Patient is fixated on wallet. Patient denies suicidal and homicidal at this time. 09/13/17 Patient's Nurse Machelle reports patient is irritable angry, exit seeking. 09/18/17 Patient's nurse Guy reports patient is seclusive to his room, depressed, not eating, is excessively sleeping 09/20/17 Patient's nurse Susan reports patient is seclusive, agitated, refusing to take a shower. 09/25/17 Patient's nurse Fernanda reports patient is medication compliant, agitated, anger, cooperative but guarded, needs a lot of encouragement. Psychiatric Counselors Present: Zenia Somers [facility] Psych Therapist Input: Patient is alert to person only. Patient made good eye contact. Patient presents childlike delusional confused, affect blunted. Patient's speech is clear, but disorganized. Patient is medication compliant. Patient is fixated on leaving and his wallet. 09/20/17 Patient continues to present agitated, childlike, anxious, sad, depressed, seclusive, affect blunted. Patient's speech is pressured and restricted. Patient's family has been contacted and stated they will pick patient up Tuesday 09/25 or Wednesday 09/26. 09/13/17 Patient continues to present with agitation, exit seeking, no insight, alert to person only. Patient's son was contacted for medication treatment and did not consent. Patient' has not been given any medication due to lack of consent. Patient is eating ok. Patient does not present with internal stimulation but is delusional fixated on wallet. Patient goes to [place] [address] tomorrow. 09/18/17 Patient presents sad and depressed, affect flat. Patient made poor eye contact. Patient is wanting to leave. Patient;s son was called but was not able to reach him due to phone not accepting any messages. Patient denies suicidal and homicidal ideation. Patient continues to be fixated on wallet but does not present internally stimulated. 09/25/17 Patient continues to present confused and disoriented. Patient's grandson is coming to pick patient up and take him to [place]. Patient is medication compliant. Patient was encouraged to shower today, patient did not eat his breakfast. Patient will have follow up care in [place], patient's family will make appoints Group Spec/RT/OT/CROWLEY Present: KEO Mancuso, Gurmeet Conrad, OT Group Spec/RT/OT/CROWLEY Input: Patient does not attend groups but will continue to encourage. 09/13/17 Patient does not attend groups. 09/18/17 Patient does not attend groups 09/20/17 Patient does not attend groups, seclusive to room 09/25/17 Patient isolates to his room. Patient is encouraged to participate in the group activites but declines to do so. Zenia Somers [facility] Sep 25, 2017 11:44
== END 2017-09-25 11:10 | disposition home or self-care (01) | DRG 884 ==
LOC: NEPD 19:13 → NEDA 09-08 10:29 → H260 09-08 13:50
PROVIDERS: ADMIT Student in an Organized Health Care Education/Training Program; ATTEND Student in an Organized Health Care Education/Training Program
DX: F03.91 Unspecified dementia, unspecified severity, with behavioral disturbance (principal); Z91.19 Patient's noncompliance with other medical treatment and regimen; I10 Essential (primary) hypertension; E78.5 Hyperlipidemia, unspecified; F10.10 Alcohol abuse, uncomplicated; Z91.83 Wandering in diseases classified elsewhere
CPT/HCPCS: 80053; 85025; 99285

== ENCOUNTER 2017-12-26 16:43 | Inpatient (IN) | payer MEDICARE, OTHER ==
[~2017-12-26] VITALS: Ht 165.1 cm; Wt 61.4 kg
[~2017-12-26 16:43] MED LIST changes: +NAME5TAB2 PO; -SERO25TA PO
[2017-12-26 17:11] VITALS: BP 173/112; PULSE 95; RESP 18; TEMP 98.5; O2SAT 99
[2017-12-26 17:25] VITALS: BP 173/117; PULSE 95; RESP 18; TEMP 98.5; O2SAT 99
[2017-12-26 18:32] LABS: AUTOMATED NEUTROPHIL # 6.9 TH/MM3 (1.8-7.7); BASOPHIL % 0.5 % (0.0-2.0); EOSINOPHIL % 0.3 % (0.0-4.0); HEMATOCRIT 46.4 % (39.0-51.0); HEMOGLOBIN 15.3 GM/DL (13.0-17.0); LYMPH % 15.1 % (9.0-44.0); LYMPHOCYTE # 1.4 TH/MM3 (1.0-4.8); MEAN CORPUSCULAR HEMOGLOBIN 30.1 PG (27.0-34.0); MEAN PLATELET VOLUME 8.8 FL (7.0-11.0); MONO % 7.6 % (0.0-8.0); MONOCYTE # 0.7 TH/MM3 (0-0.9); NEUT % 76.5 % (16.0-70.0); PLATELET COUNT 220 TH/MM3 (150-450); RED CELL DISTRIBUTION WIDTH 15.8 % (11.6-17.2)
--- NOTE | 2017-12-26 18:35 | PD ---
HPI Chief Complaint: Psychiatric Symptoms Time Seen by Provider: 17:54 Travel History International Travel<30 days: No Contact w/Intl Traveler<30days: No Traveled to known affect area: No History of Present Illness HPI 82-year-old male that presents to the ED for evaluation of Rodríguez act. Patient was prescribed by police after patient apparently got into another residence house. Patient apparently has a history of dementia and per report from the police patient is for the most part independent and lives by himself. Patient was very confused and demented and they couldn't get a good history from him so that the Rodríguez acted him for his safety. He has a history of dementia has been here for similar in the past. Per police's concern for neglect. Patient himself has no complaints. No falls. No signs of injuries. He does smell heavily of urine unlikely has not been taking care of himself. He has no allergies to medication. No cell homicidal ideation. No other medical issues at this time. Denies any pain. Patient is a poor historian so history is limited. PFSH Past Medical History Medical History: Unable to Obtain Cardiovascular Problems: Yes (htn) Headaches: No Hypertension: Yes Implanted Vascular Access Dvce: No Neurologic: Yes (DEMENTIA) Psychiatric: Yes (Hx of dementia diagnosis) Reproductive: No Past Surgical History Surgical History: Unable to Obtain Body Medical Devices: denies Social History Alcohol Use: No Tobacco Use: No Substance Use: No Allergies-Medications (Allergen,Severity, Reaction): Coded Allergies: No Known Allergies (Unverified , 07/18/17) Reported Meds & Prescriptions Reported Meds & Active Scripts Active Namenda (Memantine) 5 Mg Tab 5 Mg PO DAILY 30 Days Olanzapine 2.5 Mg Tab 3.75 Mg PO HS 30 Days Olanzapine 2.5 Mg Tab 1.25 Mg PO DAILY@0900,1500 30 Days Pravastatin 10 Mg Tab 10 Mg PO DAILY 30 Days Norvasc (Amlodipine Besylate) 5 Mg Tab 5 Mg PO DAILY 30 Days Review of Systems ROS Limitations: Poor Historian Except as stated in HPI: all other systems reviewed are Neg Physical Exam Exam Limitations: Poor Historian Narrative GENERAL: SKIN: Warm and dry. HEAD: Atraumatic. Normocephalic. EYES: Pupils equal and round. No scleral icterus. No injection or drainage. ENT: No nasal bleeding or discharge. Mucous membranes pink and moist. Tongue is midline. No uvula deviation. NECK: Trachea midline. No JVD. CARDIOVASCULAR: Regular rate and rhythm. No murmurs, S3, S4. RESPIRATORY: No accessory muscle use. Clear to auscultation. Breath sounds equal bilaterally. GASTROINTESTINAL: Abdomen soft, non-tender, nondistended. Hepatic and splenic margins not palpable. MUSCULOSKELETAL: Extremities without clubbing, cyanosis, or edema. No obvious deformities. Full range of motion of the upper and lower extremities bilaterally. 2+ pulses bilaterally. NEUROLOGICAL: Awake and alert. No obvious cranial nerve deficits. Motor grossly within normal limits. Five out of 5 muscle strength in the arms and legs. Normal speech. PSYCHIATRIC: Demented mood and affect; insight and judgment minimal Data Data Last Documented VS Vital Signs Date Time Temp Pulse Resp B/P (MAP) Pulse Ox O2 Delivery O2 Flow Rate FiO2 12/26/17 17:25 98.5 95 18 173/117 (135) 99 12/26/17 17:11 Room Air Orders Orders Complete Blood Count With Diff (12/26/17 17:44) Comprehensive Metabolic Panel (12/26/17 17:44) Thyroid Stimulating Hormone (12/26/17 17:44) Urinalysis - C+S If Indicated (12/26/17 17:44) Psych Screen (12/26/17 17:44) Drug Screen, Random Urine (12/26/17 17:44) Alcohol (Ethanol) (12/26/17 17:44) Ct Brain W/O Iv Contrast(Rout) (12/26/17 ) Labs Laboratory Tests Test 12/26/17 18:03 [facility] Medical Decision Making Medical Screen Exam Complete: Yes Emergency Medical Condition: Yes Medical Record Reviewed: Yes Differential Diagnosis Dementia versus altered mental status versus contusion versus UTI versus electrolyte abnormality Narrative Course 82-year-old male that presents to the ED for evaluation of Rod[place]guez act. Patient was properly examined and was found to have signs and symptoms consistent appears to be Rodríguez act. No sign of acute medical distress. Labs were drawn. Patient was medically cleared. Okay to be seen by psych. Mental health screening was discussed with the patient. Diagnosis Primary Impression: Dementia with behavioral disturbance Qualified Codes: G30.1 - Alzheimer's disease with late onset; F02.81 - Dementia in other diseases classified elsewhere with behavioral disturbance Patrick Alonso Dec 26, 2017 18:35
[2017-12-26 18:42] LABS: ALBUMIN 3.5 GM/DL (3.4-5.0); AST (GOT) 16 U/L (15-37); BICARBONATE 23.8 MEQ/L (21.0-32.0); BLOOD UREA NITROGEN 13 MG/DL (7-18); CALCIUM 8.8 MG/DL (8.5-10.1); CHLORIDE 106 MEQ/L (98-107); CREATININE 1.15 MG/DL (0.60-1.30); GLOMERULAR FILTRATION RATE 74 ML/MIN (>89); GLUCOSE,RANDOM 92 MG/DL (74-106); SODIUM (NA) 141 MEQ/L (136-145)
[2017-12-26 18:44] LABS: ALT (GPT) 16 U/L (12-78)
--- NOTE | 2017-12-26 18:47 | PD ---
Physical Exam Date Seen by Provider: Dec 26, 2017 Time Seen by Provider: 18:45 Narrative The patient is a 82-year-old male who was initially evaluated by the mid-level provider and the ambulance fall. Please refer to the initial history, physical , diagnostic evaluation, treatment modality plan. The patient was signed out with CT of the head and laboratory evaluation pending. Data Data Last Documented VS Vital Signs Date Time Temp Pulse Resp B/P (MAP) Pulse Ox O2 Delivery O2 Flow Rate FiO2 12/26/17 17:25 98.5 95 18 173/117 (135) 99 12/26/17 17:11 Room Air Orders Orders Complete Blood Count With Diff (12/26/17 17:44) Comprehensive Metabolic Panel (12/26/17 17:44) Thyroid Stimulating Hormone (12/26/17 17:44) Urinalysis - C+S If Indicated (12/26/17 17:44) Psych Screen (12/26/17 17:44) Drug Screen, Random Urine (12/26/17 17:44) Alcohol (Ethanol) (12/26/17 17:44) Ct Brain W/O Iv Contrast(Rout) (12/26/17 ) Lorazepam Inj (Ativan Inj) (12/26/17 20:00) Labs Laboratory Tests Test 12/26/17 18:03 12/26/17 19:39 White Blood Count 9.0 TH/MM3 Red Blood Count 5.10 MIL/MM3 Hemoglobin 15.3 GM/DL Hematocrit 46.4 % Mean Corpuscular Volume 91.0 FL Mean Corpuscular Hemoglobin 30.1 PG Mean Corpuscular Hemoglobin Concent 33.0 % Red Cell Distribution Width 15.8 % Platelet Count 220 TH/MM3 Mean Platelet Volume 8.8 FL Neutrophils (%) (Auto) 76.5 % Lymphocytes (%) (Auto) 15.1 % Monocytes (%) (Auto) 7.6 % Eosinophils (%) (Auto) 0.3 % Basophils (%) (Auto) 0.5 % Neutrophils # (Auto) 6.9 TH/MM3 Lymphocytes # (Auto) 1.4 TH/MM3 Monocytes # (Auto) 0.7 TH/MM3 Eosinophils # (Auto) 0.0 TH/MM3 Basophils # (Auto) 0.0 TH/MM3 CBC Comment DIFF FINAL Differential Comment Blood Urea Nitrogen 13 MG/DL Creatinine 1.15 MG/DL Random Glucose 92 MG/DL Total Protein 7.6 GM/DL Albumin 3.5 GM/DL Calcium Level 8.8 MG/DL Alkaline Phosphatase 73 U/L Aspartate Amino Transf (AST/SGOT) 16 U/L Alanine Aminotransferase (ALT/SGPT) 16 U/L Total Bilirubin 1.0 MG/DL Sodium Level 141 MEQ/L Potassium Level 3.7 MEQ/L Chloride Level 106 MEQ/L Carbon Dioxide Level 23.8 MEQ/L Anion Gap 11 MEQ/L Estimat Glomerular Filtration Rate 74 ML/MIN Thyroid Stimulating Hormone 3rd Gen 0.815 uIU/ML Ethyl Alcohol Level LESS THAN 3 MG/DL Urine Color YELLOW Urine Turbidity CLEAR Urine pH 6.0 Urine Specific [place] 1.026 Urine Protein TRACE mg/dL Urine Glucose (UA) NEG mg/dL Urine Ketones 10 mg/dL Urine Occult Blood NEG Urine Nitrite NEG Urine Bilirubin NEG Urine Urobilinogen 2.0 MG/DL Urine Leukocyte Esterase NEG Urine RBC 1 /hpf Urine WBC 1 /hpf Urine Squamous Epithelial Cells 1 /hpf Urine Amorphous Sediment RARE Urine Mucus MANY /lpf Urine Sperm RARE Microscopic Urinalysis Comment CULT NOT INDICATED Urine Opiates Screen NEG Urine Barbiturates Screen NEG Urine Amphetamines Screen NEG Urine Benzodiazepines Screen NEG Urine Cocaine Screen NEG Urine Cannabinoids Screen NEG MDM Medical Record Reviewed: Yes Supervised Visit with ELIZA: Yes Interpretation(s) Laboratory Tests Test 12/26/17 18:03 12/26/17 19:39 White Blood Count 9.0 TH/MM3 Red Blood Count 5.10 MIL/MM3 Hemoglobin 15.3 GM/DL Hematocrit 46.4 % Mean Corpuscular Volume 91.0 FL Mean Corpuscular Hemoglobin 30.1 PG Mean Corpuscular Hemoglobin Concent 33.0 % Red Cell Distribution Width 15.8 % Platelet Count 220 TH/MM3 Mean Platelet Volume 8.8 FL Neutrophils (%) (Auto) 76.5 % Lymphocytes (%) (Auto) 15.1 % Monocytes (%) (Auto) 7.6 % Eosinophils (%) (Auto) 0.3 % Basophils (%) (Auto) 0.5 % Neutrophils # (Auto) 6.9 TH/MM3 Lymphocytes # (Auto) 1.4 TH/MM3 Monocytes # (Auto) 0.7 TH/MM3 Eosinophils # (Auto) 0.0 TH/MM3 Basophils # (Auto) 0.0 TH/MM3 CBC Comment DIFF FINAL Differential Comment Blood Urea Nitrogen 13 MG/DL Creatinine 1.15 MG/DL Random Glucose 92 MG/DL Total Protein 7.6 GM/DL Albumin 3.5 GM/DL Calcium Level 8.8 MG/DL Alkaline Phosphatase 73 U/L Aspartate Amino Transf (AST/SGOT) 16 U/L Alanine Aminotransferase (ALT/SGPT) 16 U/L Total Bilirubin 1.0 MG/DL Sodium Level 141 MEQ/L Potassium Level 3.7 MEQ/L Chloride Level 106 MEQ/L Carbon Dioxide Level 23.8 MEQ/L Anion Gap 11 MEQ/L Estimat Glomerular Filtration Rate 74 ML/MIN Thyroid Stimulating Hormone 3rd Gen 0.815 uIU/ML Ethyl Alcohol Level LESS THAN 3 MG/DL Urine Color YELLOW Urine Turbidity CLEAR Urine pH 6.0 Urine Specific [place] 1.026 Urine Protein TRACE mg/dL Urine Glucose (UA) NEG mg/dL Urine Ketones 10 mg/dL Urine Occult Blood NEG Urine Nitrite NEG Urine Bilirubin NEG Urine Urobilinogen 2.0 MG/DL Urine Leukocyte Esterase NEG Urine RBC 1 /hpf Urine WBC 1 /hpf Urine Squamous Epithelial Cells 1 /hpf Urine Amorphous Sediment RARE Urine Mucus MANY /lpf Urine Sperm RARE Microscopic Urinalysis Comment CULT NOT INDICATED Urine Opiates Screen NEG Urine Barbiturates Screen NEG Urine Amphetamines Screen NEG Urine Benzodiazepines Screen NEG Urine Cocaine Screen NEG Urine Cannabinoids Screen NEG Last Impressions Head CT 12/26/17 0000 Signed Impressions: Service Date/Time: Tuesday, December 26, 2017 20:13 - CONCLUSION: 1. No acute intracranial abnormalities. Fernando Arias MD Differential Diagnosis Differential diagnosis includes dementia, delirium, subdural hemorrhage, medication side effect, UTI, pneumonia, hyponatremia, left-sided abnormality, dehydration, neglect. Narrative Course I, Dr. Gauthier, have reviewed the advance practice practitioner's documentation and am in agreement, met with the patient face to face, made the diagnosis, and the medical decision making was done by me. *My assessment and Findings: The patient is a 82 year-old male was initially evaluated by the mid-level provider. Please refer to the initial history, physical, diagnostic evaluation, and treatment modality plan. The patient was signed out with CT the brain and laboratory evaluation pending patient also had psychiatric evaluation pending as he was placed under a Rodríguez act for possible neglect. The patient's physical examination reveals an 82-year-old male who is in no distress. He is not oriented to month or year, is oriented to name. Laboratory evaluation is unremarkable, drug screen, UA, CMP, CBC are unremarkable. TSH is normal. CT the brain is unremarkable, no acute intracranial abnormalities. The patient is medically cleared to be evaluated by psychiatry. Appears patient has dementia and may need permanent placement. Diagnosis Primary Impression: Dementia with behavioral disturbance Qualified Codes: G30.1 - Alzheimer's disease with late onset; F02.81 - Dementia in other diseases classified elsewhere with behavioral disturbance Condition: Stable Bill Gauthier MD Dec 26, 2017 18:47
[2017-12-26 18:52] LABS: ALKALINE PHOSPHATASE 73 U/L (45-117); TOTAL PROTEIN 7.6 GM/DL (6.4-8.2)
[2017-12-26] MEDS ORDERED: LORazepam 2 MG/ML VIAL IM ONE (20:00)
[2017-12-26 20:48] LABS: AMORPHOUS SEDIMENT, URINE RARE; BILIRUBIN, URINE NEG (NEG); BLOOD, URINE NEG (NEG); GLUCOSE,URINE NEG (NEG); KETONE, URINE 10 mg/dL (NEG); MUCUS URINE MANY /lpf (OCC); NITRITE,URINE NEG (NEG); SPERM, URINE RARE; SQUAMOUS EPITHELIAL CELL URINE 1 /hpf (0-5); URINE COLOR YELLOW (YELLW/STRAW); URINE LEUKOCYTE ESTERASE NEG (NEG)
--- NOTE | 2017-12-26 21:24 | RADRPT ---
EXAM DATE/TIME: 12/26/2017 20:13 [facility] COMPARISON: No previous studies available for comparison. INDICATIONS : Altered mental status. RADIATION DOSE: 51.63 CTDIvol (mGy) MEDICAL HISTORY : Hypertension. Dementia. SURGICAL HISTORY : None. ENCOUNTER: Initial ACUITY: 1 day PAIN SCALE: 0/10 LOCATION: cranial TECHNIQUE: Multiple contiguous axial images were obtained of the head. Using automated exposure control and adj ustment of the mA and/or kV according to patient size, radiation dose was kept as low as reasonably a chievable to obtain optimal diagnostic quality images. DICOM format image data is available electro nically for review and comparison. FINDINGS: CEREBRUM: The ventricles are normal for age. No evidence of midline shift, mass lesion, hemorrhage or acute in farction. No extra-axial fluid collections are seen. POSTERIOR FOSSA: The cerebellum and brainstem are intact. The 4th ventricle is midline. The cerebellopontine angle i s unremarkable. EXTRACRANIAL: The visualized portion of the orbits is intact. SKULL: The calvaria is intact. No evidence of skull fracture. CONCLUSION: 1. No acute intracranial abnormalities. Fernando Arias MD on December 26, 2017 at 21:20 Board Certified Radiologist. This report was verified electronically.
[2017-12-26] MEDS ORDERED: HALOPERIDOL LACTATE 5 MG/ML AMP IM ONE (21:45)
[2017-12-26 21:53] VITALS: BP 155/108; PULSE 91; O2SAT 96
[2017-12-27 07:30] VITALS: BP 159/96; PULSE 98; RESP 17; TEMP 98.1; O2SAT 98
[2017-12-27 10:48] VITALS: BP 148/86; PULSE 91; RESP 16; TEMP 97.9; O2SAT 99
[2017-12-27 11:35] VITALS: BP 152/93; TEMP 97.8
--- NOTE | 2017-12-27 11:51 | PD ---
History of Present Illness Chief Complaint: Dementia with behavioral disturbances Time Seen by Provider: 11:00 Travel History International Travel<30 Days: No Contact w/Intl Traveler<30days: No Known affected area: No Legal Status Legal Status: [place] Act [place] Signed By: Eleazar Sun History of Present Illness: This is an 82-year-old, single, -[place] male who is brought in under [place] act by the police department. Per the Rodríguez act, patient was found trying to get in to someone's residence. He was found to be confused and disoriented, smelling of urine, and unable to care for self. Patient is known to this facility, and has been treated for dementia his last inpatient admission was from September 07, 2017 to September 28. Reviewed electronic medical record, labs, discuss case with staff. Patient was evaluated in his room in the main ED. Patient found lying on stretcher bed. He was awake, but disoriented. His appearance is dirty, disheveled, and malodorous. His speech is slow and halting. He answers questions intermittently with one-word responses. He is oriented to self only. This provider called the number and his record listed as his contact. Number was answered by a man who did identify himself as family of Mr. Whitaker, but he reports that he "has nothing to do with him". When asked if there was anyone else whom I could speak with concerning Mr. Whitaker is advised "there is no one ". PFSH Past Medical History Medical History: Unable to Obtain Cardiovascular Problems: Yes (htn) Headaches: No Hypertension: Yes Implanted Vascular Access Dvce: No Neurologic: Yes (DEMENTIA) Psychiatric: Yes (Hx of dementia diagnosis) Reproductive: No Past Surgical History Surgical History: Unable to Obtain Body Medical Devices: denies Psychiatric History Psychiatric History Patient was last seen at this facility from September 07 - September 28, 2017 for dementia. Per discharge summary by Dr. Gotti patient was to return to [place] with family. Hx Psychiatric Treatment: PATIENT WAS ESSENTIALLY HOSPITALIZED FROM Jul TO Sep FOR DEMENTIA. UPON DISCHARGE, PATIENT WAS TO RESIDE WITHB HIS SON WHO LIVES OUT OF STATE History of Inpatient Treatment: Yes Social History Hx Alcohol Use: No Hx Tobacco Use: No Hx Substance Use: No (HX OF ALCOHOL ABUSE PER MEDICAL RECORDS) Allergies-Medications (Allergen,Severity, Reaction): Coded Allergies: No Known Allergies (Unverified , 07/18/17) Reported Meds & Prescriptions Reported Meds & Active Scripts Active Namenda (Memantine) 5 Mg Tab 5 Mg PO DAILY 30 Days Olanzapine 2.5 Mg Tab 3.75 Mg PO HS 30 Days Olanzapine 2.5 Mg Tab 1.25 Mg PO DAILY@0900,1500 30 Days Pravastatin 10 Mg Tab 10 Mg PO DAILY 30 Days Norvasc (Amlodipine Besylate) 5 Mg Tab 5 Mg PO DAILY 30 Days MDM Medical Decision Making Medical Record Reviewed: Yes Assessment/Plan Mr. Whitaker is an 82-year-old, single, -[place] male who presents to the ED under a Rodríguez act for attempting to break into a residence that was not his. Per the police, he was confused, disheveled, malodorous and unable to care for self. Upon examination, patient is found in the aforementioned state in his room in the main. He answers questions intermittently with one word answers, appears confused, and is unable to care for himself. I am unable to corroborate with family where he is staying. His listed contact refused to give any information stating only, "I have nothing to do with him" and was unable to provide other contacts. Patient's last admission was from 09/07/17-09/28/17 at this facility. At this time patient would likely be a danger to himself as he is unable to care for himself. On his previous admission he was medicated and his baseline was described as somewhat higher functioning than he is at this time. He will be admitted for further evaluation. Request HC Surrog/Guard Advoc?: Yes Orders Orders Complete Blood Count With Diff (12/26/17 17:44) Comprehensive Metabolic Panel (12/26/17 17:44) Thyroid Stimulating Hormone (12/26/17 17:44) Urinalysis - C+S If Indicated (12/26/17 17:44) Psych Screen (12/26/17 17:44) Drug Screen, Random Urine (12/26/17 17:44) Alcohol (Ethanol) (12/26/17 17:44) Ct Brain W/O Iv Contrast(Rout) (12/26/17 ) Lorazepam Inj (Ativan Inj) (12/26/17 20:00) Haloperidol Inj (Haldol Inj) (12/26/17 21:45) Diet 1800 Ada Cons Carb (12/27/17 Breakfast) Results Vital Signs Date Time Temp Pulse Resp B/P (MAP) Pulse Ox O2 Delivery O2 Flow Rate FiO2 12/27/17 10:48 97.9 91 16 148/86 (106) 99 Room Air 12/27/17 07:30 98.1 98 17 159/96 (117) 98 Room Air 12/27/17 07:30 96 17 12/26/17 21:53 91 155/108 (124) 96 Room Air 12/26/17 17:25 98.5 95 18 173/117 (135) 99 12/26/17 17:11 98.5 95 18 173/112 (132) 99 Room Air Laboratory Tests Test 12/26/17 18:03 12/26/17 19:39 White Blood Count 9.0 Red Blood Count 5.10 Hemoglobin 15.3 Hematocrit 46.4 Mean Corpuscular Volume 91.0 Mean Corpuscular Hemoglobin 30.1 Mean Corpuscular Hemoglobin Concent 33.0 Red Cell Distribution Width 15.8 Platelet Count 220 Mean Platelet Volume 8.8 Neutrophils (%) (Auto) 76.5 Lymphocytes (%) (Auto) 15.1 Monocytes (%) (Auto) 7.6 Eosinophils (%) (Auto) 0.3 Basophils (%) (Auto) 0.5 Neutrophils # (Auto) 6.9 Lymphocytes # (Auto) 1.4 Monocytes # (Auto) 0.7 Eosinophils # (Auto) 0.0 Basophils # (Auto) 0.0 CBC Comment DIFF FINAL Differential Comment Blood Urea Nitrogen 13 Creatinine 1.15 Random Glucose 92 Total Protein 7.6 Albumin 3.5 Calcium Level 8.8 Alkaline Phosphatase 73 Aspartate Amino Transf (AST/SGOT) 16 Alanine Aminotransferase (ALT/SGPT) 16 Total Bilirubin 1.0 Sodium Level 141 Potassium Level 3.7 Chloride Level 106 Carbon Dioxide Level 23.8 Anion Gap 11 Estimat Glomerular Filtration Rate 74 Thyroid Stimulating Hormone 3rd Gen 0.815 Ethyl Alcohol Level LESS THAN 3 Urine Color YELLOW Urine Turbidity CLEAR Urine pH 6.0 Urine Specific [place] 1.026 Urine Protein TRACE Urine Glucose (UA) NEG Urine Ketones 10 Urine Occult Blood NEG Urine Nitrite NEG Urine Bilirubin NEG Urine Urobilinogen 2.0 Urine Leukocyte Esterase NEG Urine RBC 1 Urine WBC 1 Urine Squamous Epithelial Cells 1 Urine Amorphous Sediment RARE Urine Mucus MANY Urine Sperm RARE Microscopic Urinalysis Comment CULT NOT INDICATED Urine Opiates Screen NEG Urine Barbiturates Screen NEG Urine Amphetamines Screen NEG Urine Benzodiazepines Screen NEG Urine Cocaine Screen NEG Urine Cannabinoids Screen NEG Diagnosis Primary Impression: Dementia with behavioral disturbance Admitting Information Admitting Physician Requests: Admit Condition: Stable Problem Qualifiers Primary Impression: Dementia with behavioral disturbance Qualified Codes: G30.1 - Alzheimer's disease with late onset; F02.81 - Dementia in other diseases classified elsewhere with behavioral disturbance Liliya Price Dec 27, 2017 11:51
[2017-12-27] MEDS ORDERED: MAGNESIUM HYDROXIDE SUSP 30 ML CUP PO PRN (12:00)
[2017-12-27] MEDS ORDERED: ALUMINUM/MAGNESIUM/SIMETH 30 ML CUP PO PRN (12:00)
[2017-12-27] MEDS ORDERED: ACETAMINOPHEN 325 MG TAB PO PRN (12:00)
[2017-12-27 18:05] VITALS: BP 132/90; PULSE 86; RESP 20; TEMP 98.1; O2SAT 97
[2017-12-28 05:59] VITALS: BP_SYST 146; BP_SYST 168; BP_DIAS 106; BP_DIAS 92; PULSE 69; RESP 16; TEMP 97.7; O2SAT 95
[2017-12-28] MEDS ORDERED: NICOTINE 21 MG/24 HR PATCH T-DERMAL SCH (09:00)
[2017-12-28] MEDS ORDERED: REMOVE OLD PATCH T-DERMAL SCH (09:00)
[2017-12-28 09:25] LABS: BICARBONATE 26.1 MEQ/L (21.0-32.0); BLOOD UREA NITROGEN 15 MG/DL (7-18); CALCIUM 8.5 MG/DL (8.5-10.1); CHLORIDE 108 MEQ/L (98-107); CREATININE 1.01 MG/DL (0.60-1.30); GLOMERULAR FILTRATION RATE 86 ML/MIN (>89); GLUCOSE,RANDOM 97 MG/DL (74-106); SODIUM (NA) 143 MEQ/L (136-145)
[2017-12-28 09:27] LABS: CHOLESTEROL 218 MG/DL (120-200)
[2017-12-28 09:30] LABS: CHOLESTEROL/ HDL RATIO 5.04 RATIO; HDL CHOLESTEROL 43.2 MG/DL (40.0-60.0); LDL CHOLESTEROL 161 MG/DL (0-99); TRIGLYCERIDES 67 MG/DL (42-150)
[2017-12-28] MEDS ORDERED: hydrOXYzine HCL 50 MG TAB PO PRN (09:45)
--- NOTE | 2017-12-28 09:55 | HHI.HP ---
Provisional Diagnosis Admission Date Dec 27, 2017 at 11:56 [place]. Dementia and other diseases FiO2.81, Alzheimer's disease late onset G 30.1 Certification of Person's Competence To Provide Express and Informed Consent I have personally examined Luis Antonio Whitaker , a person being served at [facility] on, Dec 28, 2017 09:41. Express and informed consent means consent voluntarily given in writing, by a competent person, after sufficient explanation and disclosure of the subject matter involved to enable the person to make a knowing and willful decision without any element of force, fraud, deceit, duress, or other form of constraint or coercion. This person is 18 years of age or older, is not now known to be incompetent to consent to treatment with a guardian advocate, and does not have a health care surrogate or proxy currently making medical treatment decisions. I have found this person to be one of the following: [] Competent to provide express and informed consent, as defined above, for voluntary admission to this facility and is competent to provide express and informed consent for treatment. He/she has the consistent capacity to make well reasoned, willful, and knowing decisions concerning his or her medical or mental health treatment. The person fully and consistently understands the purpose of the admission for examination/placement and is fully capable of personally exercising all rights assured under [place] Incompetent to provide express and informed consent to voluntary admission, and this is incompetent to provide express and informed consent to treatment. The person must be transferred to involuntary status and a petition for a guardian advocate filed with the Circuit Court. [] Refusing to provide express and informed consent to voluntary admission but is competent to provide express and informed consent for treatment. The person must be discharged or transferred to involuntary status. Form shall be completed within 24 hours of a person's arrival at the receiving facility and filed in the clinical record of each person: 1. Admitted on a voluntary basis 2. Permitted to provide express and informed consent to his/her own treatment 3. Allowed to transfer from involuntary to voluntary status 4. Prior to permitting a person to consent to his or her own treatment after having been previously found incompetent to consent to treatment. History of Present Illness Capacity: Lacks Capacity HPI Patient is an 82-year-old Afro-Ivorian male comes her under Rodríguez act signed a [facility]'s office dated 12/26/17 at 1031. That document reviewed and agreed with it is essentially stating deputies make contact with her housing manager after resident called in advising Luis Antonio was possibly trying to break into his enclosed screened porch. The residents advised Luis Antonio look out about it looking into "space" confused and not talking to when spoken to him deputies had previously make contact with Luis Antonio earlier in the day regarding the same circumstances. Luis Antonio would not respond, questions or commands when asked by deputies it appeared to be out of it was discovered Luis Antonio has no family members in [place] to take care of him and Luis Antonio is not in the right state of mind to take care of himself and could potentially hurt other people due to Luis Antonio not having family in [place] Luis Antonio has a high potential of suffering from the left. Patient seen screened in the ED urine toxicology negative blood alcohol level negative. Patient transferred to the 2500 unit at the present time patient laying quietly in his bed nurse Gilda and counselor blas present throughout session. Patient is laying flat on his back very still with his eyes closed patient is essentially selectively mute is not responding verbally to my questions. It appears she has been behaving this way with other staff also. Of interest patient has had prior hospitalizations here for similar behaviors most recently being in September 2017. I was unable get any other information from this gentleman. At this time patient does meet criteria for involuntary psychiatric hospitalization under the Rodríguez act I'll do first opinion request second opinion. I also feel patient does not have capacity to sign for medications thus I'll ask for healthcare surrogate and guardian advocate. We will have hospitalist consult was we will have OT and PT consult also well the patient has been living independently I question whether he really has capacity to do this. Thus placement issues need to be addressed we also need to find out if this patient has any family members other responsible adults involved with him Review of Systems ROS Limitations: Altered Mental Status Past Psych History Psychological trauma history Unknown due to patient's dementia Violence risk - others (6 mos) Low Violence risk - self (6 mos) Low Substance Abuse History Drugs/Alcohol past 12 months Unknown at this time Past Family Social History Coded Allergies: No Known Allergies (Unverified , 07/18/17) Active Scripts Memantine (Namenda) 5 Mg Tab, 5 MG PO DAILY for health for 30 Days, #30 TAB Prov:Colin Gotti MD 09/25/17 Olanzapine (Olanzapine) 2.5 Mg Tab, 3.75 MG PO HS for Mental Health for 30 Days , #45 TAB 1 Refill Prov:Colin Gotti MD 09/25/17 Olanzapine (Olanzapine) 2.5 Mg Tab, 1.25 MG PO DAILY@0900,1500 for Mental Health for 30 Days, #30 TAB 1 Refill Prov:Colin Gotti MD 09/25/17 Pravastatin (Pravastatin) 10 Mg Tab, 10 MG PO DAILY for Cholesterol Management for 30 Days, #30 TAB 0 Refills Prov:Colin Gotti MD 09/25/17 Amlodipine (Norvasc) 5 Mg Tab, 5 MG PO DAILY for Blood Pressure Management for 30 Days, #30 TAB Prov:Colin Gotti MD 09/25/17 Current Medications Medications (Trade) Dose Ordered Sig/Jovani Route Start Time Stop Time Status Last Admin (Tylenol) 650 mg Q4H PRN PO 12/27/17 12:00 (Milk Of Magnesia Liq) 30 ml DAILY PRN PO 12/27/17 12:00 (Mag-Al Plus Susp Liq) 30 ml Q6H PRN PO 12/27/17 12:00 (Flu (Quadrivalent) Vaccine Inj) 0.5 ml ONCE ONCE IM 12/28/17 10:00 12/28/17 10:01 Family Psych History None at this time due to patient's dementia Social History It appears patient lives alone [facility] at this time Patient's Strengths (min. 2) Patient able access health care Physical Exam Patient medically cleared 3 right ear at the present time patient laying quietly in his bed in his room on 2500. He is in no acute distress is in no respiratory distress otherwise patient laying quite still in his bed Vital Signs Vital Signs Date Time Temp Pulse Resp B/P (MAP) Pulse Ox O2 Delivery O2 Flow Rate FiO2 12/28/17 05:59 97.7 69 16 168/106 (126) 95 146/92 (110) 12/27/17 10:48 Room Air I/O 12/28/17 12/28/17 12/29/17 08:00 16:00 00:00 Intake Total 0 ml Balance 0 ml Lab Results Test 12/28/17 08:29 Blood Urea Nitrogen 15 MG/DL Creatinine 1.01 MG/DL Random Glucose 97 MG/DL Calcium Level 8.5 MG/DL Sodium Level 143 MEQ/L Potassium Level 3.7 MEQ/L Chloride Level 108 MEQ/L Carbon Dioxide Level 26.1 MEQ/L Anion Gap 9 MEQ/L Estimat Glomerular Filtration Rate 86 ML/MIN Triglycerides Level 67 MG/DL Cholesterol Level 218 MG/DL LDL Cholesterol 161 MG/DL HDL Cholesterol 43.2 MG/DL Cholesterol/HDL Ratio 5.04 RATIO Mental Status Examination Appearance: Disheveled Consciousness: Other (patient nonverbal but appears to be aware of surroundings ) Orientation: Person (possibly patient nonverbal) Motor Activity: Other (patient laying still in bed) Speech: Other (patient nonverbal) Language: Other (patient nonverbal) Fund of Knowledge: Poor Attention and Concentration: Other (patient nonverbal) Memory: Impaired Mood: Other (appears restricted at this time) Affect: Other (decreased range intensity) Thought Process & Associations: Other (difficult to ascertain due to patient's cognitive deficit and selective mute) Thought Content: Other Hallucination Type: Other (difficult to ascertain due to patient's being nonverbal) Delusion Type: None (difficult to ascertain due to patient's being nonverbal) Suicidal Ideation: No Suicidal Plan: No Suicidal Intention: No Homicidal Ideation: No Homicidal Plan: No Homicidal Intention: No Insight: Poor Judgment: Poor Assessment & Plan Problem List: (1) DEMENTIA IN OTH DISEASES CLASSD ELSWHR W BEHAVIORAL DISTURB ICD Codes: F02.81 - DEMENTIA IN OTH DISEASES CLASSD ELSWHR W BEHAVIORAL DISTURB (2) Alzheimer's disease with late onset ICD Codes: G30.1 - Alzheimer's disease with late onset; F02.80 - Dementia in other diseases classified elsewhere without behavioral disturbance Assessment & Plan Estimated LOS: days Request HC Surrog/Guard Advoc?: Yes Yamil Calvo MD Dec 28, 2017 09:55
[2017-12-28] MEDS ORDERED: INFLUENZA VIRUS VACCINE (QUADRIVALENT) 0.5 ML SYR IM ONE (10:00)
[2017-12-28] MEDS ORDERED: amLODIPine BESYLATE 5 MG TAB PO ONE ×2 (12:00→12:15)
--- NOTE | 2017-12-28 12:26 | PD.CONS ---
HPI Service [facility] Hospitalists Consult Requested By Dr. Calvo Reason for Consult Medical management Primary Care Physician No Primary Care Physician Diagnoses: History of Present Illness is an 82-year-old male with past medical history significant for hypertension, hyperlipidemia, dementia, and alcohol abuse who presents to [place] as a Rodríguez act under [employer]. Patient apparently was attempting to break into someone's house and was also nonverbal. Police department was called to assist and patient was Rodríguez acted for fear of threat to himself. Patient is seen and examined in psychiatry unit, he is able to answer questions yes and no however does not engage in conversation. He is able to follow some simple commands on and off however does not seem interested. He denies any headache, fevers, chills. He does not answer the rest of my questions and reports that he is doing "fine". He does not appear to be in any kind of distress or discomfort. Nurse does not voice any acute concerns other than elevated blood pressure. Review of Systems ROS Limitations: Poor Historian Except as stated in HPI: all other systems reviewed are Neg Past Family Social History Allergies: Coded Allergies: No Known Allergies (Unverified , 07/18/17) Past Medical History Past medical records gathered from prior EMR Hypertension Hyperlipidemia Dementia Alcohol abuse Past Surgical History Patient is denying any surgeries Reported Medications Reported Meds & Active Scripts Active Namenda (Memantine) 5 Mg Tab 5 Mg PO DAILY 30 Days Olanzapine 2.5 Mg Tab 3.75 Mg PO HS 30 Days Olanzapine 2.5 Mg Tab 1.25 Mg PO DAILY@0900,1500 30 Days Pravastatin 10 Mg Tab 10 Mg PO DAILY 30 Days Norvasc (Amlodipine Besylate) 5 Mg Tab 5 Mg PO DAILY 30 Days Active Ordered Medications Current Medications Medications (Trade) Dose Ordered Sig/Jovani Route Start Time Stop Time Status Last Admin (Tylenol) 650 mg Q4H PRN PO 12/27/17 12:00 (Milk Of Magnesia Liq) 30 ml DAILY PRN PO 12/27/17 12:00 (Mag-Al Plus Susp Liq) 30 ml Q6H PRN PO 12/27/17 12:00 (Atarax) 50 mg Q6H PRN PO 12/28/17 09:45 (Norvasc) 5 mg DAILY PO 12/29/17 09:00 (Namenda) 5 mg DAILY PO 12/29/17 09:00 (Pravachol) 10 mg DAILY PO 12/29/17 09:00 (ZyPREXA) 2.5 mg BID PO 12/28/17 21:00 Family History Patient does not provide any past family history Social History Gathered from prior EMR Alcohol abuse Physical Exam Vital Signs Vital Signs Date Time Temp Pulse Resp B/P (MAP) Pulse Ox O2 Delivery O2 Flow Rate FiO2 12/28/17 05:59 97.7 69 16 168/106 (126) 95 146/92 (110) 12/27/17 18:05 98.1 86 20 132/90 (104) 97 Physical Exam GENERAL: This is a well-nourished, well-developed patient, in no apparent distress. SKIN: No rashes, ecchymoses or lesions. Cool and dry. HEAD: Atraumatic. Normocephalic. EYES: Pupils equal round and reactive. No scleral icterus. No injection or drainage. ENT: Nose without bleeding, purulent drainage. Airway patent. NECK: Trachea midline. No JVD CARDIOVASCULAR: Regular rate and rhythm without murmurs, gallops, or rubs. RESPIRATORY: Clear to auscultation. Breath sounds equal bilaterally. No wheezes , rales, or rhonchi. GASTROINTESTINAL: Abdomen soft, non-tender, nondistended. No guarding. MUSCULOSKELETAL: Extremities without clubbing, cyanosis, or edema. No joint tenderness, effusion, or edema noted. NEUROLOGICAL: Awake and alert. Cranial nerves II through XII grossly intact. Motor and sensory grossly within normal limits. Moving all extremities spontaneously. Normal speech. Laboratory Laboratory Tests Test 12/28/17 08:29 Blood Urea Nitrogen 15 Creatinine 1.01 Random Glucose 97 Calcium Level 8.5 Sodium Level 143 Potassium Level 3.7 Chloride Level 108 Carbon Dioxide Level 26.1 Anion Gap 9 Estimat Glomerular Filtration Rate 86 Triglycerides Level 67 Cholesterol Level 218 LDL Cholesterol 161 HDL Cholesterol 43.2 Cholesterol/HDL Ratio 5.04 Result Diagram: 12/26/17 1803 12/28/17 0829 Imaging Last Impressions Head CT 12/26/17 0000 Signed Impressions: Service Date/Time: Tuesday, December 26, 2017 20:13 - CONCLUSION: 1. No acute intracranial abnormalities. Fernando Arias MD Assessment and Plan Assessment and Plan 82-year-old male with past medical history significant for dementia, hypertension, hyperlipidemia, and alcohol abuse who presents to [place] ED under Rodríguez act after he was found trying to break into a stranger's house. [facility] has been consulted to assist with medical management. Dementia/Alzheimer's -Management per psychiatry, greatly appreciated -Patient not actively engaging in conversation and will only respond on and off. Hypertension, uncontrolled -Review of patient's home medications, patient is on amlodipine 5 mg daily -Will resume same dose, continue monitoring blood pressures and adjusting accordingly Hyperlipidemia -Continue home dose pravastatin 10 mg daily DVT prophylaxis-ambulation Thank you for this consultation, will continue to follow along. Chelsi Cowan Dec 28, 2017 12:26
[2017-12-28 14:49] VITALS: BP 128/83; PULSE 72; RESP 17; TEMP 98.4; O2SAT 96
--- NOTE | 2017-12-28 16:27 | PD.PSY.CON ---
Provisional Diagnosis Admission Date Dec 27, 2017 at 11:56 [place] I. Dementia and other diseases FiO2.81, Alzheimer's disease late onset G 30.1 History of Present Illness Service Psychiatry Consult Requested By Dr. Calvo Reason for Consult Second opinion Primary Care Physician No Primary Care Physician HPI Patient is an 82-year-old Afro-Guinean male comes her under Rodríguez act signed a [facility]'s office dated 12/26/17 at 1031. That document reviewed and agreed with it is essentially stating deputies make contact with her trench digging machine operator after resident called in advising Luis Antonio was possibly trying to break into his enclosed screened porch. The residents advised Luis Antonio look out about it looking into "space" confused and not talking to when spoken to him deputies had previously make contact with Luis Antonio earlier in the day regarding the same circumstances. Luis Antonio would not respond, questions or commands when asked by deputies it appeared to be out of it was discovered Luis Antonio has no family members in [place] to take care of him and Luis Antonio is not in the right state of mind to take care of himself and could potentially hurt other people due to Luis Antonio not having family in [place] Luis Antonio has a high potential of suffering from the left. Patient seen screened in the ED urine toxicology negative blood alcohol level negative. Patient transferred to the 2500 unit at the present time patient laying quietly in his bed nurse Gilda and counselor blas present throughout session. Patient is laying flat on his back very still with his eyes closed patient is essentially selectively mute is not responding verbally to my questions. It appears she has been behaving this way with other staff also. Of interest patient has had prior hospitalizations here for similar behaviors most recently being in September 2017. I was unable get any other information from this gentleman. At this time patient does meet criteria for involuntary psychiatric hospitalization under the Rodríguez act I'll do first opinion request second opinion. I also feel patient does not have capacity to sign for medications thus I'll ask for healthcare surrogate and guardian advocate. We will have hospitalist consult was we will have OT and PT consult also well the patient has been living independently I question whether he really has capacity to do this. Thus placement issues need to be addressed we also need to find out if this patient has any family members other responsible adults involved with him 12/28/17 Second opinion: Patient is 82-year-old man, with past psychiatric history of dementia, alcohol use disorder, history of psychiatric hospitalizations, history of aggressive behavior last discharged from [facility] in September 2017 was brought in under Rodríguez act by law enforcement as patient was seen trying to break into a screened porch and was admitted to the inpatient psychiatry for further evaluation and management. Patient was found in the room noted to be superficially cooperative, poor eye contact stating that [place] was [place] but unable to state where he was going and stated that he was put in a cab and brought here to the hospital. Patient is alert and oriented only to person was unable to state where he was noted to date. Patient denies physical symptoms at this time, as per nursing report patient had been isolative in room but was able to come out this afternoon for food and sitting in day room. Past Family Social History Coded Allergies: No Known Allergies (Unverified , 07/18/17) Active Scripts Memantine (Namenda) 5 Mg Tab, 5 MG PO DAILY for health for 30 Days, #30 TAB Prov:Colin Gotti MD 09/25/17 Olanzapine (Olanzapine) 2.5 Mg Tab, 3.75 MG PO HS for Mental Health for 30 Days , #45 TAB 1 Refill Prov:Colin Gotti MD 09/25/17 Olanzapine (Olanzapine) 2.5 Mg Tab, 1.25 MG PO DAILY@0900,1500 for Mental Health for 30 Days, #30 TAB 1 Refill Prov:Colin Gotti MD 09/25/17 Pravastatin (Pravastatin) 10 Mg Tab, 10 MG PO DAILY for Cholesterol Management for 30 Days, #30 TAB 0 Refills Prov:Colin Gotti MD 09/25/17 Amlodipine (Norvasc) 5 Mg Tab, 5 MG PO DAILY for Blood Pressure Management for 30 Days, #30 TAB Prov:Colin Gotti MD 09/25/17 Current Medications Medications (Trade) Dose Ordered Sig/Jovani Route Start Time Stop Time Status Last Admin (Tylenol) 650 mg Q4H PRN PO 12/27/17 12:00 (Milk Of Magnesia Liq) 30 ml DAILY PRN PO 12/27/17 12:00 (Mag-Al Plus Susp Liq) 30 ml Q6H PRN PO 12/27/17 12:00 (Atarax) 50 mg Q6H PRN PO 12/28/17 09:45 (Norvasc) 5 mg DAILY PO 12/29/17 09:00 (Namenda) 5 mg DAILY PO 12/29/17 09:00 (Pravachol) 10 mg DAILY PO 12/29/17 09:00 (ZyPREXA) 2.5 mg BID PO 12/28/17 21:00 Patient's Strengths (min. 2) Patient able access health care Physical Exam Vital Signs Vital Signs Date Time Temp Pulse Resp B/P (MAP) Pulse Ox O2 Delivery O2 Flow Rate FiO2 12/28/17 14:49 98.4 72 17 128/83 (98) 96 12/27/17 10:48 Room Air I/O 12/28/17 12/28/17 12/29/17 08:00 16:00 00:00 Intake Total 0 ml 60 ml Balance 0 ml 60 ml Lab Results Test 12/28/17 08:29 Blood Urea Nitrogen 15 MG/DL Creatinine 1.01 MG/DL Random Glucose 97 MG/DL Calcium Level 8.5 MG/DL Sodium Level 143 MEQ/L Potassium Level 3.7 MEQ/L Chloride Level 108 MEQ/L Carbon Dioxide Level 26.1 MEQ/L Anion Gap 9 MEQ/L Estimat Glomerular Filtration Rate 86 ML/MIN Triglycerides Level 67 MG/DL Cholesterol Level 218 MG/DL LDL Cholesterol 161 MG/DL HDL Cholesterol 43.2 MG/DL Cholesterol/HDL Ratio 5.04 RATIO Mental Status Examination Appearance: Disheveled Consciousness: Other (patient nonverbal but appears to be aware of surroundings ) Orientation: Person (possibly patient nonverbal) Motor Activity: Normal gait Speech: Slow, Other (Low volume) Language: Other (patient nonverbal) Fund of Knowledge: Poor Attention and Concentration: Inadequate Memory: Impaired Mood: Irritable Affect: Irritable Thought Process & Associations: Other ([place]) Thought Content: Other (Patient poor historian limited cooperation with interview) Hallucination Type: None Delusion Type: Paranoid Suicidal Ideation: No Suicidal Plan: No Suicidal Intention: No Homicidal Ideation: No Homicidal Plan: No Homicidal Intention: No Insight: Poor Judgment: Poor Assessment & Plan Problem List: (1) DEMENTIA IN OTH DISEASES CLASSD ELSWHR W BEHAVIORAL DISTURB ICD Codes: F02.81 - DEMENTIA IN OTH DISEASES CLASSD ELSWHR W BEHAVIORAL DISTURB (2) Alzheimer's disease with late onset ICD Codes: G30.1 - Alzheimer's disease with late onset; F02.80 - Dementia in other diseases classified elsewhere without behavioral disturbance Assessment & Plan I have seen and examined this patient, reviewed the documentation, discussed personally with Dr. Calvo, and I agree and concur with his assessment and plan. Consult appreciated. Request HC Surrog/Guard Advoc?: Yes Colin Gotti MD Dec 28, 2017 16:27
[2017-12-28 17:18] LABS: HEMOGLOBIN A1C 5.4 % (4.3-6.0)
[2017-12-28] MEDS: OLANZapine 2.5 MG TAB PO SCH (19:59)
[2017-12-29 06:18] VITALS: BP 159/83; PULSE 64; RESP 15; TEMP 98.2; O2SAT 96
[2017-12-29] MEDS: amLODIPine BESYLATE 5 MG TAB PO SCH (08:27)
[2017-12-29] MEDS: MEMANTINE HCL 5 MG TAB PO SCH (08:27)
[2017-12-29] MEDS: PRAVASTATIN SOD 10 MG TAB PO SCH (08:27)
[2017-12-29] MEDS: OLANZapine 2.5 MG TAB PO SCH ×3 (08:27→20:56)
--- NOTE | 2017-12-29 12:52 | HHI.PYPN ---
Subjective Remarks Patient seen in his room with nurse Lore, chart review, patient compliant medications. Patient discussed with nurse. Patient willing quite still in bed flat on his back with covers to his chin those scans in his lap. Patient making essentially no eye contact patient also essentially nonverbal. When becoming somewhat more demanding my questions to show some irritability on his face but still refuses to respond verbally to me. For now continue treatment Review of Systems Except as stated in HPI: all other systems reviewed are Neg Mental Status Examination Appearance: Disheveled Consciousness: Other (patient nonverbal but appears to be aware of surroundings ) Orientation: Person (possibly patient nonverbal) Motor Activity: Normal gait Speech: Slow, Other (Low volume) Language: Other (patient nonverbal) Fund of Knowledge: Poor Attention and Concentration: Inadequate Memory: Impaired Mood: Irritable Affect: Irritable Thought Process & Associations: Other ([place]) Thought Content: Other (Patient poor historian limited cooperation with interview) Hallucination Type: None Delusion Type: Paranoid Suicidal Ideation: No Suicidal Plan: No Suicidal Intention: No Homicidal Ideation: No Homicidal Plan: No Homicidal Intention: No Insight: Poor Judgment: Poor Results Vitals/IOs Vital Signs Date Time Temp Pulse Resp B/P (MAP) Pulse Ox O2 Delivery O2 Flow Rate FiO2 12/29/17 06:18 98.2 64 15 159/83 (108) 96 12/27/17 10:48 Room Air Intake and Output 12/29/17 12/29/17 12/30/17 08:00 16:00 00:00 Intake Total 0 ml Balance 0 ml Assessment & Plan Problem List: (1) DEMENTIA IN OTH DISEASES CLASSD ELSWHR W BEHAVIORAL DISTURB ICD Codes: F02.81 - DEMENTIA IN OTH DISEASES CLASSD ELSWHR W BEHAVIORAL DISTURB (2) Alzheimer's disease with late onset ICD Codes: G30.1 - Alzheimer's disease with late onset; F02.80 - Dementia in other diseases classified elsewhere without behavioral disturbance Assessment & Plan Estimated LOS: days patient remains diffusely confused demented though nonverbal with me. Staff does state at times to become somewhat irritable but overall cooperative Justification for Cont. Inpt. At this time patient will decompensate of placed in a lower level of care Discharge Planning To be determined Request HC Surrog/Guard Advoc?: Yes Yamil Calvo MD Dec 29, 2017 12:52
--- NOTE | 2017-12-29 14:21 | HHI.PR ---
Subjective Remarks Follow-up visit for hypertension. Patient seen and examined in his room resting in bed. He answers questions with yes and no on and off. He denies any pain or discomfort. He voices no acute complaints, does not engage in conversation. Objective Vitals Vital Signs Date Time Temp Pulse Resp B/P (MAP) Pulse Ox O2 Delivery O2 Flow Rate FiO2 12/29/17 06:18 98.2 64 15 159/83 (108) 96 12/28/17 14:49 98.4 72 17 128/83 (98) 96 I/O 12/28/17 12/28/17 12/28/17 12/29/17 12/29/17 12/29/17 07:00 15:00 23:00 07:00 15:00 23:00 Intake Total 600 ml 60 ml 120 ml 600 ml 240 ml Balance 600 ml 60 ml 120 ml 600 ml 240 ml Intake Oral 600 ml 60 ml 120 ml 600 ml 240 ml # Voids 2 3 Result Diagram: 12/26/17 1803 12/28/17 0829 Imaging Last Impressions Head CT 12/26/17 0000 Signed Impressions: Service Date/Time: Tuesday, December 26, 2017 20:13 - CONCLUSION: 1. No acute intracranial abnormalities. Fernando Arias MD Objective Remarks GENERAL: This is a well-nourished, well-developed patient, in no apparent distress. SKIN: Cool and dry. HEAD: Atraumatic. Normocephalic. EYES: Pupils equal round and reactive. No scleral icterus. No injection or drainage. ENT: Nose without bleeding, purulent drainage. Airway patent. NECK: Trachea midline. No JVD CARDIOVASCULAR: Regular rate and rhythm without murmurs, gallops, or rubs. RESPIRATORY: Clear to auscultation. Breath sounds equal bilaterally. No wheezes , rales, or rhonchi. GASTROINTESTINAL: Abdomen soft, non-tender, nondistended. No guarding. MUSCULOSKELETAL: Extremities without clubbing, cyanosis, or edema. No joint tenderness, effusion, or edema noted. NEUROLOGICAL: Awake and alert. Motor and sensory grossly within normal limits. Moving all extremities spontaneously. Normal speech. A/P Assessment and Plan 82-year-old male with past medical history significant for dementia, hypertension, hyperlipidemia, and alcohol abuse who presents to [place] [facility] under [facility] act after he was found trying to break into a stranger's house. [facility] has been consulted to assist with medical management. Dementia/Alzheimer's -Management per psychiatry, greatly appreciated -Patient not actively engaging in conversation and will only respond on and off. Hypertension, mildly elevated -Continue amlodipine 5 mg daily -Blood pressure better controlled, continue monitoring and adjusting as needed. Hyperlipidemia -Continue home dose pravastatin 10 mg daily DVT prophylaxis-ambulation Discussed with nurse. Chelsi Cowan Dec 29, 2017 14:21
[2017-12-30 06:03] VITALS: BP 104/66; PULSE 61; RESP 16; TEMP 97.8; O2SAT 95
[2017-12-30] MEDS: OLANZapine 2.5 MG TAB PO SCH ×2 (08:41→20:23)
[2017-12-30] MEDS: MEMANTINE HCL 5 MG TAB PO SCH (08:41)
[2017-12-30] MEDS: amLODIPine BESYLATE 5 MG TAB PO SCH (08:41)
[2017-12-30] MEDS: PRAVASTATIN SOD 10 MG TAB PO SCH (08:41)
--- NOTE | 2017-12-30 10:56 | HHI.PR ---
Subjective Remarks Follow-up for hypertension. Patient seen and examined in his room lying in bed in no acute distress. He continues to be selected with answering questions, is able to deny any fevers, chills, nausea, vomiting or diarrhea. Discussed with nurse who states patient refused all of his medications this morning. Objective Vitals Vital Signs Date Time Temp Pulse Resp B/P (MAP) Pulse Ox O2 Delivery O2 Flow Rate FiO2 12/30/17 06:03 97.8 61 16 104/66 (79) 95 I/O 12/29/17 12/29/17 12/29/17 12/30/17 12/30/17 12/30/17 06:59 14:59 22:59 06:59 14:59 22:59 Intake Total 600 ml 480 ml 360 ml 0 ml 240 ml Balance 600 ml 480 ml 360 ml 0 ml 240 ml Intake Oral 600 ml 480 ml 360 ml 0 ml 240 ml # Voids 2 2 1 Result Diagram: 12/26/17 1803 12/28/17 0829 Imaging Last Impressions Head CT 12/26/17 0000 Signed Impressions: Service Date/Time: Tuesday, December 26, 2017 20:13 - CONCLUSION: 1. No acute intracranial abnormalities. Fernando Arias MD Objective Remarks GENERAL: This is a well-nourished, well-developed patient, in no apparent distress. SKIN: Cool and dry. HEAD: Atraumatic. Normocephalic. EYES: Pupils equal round and reactive. No scleral icterus. No injection or drainage. ENT: Nose without bleeding, purulent drainage. Airway patent. NECK: Trachea midline. No JVD CARDIOVASCULAR: Regular rate and rhythm without murmurs, gallops, or rubs. RESPIRATORY: Clear to auscultation. Breath sounds equal bilaterally. No wheezes , rales, or rhonchi. GASTROINTESTINAL: Abdomen soft, non-tender, nondistended. No guarding. MUSCULOSKELETAL: Extremities without clubbing, cyanosis, or edema. No joint tenderness, effusion, or edema noted. NEUROLOGICAL: Awake and alert. Motor and sensory grossly within normal limits. Moving all extremities spontaneously. Answering questions on and off. Normal speech. A/P Assessment and Plan 82-year-old male with past medical history significant for dementia, hypertension, hyperlipidemia, and alcohol abuse who presents to [place] ED under [facility]uez act after he was found trying to break into a stranger's house. [facility] has been consulted to assist with medical management. Dementia/Alzheimer's -Management per psychiatry, greatly appreciated -Patient not actively engaging in conversation and will only respond on and off. Hypertension, controlled -Continue amlodipine 5 mg daily with parameters Hyperlipidemia -Continue home dose pravastatin 10 mg daily DVT prophylaxis-ambulation Discussed with nurse. [facility] will sign off, please reconsult if needed. Chelsi Cowan Dec 30, 2017 10:56
--- NOTE | 2017-12-30 12:07 | HHI.PYPN ---
Subjective Remarks Pt seen and discussed with staff. He remains irritable and resistant to care. He refused medications this morning. He remains exit seeking. "I'm getting out of here." No SI/HI Mental Status Examination Appearance: Disheveled Consciousness: Other (patient nonverbal but appears to be aware of surroundings ) Orientation: Person Motor Activity: Normal gait Speech: Slow, Other (Low volume) Language: Other (patient nonverbal) Fund of Knowledge: Poor Attention and Concentration: Inadequate Memory: Impaired Mood: Irritable Affect: Irritable Thought Process & Associations: Other ([place]) Thought Content: Other (Patient poor historian limited cooperation with interview) Hallucination Type: None Delusion Type: Paranoid Suicidal Ideation: No Suicidal Plan: No Suicidal Intention: No Homicidal Ideation: No Homicidal Plan: No Homicidal Intention: No Insight: Poor Judgment: Poor Results Vitals/IOs Vital Signs Date Time Temp Pulse Resp B/P (MAP) Pulse Ox O2 Delivery O2 Flow Rate FiO2 12/30/17 06:03 97.8 61 16 104/66 (79) 95 12/27/17 10:48 Room Air Intake and Output 12/30/17 12/30/17 12/31/17 08:00 16:00 00:00 Intake Total 240 ml 240 ml Balance 240 ml 240 ml Assessment & Plan Problem List: (1) DEMENTIA IN OTH DISEASES CLASSD ELSWHR W BEHAVIORAL DISTURB ICD Codes: F02.81 - DEMENTIA IN OTH DISEASES CLASSD ELSWHR W BEHAVIORAL DISTURB (2) Alzheimer's disease with late onset ICD Codes: G30.1 - Alzheimer's disease with late onset; F02.80 - Dementia in other diseases classified elsewhere without behavioral disturbance Assessment & Plan Continue current tx plan. Estimated LOS: days Justification for Cont. Inpt. risk of decompensation Request HC Surrog/Guard Advoc?: Yes Marbella Osorio MD Dec 30, 2017 12:07
[2017-12-30 18:00] VITALS: BP 154/95; PULSE 75; RESP 16; TEMP 97.9; O2SAT 97
[2017-12-31 06:01] VITALS: BP 129/85; PULSE 68; RESP 18; TEMP 97.7; O2SAT 95
[2017-12-31] MEDS: OLANZapine 2.5 MG TAB PO SCH ×2 (08:23→21:00)
[2017-12-31] MEDS: amLODIPine BESYLATE 5 MG TAB PO SCH ×2 (08:23→08:55)
[2017-12-31] MEDS: PRAVASTATIN SOD 10 MG TAB PO SCH ×2 (08:23→08:55)
[2017-12-31] MEDS: MEMANTINE HCL 5 MG TAB PO SCH ×2 (08:23→08:55)
--- NOTE | 2017-12-31 13:03 | HHI.PYPN ---
Subjective Remarks Pt seen and discussed with staff. Today pt was less irritable and cooperated with medications and care. He remains withdrawn and suspicious. No SI/HI. Mental Status Examination Appearance: Disheveled Consciousness: Other (patient nonverbal but appears to be aware of surroundings ) Orientation: Person Motor Activity: Normal gait Speech: Slow, Other (Low volume) Language: Other (patient nonverbal) Fund of Knowledge: Poor Attention and Concentration: Inadequate Memory: Impaired Mood: Irritable Affect: Irritable (decreased) Thought Process & Associations: Other ([place]) Thought Content: Other (Patient poor historian limited cooperation with interview) Hallucination Type: None Delusion Type: Paranoid Suicidal Ideation: No Suicidal Plan: No Suicidal Intention: No Homicidal Ideation: No Homicidal Plan: No Homicidal Intention: No Insight: Poor Judgment: Poor Results Vitals/IOs Vital Signs Date Time Temp Pulse Resp B/P (MAP) Pulse Ox O2 Delivery O2 Flow Rate FiO2 12/31/17 06:01 97.7 68 18 129/85 (100) 95 12/27/17 10:48 Room Air Intake and Output 12/31/17 12/31/17 01/01/18 08:00 16:00 00:00 Intake Total 120 ml Balance 120 ml Assessment & Plan Problem List: (1) DEMENTIA IN OTH DISEASES CLASSD ELSWHR W BEHAVIORAL DISTURB ICD Codes: F02.81 - DEMENTIA IN OTH DISEASES CLASSD ELSWHR W BEHAVIORAL DISTURB (2) Alzheimer's disease with late onset ICD Codes: G30.1 - Alzheimer's disease with late onset; F02.80 - Dementia in other diseases classified elsewhere without behavioral disturbance Assessment & Plan Continue current tx plan. Estimated LOS: days Justification for Cont. Inpt. risk of decompensation Request HC Surrog/Guard Advoc?: Yes Marbella Osorio MD Dec 31, 2017 13:03
[2017-12-31 17:44] VITALS: BP 117/68; PULSE 73; RESP 18; O2SAT 94
[2017-12-31 18:00] VITALS: BP 117/68; PULSE 73; RESP 18; O2SAT 94
[2018-01-01 06:41] VITALS: BP 130/71; PULSE 56; RESP 14; TEMP 97.7; O2SAT 94
[2018-01-01] MEDS: OLANZapine 2.5 MG TAB PO SCH ×2 (09:00→21:00)
[2018-01-01] MEDS: MEMANTINE HCL 5 MG TAB PO SCH (09:45)
[2018-01-01] MEDS: amLODIPine BESYLATE 5 MG TAB PO SCH (09:46)
[2018-01-01] MEDS: PRAVASTATIN SOD 10 MG TAB PO SCH (09:46)
--- NOTE | 2018-01-01 10:14 | PD.TTN ---
Patient Problems 1. Discharge planning 2. Medication compliance 3. Knowledge deficit 4. Lack of coping skills Progress Toward Goals Provider Present: Dr. Edith Calvo Provider Input: Continue treatment plan Nurse(s) Present: No nurses present Psychiatric Counselors Present: Nelly Ray LCSW Group Spec/RT/OT/[place] Present: KEO Mancuso Andrew Harrison, OT Group Spec/RT/OT/[place] Input: Does not attend groups. Isolated to room Marybel Sanchez/Jesica Jan 01, 2018 10:14
--- NOTE | 2018-01-01 12:40 | HHI.PYPN ---
Subjective Remarks Patient seen in his room with nurse Guy, chart reviewed, patient discussed with nurse. It appears redundant of consent yet to initiate Zyprexa. Patient seen lying flat on bed with covers to his chin. When asked what to do to help him he said get me my wallet and give me a haircut. Patient continues diffusely confused and disorganized. Review of Systems Except as stated in HPI: all other systems reviewed are Neg Mental Status Examination Appearance: Disheveled Consciousness: Other (patient nonverbal but appears to be aware of surroundings ) Orientation: Person Motor Activity: Normal gait Speech: Slow, Other (Low volume) Language: Other (patient nonverbal) Fund of Knowledge: Poor Attention and Concentration: Inadequate Memory: Impaired Mood: Irritable Affect: Irritable Thought Process & Associations: Other ([place]) Thought Content: Other (Patient poor historian limited cooperation with interview) Hallucination Type: None Delusion Type: Paranoid Suicidal Ideation: No Suicidal Plan: No Suicidal Intention: No Homicidal Ideation: No Homicidal Plan: No Homicidal Intention: No Insight: Poor Judgment: Poor Results Vitals/IOs Vital Signs Date Time Temp Pulse Resp B/P (MAP) Pulse Ox O2 Delivery O2 Flow Rate FiO2 01/01/18 06:41 97.7 56 14 130/71 (90) 94 Intake and Output 01/01/18 01/01/18 01/02/18 08:00 16:00 00:00 Intake Total 240 ml Balance 240 ml Assessment & Plan Problem List: (1) DEMENTIA IN OTH DISEASES CLASSD ELSWHR W BEHAVIORAL DISTURB ICD Codes: F02.81 - DEMENTIA IN OTH DISEASES CLASSD ELSWHR W BEHAVIORAL DISTURB (2) Alzheimer's disease with late onset ICD Codes: G30.1 - Alzheimer's disease with late onset; F02.80 - Dementia in other diseases classified elsewhere without behavioral disturbance Assessment & Plan Estimated LOS: days patient is demented and confused. Continue to await word from health care surrogate/guardian advocate for permission to treatment psychotropics Justification for Cont. Inpt. At this time patient would decompensate with placed a lower level of care Discharge Planning Needs to be determined Request HC Surrog/Guard Advoc?: Yes Yamil Calvo MD Jan 01, 2018 12:40
[2018-01-01 18:05] VITALS: BP 150/73; PULSE 67; RESP 18; TEMP 97.1; O2SAT 99
[2018-01-02 05:58] VITALS: BP 106/70; PULSE 68; RESP 17; TEMP 98.2; O2SAT 97
[2018-01-02] MEDS: amLODIPine BESYLATE 5 MG TAB PO SCH (08:46)
[2018-01-02] MEDS: MEMANTINE HCL 5 MG TAB PO SCH (08:46)
[2018-01-02] MEDS: PRAVASTATIN SOD 10 MG TAB PO SCH (08:46)
[2018-01-02] MEDS: OLANZapine 2.5 MG TAB PO SCH ×2 (09:00→21:32)
--- NOTE | 2018-01-02 10:47 | HHI.PYPN ---
Subjective Remarks Patient seen in his room with nurse Jurgen and counselor Nelly, chart review, patient compliant with medical medication, we do not have consented and for psychotropics. Patient remains isolative and confused. Review of Systems Except as stated in HPI: all other systems reviewed are Neg Mental Status Examination Appearance: Disheveled Consciousness: Other (patient nonverbal but appears to be aware of surroundings ) Orientation: Person Motor Activity: Normal gait Speech: Slow, Other (Low volume) Language: Other (patient nonverbal) Fund of Knowledge: Poor Attention and Concentration: Inadequate Memory: Impaired Mood: Irritable Affect: Irritable Thought Process & Associations: Other ([place]) Thought Content: Other (Patient poor historian limited cooperation with interview) Hallucination Type: None Delusion Type: Paranoid Suicidal Ideation: No Suicidal Plan: No Suicidal Intention: No Homicidal Ideation: No Homicidal Plan: No Homicidal Intention: No Insight: Poor Judgment: Poor Results Vitals/IOs Vital Signs Date Time Temp Pulse Resp B/P (MAP) Pulse Ox O2 Delivery O2 Flow Rate FiO2 01/02/18 05:58 98.2 68 17 106/70 (82) 97 Assessment & Plan Problem List: (1) DEMENTIA IN OTH DISEASES CLASSD ELSWHR W BEHAVIORAL DISTURB ICD Codes: F02.81 - DEMENTIA IN OTH DISEASES CLASSD ELSWHR W BEHAVIORAL DISTURB (2) Alzheimer's disease with late onset ICD Codes: G30.1 - Alzheimer's disease with late onset; F02.80 - Dementia in other diseases classified elsewhere without behavioral disturbance Assessment & Plan Estimated LOS: days patient confused somewhat vigilant and isolative, compliant schedule medications but no consent him for psychotropics. Or visions been no active behavioral issues Justification for Cont. Inpt. At this time patient will decompensate of placed in the lower level of care Discharge Planning To be determined Request HC Surrog/Guard Advoc?: Yes Yamil Calvo MD Jan 02, 2018 10:47
[2018-01-02 18:43] VITALS: BP 128/84; PULSE 81; RESP 17; TEMP 98.2; O2SAT 96
[2018-01-03 06:00] VITALS: BP 147/82; PULSE 58; RESP 18; TEMP 97.5; O2SAT 95
[2018-01-03] MEDS: OLANZapine 2.5 MG TAB PO SCH ×2 (09:00→20:43)
[2018-01-03] MEDS: PRAVASTATIN SOD 10 MG TAB PO SCH (09:00)
[2018-01-03] MEDS: amLODIPine BESYLATE 5 MG TAB PO SCH (09:37)
[2018-01-03] MEDS: MEMANTINE HCL 5 MG TAB PO SCH (09:37)
--- NOTE | 2018-01-03 09:49 | HHI.PYPN ---
Subjective Remarks Patient seen in his room with nurse Lamin, chart reviewed, patient compliant medications, patient discussed with nurse. Patient laying quietly in bed minimally responsive to me. He continues showing confusion and disorientation, attempted to explain to him his scheduled [address] appearance for tomorrow. He had no response to that either. Is compliant with medications. For now continue treatment will add Lexapro 10 mg daily to medication regimen Review of Systems Except as stated in HPI: all other systems reviewed are Neg Mental Status Examination Appearance: Disheveled Consciousness: Other (patient nonverbal but appears to be aware of surroundings ) Orientation: Person Motor Activity: Normal gait Speech: Slow, Other (Low volume) Language: Other (patient nonverbal) Fund of Knowledge: Poor Attention and Concentration: Inadequate Memory: Impaired Mood: Irritable Affect: Irritable Thought Process & Associations: Other ([place]) Thought Content: Other (Patient poor historian limited cooperation with interview) Hallucination Type: None Delusion Type: Paranoid Suicidal Ideation: No Suicidal Plan: No Suicidal Intention: No Homicidal Ideation: No Homicidal Plan: No Homicidal Intention: No Insight: Poor Judgment: Poor Results Vitals/IOs Vital Signs Date Time Temp Pulse Resp B/P (MAP) Pulse Ox O2 Delivery O2 Flow Rate FiO2 01/03/18 06:00 97.5 58 18 147/82 (103) 95 Intake and Output 01/03/18 01/03/18 01/04/18 08:00 16:00 00:00 Intake Total 240 ml Balance 240 ml Assessment & Plan Problem List: (1) DEMENTIA IN OTH DISEASES CLASSD ELSWHR W BEHAVIORAL DISTURB ICD Codes: F02.81 - DEMENTIA IN OTH DISEASES CLASSD ELSWHR W BEHAVIORAL DISTURB (2) Alzheimer's disease with late onset ICD Codes: G30.1 - Alzheimer's disease with late onset; F02.80 - Dementia in other diseases classified elsewhere without behavioral disturbance Assessment & Plan Estimated LOS: days patient continues confused disoriented somewhat isolative with a somewhat sad mood. She medication adjustment above Justification for Cont. Inpt. At this time patient decompensated placed in a lower level of care Discharge Planning To be determined Request HC Surrog/Guard Advoc?: Yes Yamil Calvo MD Jan 03, 2018 09:49
[2018-01-03 18:00] VITALS: BP 133/80; PULSE 71; RESP 18; TEMP 98.2; O2SAT 98
[2018-01-04 06:00] VITALS: BP 144/79; PULSE 56; RESP 18; TEMP 97.6; O2SAT 98
[2018-01-04] MEDS: PRAVASTATIN SOD 10 MG TAB PO SCH (09:00)
[2018-01-04] MEDS ORDERED: ESCITALOPRAM OXALATE 10 MG TAB PO SCH (09:00)
[2018-01-04] MEDS: amLODIPine BESYLATE 5 MG TAB PO SCH (09:00)
[2018-01-04] MEDS: MEMANTINE HCL 5 MG TAB PO SCH (09:00)
[2018-01-04] MEDS: OLANZapine 2.5 MG TAB PO SCH (09:00)
[2018-01-04] MEDS ORDERED: OLAN2.5T7 PO (10:34)
[2018-01-04] MEDS ORDERED: AMLO5 PO (10:34)
[2018-01-04] MEDS ORDERED: NAME5TAB2 PO (10:34)
[2018-01-04] MEDS ORDERED: ESCI10TA PO (10:34)
[2018-01-04] MEDS ORDERED: PRAV10TA PO (10:34)
--- NOTE | 2018-01-04 10:39 | HHI.DS ---
Psychiatry Discharge Summary Inpatient Psychiatric care?: Yes Advance Directive: No Reason Not Provided: Due to Patient Condition Mental Health AdvanceDirective: No Health Care Proxy: No Admission Admission Date Dec 27, 2017 at 11:56 Admission Diagnosis: (1) DEMENTIA IN OTH DISEASES CLASSD ELSWHR W BEHAVIORAL DISTURB ICD Code: F02.81 - DEMENTIA IN OTH DISEASES CLASSD ELSWHR W BEHAVIORAL DISTURB (2) Alzheimer's disease with late onset ICD Code: G30.1 - Alzheimer's disease with late onset; F02.80 - Dementia in other diseases classified elsewhere without behavioral disturbance Brief History Patient is an 82-year-old Afro-Citizen Of [place] male comes her under [place] act signed a [facility]'s office dated 12/26/17 at 1031. That document reviewed and agreed with it is essentially stating deputies make contact with her informatics application analyst after resident called in advising Luis Antonio was possibly trying to break into his enclosed screened porch. The residents advised Luis Antonio look out about it looking into "space" confused and not talking to when spoken to him deputies had previously make contact with Luis Antonio earlier in the day regarding the same circumstances. Luis Antonio would not respond, questions or commands when asked by deputies it appeared to be out of it was discovered Luis Antonio has no family members in [place] to take care of him and Luis Antonio is not in the right state of mind to take care of himself and could potentially hurt other people due to Luis Antonio not having family in [place] Luis Antonio has a high potential of suffering from the left. Patient seen screened in the ED urine toxicology negative blood alcohol level negative. Patient transferred to the 2500 unit at the present time patient laying quietly in his bed nurse Gilda and counselor blas present throughout session. Patient is laying flat on his back very still with his eyes closed patient is essentially selectively mute is not responding verbally to my questions. It appears she has been behaving this way with other staff also. Of interest patient has had prior hospitalizations here for similar behaviors most recently being in September 2017. I was unable get any other information from this gentleman. At this time patient does meet criteria for involuntary psychiatric hospitalization under the Rod[place]guez act I'll do first opinion request second opinion. I also feel patient does not have capacity to sign for medications thus I'll ask for healthcare surrogate and guardian advocate. We will have hospitalist consult was we will have OT and PT consult also well the patient has been living independently I question whether he really has capacity to do this. Thus placement issues need to be addressed we also need to find out if this patient has any family members other responsible adults involved with him 12/28/17 Second opinion: Patient is 82-year-old man, with past psychiatric history of dementia, alcohol use disorder, history of psychiatric hospitalizations, history of aggressive behavior last discharged from [facility] in September 2017 was brought in under [place] act by law enforcement as patient was seen trying to break into a screened porch and was admitted to the inpatient psychiatry for further evaluation and management. Patient was found in the room noted to be superficially cooperative, poor eye contact stating that he was at a train station but unable to state where he was going and stated that he was put in a cab and brought here to the hospital. Patient is alert and oriented only to person was unable to state where he was noted to date. Patient denies physical symptoms at this time, as per nursing report patient had been isolative in room but was able to come out this afternoon for food and sitting in day room. Tobacco Use In Past 30 Days: Refused To Answer Alcohol Use: Never Hospital Course Patient's hospital course was uneventful, he showed minimal participation in group or mildew. He spend much time in bed. Though he did get out for meals for toileting and for his ADLs. Of interest counselor Kim talked with patient's son who lives up on the [facility]. It appears after his last discharge from here the middle of September 2017 he was [place] to be with family. He was there for a few weeks and then left that area and went to the [place] area. He stated there for a period of time gambling and living independently. He then took a train back down here to [place]. Leading to this hospitalization. The son says that his father is cognitively better than at times he demonstrates. The father has been used to people caring for him and doing for him while he states his money to for gambling and other pleasures. Patient is [place] today [place] [address], [place] [address] orders patient to be discharged within 24 hours. Patient states he wishes to return to [place]. He does have enough funds for that. The court Joseph I do agree the patient does have the ability to do that as evidenced by his behaviors within this past month. Thus patient will be discharged today there is a train daily for [place] about 2:30 this afternoon patient given Rx 1 month for his medications and we'll transport him to the transportation of time to get the train for [place] today. He will need to find appropriate medical services in the community Results Blood Pressure 144 / 79 Vital Signs Date Time Temp Pulse Resp B/P (MAP) Pulse Ox O2 Delivery O2 Flow Rate FiO2 01/04/18 06:00 97.6 56 18 144/79 (100) 98 Laboratory Results Test 12/28/17 08:29 Cholesterol Level 218 MG/DL (120-200) HDL Cholesterol 43.2 MG/DL (40.0-60.0) Hemoglobin A1c 5.4 % (4.3-6.0) LDL Cholesterol 161 MG/DL (0-99) Triglycerides Level 67 MG/DL (42-150) Summary of Procedures None done Imaging Last Impressions Head CT 12/26/17 0000 Signed Impressions: Service Date/Time: Tuesday, December 26, 2017 20:13 - CONCLUSION: 1. No acute intracranial abnormalities. Fernando Arias MD Pending results at discharge: No Medications # of Antipsychotic meds at D/C: 1 Approp Antipsych med options 1 - Minimum of three failed multiple trials of monotherapy. 2 - Documented plan to taper to monotherapy due to previous use of multiple meds OR cross-taper in progress at D/C. 3 - Documentation of augmentation of Clozapine. 4 - Justification other than those listed in allowable values 1-3, document here : Discharge Discharge Date: Jan 04, 2018 Discharge Diagnosis: (1) Alzheimer's disease with late onset Diagnosis: Principal ICD Code: G30.1 - Alzheimer's disease with late onset; F02.80 - Dementia in other diseases classified elsewhere without behavioral disturbance (2) DEMENTIA IN OTH DISEASES CLASSD ELSWHR W BEHAVIORAL DISTURB Diagnosis: Principal ICD Code: F02.81 - DEMENTIA IN OTH DISEASES CLASSD ELSWHR W BEHAVIORAL DISTURB Pt Condition on Discharge: Stable Discharge Disposition: Discharge Home Discharge Instructions Diet Instructions: As Tolerated, No Restrictions Activities you can perform: Regular-No Restrictions Scheduled Appointment: follow-up medical and mental health services in [place] Discharge Time > 30 minutes Mental Status Examination Appearance: Disheveled Consciousness: Other (patient nonverbal but appears to be aware of surroundings ) Orientation: Person Motor Activity: Normal gait Speech: Slow, Other (Low volume) Language: Other (patient nonverbal) Fund of Knowledge: Poor Attention and Concentration: Inadequate Memory: Impaired Mood: Irritable Affect: Irritable Thought Process & Associations: Other (Enders) Thought Content: Other (Patient poor historian limited cooperation with interview) Hallucination Type: None Delusion Type: Paranoid Suicidal Ideation: No Suicidal Plan: No Suicidal Intention: No Homicidal Ideation: No Homicidal Plan: No Homicidal Intention: No Insight: Poor Judgment: Poor Discharge/Advance Care Plan Health Problems: (1) DEMENTIA IN OTH DISEASES CLASSD ELSWHR W BEHAVIORAL DISTURB (2) Alzheimer's disease with late onset Goals to promote your health * To prevent worsening of your condition and complications * To maintain your health at the optimal level Directions to meet your goals Take your medications as prescribed Follow your dietary instruction Follow activity as directed Keep your appointments as scheduled Take your immunizations and boosters as scheduled If your symptoms worsen call your PCP, if no PCP go to Urgent Care Center or Emergency Room For 01/05 questions related to your inpatient stay or results of tests pending at discharge, please contact Dr. Yamil Calvo at Smoking is Dangerous to Your Health. Avoid second hand smoking Yamil Calvo MD Jan 04, 2018 10:39
== END 2018-01-04 12:10 | disposition home or self-care (01) | DRG 57 ==
LOC: NEDAMB 16:43 → NEDA 12-27 11:56 → H250 12-27 12:35 → H4EA 01-02 10:55
PROVIDERS: ADMIT Psychiatry & Neurology Psychiatry; ATTEND Psychiatry & Neurology Psychiatry
DX: G30.1 Alzheimer's disease with late onset (principal); F02.81 Dementia in other diseases classified elsewhere, unspecified severity, with behavioral disturbance; I10 Essential (primary) hypertension; E78.5 Hyperlipidemia, unspecified; F94.0 Selective mutism; Z79.899 Other long term (current) drug therapy; Z23 Encounter for immunization
CPT/HCPCS: 70450; 80048; 80053; 80061; 80307; 81001; 83036; 84443; 85025; 96372; J1630; J2060

== ENCOUNTER 2018-02-09 18:12 | Observation (INO) ==
[2018-04-08] MEDS ORDERED: Naloxone Inj 0.4 MG/ML Vial IV.PUSH PRN (00:01)
[2018-04-08] MEDS ORDERED: Acetaminophen 325 MG Tablet PO PRN ×2 (00:01)
[2018-04-08] MEDS: Escitalopram 10 MG Tablet PO SCH (08:45)
[2018-04-08] MEDS: OLANZapine 2.5 MG Tablet PO SCH (08:46)
[2018-04-08] MEDS: amLODIPine 5 MG Tablet PO SCH (08:46)
--- NOTE | 2018-04-08 19:51 | P.PNIM ---
Subjective Interval history: The patient denies any chest pain or shortness of breath. No fevers or chills reported. Patient response "I am breathing". Physical Exam Vital signs: Vital Signs 04/08/18 04:00 04/08/18 08:00 04/08/18 12:00 Temperature 98 F 97.3 F L 97.9 F Pulse Rate 68 53 L 56 L Respiratory Rate 17 18 16 Blood Pressure 117/72 130/85 130/80 Pulse Oximetry 94 L 93 L 98 04/08/18 16:00 Temperature 98.4 F Pulse Rate 58 L Respiratory Rate 18 Blood Pressure 129/78 Pulse Oximetry 98 Intake & Output 04/08/18 04/08/18 04/09/18 06:59 18:59 06:59 Weight 64.8 kg Narrative: GENERAL: This is a well-nourished, well-developed patient, in no apparent distress. CARDIOVASCULAR: Regular rate and rhythm RESPIRATORY: Clear to auscultation. Breath sounds equal bilaterally. No wheezes , rales, or rhonchi. MUSCULOSKELETAL: Extremities without clubbing, cyanosis, or edema. NEURO: Alert & Oriented x to person and place not very talkative. Flat affect Assessment and Plan - Plan Dementia with behavioral disturbance Mood stabilized. Continue Zyprexa Continue Lexapro Continue Namenda Placement pending Hypertension Presently controlled continue amlodipine Hyperlipidemia Continue baseline treatments Obtain a chest x-ray since patient's oxygen saturation noted to be trending down. DVT prophylaxis SCDs Discharge Planning: Case management system with placement.
[2018-04-09] MEDS: amLODIPine 5 MG Tablet PO SCH (09:17)
[2018-04-09] MEDS: Escitalopram 10 MG Tablet PO SCH (09:17)
[2018-04-09] MEDS: OLANZapine 2.5 MG Tablet PO SCH (09:17)
--- NOTE | 2018-04-09 18:02 | P.PNIM ---
Subjective Interval history: no complaints. calm. Denies cp/sob/cough Physical Exam Vital signs: Vital Signs 04/08/18 20:00 04/09/18 00:00 04/09/18 04:00 Temperature 97.6 F 97.9 F 97.6 F Pulse Rate 70 60 46 L Respiratory Rate 16 16 18 Blood Pressure 114/74 121/77 124/75 Pulse Oximetry 95 93 L 95 04/09/18 08:00 04/09/18 12:00 04/09/18 16:00 Temperature 97.9 F 97.2 F L 97.7 F Pulse Rate 64 67 50 L Respiratory Rate 20 20 20 Blood Pressure 132/82 125/82 128/79 Pulse Oximetry 95 93 L 92 L Narrative: GENERAL: This is a well-nourished, well-developed patient, in no apparent distress. CARDIOVASCULAR: Regular rate and rhythm RESPIRATORY: Clear to auscultation. Breath sounds equal bilaterally. No wheezes , rales, or rhonchi. MUSCULOSKELETAL: Extremities without clubbing, cyanosis, or edema. NEURO: Alert & Oriented x to person and place not very talkative. Flat affect Assessment and Plan - Plan Dementia with behavioral disturbance Mood stabilized. Continue Zyprexa Continue Lexapro Continue Namenda Placement pending Hypertension Presently controlled continue amlodipine Hyperlipidemia Continue baseline treatments Obtain a chest x-ray since patient's oxygen saturation noted to be trending down. DVT prophylaxis SCDs Discharge Planning: Case management system with placement.
[2018-04-10] MEDS: OLANZapine 2.5 MG Tablet PO SCH (09:24)
[2018-04-10] MEDS: Escitalopram 10 MG Tablet PO SCH (09:24)
[2018-04-10] MEDS: amLODIPine 5 MG Tablet PO SCH (09:24)
--- NOTE | 2018-04-11 01:20 | P.PNIM ---
Subjective Interval history: Patient seen on 04/10/18 No major overnight events. Denies cp/sob. Physical Exam Vital signs: Vital Signs 04/10/18 04:00 04/10/18 12:00 04/10/18 16:00 Temperature 98 F 94.5 F L 97.9 F Pulse Rate 18 L 78 64 Respiratory Rate 18 18 Blood Pressure 118/70 134/77 151/82 H Pulse Oximetry 94 L 94 L 95 04/10/18 20:00 04/11/18 00:00 Temperature 98.1 F 98.9 F Pulse Rate 78 71 Respiratory Rate 18 18 Blood Pressure 119/77 120/77 Pulse Oximetry 93 L 95 Intake & Output 04/10/18 04/10/18 04/11/18 06:59 18:59 06:59 Weight 65.4 kg Narrative: GENERAL: This is a well-nourished, well-developed patient, in no apparent distress. CARDIOVASCULAR: Regular rate and rhythm RESPIRATORY: Clear to auscultation. Breath sounds equal bilaterally. No wheezes , rales, or rhonchi. MUSCULOSKELETAL: Extremities without clubbing, cyanosis, or edema. NEURO: Alert & Oriented x to person and place not very talkative. Flat affect Assessment and Plan - Plan Dementia with behavioral disturbance Mood stabilized. Continue Zyprexa Continue Lexapro Continue Namenda Placement pending Hypertension Presently controlled continue amlodipine Hyperlipidemia Continue baseline treatments Obtain a chest x-ray since patient's oxygen saturation noted to be trending down. DVT prophylaxis SCDs Discharge Planning: Case management system with placement.
[2018-04-11] MEDS: OLANZapine 2.5 MG Tablet PO SCH (09:21)
[2018-04-11] MEDS: Escitalopram 10 MG Tablet PO SCH (09:21)
[2018-04-11] MEDS: amLODIPine 5 MG Tablet PO SCH (09:22)
--- NOTE | 2018-04-11 16:46 | P.PNIM ---
Subjective Interval history: Patient has no complaints. Pleasantly demented. Physical Exam Vital signs: Vital Signs 04/10/18 20:00 04/11/18 00:00 04/11/18 04:00 Temperature 98.1 F 98.9 F 98.9 F Pulse Rate 78 71 51 L Respiratory Rate 18 18 18 Blood Pressure 119/77 120/77 110/75 Pulse Oximetry 93 L 95 93 L 04/11/18 08:00 04/11/18 12:00 Temperature 98 F 98 F Pulse Rate 67 63 Respiratory Rate 16 18 Blood Pressure 122/68 122/64 Pulse Oximetry 98 97 Intake & Output 04/10/18 04/11/18 04/11/18 18:59 06:59 18:59 Output Total 150 / 150 Balance -150 / -150 Weight 167.64 kg 59.7 kg Output: Urine 150 / 150 Other: # Voids 1 Date of Last Bowel Movement 04/10/18 Narrative: GENERAL: This is a well-nourished, well-developed patient, in no apparent distress. CARDIOVASCULAR: Regular rate and rhythm RESPIRATORY: Clear to auscultation. Breath sounds equal bilaterally. No wheezes , rales, or rhonchi. MUSCULOSKELETAL: Extremities without clubbing, cyanosis, or edema. NEURO: Alert & Oriented x to person and place not very talkative. Flat affect Assessment and Plan - Plan Dementia with behavioral disturbance Mood stabilized. Continue Zyprexa Continue Lexapro Continue Namenda Placement pending Hypertension Presently controlled continue amlodipine Hyperlipidemia Continue baseline treatments Obtain a chest x-ray since patient's oxygen saturation noted to be trending down. DVT prophylaxis SCDs Discharge Planning: Case management system with placement.
[2018-04-12] MEDS: OLANZapine 2.5 MG Tablet PO SCH (08:54)
[2018-04-12] MEDS: amLODIPine 5 MG Tablet PO SCH (08:55)
[2018-04-12] MEDS: Escitalopram 10 MG Tablet PO SCH (08:55)
--- NOTE | 2018-04-12 14:51 | P.PNIM ---
Subjective Interval history: No major overnight events. The patient denies chest pain or shortness of breath. Physical Exam Vital signs: Vital Signs 04/11/18 16:00 04/11/18 21:50 04/12/18 00:00 Temperature 97.9 F 98.8 F 97.8 F Pulse Rate 77 68 65 Respiratory Rate 16 18 16 Blood Pressure 126/65 125/67 120/62 Pulse Oximetry 95 98 98 04/12/18 05:00 04/12/18 08:00 04/12/18 11:34 Temperature 98.3 F 97.7 F 97.5 F L Pulse Rate 63 56 L 67 Respiratory Rate 16 20 20 Blood Pressure 119/66 134/87 129/79 Pulse Oximetry 96 94 L 94 L Intake & Output 04/11/18 04/12/18 04/12/18 18:59 06:59 18:59 Intake Total 1425 / 1425 Output Total 150 / 150 Balance -150 / -150 1425 / 1425 Weight 59.7 kg 60 kg Intake: Oral 1425 / 1425 Output: Urine 150 / 150 Other: # Voids 3 Date of Last Bowel Movement 04/11/18 # Bowel Movements 1 0 Narrative: GENERAL: This is a well-nourished, well-developed patient, in no apparent distress. CARDIOVASCULAR: Regular rate and rhythm RESPIRATORY: Clear to auscultation. Breath sounds equal bilaterally. No wheezes , rales, or rhonchi. MUSCULOSKELETAL: Extremities without clubbing, cyanosis, or edema. NEURO: Alert & Oriented x to person and place not very talkative. Flat affect Assessment and Plan - Plan Dementia with behavioral disturbance Mood stabilized. Continue Zyprexa Continue Lexapro Continue Namenda Placement pending Hypertension Presently controlled continue amlodipine Hyperlipidemia Continue baseline treatments Obtain a chest x-ray since patient's oxygen saturation noted to be trending down. DVT prophylaxis SCDs Discharge Planning: Case management system with placement.
[2018-04-13] MEDS: amLODIPine 5 MG Tablet PO SCH (09:51)
[2018-04-13] MEDS: Escitalopram 10 MG Tablet PO SCH (09:52)
[2018-04-13] MEDS: OLANZapine 2.5 MG Tablet PO SCH (09:52)
--- NOTE | 2018-04-13 16:35 | P.PNIM ---
Subjective Interval history: no major overnight events. Denies cp/sob Afebrile Physical Exam Vital signs: Vital Signs 04/12/18 21:15 04/13/18 00:30 04/13/18 04:15 Temperature 98.8 F 97.9 F 98 F Pulse Rate 69 62 66 Respiratory Rate 18 17 17 Blood Pressure 120/67 115/65 118/66 Pulse Oximetry 96 98 96 04/13/18 08:00 04/13/18 12:00 04/13/18 16:00 Temperature 98.7 F 98.1 F 98 F Pulse Rate 70 93 H 60 Respiratory Rate 16 16 18 Blood Pressure 111/73 110/70 117/67 Pulse Oximetry 93 L 98 93 L Intake & Output 04/12/18 04/13/18 04/13/18 18:59 06:59 18:59 Intake Total 1300 / 1300 Balance 1300 / 1300 Weight 60 kg Intake: Oral 1300 / 1300 Other: # Voids 3 Date of Last Bowel Movement 04/11/18 # Bowel Movements 0 Narrative: GENERAL: This is a well-nourished, well-developed patient, in no apparent distress. CARDIOVASCULAR: Regular rate and rhythm RESPIRATORY: Clear to auscultation. Breath sounds equal bilaterally. No wheezes , rales, or rhonchi. MUSCULOSKELETAL: Extremities without clubbing, cyanosis, or edema. NEURO: Alert & Oriented x to person and place not very talkative. Flat affect Assessment and Plan - Plan Dementia with behavioral disturbance Mood stabilized. Continue Zyprexa Continue Lexapro Continue Namenda Placement pending Hypertension Presently controlled continue amlodipine Hyperlipidemia Continue baseline treatments DVT prophylaxis SCDs Discharge Planning: Case management system with placement.
[2018-04-14] MEDS: Escitalopram 10 MG Tablet PO SCH (08:17)
[2018-04-14] MEDS: amLODIPine 5 MG Tablet PO SCH (08:17)
[2018-04-14] MEDS: OLANZapine 2.5 MG Tablet PO SCH (08:17)
--- NOTE | 2018-04-14 09:53 | P.PNIM ---
Subjective Interval history: No overnight events, afebrile. No complaints. Physical Exam Vital signs: Vital Signs 04/13/18 12:00 04/13/18 16:00 04/13/18 20:00 Temperature 98.1 F 98 F 97.9 F Pulse Rate 93 H 60 66 Respiratory Rate 16 18 Blood Pressure 110/70 117/67 111/75 Pulse Oximetry 98 93 L 100 04/14/18 00:00 04/14/18 04:00 Temperature 97.9 F 97.0 F L Pulse Rate 65 64 Respiratory Rate 18 16 Blood Pressure 101/68 135/84 Pulse Oximetry 18 L 93 L Intake & Output 04/13/18 04/14/18 04/14/18 18:59 06:59 18:59 Intake Total 720 / 720 240 / 240 Balance 720 / 720 240 / 240 Intake: Oral 720 / 720 240 / 240 Other: # Voids 3 2 Date of Last Bowel Movement 04/12/18 # Bowel Movements 0 Narrative: GENERAL: This is a well-nourished, well-developed patient, in no apparent distress. CARDIOVASCULAR: Regular rate and rhythm RESPIRATORY: Clear to auscultation. MUSCULOSKELETAL: Extremities without clubbing, cyanosis, or edema. NEURO: Alert & Oriented x to person and place not very talkative. Flat affect Assessment and Plan - Plan Dementia with behavioral disturbance Mood stabilized. Continue Zyprexa Continue Lexapro Continue Namenda Placement pending Hypertension Presently controlled continue amlodipine Hyperlipidemia Continue baseline treatments DVT prophylaxis SCDs Discharge Planning: Case management system with placement. No changes in management.
[2018-04-15] MEDS: OLANZapine 2.5 MG Tablet PO SCH (08:46)
[2018-04-15] MEDS: Escitalopram 10 MG Tablet PO SCH (08:46)
[2018-04-15] MEDS: amLODIPine 5 MG Tablet PO SCH (08:47)
--- NOTE | 2018-04-15 15:02 | P.PNIM ---
Subjective Interval history: No overnight events, afebrile. No complaints. Physical Exam Vital signs: Vital Signs 04/14/18 16:00 04/14/18 20:00 04/15/18 00:00 Temperature 98 F 98.0 F 98.1 F Pulse Rate 34 L 64 69 Respiratory Rate 18 16 16 Blood Pressure 128/73 120/71 110/57 L Pulse Oximetry 95 96 95 04/15/18 04:00 04/15/18 08:00 04/15/18 12:00 Temperature 98.0 F 97.6 F 97.9 F Pulse Rate 58 L 49 L 55 L Respiratory Rate 14 18 18 Blood Pressure 101/59 L 121/68 126/80 Pulse Oximetry 95 94 L 92 L Intake & Output 04/14/18 04/15/18 04/15/18 18:59 06:59 18:59 Intake Total 100 / 100 Balance 100 / 100 Intake: Oral 100 / 100 Other: # Voids 4 Date of Last Bowel Movement 04/12/18 Narrative: GENERAL: This is a well-nourished, well-developed patient, in no apparent distress. CARDIOVASCULAR: Regular rate and rhythm RESPIRATORY: Clear to auscultation. MUSCULOSKELETAL: Extremities without clubbing, cyanosis, or edema. NEURO: Alert & Oriented x to person and place not very talkative. Flat affect Assessment and Plan - Plan Dementia with behavioral disturbance Mood stabilized. Continue Zyprexa Continue Lexapro Continue Namenda Placement pending Hypertension Presently controlled continue amlodipine Hyperlipidemia Continue baseline treatments DVT prophylaxis SCDs Discharge Planning: Case management system with placement. No changes in management.
--- NOTE | 2018-04-16 08:29 | P.PN ---
Subjective Interval history: Follow up dementia with behavioral disturbance. Patient seen and examined, lying in bed sleeping in nad. Awakens to voice. No reports of any acute events overnight. Afebrile. VSS. Physical Exam Vital signs: Vital Signs 04/15/18 12:00 04/15/18 16:00 04/15/18 20:00 Temperature 97.9 F 97.9 F 98.1 F Pulse Rate 55 L 61 66 Respiratory Rate 18 18 18 Blood Pressure 126/80 122/73 100/66 Pulse Oximetry 92 L 94 L 95 04/16/18 00:00 04/16/18 04:00 Temperature 98.5 F 98.3 F Pulse Rate 70 70 Respiratory Rate 18 18 Blood Pressure 125/65 130/77 Pulse Oximetry 99 96 Intake & Output 04/15/18 04/16/18 04/16/18 18:59 06:59 18:59 Intake Total 240 / 240 Balance 240 / 240 Weight 65.2 kg Intake: Oral 240 / 240 Other: # Voids 4 3 Date of Last Bowel Movement 04/12/18 # Bowel Movements 0 - Constitutional no acute distress - Routine HEENT Exam Head: Present: normocephalic Eye: Present: EOMI, PERRL - Routine Neck Exam Present: supple - Routine Cardiovascular Exam Present: RRR - Routine Abdominal Exam Present: soft - Routine Neurological Exam Present: alert - Detailed Neurological Exam: Coma Scale Eye Opening: Spontaneous Assessment and Plan - Plan Dementia with behavioral disturbance Mood stabilized. Continue Zyprexa Continue Lexapro Continue Namenda Placement pending Hypertension Presently controlled continue amlodipine Hyperlipidemia Continue baseline treatments DVT prophylaxis SCDs
[2018-04-16] MEDS: amLODIPine 5 MG Tablet PO SCH (09:29)
[2018-04-16] MEDS: OLANZapine 2.5 MG Tablet PO SCH (09:29)
[2018-04-16] MEDS: Escitalopram 10 MG Tablet PO SCH (09:29)
[2018-04-16 10:48] LABS: Hematocrit 42.9 % (39.0-51.0); Hemoglobin 14.6 gm/dL (13.0-17.0); Mean Corpuscular HGB Conc 34.1 % (32.0-36.0); Mean Corpuscular Hemoglobin 29.7 pg (27.0-34.0); Mean Corpuscular Volume 87.2 fL (80.0-100.0); Mean Platelet Volume 9.5 fL (7.0-11.0); Platelet Count 231 th/mm3 (150-450); Red Blood Count 4.92 mil/mm3 (4.50-5.90); Red Cell Distribution Width 14.7 % (11.6-17.2); White Blood Count 6.4 th/mm3 (4.0-11.0)
[2018-04-16 11:14] LABS: Alanine Aminotransferase 24 U/L (12-78); Albumin 3.2 g/dL (3.4-5.0); Anion Gap 10 meq/L (5-15); Aspartate Aminotransferase 13 U/L (15-37); Blood Urea Nitrogen 22 mg/dL (7-18); Calcium 8.4 mg/dL (8.5-10.1); Carbon Dioxide 26.9 meq/L (21.0-32.0); Chloride 105 meq/L (98-107); Glomerular Filtration Rate 86 mL/min (>89); Glucose,Random 113 mg/dL (74-106); Potassium 3.7 meq/L (3.5-5.1); Sodium 142 meq/L (136-145)
[2018-04-16 11:17] LABS: Alkaline Phosphatase 67 U/L (45-117); Total Protein 6.9 g/dL (6.4-8.2)
[2018-04-17] MEDS: OLANZapine 2.5 MG Tablet PO SCH (09:38)
[2018-04-17] MEDS: Escitalopram 10 MG Tablet PO SCH (09:38)
[2018-04-17] MEDS: amLODIPine 5 MG Tablet PO SCH (09:39)
--- NOTE | 2018-04-17 15:13 | P.PN ---
Subjective Interval history: Follow-up visit dementia with behavioral disturbance. Patient seen and examined today. Appears calm. Minimal verbalization. Does not answer most questions occasionally follows commands. Physical Exam Vital signs: Vital Signs 04/16/18 16:00 04/16/18 20:15 04/17/18 00:15 Temperature 97.7 F 98.1 F 98 F Pulse Rate 56 L 65 68 Respiratory Rate 16 18 18 Blood Pressure 117/78 124/87 120/80 Pulse Oximetry 93 L 98 96 04/17/18 05:15 04/17/18 08:00 04/17/18 12:00 Temperature 98 F 97.7 F 97 F L Pulse Rate 64 50 L 44 L Respiratory Rate 17 16 15 Blood Pressure 127/72 144/90 H Pulse Oximetry 97 95 97 Intake & Output 04/16/18 04/17/18 04/17/18 18:59 06:59 18:59 Intake Total 1640 / 1640 Balance 1640 / 1640 Weight 65.5 kg Intake: Oral 1640 / 1640 Other: # Voids 2 Date of Last Bowel Movement 04/12/18 04/12/18 # Bowel Movements 0 Narrative: GENERAL: This is a well-nourished, well-developed patient, in no apparent distress. SKIN: Warm and dry. HEENT: Normocephalic. Nose without bleeding. Airway patent. NECK: Trachea midline. CARDIOVASCULAR: Regular rate and rhythm without murmurs, gallops, or rubs. RESPIRATORY: Clear to auscultation. Breath sounds equal bilaterally. No wheezes , rales, or rhonchi. GASTROINTESTINAL: Abdomen soft, non-tender, nondistended. Bowel Sounds normoactive x4. MUSCULOSKELETAL: Extremities without clubbing, cyanosis, or edema. NEUROLOGICAL: Awake and alert. Moves all extremities. Minimal verbalization. Flat affect. Results - Labs CBC & Chem 7: 04/16/18 10:03 04/16/18 10:03 - Procedures None Assessment and Plan - Plan 82-year-old, -[place]ander male with history of dementia with behavioral disturbance who presents the ER under a Rodríguez act initiated by law enforcement initiated by law enforcement after the police found the patient trespassing at his neighbor's house. Dementia with behavioral disturbance -Mood stabilized. Currently calm. -Continue Zyprexa, Lexapro, Namenda -Placement pending. Need court appointed guardian Hypertension, controlled -Continue amlodipine -Monitor BP trend Hyperlipidemia -Continue pravastatin DVT prophylaxis SCDs Code Status: Full code Discussed Condition With: Patient, nurse Discharge Planning: Difficult placement. CM following.
[2018-04-18] MEDS: amLODIPine 5 MG Tablet PO SCH (09:08)
[2018-04-18] MEDS: OLANZapine 2.5 MG Tablet PO SCH (09:08)
[2018-04-18] MEDS: Escitalopram 10 MG Tablet PO SCH (09:08)
--- NOTE | 2018-04-18 10:12 | P.PN ---
Subjective Interval history: Follow-up visit dementia with behavioral disturbance. Patient seen and examined today. Patient is calm. Minimal verbalization. Does not wanting to follow any commands. No acute issues overnight. Physical Exam Vital signs: Vital Signs 04/17/18 12:00 04/17/18 16:00 04/17/18 20:15 Temperature 97 F L 98.5 F 98 F Pulse Rate 44 L 62 62 Respiratory Rate 15 15 16 Blood Pressure 144/90 H 131/76 125/77 Pulse Oximetry 97 95 99 04/18/18 00:30 04/18/18 03:15 04/18/18 08:06 Temperature 98.8 F 98.3 F 98.9 F Pulse Rate 64 65 52 L Respiratory Rate 17 18 18 Blood Pressure 126/69 125/62 133/82 Pulse Oximetry 98 99 93 L Intake & Output 04/17/18 04/18/18 04/18/18 18:59 06:59 18:59 Intake Total 2049 Balance 2049 Weight 66 kg Intake: Oral 2049 Other: # Voids 3 Date of Last Bowel Movement 04/12/18 04/17/18 # Bowel Movements 0 Narrative: GENERAL: This is a well-nourished, well-developed patient, in no apparent distress. SKIN: Warm and dry. HEENT: Normocephalic. Nose without bleeding. Airway patent. NECK: Trachea midline. CARDIOVASCULAR: Regular rate and rhythm without murmurs, gallops, or rubs. RESPIRATORY: Clear to auscultation. Breath sounds equal bilaterally. No wheezes , rales, or rhonchi. GASTROINTESTINAL: Abdomen soft, non-tender, nondistended. Bowel Sounds normoactive x4. MUSCULOSKELETAL: Extremities without clubbing, cyanosis, or edema. NEUROLOGICAL: Awake and alert. Moves all extremities. Minimal verbalization. Flat affect. Results - Labs CBC & Chem 7: 04/16/18 10:03 04/16/18 10:03 - Procedures None Assessment and Plan - Plan 82-year-old, -Maltese male with history of dementia with behavioral disturbance who presents the ER under a Rodríguez act initiated by law enforcement initiated by law enforcement after the police found the patient trespassing at his neighbor's house. Dementia with behavioral disturbance -Mood stabilized. Currently calm. -Continue Zyprexa, Lexapro, Namenda -Placement pending. Need court appointed guardian Hypertension, controlled -Continue amlodipine -Monitor BP trend Hyperlipidemia -Continue pravastatin DVT prophylaxis SCDs Code Status: Full code Discussed Condition With: Patient, nursing Discharge Planning: Difficult placement. CM following.
--- NOTE | 2018-04-18 15:29 | P.DS ---
Date of admission: 02/09/18 18:13 Primary care physician: UNKNOWN Attending physician on discharge: Azael Mccarthy Anticipated date of discharge: 04/18/18 Brief History from admission: 02/09/18 Patient was seen in ED, however refusing to provide any detail history, therefore the history is obtained through review of chart below; "This is an 82-year-old, -Lithuanian male with history of dementia with behavioral disturbance who presents the ER under a Rodríguez act initiated by law enforcement initiated by law enforcement after the police found the patient trespassing at his neighbor's house. When the police arrived and asked him to leave it is alleged that the patient threatened the police and the neighbor saying that he had a gun in his possession. The patient was brought to the hospital for further evaluation. The patient has been monitored in [facility] and since his arrival he has demonstrated no behavioral concerns, no agitation, no wandering behavior. Electronic medical record is reviewed. Patient has been evaluated in the emergency department for altered mental status in the past. He has been admitted to our inpatient psychiatric unit for behaviors associated with his dementia. His last admission was in February 2018. At that time he was under [facility], was seen at [facility] and was deemed that he did not meet criteria and was released to the care of his son in [place]. Patient is seen. He is asleep but awakens with verbal command. He is alert. Oriented to name only. Unable to tell me that he is in the hospital. Tells me that he is in [place]. When asked where he had been living he states he was living at his friend's Jose's house. The patient does not appear internally preoccupied and he denies that he is hearing any voices. He denies any thoughts of wanting to harm himself or to as well as denying any thoughts about wanting to harm anybody else. 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 He was treated with mood stabilizers including antipsychotics while he was at the hospital including Zyprexa, Lexapro, Namenda. His hypertension was treated with continued use of amlodipine and his hyperlipidemia treated with continued use of pravastatin. Patient is more calm. Awake and alert. Does not follow any commands, minimal verbalization. Patient has met maximal benefits of hospitalization. Clinically stable for discharge. - Time Spent with Patient Total time spent providing and/or coordinating discharge services: Greater than 30 minutes Exam Vital signs: Vital Signs 04/17/18 16:00 04/17/18 20:15 04/18/18 00:30 Temperature 98.5 F 98 F 98.8 F Pulse Rate 62 62 64 Respiratory Rate 15 16 17 Blood Pressure 131/76 125/77 126/69 Pulse Oximetry 95 99 98 04/18/18 03:15 04/18/18 08:06 04/18/18 12:38 Temperature 98.3 F 98.9 F 98.4 F Pulse Rate 65 52 L 55 L Respiratory Rate 18 18 16 Blood Pressure 125/62 133/82 138/88 Pulse Oximetry 99 93 L 97 04/18/18 12:45 Temperature 98.4 F Pulse Rate 55 L Respiratory Rate 18 Blood Pressure 138/88 Pulse Oximetry 96 Intake & Output 04/17/18 04/18/18 04/18/18 18:59 06:59 18:59 Intake Total 2049 Balance 2049 Weight 66 kg Intake: Oral 2049 Other: # Voids 3 Date of Last Bowel Movement 04/12/18 04/17/18 04/17/18 # Bowel Movements 0 Narrative: GENERAL: This is a well-nourished, well-developed patient, in no apparent distress. SKIN: Warm and dry. HEENT: Normocephalic. Nose without bleeding. Airway patent. NECK: Trachea midline. CARDIOVASCULAR: Regular rate and rhythm without murmurs, gallops, or rubs. RESPIRATORY: Clear to auscultation. Breath sounds equal bilaterally. No wheezes , rales, or rhonchi. GASTROINTESTINAL: Abdomen soft, non-tender, nondistended. Bowel Sounds normoactive x4. MUSCULOSKELETAL: Extremities without clubbing, cyanosis, or edema. NEUROLOGICAL: Awake and alert. Moves all extremities. Minimal verbalization. Flat affect. Results Procedures completed during hospitalization: None Discharge Plan - Discharge Disposition Patient Disposition: 03 Discharge to SNF - Discharge Condition Condition: Good - Discharge Order Discharge Orders: Discharge Order (Routine); Ordered 04/18/18 Ordered By: Shoshana Capellan - Physicians Team Primary Care Provider: UNKNOWN, Attending Provider: Azael Mccarthy Other Providers: Wilson Ontiveros MD ; [facility] ; [facility] ; [facility] ; [facility] - Rxs /Orders / Referrals /Forms Prescriptions: New acetaminophen 325 mg Tablet 650 mg PO Q6H PRN (Reason: Pain Scale 1 To 2) RF: 0 Continue amlodipine 5 mg Tablet 5 mg PO DAILY escitalopram oxalate 10 mg Tablet 10 mg PO DAILY memantine [Namenda] 5 mg Tablet 5 mg PO DAILY olanzapine 5 mg Tablet 5 mg PO HS olanzapine 2.5 mg Tablet 2.5 mg PO DAILY pravastatin 10 mg Tablet 10 mg PO DAILY Referrals: UNKNOWN, [Primary Care Provider] - See Instructions (Follow up 3-5 days) - Post Discharge Care Plan Care Plan Goals: Your Health Problems: Goals to Promote Your Health: * To prevent worsening of your condition * To maintain your health at the optimal level Directions to Meet Your Goals: * Take your medications as prescribed * Follow your dietary instruction * Follow activity as directed * Keep your appointments as scheduled * Take your immunizations and boosters as scheduled * If your symptoms worsen call your PCP * If no PCP go to Urgent Care or Emergency Room Smoking is dangerous to your health. Avoid second hand smoke. You may reach the 24-hour crisis hotline for domestic abuse at .
[2018-04-19] MEDS: amLODIPine 5 MG Tablet PO SCH (09:10)
[2018-04-19] MEDS: OLANZapine 2.5 MG Tablet PO SCH (09:10)
[2018-04-19] MEDS: Escitalopram 10 MG Tablet PO SCH (09:10)
--- NOTE | 2018-04-19 09:26 | P.PN ---
Subjective Interval history: Follow-up visit dementia with behavioral disturbance. Patient seen and examined today. Patient is calm. Minimal verbalization. Does not wanting to follow any commands. No acute issues overnight. Physical Exam Vital signs: Vital Signs 04/18/18 12:38 04/18/18 12:45 04/18/18 16:09 Temperature 98.4 F 98.4 F 97.9 F Pulse Rate 55 L 55 L 61 Respiratory Rate 16 18 16 Blood Pressure 138/88 138/88 119/83 Pulse Oximetry 97 96 94 L 04/18/18 20:00 04/19/18 00:00 04/19/18 04:00 Temperature 97.8 F 97.7 F 98 F Pulse Rate 66 63 63 Respiratory Rate 18 18 18 Blood Pressure 116/80 121/69 129/81 Pulse Oximetry 95 94 L 95 04/19/18 09:16 Temperature Pulse Rate 91 H Respiratory Rate 16 Blood Pressure 96/66 L Pulse Oximetry 92 L Intake & Output 04/18/18 04/19/18 04/19/18 18:59 06:59 18:59 Intake Total 625 / 625 Balance 625 / 625 Weight 64.9 kg Intake: Oral 625 / 625 Other: Date of Last Bowel Movement 04/18/18 04/18/18 # Bowel Movements 0 Narrative: GENERAL: This is a well-nourished, well-developed patient, in no apparent distress. SKIN: Warm and dry. HEENT: Normocephalic. Nose without bleeding. Airway patent. NECK: Trachea midline. CARDIOVASCULAR: Regular rate and rhythm without murmurs, gallops, or rubs. RESPIRATORY: Clear to auscultation. Breath sounds equal bilaterally. No wheezes , rales, or rhonchi. GASTROINTESTINAL: Abdomen soft, non-tender, nondistended. Bowel Sounds normoactive x4. MUSCULOSKELETAL: Extremities without clubbing, cyanosis, or edema. NEUROLOGICAL: Awake and alert. Moves all extremities. Minimal verbalization. Flat affect. 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 Dementia with behavioral disturbance -Mood stabilized. Currently calm. -Continue Zyprexa, Lexapro, Namenda -Placement pending. Need court appointed guardian Hypertension, controlled -Continue amlodipine -Monitor BP trend Hyperlipidemia -Continue pravastatin DVT prophylaxis SCDs Code Status: Full Code Discussed Condition With: Patient, nursing Discharge Planning: Difficult placement. CM following.
[2018-04-20] MEDS: Escitalopram 10 MG Tablet PO SCH (08:33)
[2018-04-20] MEDS: amLODIPine 5 MG Tablet PO SCH (08:33)
[2018-04-20] MEDS: OLANZapine 2.5 MG Tablet PO SCH (08:33)
--- NOTE | 2018-04-20 13:46 | P.PNIM ---
Subjective Interval history: The patient was resting in bed comfortably. He had no acute complaints. He did not talk much. Physical Exam Vital signs: Vital Signs 04/19/18 16:00 04/19/18 20:00 04/20/18 00:00 Temperature 98.6 F 97.6 F 97.9 F Pulse Rate 61 60 59 L Respiratory Rate 16 18 18 Blood Pressure 122/73 136/83 125/64 Pulse Oximetry 94 L 94 L 94 L 04/20/18 04:00 04/20/18 08:00 04/20/18 12:00 Temperature 97.9 F 98.0 F 97.7 F Pulse Rate 71 86 43 L Respiratory Rate 18 16 14 Blood Pressure 138/61 134/72 116/64 Pulse Oximetry 94 L 96 95 Intake & Output 04/19/18 04/20/18 04/20/18 18:59 06:59 18:59 Intake Total 625 / 625 Output Total 150 / 150 Balance 475 / 475 Weight 65.3 kg Intake: Oral 625 / 625 Output: Urine 150 / 150 Other: # Voids 4 4 Date of Last Bowel Movement 04/19/18 # Bowel Movements 1 Narrative: GENERAL: This is a well-nourished, well-developed patient, in no apparent distress. SKIN: Warm and dry. HEENT: Normocephalic. Nose without bleeding. Airway patent. NECK: Trachea midline. CARDIOVASCULAR: Regular rate and rhythm without murmurs, gallops, or rubs. RESPIRATORY: Clear to auscultation. Breath sounds equal bilaterally. No wheezes , rales, or rhonchi. GASTROINTESTINAL: Abdomen soft, non-tender, nondistended. Bowel Sounds normoactive x4. MUSCULOSKELETAL: Extremities without clubbing, cyanosis, or edema. NEUROLOGICAL: Awake and alert. Moves all extremities. Minimal verbalization. Flat affect. 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 Dementia with behavioral disturbance -Mood stabilized. Currently calm. -Continue Zyprexa, Lexapro, Namenda -Placement pending. Need court appointed guardian. Case management assistance appreciated. Hypertension, controlled Well controlled at this time. -Continue amlodipine -Monitor BP trend Hyperlipidemia -Continue pravastatin DVT prophylaxis SCDs
[2018-04-21] MEDS: OLANZapine 2.5 MG Tablet PO SCH (10:51)
[2018-04-21] MEDS: Escitalopram 10 MG Tablet PO SCH (10:51)
[2018-04-21] MEDS: amLODIPine 5 MG Tablet PO SCH (10:51)
[2018-04-22] MEDS: OLANZapine 2.5 MG Tablet PO SCH (11:00)
[2018-04-22] MEDS: Escitalopram 10 MG Tablet PO SCH (11:00)
[2018-04-22] MEDS: amLODIPine 5 MG Tablet PO SCH (11:00)
[2018-04-23] MEDS: OLANZapine 2.5 MG Tablet PO SCH (10:49)
[2018-04-23] MEDS: amLODIPine 5 MG Tablet PO SCH (10:49)
[2018-04-23] MEDS: Escitalopram 10 MG Tablet PO SCH (10:49)
[2018-04-24] MEDS: Escitalopram 10 MG Tablet PO SCH (08:00)
[2018-04-24] MEDS: amLODIPine 5 MG Tablet PO SCH (08:00)
[2018-04-24] MEDS: OLANZapine 2.5 MG Tablet PO SCH (08:00)
--- NOTE | 2018-04-25 09:13 | P.PNIM ---
Subjective Interval history: No overnight events, blood pressure self, patient asymptomatic, denies dizziness. Not cooperative. Physical Exam Vital signs: Vital Signs 04/24/18 09:28 04/24/18 13:20 04/24/18 17:06 Temperature 97.9 F 98.9 F 97.8 F Pulse Rate 70 74 58 L Respiratory Rate 16 18 16 Blood Pressure 125/72 108/63 120/65 Pulse Oximetry 94 L 93 L 94 L 04/24/18 20:00 04/25/18 00:00 04/25/18 03:48 Temperature 97.9 F 98.1 F Pulse Rate 64 61 Respiratory Rate 18 Blood Pressure 106/63 124/69 Pulse Oximetry 91 L 92 L 04/25/18 04:00 Temperature 97.4 F L Pulse Rate 55 L Respiratory Rate 16 Blood Pressure 96/62 L Pulse Oximetry 93 L Intake & Output 04/24/18 04/25/18 04/25/18 18:59 06:59 18:59 Weight 69.3 kg Other: # Voids 4 # Bowel Movements 0 Narrative: GENERAL: Not in distress CARDIOVASCULAR: Regular rate and rhythm without murmurs, gallops, or rubs. RESPIRATORY: Clear to auscultation. Breath sounds equal bilaterally. No wheezes , rales, or rhonchi. GASTROINTESTINAL: Abdomen soft, non-tender, nondistended. MUSCULOSKELETAL: Extremities without clubbing, cyanosis, or edema. NEUROLOGICAL: Awake and alert. Moves all extremities. Minimal verbalization. Flat affect. 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 Dementia with behavioral disturbance -Mood stabilized. Currently calm. -Continue Zyprexa, Lexapro, Namenda -Placement pending. Need court appointed guardian. Case management assistance appreciated. Hypertension, controlled Well controlled at this time. -Continue amlodipine -Monitor BP trend Hyperlipidemia -Continue pravastatin DVT prophylaxis SCDs Discharge planning: On alternate level of care, no change in management. Placement pending.
[2018-04-25] MEDS: Escitalopram 10 MG Tablet PO SCH (09:31)
[2018-04-25] MEDS: OLANZapine 2.5 MG Tablet PO SCH (09:31)
[2018-04-25] MEDS: amLODIPine 5 MG Tablet PO SCH (09:31)
[2018-04-26] MEDS: OLANZapine 2.5 MG Tablet PO SCH (08:37)
[2018-04-26] MEDS: Escitalopram 10 MG Tablet PO SCH (08:37)
[2018-04-26] MEDS: amLODIPine 5 MG Tablet PO SCH (08:37)
[2018-04-27] MEDS: amLODIPine 5 MG Tablet PO SCH (08:39)
[2018-04-27] MEDS: Escitalopram 10 MG Tablet PO SCH (08:39)
[2018-04-27] MEDS: OLANZapine 2.5 MG Tablet PO SCH (08:40)
[2018-04-28] MEDS: Escitalopram 10 MG Tablet PO SCH (08:11)
[2018-04-28] MEDS: amLODIPine 5 MG Tablet PO SCH (08:11)
[2018-04-28] MEDS: OLANZapine 2.5 MG Tablet PO SCH (08:11)
[2018-04-29] MEDS: Escitalopram 10 MG Tablet PO SCH (08:19)
[2018-04-29] MEDS: OLANZapine 2.5 MG Tablet PO SCH (08:19)
[2018-04-29] MEDS: amLODIPine 5 MG Tablet PO SCH (08:19)
[2018-04-30] MEDS: amLODIPine 5 MG Tablet PO SCH (08:51)
--- NOTE | 2018-04-30 09:31 | P.PNIM ---
Subjective Interval history: no overnight events, asymptomatic. In auscultation, patient is mildly bradycardic with skipped beats. Physical Exam Vital signs: Vital Signs 04/29/18 11:10 04/29/18 12:00 04/29/18 15:07 Temperature 97.9 F Pulse Rate 16 L Respiratory Rate 12 16 12 Blood Pressure 102/61 Pulse Oximetry 94 L 04/29/18 16:00 04/29/18 20:00 04/30/18 00:00 Temperature 98.5 F 97.7 F 97.9 F Pulse Rate 67 66 70 Respiratory Rate 18 18 Blood Pressure 128/80 129/76 135/73 Pulse Oximetry 98 95 96 04/30/18 00:23 04/30/18 04:00 04/30/18 04:27 Temperature 98.1 F Pulse Rate 60 Respiratory Rate 18 Blood Pressure 130/77 Pulse Oximetry 98 Intake & Output 04/29/18 04/30/18 04/30/18 18:59 06:59 18:59 Weight 65.7 kg Other: # Voids 2 Narrative: GENERAL: Not in distress CARDIOVASCULAR: Regular rate and rhythm without murmurs, gallops, or rubs. With skipped beats, likely PVCs. RESPIRATORY: Clear to auscultation. Breath sounds equal bilaterally. No wheezes , rales, or rhonchi. GASTROINTESTINAL: Abdomen soft, non-tender, nondistended. MUSCULOSKELETAL: Extremities without clubbing, cyanosis, or edema. NEUROLOGICAL: Awake and alert. ? Orientation, moves extremities spontaneously. Very selective when answering questions. Very flat affect. 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 Dementia with behavioral disturbance -Mood stabilized. Currently calm. -Continue Zyprexa, Lexapro, Namenda -Placement pending. Need court appointed guardian. Case management assistance appreciated. Hypertension, controlled -Continue amlodipine Hyperlipidemia -Continue pravastatin ? PVCs - check EKG, asymptomatic, on norvasc, might need to switch to metoprolol. Check BMP, Mg. DVT prophylaxis SCDs Discharge planning: On alternate level of care, no change in management. Placement pending.
[2018-04-30 10:03] LABS: Baso % (Auto) 0.5 % (0.0-2.0); Eos # (Auto) 0.1 th/mm3 (0.0-0.4); Eos % (Auto) 2.1 % (0.0-4.0); Hemoglobin 14.5 gm/dL (13.0-17.0); Lymph # (Auto) 1.6 th/mm3 (1.0-4.8); Mean Corpuscular HGB Conc 33.8 % (32.0-36.0); Mean Corpuscular Hemoglobin 29.4 pg (27.0-34.0); Mean Platelet Volume 9.5 fL (7.0-11.0); Mono # (Auto) 0.6 th/mm3 (0.0-0.9); Mono % (Auto) 10.3 % (0.0-8.0); Neut # (Auto) 3.3 th/mm3 (1.8-7.7); Neut % (Auto) 59.1 % (16.0-70.0); Platelet Count 196 th/mm3 (150-450); Red Blood Count 4.95 mil/mm3 (4.50-5.90); Red Cell Distribution Width 15.3 % (11.6-17.2); White Blood Count 5.7 th/mm3 (4.0-11.0)
[2018-04-30 10:21] LABS: Calcium 8.7 mg/dL (8.5-10.1); Carbon Dioxide 28.1 meq/L (21.0-32.0); Potassium 3.9 meq/L (3.5-5.1)
[2018-04-30] MEDS: Escitalopram 10 MG Tablet PO SCH (10:53)
[2018-04-30] MEDS: OLANZapine 2.5 MG Tablet PO SCH (10:53)
--- NOTE | 2018-04-30 23:14 | MB ---
cc: Juan Lantigua DO DATE: 04/30/2018 REASON FOR CONSULTATION: Arrhythmia, PVCs, concern for AV dissociation. HISTORY OF PRESENT ILLNESS: Luis Antonio Whitaker is a pleasantly demented 82-year-old male who originally presented on 02/09/2018 to [place] emergency room under a Rodríguez Act initiated by law enforcement, after the police found the patient trespassing at his neighbor's house. Apparently, at the time, the patient threatened the police and the neighbor, saying that he had a gun in his possession. He was brought to the hospital for further evaluation. It appears that he has been admitted since that time. He has been waiting for placement. He was noted to have PVCs and so EKG was done, which shows sinus rhythm with, interpolated PVCs. In seeing him, he currently denies all symptoms, but is unable to give any type of history. PAST MEDICAL HISTORY: Per the records: 1. Dementia. 2. Hypertension. 3. Hyperlipidemia. PAST SURGICAL HISTORY: No surgical history noted in the records. ALLERGIES: NO KNOWN DRUG ALLERGIES. MEDICATIONS: Pravastatin 10 mg daily, olanzapine , Namenda 5 mg daily, Lexapro 10 mg daily, Norvasc 5 mg daily. FAMILY HISTORY: No noted family history. SOCIAL HISTORY: Apparently, the patient has a history of heavy alcohol use and does not appear that he a smoker. REVIEW OF SYSTEMS: Fourteen systems were reviewed including osteopathic. Pertinent positives and negatives above, otherwise negative. PHYSICAL EXAMINATION: VITAL SIGNS: Temperature 98.4, heart rate 62, blood pressure 119/68, respirations 16, pulse oximetry 94%. GENERAL: The patient appears well, no acute distress, alert and awake. HEENT: Extraocular muscles intact. Mucous membranes moist. NECK: Supple. No JVD at 45 degrees. No carotid bruits heard bilaterally, carotid upstroke is brisk in nature. HEART: Regular rate and rhythm. Positive first and second heart sounds, with no noted murmurs, gallops or rubs. LUNGS: Clear to auscultation bilaterally. No wheezes, rales or rhonchi. ABDOMEN: Soft, nontender, nondistended. No organomegaly noted. EXTREMITIES: Show no clubbing, cyanosis or edema. Femoral and distal pulses are intact bilaterally. NEUROLOGIC: No focal deficits. SKIN: Warm, dry and intact. OSTEOPATHIC: No kyphoscoliosis, lordosis or paraspinal tender points. LABORATORY DATA: Hemoglobin 14.5, hematocrit 43.0, platelets 196. Potassium 3.9, BUN 21, creatinine 1.0. Troponin less than 0.02. Electrocardiogram (04/30/2018 at 10:35), sinus rhythm, with occasional interpolated PVCs. IMPRESSION: 1. Benign premature ventricular contraction 2. Dementia. 3. Hypertension. 4. Hyperlipidemia. RECOMMENDATIONS: 1. Mr. Whitaker appears to have interpolated PVCs and is asymptomatic from this. 2. This is most likely benign PVCs and occasional trigeminy. 3. Electrolytes have been checked and are within reason. 4. We will check a 2D echo. 5. Overall, he does not appear to be ischemic in nature. 6. If ejection fraction is low, he will need to undergo a Holter monitor to evaluate the number of PVCs and if that is greater than 20%, there is a concern that this may be due to ectopic rhythm causing his cardiomyopathy. Overall, the chances of this seem very slim. 7. If the echo shows a relatively normal ejection fraction, then no further workup is needed at this time. 8. Further recommendations will be made based on the hospital course. Thank you for allowing me to see Luis Antonio Whitaker. If there are any questions, please do not hesitate to call. DO SHANNAN Beltran/LATANYA , 10:29 PM , 11:12 PM
--- NOTE | 2018-04-30 23:26 | ECG ---
Date Performed: 04/30/2018 Time Performed: 10:35:18 PTAGE: 82 years EKG: Sinus rhythm WITH PACs IN BIGEMINAL PATTERN MARKED LEFT AXIS DEVIATION NONSPECIFIC T-WAVE ABNORMALITY ABNORMAL EC G Compared to PREVIOUS TRACING , now with PACs DOCTOR: Juan Lantigua Interpretating Date/Time 04/30/2018 23:24:49
[2018-05-01] MEDS: OLANZapine 2.5 MG Tablet PO SCH (10:01)
[2018-05-01] MEDS: Escitalopram 10 MG Tablet PO SCH (10:01)
[2018-05-01] MEDS: amLODIPine 5 MG Tablet PO SCH ×2 (10:02)
--- NOTE | 2018-05-02 00:31 | P.PNCA ---
Subjective Interval history: Patient seen earlier today, late entry No events overnight Telemetry while on, showing sinus rhythm with PVCs occasionally, some trigeminy Physical Exam Vital signs: Vital Signs 05/01/18 04:00 05/01/18 08:00 05/01/18 12:00 Temperature 98.0 F 98.1 F 98 F Pulse Rate 80 64 54 L Respiratory Rate 16 16 16 Blood Pressure 120/69 124/80 125/79 Pulse Oximetry 95 94 L 95 05/01/18 16:00 Temperature 97.9 F Pulse Rate 54 L Respiratory Rate 16 Blood Pressure 124/77 Pulse Oximetry 95 Intake & Output 05/01/18 05/01/18 05/02/18 06:59 18:59 06:59 Weight 65.7 kg Other: Post Void Residual 210 # Voids 2 Date of Last Bowel Movement 04/30/18 04/30/18 Narrative: GENERAL: NAD, awake SKIN: Warm and dry. HEAD: Atraumatic. Normocephalic. EYES: Pupils equal and round. No scleral icterus. No injection or drainage. ENT: No nasal bleeding or discharge. Mucous membranes pink and moist. NECK: Trachea midline. No JVD. CARDIOVASCULAR: Regular rate and rhythm. RESPIRATORY: No accessory muscle use. Clear to auscultation. Breath sounds equal bilaterally. GASTROINTESTINAL: Abdomen soft, non-tender, nondistended. Hepatic and splenic margins not palpable. MUSCULOSKELETAL: Extremities without clubbing, cyanosis, or edema. No obvious deformities. NEUROLOGICAL: Awake. No obvious cranial nerve deficits. Motor grossly within normal limits. Five out of 5 muscle strength in the arms and legs. Normal speech. 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
[2018-05-02] MEDS: OLANZapine 2.5 MG Tablet PO SCH (09:55)
[2018-05-02] MEDS: Escitalopram 10 MG Tablet PO SCH (09:55)
[2018-05-02] MEDS: amLODIPine 5 MG Tablet PO SCH (09:55)
--- NOTE | 2018-05-02 12:03 | P.PNCA ---
Subjective Interval history: No events overnight Not really responsive Physical Exam Vital signs: Vital Signs 05/01/18 16:00 05/01/18 20:00 05/02/18 00:00 Temperature 97.9 F 97.8 F 97.4 F L Pulse Rate 54 L 65 67 Respiratory Rate 16 18 18 Blood Pressure 124/77 133/73 132/72 Pulse Oximetry 95 94 L 94 L 05/02/18 04:00 05/02/18 08:00 Temperature 97.9 F 97.8 F Pulse Rate 56 L 31 L Respiratory Rate 18 18 Blood Pressure 102/53 L 132/62 Pulse Oximetry 93 L 93 L Intake & Output 05/01/18 05/02/18 05/02/18 18:59 06:59 18:59 Other: Date of Last Bowel Movement 04/30/18 04/30/18 Narrative: GENERAL: NAD, awake SKIN: Warm and dry. HEAD: Atraumatic. Normocephalic. EYES: Pupils equal and round. No scleral icterus. No injection or drainage. ENT: No nasal bleeding or discharge. Mucous membranes pink and moist. NECK: Trachea midline. No JVD. CARDIOVASCULAR: Regular rate and rhythm. RESPIRATORY: No accessory muscle use. Clear to auscultation. Breath sounds equal bilaterally. GASTROINTESTINAL: Abdomen soft, non-tender, nondistended. Hepatic and splenic margins not palpable. MUSCULOSKELETAL: Extremities without clubbing, cyanosis, or edema. No obvious deformities. NEUROLOGICAL: Awake. No obvious cranial nerve deficits. Motor grossly within normal limits. Five out of 5 muscle strength in the arms and legs. Normal speech. 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 Roblero available PRN Call with questions
--- NOTE | 2018-05-02 12:13 | P.PN ---
Subjective Interval history: patient awake, rstling comfortably good po clear speech affect blunt refused telemetry Physical Exam Vital signs: Vital Signs 05/01/18 16:00 05/01/18 20:00 05/02/18 00:00 Temperature 97.9 F 97.8 F 97.4 F L Pulse Rate 54 L 65 67 Respiratory Rate 16 18 18 Blood Pressure 124/77 133/73 132/72 Pulse Oximetry 95 94 L 94 L 05/02/18 04:00 05/02/18 08:00 Temperature 97.9 F 97.8 F Pulse Rate 56 L 31 L Respiratory Rate 18 18 Blood Pressure 102/53 L 132/62 Pulse Oximetry 93 L 93 L Intake & Output 05/01/18 05/02/18 05/02/18 18:59 06:59 18:59 Other: Date of Last Bowel Movement 04/30/18 04/30/18 Narrative: awake and alert, speech soft, but raul, blunt affect anicteric lungs- no rales regular rhythm, occasioinal skip beats abdomen soft, nontedner extrmities no edema Results - Labs CBC & Chem 7: 04/30/18 09:34 04/30/18 09:34 - Procedures None Assessment and Plan - Assessment (1) 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 Dementia with behavioral disturbance -Mood stabilized. Currently calm. -Continue Zyprexa, Lexapro, Namenda -Placement pending. Need court appointed guardian. Case management assistance appreciated. Hypertension, controlled -Continue amlodipine Hyperlipidemia -Continue pravastatin ? PVCs - check EKG, asymptomatic, on norvasc, might need to switch to metoprolol. electrolytes good - cardiology ff- echo ordered- pending DVT prophylaxis SCDs Discharge planning: On alternate level of care, no change in management. Placement pending.
--- NOTE | 2018-05-02 16:47 | ECHRPT ---
Indication: CORONARY ATHEROSCLEROSIS CONCLUSIONS Normal left ventricular size. Mild concentric left ventricular hypertrophy. The left ventricular systolic function is normal with an estimated ejection fraction in the range of 55-60%. Mitral annular calcification is present. There is trace tricuspid valve regurgitation. BP: / HR: Rhythm: MEASUREMENTS (Male / Female) Normal Values Technical Quality: 2D ECHO LV Diastolic Diameter PLAX 4.3 cm 4.2 - 5.9 / 3.9 - 5.3 cm LV Systolic Diameter PLAX 3.3 cm IVS Diastolic Thickness 1.1 cm 0.6 - 1.0 / 0.6 - 0.9 cm LVPW Diastolic Thickness 0.6 cm 0.6 - 1.0 / 0.6 - 0.9 cm LV Relative Wall Thickness 0.4 LA Systolic Diameter LX 3.8 cm 3.0 - 4.0 / 2.7 - 3.8 cm M-MODE Aortic Root Diameter MM 3.0 cm AV Cusp Separation MM 2.1 cm DOPPLER TR Peak Velocity 231.0 cm/s TR Peak Gradient 21.3 mmHg FINDINGS LEFT VENTRICLE Normal left ventricular size. Mild concentric left ventricular hypertrophy. The left ventricular systolic function is normal with an estimated ejection fraction in the range of 55-60%. MITRAL VALVE Mitral annular calcification is present. TRICUSPID VALVE There is trace tricuspid valve regurgitation. Iona Lindsey MD, FACC (Electronically Signed) Final Date:02 May 2018 16:45
--- NOTE | 2018-05-02 17:05 | ECHRPT ---
Indication: CONCLUSIONS Normal left ventricular size. Mild concentric left ventricular hypertrophy. The left ventricular systolic function is normal with an estimated ejection fraction in the range of 55-60%. Mitral annular calcification is present. Aortic valve sclerosis is present. The estimated pulmonary arterial pressure is 32 mmHg. BP: / HR: Rhythm: MEASUREMENTS (Male / Female) Normal Values Technical Quality: 2D ECHO RV Internal Dim ED PLAX 1.8 cm DOPPLER Mitral E Point Velocity 48.9 cm/s Mitral A Point Velocity 102.0 cm/s Mitral E to A Ratio 0.5 TR Peak Velocity 235.0 cm/s TR Peak Gradient 22.1 mmHg Right Atrial Pressure 10.0 mmHg Pulmonary Artery Systolic Pressu 32.1 mmHg Right Ventricular Systolic Press 32.1 mmHg FINDINGS LEFT VENTRICLE Normal left ventricular size. Mild concentric left ventricular hypertrophy. The left ventricular systolic function is normal with an estimated ejection fraction in the range of 55-60%. RIGHT VENTRICLE Normal right ventricular size and systolic function. LEFT ATRIUM The left atrial size is normal. RIGHT ATRIUM The right atrial size is normal. ATRIAL SEPTUM Normal atrial septal thickness without atrial level shunting by limited color doppler interrogation. AORTA The aortic root and proximal ascending aorta are normal in size on limited imaging. MITRAL VALVE Mitral annular calcification is present. AORTIC VALVE Aortic valve sclerosis is present. TRICUSPID VALVE The estimated pulmonary arterial pressure is 32mmHg. PULMONARY VALVE No pulmonary valve regurgitation or stenosis. VESSELS The inferior vena cava is normal in size. PERICARDIUM No pericardial effusion. Iona Lindsey MD, FACC (Electronically Signed) Final Date:02 May 2018 17:04
[2018-05-03] MEDS: amLODIPine 5 MG Tablet PO SCH (09:05)
[2018-05-03] MEDS: Escitalopram 10 MG Tablet PO SCH (09:05)
[2018-05-03] MEDS: OLANZapine 2.5 MG Tablet PO SCH (09:05)
[2018-05-03 09:24] VITALS: RESP 20; O2SAT 95
--- NOTE | 2018-05-03 10:16 | P.PN ---
Subjective Interval history: awake and alert , no cute distress "I'm fine" Physical Exam Vital signs: Vital Signs 05/02/18 12:00 05/02/18 16:00 05/02/18 21:53 Temperature 97.7 F 97.6 F 97.4 F L Pulse Rate 64 70 68 Respiratory Rate 18 18 Blood Pressure 107/72 118/78 114/72 Pulse Oximetry 93 L 93 L 18 L 05/03/18 00:00 05/03/18 04:00 05/03/18 08:00 Temperature 98 F 98.1 F 97.3 F L Pulse Rate 52 L 56 L 61 Respiratory Rate 18 18 20 Blood Pressure 90/65 L 133/65 Pulse Oximetry 92 L 92 L 95 Intake & Output 05/02/18 05/03/18 05/03/18 18:59 06:59 18:59 Weight 65.3 kg Narrative: awake and alert, speech soft, but clear, blunt affect anicteric lungs- no rales regular rhythm, occasional skip beat abdomen soft, nontender extremities no edema moves all extremities spotnaenously Results - Labs CBC & Chem 7: 04/30/18 09:34 04/30/18 09:34 - Procedures None Assessment and Plan - Assessment (1) 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 Dementia with behavioral disturbance -Mood stabilized. Currently calm. -Continue Zyprexa, Lexapro, Namenda -Placement pending. Need court appointed guardian. Case management assistance appreciated. Hypertension, controlled -Continue amlodipine Hyperlipidemia -Continue pravastatin sinus arrhythmia - - good electrolytes HTN - cardiology ff- echo unremarkable - continue on amloidpine daily DVT prophylaxis SCDs Discharge planning: On alternate level of care, no change in management. accepted at [facility]
[2018-05-03 13:02] VITALS: BP 126/82; PULSE 63; TEMP 97.2
== END 2018-05-03 14:20 ==
LOC: N05 18:12
PROVIDERS: ADMIT Internal Medicine; ATTEND Internal Medicine